=== PATIENT | female | born 1980 | race African-American/Black ===

== ENCOUNTER 2017-02-06 11:10 | Emergency (ER) | payer MEDICARE, MEDICAID ==
--- NOTE | 2017-02-06 13:48 | ER Document Report ---
ED Skin Rash/Insect Bite/Abscs - General Mode of Arrival: Ambulatory Information source: Patient TRAVEL OUTSIDE OF THE [place] IN LAST 30 DAYS: No <GEOVANNY COSTELLO - Last Filed: 02/06/17 15:31> <WESLY NUGENT - Last Filed: 02/16/17 11:09> - General Chief Complaint: Abscess Stated Complaint: POSSIBLE ABSCESS Time Seen by Provider: 02/06/17 13:41 Notes: Patient is a 36-year-old female who presents to the emergency department today with complaints of a possible abscess in her right groin area. Patient was seen 3 days ago at [facility] and was started on IV antibiotics and told to come back if this did not clear up. Patient states that this area has since opened and is draining. Patient states she was started on Bactrim by [facility]. Patient states she decided to come in today because she "rode into work with her mother". Patient states she is "hot and cold" but has not taken her temperature. (GEOVANNY COSTELLO) - Related Data Allergies/Adverse Reactions: No Known Allergies Allergy (Verified 02/06/17 11:19) Past Medical History - General Information source: Patient, [facility] Records - Social History Smoking Status: Never Smoker Cigarette use (# per day): No Frequency of alcohol use: None Drug Abuse: None Lives with: Family Family History: Reviewed & Not Pertinent Patient has suicidal ideation: No Patient has homicidal ideation: No - Past Medical History Cardiac Medical History: Reports: Hx Congestive Heart Failure, Hx Coronary Artery Disease, Hx Heart Attack, Hx Hypercholesterolemia, Hx Hypertension Pulmonary Medical History: Reports: Hx COPD Neurological Medical History: Reports: Hx Migraine Endocrine Medical History: Reports: Hx Diabetes Mellitus Type 2 - IDDM Renal/ Medical History: Reports: Hx Kidney Stones Musculoskeltal Medical History: Reports Hx Arthritis Psychiatric Medical History: Reports: Hx Bipolar Disorder, Hx Depression Past Surgical History: Reports: Hx Cardiac Catheterization, Hx Cardiac Surgery - stent placement, Hx Section - x2, Hx Cholecystectomy, Hx Coronary Stent, Hx Oral Surgery. Denies: Hx Pacemaker - Immunizations Immunizations up to date: Yes Hx Diphtheria, Pertussis, Tetanus Vaccination: Yes Hx Pneumococcal Vaccination: 09/21/10 <GEOVANNY COSTELLO - Last Filed: 02/06/17 15:31> Review of Systems - Review of Systems Constitutional: No symptoms reported EENT: No symptoms reported Cardiovascular: No symptoms reported Respiratory: No symptoms reported Gastrointestinal: No symptoms reported Genitourinary: No symptoms reported Female Genitourinary: No symptoms reported Musculoskeletal: No symptoms reported Skin: See HPI, Other - "Abscess" in right groin Hematologic/Lymphatic: No symptoms reported Neurological/Psychological: No symptoms reported -: Yes All other systems reviewed and negative <TRANGGEOVANNY - Last Filed: 02/06/17 15:31> Physical Exam <TRANGGEOVANNY - Last Filed: 02/06/17 15:31> <WESLY NUGENT - Last Filed: 02/16/17 11:09> - Vital signs Vitals: Temp Pulse Resp BP Pulse Ox 98.5 F 101 H 18 206/107 H 93 02/06/17 11:19 02/06/17 11:19 02/06/17 11:19 02/06/17 11:19 02/06/17 11:19 - Notes Notes: Physical Exam: General: Alert, appears well. HEENT: Normocephalic. Atraumatic. PERRLA. Extraocular movements intact. Oropharynx clear. Neck: Supple. Respiratory: No respiratory distress. Abdominal: Obese. Extremities: Moves all four extremities. Neurological: Normal cognition. AAOx4. Normal speech. Psychological: Normal affect. Normal Mood. Skin: Opening with purulent drainage to right inguinal area. No induration or surrounding erythema. No evidence of cellulitis, abscess formation, or necrotizing fasciitis. (TRANGGEOVANNY) Course <TRANGGEOVANNY - Last Filed: 02/06/17 15:31> - Laboratory Result Diagrams: 02/06/17 15:25 02/06/17 15:25 <WESLY NUGENT - Last Filed: 02/16/17 11:09> - Re-evaluation Re-evalutation: 02/06/17 13:50 As the emergency department recheck abscess in her inner thigh. She states she was seen and evaluated [place] [facility] is where she lives closer to on a at that time they told her that it was actively draining which it is still doing. They put her on antibiotics which she has been taking. She says she sees Dr. Mcgarry but that she was gone for 6 months and she is back now she says all of her refills on her medications and come from Dr. Mcgarry. He has not seen her in the last 6 or 7 months. Blood pressure is elevated here she reports being on multiple blood pressure medications. Patient she is well-appearing nontoxic in no acute distress afebrile heart rate and rhythm is regular without murmur gallop rub on palpation bilateral wheezes rhonchi right inner thigh she has an open area which is slightly draining but no superficial surrounding cellulitis crepitus necrosis or cellulitis there is no abscess formation is open and draining currently. Good pulses and perfusion. We will have him give her a shot of clindamycin due to basic laboratory evaluation on her and have her follow-up with Dr. Mcgarry on Thursday. Her dose of clonidine here for her blood pressure 02/06/17 18:00 I personally performed the services described in the documentation, reviewed and edited the documentation which was dictated to my scribe in my presence, and accurately records my words and actions. Patient well-appearing nontoxic mildly elevated CBC no active cellulitis crepitus necrosis or concerns for necrotizing fasciitis she is on Bactrim which is appropriate she will follow-up with her primary care physician on Thursday and discussed reasons for ED return sooner 02/06/17 18:07 Patient with elevated blood pressure takes 5 or 6 different blood pressure medications not sure whether she is compliant on them are not no emergent strokelike symptoms end organ damage or need to emergently intervene with that other than clonidine. She is in a follow-up with Dr. Mcgarry on Thursday and discussed reasons for ED return sooner. In addition to that she is asking for additional pain medication she was just seen and given pain medication and outlying emergency facility for the abscess the other day and she needs to get any additional medications for her primary care physician. (WESLY NUGENT) - Vital Signs Vital signs: Temp Pulse Resp BP Pulse Ox 98.5 F 97 20 177/121 H 99 02/06/17 11:19 02/06/17 18:00 02/06/17 18:00 02/06/17 18:00 02/06/17 18:00 - Laboratory Laboratory results interpreted by me: 02/06/17 02/06/17 15:25 15:25 WBC 13.9 H RBC 5.42 H Hgb 9.6 L Hct 31.1 L MCV 57 L MCH 17.8 L MCHC 31.0 L RDW 20.0 H Plt Count 146 L Absolute Neutrophils 10.2 H Sodium 135.9 L Carbon Dioxide 20 L Glucose 290 H Calcium 10.5 H Discharge <GEOVANNY COSTELLO - Last Filed: 02/06/17 15:31> <WESLY NUGENT - Last Filed: 02/16/17 11:09> - Discharge Clinical Impression: recheck abscess Condition: Stable Disposition: HOME, SELF-CARE Additional Instructions: Abscess You have an abscess (boil). This a pus-forming infection, usually due to staph. Some boils may be left to drain on their own, but most require lancing. From the time the tender lump first appears, it may be three or four days before the abscess is ready to dario. Local heat and rest help at this stage of treatment. An antibiotic may prevent spread of the infection. Once the abscess is opened, packing may be placed into it. This is done so pus is not sealed inside by premature closure of the cavity. The packing will be removed at your follow-up visit or you may be advised to remove it yourself at home. Sometimes this packing must be replaced a few times during healing. The wound will heal with surprisingly little scar. Depending on the size and location of an abscess, healing can take one to four weeks. You may shower and wash the area around the incision site two or three times a day. Antibiotics may be prescribed, but are usually not necessary after an abscess has been drained. If you develop fever, chilling, worsening pain, or increasing swelling in the area, call the doctor or return immediately. continue antibiotics as prescribed Follow-up with a primary care physician on Thursday return for increased worsening or new sent Scribe Attestation: 02/06/17 13:5 I personally performed the services described in the documentation, reviewed and edited the documentation which was dictated to my scribe in my presence, and it accurately records my words and actions. (WESLY NUGENT) Scribe Documentation - Scribe Written by Mandeep:: Mandeep Cunningham, 02/06/17 [id number] acting as scribe for :: Ephraim <GEOVANNY COSTELLO - Last Filed: 02/06/17 15:31>
[2017-02-06] MEDS ORDERED: CLINDAMYCIN PHOSPHATE INJ 300 MG/2 ML SDV IM ONE (13:49)
[2017-02-06] MEDS ORDERED: CLONIDINE HCL 0.1 MG TABLET PO ONE (13:55)
[2017-02-06 16:14] LABS: ABSOLUTE BASOPHILS # (AUTO) 0.1 10^3/uL (0.0-0.2); ABSOLUTE EOSINOPHILS # (AUTO) 0.2 10^3/uL (0.0-0.6); ABSOLUTE LYMPHOCYTES (AUTO) 2.3 10^3/uL (0.5-4.7); ABSOLUTE MONOCYTES (AUTO) 1.2 10^3/uL (0.1-1.4); ABSOLUTE NEUT (AUTO) 10.2 10^3/uL (1.7-8.2); BASOPHILS % (AUTO) 0.7 % (0-2); EOSINOPHILS % (AUTO) 1.4 % (0-6); HEMATOCRIT 31.1 % (36.0-47.0); HEMOGLOBIN 9.6 g/dL (12.0-15.5); HGB HCT DIFFERENCE -2.3; LYMPHOCYTES % (AUTO) 16.5 % (13-45); MEAN CORPUSCULAR HEMOGLOBIN 17.8 pg (27.0-33.4); MEAN CORPUSCULAR VOLUME 57 fl (80-97); MONOCYTES % (AUTO) 8.5 % (3-13); RED BLOOD COUNT 5.42 10^6/uL (3.72-5.28); SEGMENTED NEUTROPHILS % (AUTO) 72.9 % (42-78); WHITE BLOOD COUNT 13.9 10^3/uL (4.0-10.5)
[2017-02-06 16:17] LABS: ANION GAP 12 (5-19); BLOOD UREA NITROGEN 19 mg/dL (7-20); CALCIUM 10.5 mg/dL (8.4-10.2); CARBON DIOXIDE 20 mmol/L (22-30); CHLORIDE 104 mmol/L (98-107); CREATININE RESULT 1.04 mg/dL (0.52-1.25); GLUCOSE 290 mg/dL (75-110); POTASSIUM 4.5 mmol/L (3.6-5.0); SODIUM 135.9 mmol/L (137-145)
[2017-02-06 16:48] LABS: ANISOCYTOSIS 2+; HYPOCHROMASIA 2+; MICROCYTOSIS 3+; POIKILOCYTOSIS 1+; POLYCHROMASIA SLIGHT; TOXIC GRANULATION SLIGHT
[2017-02-06 16:49] LABS: TARGET CELLS 1+
[2017-02-06 20:04] VITALS: BP 177/121
== END 2017-02-06 18:05 | disposition home or self-care (01) ==
LOC: ER 11:10
DX: L02.214 Cutaneous abscess of groin (principal)
CPT/HCPCS: 99283; 96372; 36415; 85025; 80048; A9270

== ENCOUNTER 2017-05-06 18:12 | Emergency (ER) | payer MEDICARE, MEDICAID ==
--- NOTE | 2017-05-06 18:59 | ER Document Report ---
ED Medical Screen (RME) - General Chief Complaint: Shortness Of Breath Stated Complaint: HEADACHE,BODY ACHES Time Seen by Provider: 05/06/17 18:55 Mode of Arrival: Ambulatory Information source: Patient TRAVEL OUTSIDE OF THE [place] IN LAST 30 DAYS: No - HPI Patient complains to provider of: Abdominal pain with nausea and vomiting Onset: Yesterday Notes: 05/06/17 18:58 Patient is a 36-year-old female who presents to the emergency room complaining of 2 day history of upper abdominal pain with nausea and vomiting which is consistent with pancreatitis that patient has had in the past, which is related to alcohol abuse - Related Data Allergies/Adverse Reactions: No Known Allergies Allergy (Verified 05/06/17 18:17) Past Medical History - Past Medical History Cardiac Medical History: Reports: Hx Congestive Heart Failure, Hx Coronary Artery Disease, Hx Heart Attack, Hx Hypercholesterolemia, Hx Hypertension Pulmonary Medical History: Reports: Hx COPD Denies: Hx Tuberculosis Neurological Medical History: Reports: Hx Migraine. Denies: Hx Seizures Endocrine Medical History: Reports: Hx Diabetes Mellitus Type 1, Hx Diabetes Mellitus Type 2 - IDDM Renal/ Medical History: Reports: Hx Kidney Stones. Denies: Hx Peritoneal Dialysis Musculoskeltal Medical History: Reports Hx Arthritis Psychiatric Medical History: Reports: Hx Bipolar Disorder, Hx Depression Past Surgical History: Reports: Hx Cardiac Catheterization, Hx Cardiac Surgery - stent placement, Hx Section - x2, Hx Cholecystectomy, Hx Coronary Stent, Hx Oral Surgery. Denies: Hx Pacemaker - Immunizations Immunizations up to date: Yes Hx Diphtheria, Pertussis, Tetanus Vaccination: Yes Physical Exam - Vital signs Vitals: Temp Pulse Resp BP Pulse Ox 98.8 F 75 18 183/106 H 94 05/06/17 18:15 05/06/17 18:15 05/06/17 18:15 05/06/17 18:15 05/06/17 18:15 Course - Vital Signs Vital signs: Temp Pulse Resp BP Pulse Ox 98.8 F 75 18 183/106 H 94 05/06/17 18:15 05/06/17 18:15 05/06/17 18:15 05/06/17 18:15 05/06/17 18:15
[2017-05-06] MEDS ORDERED: ALBUTEROL SULFATE 0.083% NEB 2.5 MG/3 ML AMPUL NEB ONE (19:09)
--- NOTE | 2017-05-06 19:10 | ER Document Report ---
ED Medical Screen (RME) - General Chief Complaint: Shortness Of Breath Stated Complaint: HEADACHE,BODY ACHES Time Seen by Provider: 05/06/17 18:55 Mode of Arrival: Ambulatory Information source: Patient TRAVEL OUTSIDE OF THE [place] IN LAST 30 DAYS: No - HPI Patient complains to provider of: Cough, shortness of breath, chest pain Onset: Other - 2 weeks Notes: 05/06/17 19:09 Patient is a 36-year-old female who presents to the emergency room complaining of 2 week history of nonproductive cough with shortness of breath and chest pain , was seen by her primary care provider last Thursday and started on Breo which is not providing her any relief of symptoms, she is a smoker but reports she has not smoked since her illness started 2 weeks ago - Related Data Allergies/Adverse Reactions: No Known Allergies Allergy (Verified 05/06/17 18:17) Past Medical History - Past Medical History Cardiac Medical History: Reports: Hx Congestive Heart Failure, Hx Coronary Artery Disease, Hx Heart Attack, Hx Hypercholesterolemia, Hx Hypertension Pulmonary Medical History: Reports: Hx COPD Denies: Hx Tuberculosis Neurological Medical History: Reports: Hx Migraine. Denies: Hx Seizures Endocrine Medical History: Reports: Hx Diabetes Mellitus Type 1, Hx Diabetes Mellitus Type 2 - IDDM Renal/ Medical History: Reports: Hx Kidney Stones. Denies: Hx Peritoneal Dialysis Musculoskeltal Medical History: Reports Hx Arthritis Psychiatric Medical History: Reports: Hx Bipolar Disorder, Hx Depression Past Surgical History: Reports: Hx Cardiac Catheterization, Hx Cardiac Surgery - stent placement, Hx Section - x2, Hx Cholecystectomy, Hx Coronary Stent, Hx Oral Surgery. Denies: Hx Pacemaker - Immunizations Immunizations up to date: Yes Hx Diphtheria, Pertussis, Tetanus Vaccination: Yes Physical Exam - Vital signs Vitals: Temp Pulse Resp BP Pulse Ox 98.8 F 75 18 183/106 H 94 05/06/17 18:15 05/06/17 18:15 05/06/17 18:15 05/06/17 18:15 05/06/17 18:15 Course - Vital Signs Vital signs: Temp Pulse Resp BP Pulse Ox 98.8 F 75 18 183/106 H 94 05/06/17 18:15 05/06/17 18:15 05/06/17 18:15 05/06/17 18:15 05/06/17 18:15
[2017-05-06] MEDS ORDERED: DIPHENHYDRAMINE HCL 50 MG/ML VIAL IM ONE (21:52)
[2017-05-06] MEDS ORDERED: PROCHLORPERAZINE EDISYLATE INJ 10 MG/2 ML VIAL IM ONE (21:52)
[2017-05-06] MEDS ORDERED: KETOROLAC TROMETHAMINE 60 MG/2 ML SDV IM ONE (21:52)
--- NOTE | 2017-05-06 21:52 | ER Document Report ---
ED Respiratory Problem - General Mode of Arrival: Ambulatory Information source: Patient TRAVEL OUTSIDE OF THE [place] IN LAST 30 DAYS: No <GEOVANNY COSTELLO - Last Filed: 05/07/17 02:05> - HPI Onset: Last week <TOMMY DHALIWAL - Last Filed: 05/07/17 04:00> - General Chief Complaint: Shortness Of Breath Stated Complaint: HEADACHE,BODY ACHES Time Seen by Provider: 05/06/17 18:55 Notes: Patient is a 36-year-old female who presents to the emergency department today with complaints of multiple complaints including cough, fevers, back pain, chets pain, migraine headache, and generalized body aches. Patient was started on an inhaler and nasal spray on . Patient also saw another doctor who prescribed amoxicillin and a z-benjamin. Patient denies a history of asthma. (GEOVANNY COSTELLO) - Related Data Allergies/Adverse Reactions: No Known Allergies Allergy (Verified 05/06/17 18:17) Past Medical History - General Information source: Patient - Social History Smoking Status: Current Every Day Smoker Cigarette use (# per day): Yes Chew tobacco use (# tins/day): No Frequency of alcohol use: None Drug Abuse: None Lives with: Family Family History: Reviewed & Not Pertinent - Past Medical History Cardiac Medical History: Reports: Hx Congestive Heart Failure, Hx Coronary Artery Disease, Hx Heart Attack, Hx Hypercholesterolemia, Hx Hypertension Pulmonary Medical History: Reports: Hx COPD Neurological Medical History: Reports: Hx Migraine Endocrine Medical History: Reports: Hx Diabetes Mellitus Type 1, Hx Diabetes Mellitus Type 2 - IDDM Renal/ Medical History: Reports: Hx Kidney Stones Musculoskeltal Medical History: Reports Hx Arthritis Psychiatric Medical History: Reports: Hx Bipolar Disorder, Hx Depression Past Surgical History: Reports: Hx Cardiac Catheterization, Hx Cardiac Surgery - stent placement, Hx Section - x2, Hx Cholecystectomy, Hx Coronary Stent, Hx Oral Surgery - Immunizations Immunizations up to date: Yes Hx Diphtheria, Pertussis, Tetanus Vaccination: Yes Hx Pneumococcal Vaccination: 09/21/10 <GEOVANNY COSTELLO - Last Filed: 05/07/17 02:05> Review of Systems - Review of Systems Constitutional: See HPI, Fever EENT: No symptoms reported Cardiovascular: No symptoms reported Respiratory: See HPI, Cough Gastrointestinal: No symptoms reported Genitourinary: No symptoms reported Female Genitourinary: No symptoms reported Musculoskeletal: See HPI, Other - generalized body aches Skin: No symptoms reported Hematologic/Lymphatic: No symptoms reported Neurological/Psychological: No symptoms reported -: Yes All other systems reviewed and negative <GEOVANNY COSTELLO - Last Filed: 05/07/17 02:05> Physical Exam <GEOVANNY COSTELLO - Last Filed: 05/07/17 02:05> <TOMMY DHALIWAL - Last Filed: 05/07/17 04:00> - Vital signs Vitals: Temp Pulse Resp BP Pulse Ox 98.8 F 75 18 183/106 H 94 05/06/17 18:15 05/06/17 18:15 05/06/17 18:15 05/06/17 18:15 05/06/17 18:15 - Notes Notes: PHYSICAL EXAM GENERAL: Alert, interacts well. No acute distress. HEAD: Normocephalic, atraumatic. EYES: Pupils equal, round, and reactive to light. Extraocular movements intact. ENT: Oral mucosa moist, tongue midline. Cobblestoning. Left turbinate edema with clear rhinorrhea. TMs are clear bilaterally. NECK: Full range of motion. Supple. Trachea midline. LUNGS: Good air movement, clear to auscultation bilaterally, no wheezes, rales, or rhonchi. No respiratory distress. HEART: Regular rate and rhythm. No murmurs, gallops, or rubs. ABDOMEN: Obese. Soft, non-tender. Non-distended. Bowel sounds present in all 4 quadrants. EXTREMITIES: Moves all 4 extremities spontaneously. No edema, radial and dorsalis pedis pulses 2/4 bilaterally. No cyanosis. NEUROLOGICAL: Alert and oriented x3. Normal speech. PSYCH: Normal affect, normal mood. SKIN: Warm, dry, normal turgor. No rashes or lesions noted. (GEOVANNY COSTELLO) Course <GEOVANNY COSTELLO - Last Filed: 05/07/17 02:05> <TOMMY DHALIWAL - Last Filed: 05/07/17 04:00> - Re-evaluation Re-evalutation: 05/06/17 22:01 Chest x-ray shows no acute process as per my interpretation. Radiology reading is not available at this point. Patient symptoms consistent with acute bronchitis, already taking inhaled steroids, inhaled albuterol, amoxicillin as well as azithromycin, there is no further treatment that I can add for her acute bronchitis as she already has a prescription for prednisone but is not taking it due to her diabetes. Patient is not hypoxic, does not meet admission criteria. Patient's migraine will be treated with Toradol, Compazine, Benadryl. No evidence of meningitis. EKG is nonischemic, symptoms are not consistent with acute coronary syndrome, no indication for blood work at this time. Requested blood work will be canceled. Patient will be discharged home. (TOMMY DHALIWAL) - Vital Signs Vital signs: Temp Pulse Resp BP Pulse Ox 98.4 F 67 14 179/109 H 95 05/06/17 22:22 05/06/17 22:22 05/06/17 22:22 05/06/17 22:22 05/06/17 21:38 Discharge <GEOVANNY COSTELLO - Last Filed: 05/07/17 02:05> <TOMMY DHALIWAL - Last Filed: 05/07/17 04:00> - Discharge Clinical Impression: Tobacco abuse, Tobacco abuse counseling, Diabetes mellitus type 2 in obese Migraine headache Qualifiers: Migraine type: without aura Status migrainosus presence: with status migrainosus Intractability: intractable Qualified Code(s): G43.011 - Migraine without aura, intractable, with status migrainosus Acute bronchitis Qualifiers: Bronchitis organism: unspecified organism Qualified Code(s): J20.9 - Acute bronchitis, unspecified Hypertension Qualifiers: Hypertension type: essential hypertension Qualified Code(s): I10 - Essential ( primary) hypertension Condition: Stable Disposition: HOME, SELF-CARE Additional Instructions: Drink plenty fluids, continue taking her medications as prescribed. Return for worsening chest pain, worsening difficulty breathing or any new or concerning symptoms. Use the Tessalon Perles for suppression of your cough. Prescriptions: Benzonatate [Tessalon Perles 100 mg Capsule] 100 mg PO Q8HP PRN #40 capsule PRN Reason: Forms: Smoking Cessation Education, Elevated Blood Pressure Referrals: DORIE LUGO MD [Primary Care Provider] - Follow up in 3-5 days Scribe Attestation: 05/07/17 04:00 I personally performed the services described in the documentation, reviewed and edited the documentation which was dictated to the scribe in my presence, and it accurately records my words and actions. (TOMMY DHALIWAL) Scribe Documentation - Scribe Written by Mandeep:: Mandeep Cunningham, 05/07/2017 [id number] acting as scribe for :: Reuben <GEOVANNY COSTELLO - Last Filed: 05/07/17 02:05>
[2017-05-06 22:49] VITALS: BP 179/109
--- NOTE | 2017-05-07 08:12 | EKG REPORT ---
SEVERITY:- NORMAL ECG - SINUS RHYTHM : Confirmed by: Min Michel MD 07-May-2017 08:11:43
--- NOTE | 2017-05-08 14:03 | RADIOLOGY REPORT (SQ) ---
EXAM DESCRIPTION: CHEST SINGLE VIEW COMPLETED DATE/TIME: 05/06/2017 8:21 pm REASON FOR STUDY: sob COMPARISON: 01/02/2016 EXAM PARAMETERS: NUMBER OF VIEWS: One view. TECHNIQUE: Single frontal radiographic view of the chest acquired. RADIATION DOSE: NA LIMITATIONS: None. FINDINGS: LUNGS AND PLEURA: No opacities, masses or pneumothorax. No pleural effusion. MEDIASTINUM AND HILAR STRUCTURES: No masses. Contour normal. HEART AND VASCULAR STRUCTURES: Heart normal in size. Normal vasculature. BONES: No acute findings. HARDWARE: None in the chest. OTHER: No other significant finding. IMPRESSION: NO ACUTE RADIOGRAPHIC FINDING IN THE CHEST. TECHNICAL DOCUMENTATION: JOB ID: [id number]
== END 2017-05-06 22:49 | disposition home or self-care (01) ==
LOC: ER 18:12
DX: J44.0 Chronic obstructive pulmonary disease with (acute) lower respiratory infection (principal); J20.9 Acute bronchitis, unspecified; G43.011 Migraine without aura, intractable, with status migrainosus; I10 Essential (primary) hypertension; E11.9 Type 2 diabetes mellitus without complications; R05 Cough; J34.89 Other specified disorders of nose and nasal sinuses; R50.9 Fever, unspecified; R07.9 Chest pain, unspecified; M54.9 Dorsalgia, unspecified; I25.10 Atherosclerotic heart disease of native coronary artery without angina pectoris; I25.2 Old myocardial infarction; F17.210 Nicotine dependence, cigarettes, uncomplicated; Z71.6 Tobacco abuse counseling; Z98.61 Coronary angioplasty status
CPT/HCPCS: 93005; 99284; 96372; 71010; 93010; J1200; J1885; J0780; A9270

== ENCOUNTER 2018-01-19 03:30 | Emergency (ER) | payer MEDICARE, MEDICAID ==
[2018-01-19 03:41] VITALS: BP 159/107
[2018-01-19] MEDS ORDERED: HYDRALAZINE HCL INJ/PF 20 MG/1 ML SDV IV ONE (03:57)
[2018-01-19] MEDS ORDERED: HYDROMORPHONE HCL INJ/PF 2 MG/ML AMPULE IV ONE (03:57)
--- NOTE | 2018-01-19 04:05 | ER Document Report ---
ED General - General Chief Complaint: Nose Bleed Stated Complaint: NOSE BLEED Time Seen by Provider: 01/19/18 03:53 Notes: Patient is a pleasant 37-year-old female who presents with complaint of high blood pressure, some headache and back pain, and recurrent bloody nose. She has a history of poorly controlled blood pressure despite being on multiple blood pressure medications. Patient is on several blood pressure medications including Tekturna, clonidine, metoprolol, amlodipine. Patient says she is to call her medications today and has not missed any dosages. Patient says that she was just recently released from [facility]. She says she was admitted to ICU there because her blood pressure was high and she was having recurrent nosebleeds. She did have a packing in her left nare. The packing was removed and she actually signed out to the hospital because family member was sick and she want to come home. She came home her blood pressure started to get high again and she is had few episodes of the nose rebleeding. Currently the nose is not bleeding. She does have headache which she says she frequently gets. Headache is like her previous headaches. Headache is gradual in onset not sudden onset. No focal weakness or numbness. She denies any recent infections. No vomiting. No chest pain. No shortness of breath. No other complaints at this time. Her primary care doctor is Dr. Lugo who she called and he informed her to come to the ER. TRAVEL OUTSIDE OF THE [place] IN LAST 30 DAYS: No - Related Data Allergies/Adverse Reactions: No Known Allergies Allergy (Verified 05/06/17 18:17) Past Medical History - Social History Smoking Status: Unknown if Ever Smoked Frequency of alcohol use: None Drug Abuse: None Family History: Reviewed & Not Pertinent - Past Medical History Cardiac Medical History: Reports: Hx Congestive Heart Failure, Hx Coronary Artery Disease, Hx Heart Attack, Hx Hypercholesterolemia, Hx Hypertension Pulmonary Medical History: Reports: Hx COPD Denies: Hx Tuberculosis Neurological Medical History: Reports: Hx Migraine. Denies: Hx Seizures Endocrine Medical History: Reports: Hx Diabetes Mellitus Type 1, Hx Diabetes Mellitus Type 2 - IDDM Renal/ Medical History: Reports: Hx Kidney Stones. Denies: Hx Peritoneal Dialysis Musculoskeltal Medical History: Reports Hx Arthritis Psychiatric Medical History: Reports: Hx Bipolar Disorder, Hx Depression Past Surgical History: Reports: Hx Cardiac Catheterization, Hx Cardiac Surgery - stent placement, Hx Section - x2, Hx Cholecystectomy, Hx Coronary Stent, Hx Oral Surgery. Denies: Hx Pacemaker - Immunizations Immunizations up to date: Yes Hx Diphtheria, Pertussis, Tetanus Vaccination: Yes Hx Pneumococcal Vaccination: 09/21/10 Review of Systems - Review of Systems Notes: My Normal Review Basic REVIEW OF SYSTEMS: CONSTITUTIONAL : Denies fever, chills, or sweats. Denies recent illness. EENT: recent nose bleed. CARDIOVASCULAR: Denies chest pain. RESPIRATORY: Denies cough, cold, or chest congestion. Denies shortness of breath, difficulty breathing, or wheezing. GASTROINTESTINAL: Denies abdominal pain. Denies nausea, vomiting, or diarrhea. GENITOURINARY: Denies difficulty urinating, painful urination, burning, frequency, or blood in urine. MUSCULOSKELETAL: Denies neck or back pain or joint pain or swelling. SKIN: Denies rash or skin lesions. HEMATOLOGIC : Denies easy bruising or bleeding. NEUROLOGICAL: Denies altered mental status or loss of consciousness. Has a headache. Denies weakness or paralysis or loss of use of either side. Denies problems with gait or speech. Denies sensory or motor loss. ALL OTHER SYSTEMS REVIEWED AND NEGATIVE. Physical Exam - Vital signs Vitals: Temp Pulse Resp BP Pulse Ox 98.6 F 79 16 159/107 H 98 01/19/18 03:39 01/19/18 03:39 01/19/18 03:39 01/19/18 03:39 01/19/18 03:39 - Notes Notes: General Appearance: Well nourished, alert, cooperative, no acute distress, mild to moderate obvious discomfort. Vitals: reviewed, See vital signs table. Head: no swelling or tenderness to the head Eyes: PERRL, EOMI, Conjuctiva clear Mouth: No decreasd moisture Throat: No tonsillar inflammation, No airway obstruction, No lymphadenopathy Neck: Supple, no neck tenderness Lungs: No wheezing, No rales, No rhonci, No accessory muscle use, good air exchange bilaterally. Heart: Normal rate, Regular rythm, No murmur, no rub Abdomen: Normal BS, soft, No rigidity, No abdominal tenderness, No guarding, no rebound, no abdominal masses Extremities: strength 5/5 in all extremities, good pulses in all extremities, no swelling or tenderness in the extremities, no edema. Skin: warm, dry, appropriate color, no rash Neuro: speech clear, oriented x 3, normal affect, responds appropriately to questions. Cranial nerves II through XII are intact. Distal sensation intact. Patient moves all extremities without difficulty. Normal gait. Normal coordination of movements. Course - Re-evaluation Re-evalutation: 01/19/18 05:01 We are unable to get IV access in the patient. Patient's blood pressures actually improved quite been on his own. Is 147/92 now. He still has some headache. I will give an IM shot of Dilaudid. Also give her p.o. dose of hydralazine. Blood pressure continues to well and her headache resolves I suspect that she will most likely able to go home. She has no other concerning findings on exam and no other complaints at this time. - Vital Signs Vital signs: Temp Pulse Resp BP Pulse Ox 98.6 F 79 16 159/107 H 98 01/19/18 03:39 01/19/18 03:39 01/19/18 03:39 01/19/18 03:39 01/19/18 03:39 - EKG Interpretation by Me Additional EKG results interpreted by me: 01/19/18 05:13 EKG is reviewed and interpreted by me. EKG shows sinus rhythm with a rate of [address] segment elevation or depression. No ischemic T-wave inversions. Pure interval, QRS duration are within normal range. QTc interval slightly prolonged. Discharge - Discharge Clinical Impression: Hypertension Qualifiers: Hypertension type: unspecified Qualified Code(s): I10 - Essential (primary) hypertension Headache Qualifiers: Headache type: unspecified Headache chronicity pattern: episodic headache Intractability: not intractable Qualified Code(s): R51 - Headache Condition: Good Disposition: HOME, SELF-CARE Additional Instructions: Please follow up with Dr. Monteiro today for close reevaluation and discuss any further changes in your blood pressure medications. Please return to the ER immediately if you develop severe headaches, chest pain, difficulty breathing, vomiting, or feel unwell. Referrals: DORIE LUGO MD [Primary Care Provider] - 01/19/18
[2018-01-19] MEDS ORDERED: HYDRALAZINE HCL 10 MG TABLET PO ONE (05:00)
[2018-01-19] MEDS ORDERED: HYDROMORPHONE HCL INJ/PF 2 MG/ML AMPULE IM ONE (05:01)
--- NOTE | 2018-01-19 14:29 | EKG REPORT ---
SEVERITY:- ABNORMAL ECG - SINUS RHYTHM PROBABLE LEFT VENTRICULAR HYPERTROPHY BORDERLINE PROLONGED QT INTERVAL : Confirmed by: Christine Juarez 19-Jan-2018 14:28:25
== END 2018-01-19 06:25 | disposition home or self-care (01) ==
LOC: ER 03:30
DX: I10 Essential (primary) hypertension (principal); Z79.899 Other long term (current) drug therapy; R51 Headache; R04.0 Epistaxis; M54.9 Dorsalgia, unspecified; I25.10 Atherosclerotic heart disease of native coronary artery without angina pectoris; J44.9 Chronic obstructive pulmonary disease, unspecified; E11.9 Type 2 diabetes mellitus without complications; Z95.5 Presence of coronary angioplasty implant and graft
CPT/HCPCS: 93005; 99283; 96372; 93010; A9270; J1170; J3490

== ENCOUNTER 2018-04-25 02:24 | Emergency (ER) | payer MEDICARE, MEDICAID ==
[2018-04-25] MEDS ORDERED: ACETAMINOPHEN 325 MG TABLET PO ONE (06:42)
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
--- NOTE | 2018-04-25 07:46 | RADIOLOGY REPORT (SQ) ---
EXAM DESCRIPTION: XR CHEST 2 VIEWS COMPLETED DATE/TME: 04/25/2018 06:43 CLINICAL HISTORY: 37 years, Female, fEVER AND COUGH COMPARISON: None. NUMBER OF VIEWS: 2 LIMITATIONS: None. FINDINGS: Mild central edema pattern. Normal lung volume. Normal cardiac silhouette. Right upper abdominal clips. Intact bony thorax. IMPRESSION: Mild central edema pattern. Differential diagnosis includes atypical pneumonitis.
[2018-04-25 08:49] VITALS: BP 185/90
== END 2018-04-25 08:49 | disposition home or self-care (01) ==
LOC: ER 02:24
DX: J18.9 Pneumonia, unspecified organism (principal); I10 Essential (primary) hypertension; F17.200 Nicotine dependence, unspecified, uncomplicated; R05 Cough; J02.9 Acute pharyngitis, unspecified; M89.8X1 Other specified disorders of bone, shoulder; Y08.89XA Assault by other specified means, initial encounter; I25.10 Atherosclerotic heart disease of native coronary artery without angina pectoris; E11.9 Type 2 diabetes mellitus without complications; Z95.5 Presence of coronary angioplasty implant and graft
CPT/HCPCS: 99284; 71046; A9270

== ENCOUNTER → 2020-01-12 | Outpatient (CLI) | payer MEDICARE, MEDICAID ==
--- NOTE | 2020-01-12 12:43 | RADIOLOGY REPORT (SQ) ---
EXAM DESCRIPTION: NM LUNG PERFUSION SCAN IMAGES COMPLETED DATE/TIME: 01/12/2020 12:32 pm REASON FOR STUDY: SHORTNESS OF BREATH R06.02 SHORTNESS OF BREATH COMPARISON: None. RADIONUCLIDE AND DOSE: 5.18 millicuries TC-99m MAA The route of agent administration: Intravenous TECHNIQUE: Eight views of the lungs acquired following injection of MAA. LIMITATIONS: None. FINDINGS: PERFUSION: Perfusion images with normal homogenous activity and no wedge-shaped or segment al defects. OTHER: No other significant finding. IMPRESSION: NORMAL PERFUSION LUNG SCAN. TECHNICAL DOCUMENTATION: JOB ID: [id number] 2010 [employer]- All Rights Reserved Reading location - IP/workstation name: [email or web address]
--- NOTE | 2020-01-12 12:45 | RADIOLOGY REPORT (SQ) ---
EXAM DESCRIPTION: CHEST 2 VIEWS IMAGES COMPLETED DATE/TIME: 01/12/2020 12:31 pm REASON FOR STUDY: SHORTNESS OF BREATH COMPARISON: None. TECHNIQUE: Frontal and lateral radiographic views of the chest acquired. NUMBER OF VIEWS: Two view. LIMITATIONS: None. FINDINGS: LUNGS AND PLEURA: No opacities, masses or pneumothorax. No pleural effusion. MEDIASTINUM AND HILAR STRUCTURES: No masses or contour abnormalities. HEART AND VASCULAR STRUCTURES: Heart normal size. No evidence for failure. BONES: No acute findings. HARDWARE: None in the chest. OTHER: No other significant finding. IMPRESSION: NO SIGNIFICANT RADIOGRAPHIC FINDING IN THE CHEST. TECHNICAL DOCUMENTATION: JOB ID: [id number] 2010 [employer]- All Rights Reserved Reading location - IP/workstation name: [email or web address]
== END ==
LOC: RAD 11:41
PROVIDERS: ATTEND Internal Medicine
DX: R06.02 Shortness of breath (principal)
CPT/HCPCS: 71046; 78580; A9540; Q9969

== ENCOUNTER 2020-01-25 12:27 | Observation (INO) | payer MEDICARE, MEDICAID ==
--- NOTE | 2020-01-25 13:11 | RADIOLOGY REPORT (SQ) ---
EXAM DESCRIPTION: CHEST SINGLE VIEW IMAGES COMPLETED DATE/TIME: 01/25/2020 12:58 pm REASON FOR STUDY: Shortness of breath COMPARISON: 01/12/20. EXAM PARAMETERS: NUMBER OF VIEWS: One view. TECHNIQUE: Single frontal radiographic view of the chest acquired. RADIATION DOSE: NA LIMITATIONS: None. FINDINGS: LUNGS AND PLEURA: No opacities, masses or pneumothorax. No pleural effusion. MEDIASTINUM AND HILAR STRUCTURES: No masses. Contour normal. HEART AND VASCULAR STRUCTURES: Heart normal in size. Normal vasculature. BONES: No acute findings. HARDWARE: None in the chest. OTHER: No other significant finding. IMPRESSION: NO ACUTE RADIOGRAPHIC FINDING IN THE CHEST. TECHNICAL DOCUMENTATION: JOB ID: [id number] 2010 [employer]- All Rights Reserved Reading location - IP/workstation name: [email or web address]
--- NOTE | 2020-01-25 13:28 | ER Document Report ---
ED Respiratory Problem - General Chief Complaint: Shortness Of Breath Stated Complaint: SHORTNESS OF BREATH Time Seen by Provider: 01/25/20 12:45 Notes: CHIEF COMPLAINT: Shortness of breath and chest pain HPI: 39-year-old female with CHF history presenting for 1 week of shortness of breath with some chest pain and cough. No fever. Called her PCP who referred her into the emergency department. Discomfort is been constant for the last wee k. Patient also complaining of some leg swelling bilaterally ROS: See HPI - all other systems were reviewed and are otherwise negative Constitutional: no fever Eyes: no drainage, no blurred vision ENT: no runny nose, no sore throat Cardiovascular: + chest pain Resp: + SOB, + cough GI: no vomiting, no diarrhea, no abdominal pain : no dysuria Integumentary: no rash Allergy: no hives Musculoskeletal: no extremity pain, positive swelling Neurological: no numbness/tingling, no weakness MEDICATIONS: I agree with the patient medications as charted by the RN. ALLERGIES: I agree with the allergies as charted by the RN. PAST MEDICAL HISTORY/PAST SURGICAL HISTORY: Reviewed and agree as charted by RN. SOCIAL HISTORY: Reviewed and agree as charted by RN. FAMILY HISTORY: No significant familial comorbid conditions directly related to patient complaint EXAM: Reviewed vital signs as charted by RN. CONSTITUTIONAL: Alert and oriented and responds appropriately to questions. Well-appearing; well-nourished HEAD: Normocephalic; atraumatic EYES: PERRL; Conjunctivae clear, sclerae non-icteric ENT: normal nose; no rhinorrhea; moist mucous membranes; pharynx without lesions noted, no uvula edema or deviation, no tonsillar hypertrophy, phonation normal NECK: Supple without meningismus; non-tender; no cervical lymphadenopathy, no masses CARD: RRR; no murmurs, no clicks, no rubs, no gallops; symmetric distal pulses RESP: Normal chest excursion without splinting or tachypnea; breath sounds clear and equal bilaterally; no wheezes, no rhonchi, no rales, pulse oximetry 97% on room air not hypoxic ABD/GI: Normal bowel sounds; non-distended; soft, non-tender, no rebound, no guarding; no palpable organomegaly or masses. BACK: The back appears normal and is non-tender to palpation, there is no CVA tenderness EXT: Normal ROM in all joints; non-tender to palpation; no cyanosis, no effusio ns, no edema SKIN: Normal color for age and race; warm; dry; good turgor; no acute lesions noted NEURO: Moves all extremities equally; Motor and sensory function intact PSYCH: The patient's mood and manner are appropriate. Grooming and personal hygiene are appropriate. MDM: 39-year-old female with CHF history presenting for chest pain shortness of breath for 1 week. Screening orders were placed by her PCP, I have evaluated the patient, lung sounds are clear to auscultation chest x-ray on my review does not show evidence of CHF or pneumonia. Will obtain screening cardiac labs, plan to discuss with her PCP TRAVEL OUTSIDE OF THE [place] IN LAST 30 DAYS: No - Related Data Allergies/Adverse Reactions: No Known Allergies Allergy (Verified 05/06/17 18:17) Past Medical History - Social History Smoking Status: Current Every Day Smoker Chew tobacco use (# tins/day): No Frequency of alcohol use: None Drug Abuse: None Family History: Reviewed & Not Pertinent Patient has homicidal ideation: No - Past Medical History Cardiac Medical History: Reports: Hx Congestive Heart Failure, Hx Coronary Artery Disease, Hx Heart Attack, Hx Hypercholesterolemia, Hx Hypertension Pulmonary Medical History: Reports: Hx COPD Denies: Hx Tuberculosis Neurological Medical History: Reports: Hx Migraine. Denies: Hx Seizures Endocrine Medical History: Reports: Hx Diabetes Mellitus Type 1, Hx Diabetes Mellitus Type 2 - IDDM Renal/ Medical History: Reports: Hx Kidney Stones. Denies: Hx Peritoneal Dialysis Musculoskeletal Medical History: Reports Hx Arthritis Psychiatric Medical History: Reports: Hx Bipolar Disorder, Hx Depression - +anxiety Past Surgical History: Reports: Hx Cardiac Catheterization, Hx Cardiac Surgery - stent placement, Hx Section - x2, Hx Cholecystectomy, Hx Coronary Stent, Hx Oral Surgery. Denies: Hx Pacemaker - Immunizations Immunizations up to date: Yes Hx Diphtheria, Pertussis, Tetanus Vaccination: Yes Hx Pneumococcal Vaccination: 09/21/10 Physical Exam - Vital signs Vitals: Temp 98.2 F 01/25/20 12:33 Course - Re-evaluation Re-evalutation: 01/25/20 13:[address] Santos, patient is to be a direct admit but he indicates that I should evaluate the patient to ensure appropriateness of orders the patient is coming through the emergency department 01/25/20 14:35 Nursing is not captured the vital signs, I did capture myself noticed the patient's diastolic blood pressure was elevated. Will have nursing recheck the vital signs but will add nitroglycerin half inch to the chest wall 01/25/20 15:01 Nursing indicates they have still not gotten the blood work. They indicate they have been having difficulty with access. Patient has told him that she usually needs an EJ or a central line. Patient had already come in with admission or ders for direct admission. Lab is continuing to attempt to draw the blood work. They will call the admitting physician regarding need for access 01/25/20 15:37 Nursing has spoken with the patient's primary admitting doctor Dr. Peraza. Aware of the need for central placement, requests that we place the patient for admission even with labs pending at this time and he will assume responsibility for the patient so he can order PICC placement - Vital Signs Vital signs: Temp Pulse Resp BP Pulse Ox 98.5 F 77 16 186/116 H 96 01/25/20 12:48 01/25/20 12:48 01/25/20 15:00 01/25/20 14:50 01/25/20 15:00 - Laboratory Result Diagrams: 01/25/20 15:10 01/25/20 15:10 Discharge - Discharge Clinical Impression: Dyspnea Qualifiers: Dyspnea type: unspecified Qualified Code(s): R06.00 - Dyspnea, unspecified Condition: Fair Disposition: ADMITTED INPATIENT Admitting Provider: Dahlia Unit Admitted: Telemetry
[2020-01-25] MEDS ORDERED: NORMAL SALINE 250 ML with FUROSEMIDE 250 MG IV PRN ×2 (13:37)
[2020-01-25] MEDS ORDERED: NITROGLYCERIN 2% OINTMENT 1 GM PACKET TP ONE (14:34)
[2020-01-25 14:50] LABS: APPEARANCE,URINE SLIGHTLY-CLOUDY; BILIRUBIN,URINE NEGATIVE (NEGATIVE); COLOR,URINE YELLOW; GLUCOSE, URINE NEGATIVE (NEGATIVE); KETONES,URINE NEGATIVE (NEGATIVE); LEUKOCYTE ESTERASE,URINE TRACE (NEGATIVE); NITRITE,URINE NEGATIVE (NEGATIVE); PROTEIN,URINE 100 mg/dL (NEGATIVE); URINE SPECIFIC GRAVITY 1.009; UROBILINOGEN,URINE NEGATIVE mg/dL (<2.0)
[2020-01-25 15:06] LABS: URINE CREATININE 43.8 mg/dL (16-327); URINE PROTEIN 92.8 mg/dL (<12)
[2020-01-25 15:48] LABS: HEMATOCRIT 29.8 % (36.0-47.0); HEMOGLOBIN 9.6 g/dL (12.0-15.5); MEAN CORPUSCULAR HEMOGLOBIN 18.2 pg (27.0-33.4); MEAN CORPUSCULAR HGB CONC 32.3 g/dL (32.0-36.0); PLATELET COUNT 114 10^3/uL (150-450); RED BLOOD COUNT 5.29 10^6/uL (3.72-5.28); RED CELL DISTRIBUTION WIDTH 20.7 % (11.5-14.0)
[2020-01-25 15:52] LABS: ALKALINE PHOSPHATASE 62 U/L (38-126); ANION GAP 7 (5-19); ASPARTATE AMINO TRANSFERASE 18 U/L (14-36); BILIRUBIN,TOTAL 0.2 mg/dL (0.2-1.3); BLOOD UREA NITROGEN 33 mg/dL (7-20); CALCIUM 9.6 mg/dL (8.4-10.2); CARBON DIOXIDE 33 mmol/L (22-30); CHLORIDE 96 mmol/L (98-107); CREATINE KINASE 100 U/L (30-135); GLUCOSE 229 mg/dL (75-110); TOTAL PROTEIN 7.2 g/dL (6.3-8.2)
[2020-01-25 16:05] LABS: NT PRO BNP 517 pg/mL (<125)
[2020-01-25 16:11] LABS: TROPONIN I < 0.012 ng/mL
[2020-01-25 16:31] LABS: INTERNATIONAL RATION (INR) 0.94; PROTHROMBIN TIME 12.5 SEC (11.4-15.4)
[2020-01-25 16:33] LABS: D-DIMER 0.61 ug/mL (0.00-0.50)
[2020-01-25 16:43] LABS: ABSOLUTE LYMPHOCYTES# (MANUAL) 3.8 10^3/uL (0.5-4.7); ABSOLUTE MONOCYTES # (MANUAL) 0.2 10^3/uL (0.1-1.4); BASOPHILS % (MANUAL) 0 % (0-2); EOSINOPHILS % (MANUAL) 1 % (0-6); HYPERSEGMENTED NEUTROPHILS PRESENT; LYMPHOCYTES % (MANUAL) 44 % (13-45); MONOCYTES % (MANUAL) 3 % (3-13); SEGMENTED NEUTROPHILS % (MAN) 48 % (42-78); TOTAL CELLS COUNTED 100
[2020-01-25 16:44] LABS: HYPOCHROMASIA 4+
[2020-01-25 16:45] LABS: ANISOCYTOSIS 2+; PLATELET COMMENT DECREASED
[2020-01-25 16:47] LABS: POIKILOCYTOSIS SLIGHT; TARGET CELLS 2+
[2020-01-25 16:48] LABS: OVALOCYTES SLIGHT
[2020-01-25 16:54] LABS: MEAN CORPUSCULAR VOLUME 56 fl (80-97)
[2020-01-25 18:21] LABS: UR PRO/CREAT RATIO RESULT 2.1 mg/mg (0.0-0.2); URINE CREATININE 44.4 mg/dL (16-327); URINE PROTEIN 92.5 mg/dL (<12)
--- NOTE | 2020-01-25 19:31 | PDOC H&P ---
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 She called the office and said she was diagnosed with "water in the lung" and she wants to be admitted to the hospital. Unfortunately she has to go to the emergency room for evaluation,in the emergency room she she was evaluated she also had SARS-CoV-2 PCR testingThis was negative.The chest x-ray that was done was negative, CAT scan of the abdomen and pelvis with oral contrast demonstrated uterine fibroid nonobstructive left renal calculus.A 2D echo was done, it showed normal left ventricle systolic function, ejection fraction 60%, left ventricle is normal size and function, trace mitral valve regurgitation pericardial effusion no aortic valve stenosis.She also had a VQ scan that was negative for pulmonary embolism. Past Medical History Cardiac Medical History: Reports: Coronary Artery Disease, Myocardial Infarction, Hyperlipidema, Hypertension Pulmonary Medical History: Reports: Chronic Obstructive Pulmonary Disease (COPD) Neurological Medical History: Reports: Migraine Endocrine Medical History: Reports: Diabetes Mellitus Type 2 - IDDM Musculoskeltal Medical History: Reports: Arthritis Psychiatric Medical History: Reports: Bipolar Disorder, Depression - +anxiety Past Surgical History Past Surgical History: Reports: Cardiac Catheterization, Section - x2, Cholecystectomy, Coronary Stent Social History Smoking Status: Current Every Day Smoker Electronic Cigarette use?: No Frequency of Alcohol Use: Rare Hx Recreational Drug Use: Yes Drugs: Marijuana Hx Prescription Drug Abuse: No Family History Family History: Reviewed & Not Pertinent Parental Family History Reviewed: Yes Children Family History Reviewed: Yes Sibling(s) Family History Reviewed.: Yes Medication/Allergy Home Medications: Hydralazine HCl [Apresoline 50 mg Tablet] 100 mg PO TID 09/26/13 Gabapentin [Neurontin 100 mg Capsule] 100 mg PO TID 12/18/13 Clonidine HCl [Catapres] 0.3 mg pe PO TID 04/25/15 Sertraline HCl [Zoloft 50 mg Tablet] 50 mg PO DAILY 04/25/15 Metoprolol Succinate 200 mg PO DAILY #30 tab.sr.24h 04/27/15 Furosemide 40 mg PO DAILY 01/02/16 Zolpidem Tartrate 10 mg PO QHS 01/02/16 Aliskiren Hemifumarate [Aliskiren] 300 mg PO DAILY 01/25/20 Alprazolam 1 mg PO DAILY 01/25/20 Benztropine Mesylate [Cogentin 1 mg Tablet] 1 tab PO DAILY 01/25/20 Insulin Glargine,Hum.rec.anlog [Lantus Insulin 100 Unit/1 ml 10 ml] 5 unit SUBCUT TID 01/25/20 Insulin Lispro [Humalog] 5 unit SQ TID 01/25/20 Lurasidone HCl [Latuda 40 mg Tablet] 40 mg PO DAILY 01/25/20 Metolazone 10 mg PO DAILY 01/25/20 Hydrocodone/Acetaminophen [[place] 10-325 mg Tablet] 1 tab PO Q6H PRN #28 tablet 01/27/20 Allergies/Adverse Reactions: No Known Allergies Allergy (Verified 05/06/17 18:17) Review of Systems Constitutional: ABSENT: chills, fever(s), headache(s), weight gain, weight loss Eyes: ABSENT: visual disturbances Ears: ABSENT: hearing changes Cardiovascular: PRESENT: edema. ABSENT: chest pain, dyspnea on exertion, orthropnea, palpitations Respiratory: ABSENT: cough, hemoptysis Gastrointestinal: PRESENT: abdominal pain Genitourinary: ABSENT: dysuria, hematuria Musculoskeletal: ABSENT: joint swelling Integumentary: ABSENT: rash, wounds Neurological: ABSENT: abnormal gait, abnormal speech, confusion, dizziness, focal weakness, syncope Psychiatric: ABSENT: anxiety, depression, homidical ideation, suicidal ideation Endocrine: ABSENT: cold intolerance, heat intolerance, menstrual abnormalities, polydipsia, polyuria Hematologic/Lymphatic: ABSENT: easy bleeding, easy bruising, lymphadenopathy Physical Exam Vital Signs: Temp Pulse Resp BP Pulse Ox 98.5 F 77 16 186/116 H 96 01/25/20 12:48 01/25/20 12:48 01/25/20 15:00 01/25/20 14:50 01/25/20 15:00 Intake & Output 01/24/20 01/25/20 01/26/20 06:59 06:59 06:59 Weight 134.717 kg General appearance: PRESENT: no acute distress, morbidly obese Head exam: PRESENT: atraumatic, normocephalic Eye exam: PRESENT: PERRLA Ear exam: PRESENT: normal external ear exam Mouth exam: PRESENT: moist, tongue midline Neck exam: PRESENT: full ROM Respiratory exam: PRESENT: clear to auscultation herminia Cardiovascular exam: PRESENT: RRR, +S1, +S2 Pulses: PRESENT: normal dorsalis pedis pul, +2 pedal pulses bilateral Vascular exam: PRESENT: normal capillary refill GI/Abdominal exam: PRESENT: normal bowel sounds, soft Rectal exam: PRESENT: deferred Extremities exam: PRESENT: pedal edema Neurological exam: PRESENT: alert, CN II-XII grossly intact Psychiatric exam: PRESENT: appropriate affect, normal mood Skin exam: PRESENT: dry, intact, warm Results Laboratory Results: 01/25/20 15:10 01/25/20 15:10 01/25/20 01/25/20 01/25/20 14:23 15:10 15:10 WBC 8.0 RBC 5.29 H Hgb 9.6 L Hct 29.8 L MCV 56 L MCH 18.2 L MCHC 32.3 RDW 20.7 H Plt Count 114 L Seg Neutrophils % Not Reportable Sodium 136.2 L Potassium 4.0 Chloride 96 L Carbon Dioxide 33 H Anion Gap 7 BUN 33 H Creatinine 1.40 H Est GFR ( Amer) 51 L Glucose 229 H Calcium 9.6 Total Bilirubin 0.2 AST 18 Alkaline Phosphatase 62 Total Protein 7.2 Albumin 4.0 Urine Color YELLOW Urine Appearance SLIGHTLY-CLOUDY Urine pH 5.0 Ur Specific [place] 1.009 Urine Protein 100 H Urine Glucose (UA) NEGATIVE Urine Ketones NEGATIVE Urine Blood NEGATIVE Urine Nitrite NEGATIVE Ur Leukocyte Esterase TRACE H Urine WBC (Auto) 2 Urine RBC (Auto) 1 01/25/20 01/25/20 15:10 15:10 Creatine Kinase 100 CK-MB (CK-2) 0.60 Troponin I < 0.012 NT-Pro-B Natriuret Pep 517 H Impressions: Chest X-Ray 01/25/20 00:00 IMPRESSION: NO ACUTE RADIOGRAPHIC FINDING IN THE CHEST. Assessment & Plan - Diagnosis (1) Anasarca Is this a current diagnosis for this admission?: Yes Plan: She has generalized edema, she requires furosemide infusion (2) Abdominal wall cellulitis Is this a current diagnosis for this admission?: Yes Plan: Treat with IV clindamycin (3) Diabetes mellitus with nephropathy Is this a current diagnosis for this admission?: Yes (4) Fibroid uterus Qualifiers: Uterine leiomyoma location: intramural, submucous, and subserous Qualified Code(s): D25.1 - Intramural leiomyoma of uterus; D25.0 - Submucous leiomyoma of uterus; D25.2 - Subserosal leiomyoma of uterus Is this a current diagnosis for this admission?: Yes
--- NOTE | 2020-01-25 19:55 | EKG REPORT ---
SEVERITY:- NORMAL ECG - SINUS RHYTHM : Confirmed by: Min Michel MD 25-Jan-2020 19:54:24
[2020-01-25] MEDS: CLONIDINE HCL 0.2 MG TABLET PO SCH (22:34)
[2020-01-25] MEDS: HYDRALAZINE HCL 50 MG TABLET PO SCH (22:34)
[2020-01-25] MEDS: GABAPENTIN 100 MG CAPSULE PO SCH (22:34)
[2020-01-25] MEDS: HYDROCODONE/ACETAMINOPHEN 5-325 MG TABLET PO PRN (22:34)
[2020-01-25] MEDS: ZOLPIDEM TARTRATE 5 MG TABLET PO SCH (22:35)
[2020-01-25 23:16] LABS: CREATINE KINASE MB 0.42 ng/mL (<4.55)
[2020-01-25 23:23] LABS: TROPONIN I < 0.012 ng/mL
[2020-01-26] MEDS: HYDROCODONE/ACETAMINOPHEN 5-325 MG TABLET PO PRN ×4 (03:41→21:45)
[2020-01-26] MEDS: HYDRALAZINE HCL 50 MG TABLET PO SCH ×3 (05:22→21:46)
[2020-01-26] MEDS: GABAPENTIN 100 MG CAPSULE PO SCH ×3 (05:22→21:46)
[2020-01-26] MEDS: CLONIDINE HCL 0.2 MG TABLET PO SCH ×3 (05:22→21:46)
[2020-01-26 07:20] LABS: CREATINE KINASE MB 0.31 ng/mL (<4.55)
[2020-01-26 07:25] LABS: TROPONIN I < 0.012 ng/mL
[2020-01-26] MEDS: ALPRAZOLAM 0.5 MG TABLET PO SCH (09:16)
[2020-01-26] MEDS: BENZTROPINE MESYLATE 1 MG TABLET PO SCH (09:16)
[2020-01-26] MEDS: METOPROLOL SUCCINATE 50 MG TAB.SR.24H PO SCH (09:20)
[2020-01-26] MEDS: METOLAZONE 5 MG TABLET PO SCH (09:20)
[2020-01-26] MEDS ORDERED: NORMAL SALINE 250 ML with FUROSEMIDE 250 MG IV PRN ×2 (09:35)
[2020-01-26] MEDS ORDERED: FUROSEMIDE 40 MG TABLET PO SCH (10:00)
[2020-01-26] MEDS ORDERED: INSULIN LISPRO 100 UNIT/ML 3 ML VIAL SUBCUT SCH (10:00)
[2020-01-26] MEDS ORDERED: DEXTROSE 40% GEL 15 GM TUBE X 2 PO PRN (10:00)
[2020-01-26] MEDS ORDERED: INSULIN GLARGINE,HUM.REC.ANLOG 1,000 UNIT/10 ML VIAL SUBCUT SCH ×2 (10:00→22:00)
[2020-01-26] MEDS ORDERED: DEXTROSE 50%-WATER SYRINGE 25 GM/50 ML DOSE IV PRN (10:00)
[2020-01-26] MEDS ORDERED: GLUCAGON,HUMAN RECOMB 1 MG INJ IM PRN (10:00)
[2020-01-26] MEDS ORDERED: ALISKIREN HEMIFUMARATE 150 MG TABLET PO SCH ×2 (10:00→22:00)
[2020-01-26] MEDS ORDERED: DEXTROSE 50%-WATER SYRINGE 12.5 GM/25 ML DOSE IV PRN (10:00)
[2020-01-26] MEDS ORDERED: LURASIDONE HCL 40 MG TABLET PO SCH ×2 (10:00→22:00)
[2020-01-26] MEDS ORDERED: DEXTROSE 40% GEL 15 GM TUBE PO PRN (10:00)
[2020-01-26] MEDS ORDERED: ONDANSETRON HCL INJ/PF 4 MG/2 ML SDV ONE (11:06)
[2020-01-26] MEDS ORDERED: ONDANSETRON HCL INJ/PF 4 MG/2 ML SDV IV PRN (11:19)
--- NOTE | 2020-01-26 12:06 | RADIOLOGY REPORT (SQ) ---
EXAM DESCRIPTION: CT ABD/PELVIS ORAL ONLY IMAGES COMPLETED DATE/TIME: 01/26/2020 11:41 am REASON FOR STUDY: abdominal pain COMPARISON: 2014 TECHNIQUE: CT scan of the abdomen and pelvis performed without intravenous or oral contrast. Images reviewed with lung, soft tissue, and bone windows. Reconstructed coronal and sagittal MPR images revi ewed. All images stored on PACS. All CT scanners at this facility use dose modulation, iterative reconstruction, and/or weight based d osing when appropriate to reduce radiation dose to as low as reasonably achievable (ALARA). [facility]: Dose Right [facility]: CareDose [facility]: Dose Right [facility]: Teradose 4D [facility]: Smart In [employer] RADIATION DOSE: CT Rad equipment meets quality standard of care and radiation dose reduction techniq ues were employed. CTDIvol: 34.3 mGy. DLP: 2001 mGy-cm.mGy. LIMITATIONS: None. FINDINGS: LOWER CHEST: No significant findings. No nodules or infiltrates. NON-CONTRASTED LIVER, SPLEEN, ADRENALS: Evaluation limited by lack of IV contrast. No identified sign ificant masses. PANCREAS: No masses. No peripancreatic inflammatory changes. GALLBLADDER: Surgically absent. RIGHT KIDNEY AND URETER: No suspicious masses. Assessment limited by lack of IV contrast. No signif icant calcifications. No hydronephrosis or hydroureter. LEFT KIDNEY AND URETER: No suspicious masses. Assessment limited by lack of IV contrast. 3 mm stone lower pole. No hydronephrosis or hydroureter. AORTA AND RETROPERITONEUM: No aneurysm. No retroperitoneal masses or adenopathy. BOWEL AND PERITONEAL CAVITY: No obvious masses or inflammatory changes. No free fluid. APPENDIX: Not visualized. PELVIS, BLADDER, AND ABDOMINAL WALL:Enlarged fibroid uterus. BONES: No significant findings. OTHER: No other significant finding. IMPRESSION: 1. Nonobstructing left renal calculus. 2. Uterine fibroids. COMMENT: Quality ID # [id number]: Final reports with documentation of one or more dose reduction techniques (e.g., Automated exposure control, adjustment of the mA and/or kV according to patient size, use of iterative reconstruction technique) TECHNICAL DOCUMENTATION: JOB ID: [id number] 2010 [employer]- All Rights Reserved Reading location - IP/workstation name: [email or web address]
--- NOTE | 2020-01-26 12:56 | XCELERA REPORT ---
[address] [address] Transthoracic Echocardiogram Report Name: YULIANA ALVARADO Age: 39 yrs Gender: Female : 1980 Patient Status: Inpatient Patient Location: [place] [address]^A Study Date: 01/25/2020 03:29 PM History: CHF Height: 69 in Weight: 297 lb BSA: 2.4 m2 Procedure: A complete two-dimensional transthoracic echocardiogram was performed (2D, M-mode, spectral and color flow Doppler). The study was technically difficult with many images being suboptimal in quality. Reason For Study: chf Previous Evaluation: No previous studies were available. History: CHF. Shortness of breath. Ordering Physician: LEXIE BARRAZA Performed By: Sukhwinder Patel Interpretation Summary Left ventricular systolic function is normal. The Ejection Fraction estimate is 55-60% The right ventricle is normal in size and function. There is a trace amount of mitral regurgitation There is no aortic valve stenosis There is a trace amount of tricuspid regurgitation There is no pericardial effusion. MMode/2D Measurements & Calculations RVDd: 3.0 cm LVIDd: 4.8 cm FS: 38.3 % Ao root diam: 2.7 cm IVSd: 1.4 cm LVIDs: 3.0 cm EDV(Teich): 108.1 ml Ao root area: 5.8 cm2 LVPWd: 1.4 cm ESV(Teich): 34.2 ml LA dimension: 3.5 cm EF(Teich): 68.4 % Doppler Measurements & Calculations MV E max erick: MV P1/2t max erick: Ao V2 max: LV V1 max P.5 cm/sec 70.0 cm/sec 134.2 cm/sec 5.0 mmHg MV A max erick: MV P1/2t: 91.5 msec Ao max P.2 mmHg LV V1 max: 56.9 cm/sec MVA(P1/2t): 2.4 cm2 111.4 cm/sec MV E/A: 1.4 MV dec slope: 224.3 cm/sec2 MV dec time: 0.24 sec PA V2 max: PI end-d erick: MV P1/2t-pr_phl: 87.4 cm/sec 168.3 cm/sec 91.5 msec PA max P.1 mmHg Left Ventricle The left ventricle is normal in size. There is severe concentric left ventricular hypertrophy. Left ventricular systolic function is normal. The Ejection Fraction estimate is 55-60%. Doppler measurements suggest pseudonormalized left ventricular relaxation, which is associated with grade II/IV or mild to moderate diastolic dysfunction. No regional wall motion abnormalities noted. Right Ventricle The right ventricle is normal in size and function. Atria The right atrium is normal. The left atrium is borderline dilated. Mitral Valve The mitral valve is grossly normal. There is a trace amount of mitral regurgitation. Aortic Valve The aortic valve is normal in structure and function. The aortic valve opens well. The aortic valve is trileaflet. There is no aortic valve stenosis. No aortic regurgitation is present. Tricuspid Valve The tricuspid valve is normal in structure and function. There is a trace amount of tricuspid regurgitation. Tricuspid regurgitation jet envelope not well defined to measure RV systolic pressure accurately. Doppler findings do not suggest pulmonary hypertension. Pulmonic Valve The pulmonic valve is normal in structure and function. There is a mild amount of pulmonic regurgitation. Great Vessels The aortic root is normal size. The inferior vena cava appeared normal and decreased > 50% with respiration (RAP 5-10 mmHg). Effusions There is no pericardial effusion. : LEXIE BARRAZA Anil
[2020-01-26] MEDS: CLINDAMYCIN 600 MG/D5W RTU 600 MG/50 ML RTUPB IV SCH ×3 (13:04→21:53)
[2020-01-26] MEDS: INSULIN LISPRO 100 UNIT/ML 3 ML VIAL SUBCUT SCH ×3 (13:12→21:46)
[2020-01-26] MEDS: SERTRALINE HCL 50 MG TABLET PO SCH (13:12)
[2020-01-26] MEDS: DOCUSATE SODIUM 100 MG CAPSULE PO SCH (17:26)
[2020-01-26] MEDS: ZOLPIDEM TARTRATE 5 MG TABLET PO SCH (21:46)
--- NOTE | 2020-01-26 23:27 | RADIOLOGY REPORT (SQ) ---
NUCLEAR MEDICINE LUNG PERFUSION IMAGING Clinical indication: Cough. Elevated d-dimer Comparison: None. Correlation: None. Technique: Perfusion imaging was obtained as per standard protocol after intravenous administration of 5.35 mCi of technetium 99m labeled MAA. Findings: Homogeneous localization of radiotracer is identified on perfusion imaging. No segmental or subsegmental defects are identified to suggest a pulmonary embolus. Impression: No evidence of pulmonary embolus.
[2020-01-27] MEDS: CLINDAMYCIN 600 MG/D5W RTU 600 MG/50 ML RTUPB IV SCH ×2 (05:29→13:15)
[2020-01-27] MEDS: CLONIDINE HCL 0.2 MG TABLET PO SCH ×2 (05:30→13:14)
[2020-01-27] MEDS: GABAPENTIN 100 MG CAPSULE PO SCH ×2 (05:30→13:15)
[2020-01-27] MEDS: HYDRALAZINE HCL 50 MG TABLET PO SCH ×2 (05:30→13:15)
[2020-01-27] MEDS: INSULIN LISPRO 100 UNIT/ML 3 ML VIAL SUBCUT SCH ×3 (08:03→17:22)
[2020-01-27] MEDS: HYDROCODONE/ACETAMINOPHEN 5-325 MG TABLET PO PRN ×2 (08:07→17:26)
[2020-01-27] MEDS: METOPROLOL SUCCINATE 50 MG TAB.SR.24H PO SCH (09:27)
[2020-01-27] MEDS: DOCUSATE SODIUM 100 MG CAPSULE PO SCH ×2 (09:28→17:22)
[2020-01-27] MEDS: ALPRAZOLAM 0.5 MG TABLET PO SCH (09:28)
[2020-01-27] MEDS: METOLAZONE 5 MG TABLET PO SCH (09:28)
[2020-01-27] MEDS: SERTRALINE HCL 50 MG TABLET PO SCH (09:28)
[2020-01-27] MEDS: BENZTROPINE MESYLATE 1 MG TABLET PO SCH (09:28)
[2020-01-27 15:44] VITALS: BP 119/67
--- NOTE | 2020-01-27 20:39 | PDOC DISCHARGE SUMMARY ---
Impression - Admit/DC Date/PCP Admission Date/Primary Care Provider: 01/25/20 13:58 DORIE LUGO MD Discharge Date: 01/27/20 - Discharge Diagnosis (1) Anasarca Is this a current diagnosis for this admission?: Yes (2) Abdominal wall cellulitis Is this a current diagnosis for this admission?: Yes (3) Diabetes mellitus with nephropathy Is this a current diagnosis for this admission?: Yes (4) Fibroid uterus Is this a current diagnosis for this admission?: Yes - Additional Information Discharge Diet: Cardiac, Diabetic Discharge Activity: Activity As Tolerated, Balance Activity w/Rest Referrals: DORIE LUGO MD [Primary Care Provider] - Follow up as needed (Someone will call you Thursday with appointment time and day. ) Prescriptions: RX: Hydrocodone/Acetaminophen [[place] 10-325 mg Tablet] 1 tab PO Q6H PRN #28 tablet PRN Reason: Home Medications: RX: Hydralazine HCl [Apresoline 50 mg Tablet] 100 mg PO TID 09/26/13 RX: Gabapentin [Neurontin 100 mg Capsule] 100 mg PO TID 12/18/13 RX: Clonidine HCl [Catapres] 0.3 mg pe PO TID 04/25/15 RX: Sertraline HCl [Zoloft 50 mg Tablet] 50 mg PO DAILY 04/25/15 RX: Metoprolol Succinate 200 mg PO DAILY #30 tab.sr.24h 04/27/15 RX: Furosemide 40 mg PO DAILY 01/02/16 RX: Zolpidem Tartrate 10 mg PO QHS 01/02/16 RX: Aliskiren Hemifumarate [Aliskiren] 300 mg PO DAILY 01/25/20 RX: Alprazolam 1 mg PO DAILY 01/25/20 RX: Benztropine Mesylate [Cogentin 1 mg Tablet] 1 tab PO DAILY 01/25/20 RX: Insulin Glargine,Hum.rec.anlog [Lantus Insulin 100 Unit/1 ml 10 ml] 5 unit SUBCUT TID 01/25/20 RX: Insulin Lispro [Humalog] 5 unit SQ TID 01/25/20 RX: Lurasidone HCl [Latuda 40 mg Tablet] 40 mg PO DAILY 01/25/20 RX: Metolazone 10 mg PO DAILY 01/25/20 RX: Hydrocodone/Acetaminophen [[place] 10-325 mg Tablet] 1 tab PO Q6H PRN #28 tablet 01/27/20 History of Present Illiness History of Present Illness: YULIANA ALVARADO is a 39 year old female, She has a history of 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 She called the office and said she was diagnosed with "water in the lung" and she wants to be admitted to the hospital. Unfortunately she has to go to the emergency room for evaluation,in the emergency room she she was evaluated she also had SARS-CoV-2 PCR testingThis was negative.The chest x-ray that was done was negative, CAT scan of the abdomen and pelvis with oral contrast demonstrated uterine fibroid nonobstructive left renal calculus.A 2D echo was done, it showed normal left ventricle systolic function, ejection fraction 60%, left ventricle is normal size and function, trace mitral valve regurgitation pericardial effusion no aortic valve stenosis.She also had a VQ scan that was negative for pulmonary embolism. Hospital Course Hospital Course: Patient was admitted for the management of anasarca, elevated d-dimer, she was treated with furosemide infusion. 2D echo was done demonstrated preserved ejection fraction of left ventricle she has proteinuria, a VQ scan was done because of elevated d-dimer, negative for PE. She had CAT scan of the abdomen and pelvis with oral contrast for evaluation of abdominal pain, she was found to have fibroid, she had pain she was given treatment with hydrocodone for pain control. Physical Exam Vital Signs: Temp Pulse Resp BP Pulse Ox 97.5 F 76 18 119/67 94 01/27/20 18:16 01/27/20 18:16 01/27/20 18:16 01/27/20 18:16 01/27/20 18:16 Intake & Output 01/26/20 01/27/20 01/28/20 06:59 06:59 06:59 Intake Total 740 1506 836 Output Total 9484 2246 0360 Balance -187 -1678 -8865 Weight 134.7 kg 133.8 kg General appearance: PRESENT: no acute distress Eye exam: PRESENT: PERRLA Respiratory exam: PRESENT: clear to auscultation herminia Cardiovascular exam: PRESENT: +S1, +S2 GI/Abdominal exam: PRESENT: soft Neurological exam: PRESENT: alert Results Laboratory Results: WBC 8.0 10^3/uL (4.0-10.5) 01/25/20 15:10 RBC 5.29 10^6/uL (3.72-5.28) H 01/25/20 15:10 Hgb 9.6 g/dL (12.0-15.5) L 01/25/20 15:10 Hct 29.8 % (36.0-47.0) L 01/25/20 15:10 MCV 56 fl (80-97) L 01/25/20 15:10 MCH 18.2 pg (27.0-33.4) L 01/25/20 15:10 MCHC 32.3 g/dL (32.0-36.0) 01/25/20 15:10 RDW 20.7 % (11.5-14.0) H 01/25/20 15:10 Plt Count 114 10^3/uL (150-450) L 01/25/20 15:10 Lymph % (Auto) Not Reportable 01/25/20 15:10 Hunt % (Auto) Not Reportable 01/25/20 15:10 Eos % (Auto) Not Reportable 01/25/20 15:10 Baso % (Auto) Not Reportable 01/25/20 15:10 Absolute Neuts (auto) Not Reportable 01/25/20 15:10 Absolute Lymphs (auto) Not Reportable 01/25/20 15:10 Absolute Monos (auto) Not Reportable 01/25/20 15:10 Absolute Eos (auto) Not Reportable 01/25/20 15:10 Absolute Basos (auto) Not Reportable 01/25/20 15:10 Total Counted 100 01/25/20 15:10 Seg Neutrophils % Not Reportable 01/25/20 15:10 Seg Neuts % (Manual) 48 % (42-78) 01/25/20 15:10 Lymphocytes % (Manual) 44 % (13-45) 01/25/20 15:10 Atypical Lymphs % 4 % (0) 01/25/20 15:10 Monocytes % (Manual) 3 % (3-13) 01/25/20 15:10 Eosinophils % (Manual) 1 % (0-6) 01/25/20 15:10 Basophils % (Manual) 0 % (0-2) 01/25/20 15:10 Abs Neuts (Manual) 3.8 10^3/uL (1.7-8.2) 01/25/20 15:10 Abs Lymphs (Manual) 3.8 10^3/uL (0.5-4.7) 01/25/20 15:10 Abs Monocytes (Manual) 0.2 10^3/uL (0.1-1.4) 01/25/20 15:10 Absolute Eos (Manual) 0.1 10^3/uL (0.0-0.6) 01/25/20 15:10 Abs Basophils (Manual) 0.0 10^3/uL (0.0-0.2) 01/25/20 15:10 Hypersegmented Neuts PRESENT 01/25/20 15:10 Platelet Comment DECREASED 01/25/20 15:10 Hypochromasia 4+ 01/25/20 15:10 Poikilocytosis SLIGHT 01/25/20 15:10 Anisocytosis 2+ 01/25/20 15:10 Microcytosis 4+ 01/25/20 15:10 Target Cells 2+ 01/25/20 15:10 Ovalocytes SLIGHT 01/25/20 15:10 PT 12.5 SEC (11.4-15.4) 01/25/20 16:10 INR 0.94 01/25/20 16:10 INR (Anticoag Therapy) Cancelled 01/25/20 15:10 D-Dimer 0.61 ug/mL (0.00-0.50) H 01/25/20 16:10 Sodium 136.2 mmol/L (137-145) L 01/25/20 15:10 Potassium 4.0 mmol/L (3.6-5.0) 01/25/20 15:10 Chloride 96 mmol/L (98-107) L 01/25/20 15:10 Carbon Dioxide 33 mmol/L (22-30) H 01/25/20 15:10 Anion Gap 7 (5-19) 01/25/20 15:10 BUN 33 mg/dL (7-20) H 01/25/20 15:10 Creatinine 1.40 mg/dL (0.52-1.25) H 01/25/20 15:10 Est GFR ( Amer) 51 (>60) L 01/25/20 15:10 Est GFR (MDRD) Non-Af 42 (>60) L 01/25/20 15:10 Glucose 229 mg/dL (75-110) H 01/25/20 15:10 POC Glucose 205 mg/dL (70-110) H 01/27/20 17:19 Calcium 9.6 mg/dL (8.4-10.2) 01/25/20 15:10 Total Bilirubin 0.2 mg/dL (0.2-1.3) 01/25/20 15:10 Direct Bilirubin 0.0 mg/dL (0.0-0.4) 01/25/20 15:10 Neonat Total Bilirubin Not Reportable 01/25/20 15:10 Neonat Direct Bilirubin Not Reportable 01/25/20 15:10 Neonat Indirect Bili Not Reportable 01/25/20 15:10 AST 18 U/L (14-36) 01/25/20 15:10 ALT 13 U/L (<35) 01/25/20 15:10 Alkaline Phosphatase 62 U/L (38-126) 01/25/20 15:10 Creatine Kinase 69 U/L (30-135) 01/26/20 05:38 CK-MB (CK-2) 0.31 ng/mL (<4.55) 01/26/20 05:38 Troponin I < 0.012 ng/mL 01/26/20 05:38 NT-Pro-B Natriuret Pep 517 pg/mL (<125) H 01/25/20 15:10 Total Protein 7.2 g/dL (6.3-8.2) 01/25/20 15:10 Albumin 4.0 g/dL (3.5-5.0) 01/25/20 15:10 Urine Color YELLOW 01/25/20 14:23 Urine Appearance SLIGHTLY-CLOUDY 01/25/20 14:23 Urine pH 5.0 (5.0-9.0) 01/25/20 14:23 Ur Specific [place] 1.009 01/25/20 14:23 Urine Protein 100 mg/dL (NEGATIVE) H 01/25/20 14:23 Urine Glucose (UA) NEGATIVE mg/dL (NEGATIVE) 01/25/20 14:23 Urine Ketones NEGATIVE mg/dL (NEGATIVE) 01/25/20 14:23 Urine Blood NEGATIVE (NEGATIVE) 01/25/20 14:23 Urine Nitrite NEGATIVE (NEGATIVE) 01/25/20 14:23 Urine Bilirubin NEGATIVE (NEGATIVE) 01/25/20 14:23 Urine Urobilinogen NEGATIVE mg/dL (<2.0) 01/25/20 14:23 Ur Leukocyte Esterase TRACE (NEGATIVE) H 01/25/20 14:23 Urine WBC (Auto) 2 /HPF 01/25/20 14:23 Urine RBC (Auto) 1 /HPF 01/25/20 14:23 Urine Bacteria (Auto) TRACE /HPF 01/25/20 14:23 Squamous Epi Cells Auto 3 /HPF 01/25/20 14:23 Urine Mucus (Auto) RARE /LPF 01/25/20 14:23 Urine Creatinine 43.8 mg/dL (16-327) 01/25/20 14:23 Urine Creatinine 44.4 mg/dL (16-327) 01/25/20 14:23 Protein/Creatinin Ratio 2.1 mg/mg (0.0-0.2) H 01/25/20 14:23 Urine Total Protein 92.5 mg/dL (<12) H 01/25/20 14:23 Urine Total Protein 92.8 mg/dL (<12) H 01/25/20 14:23 Urine Ascorbic Acid NEGATIVE (NEGATIVE) 01/25/20 14:23 COVID-19 Source Cancelled 01/25/20 14:26 COVID-19 ([facility]) Cancelled 01/25/20 14:26 SARS-CoV-2 (PCR) NEGATIVE (NEGATIVE) 01/25/20 14:26 Slides for Path Review SEE COMMENT 01/25/20 15:10 01/25/20 01/25/20 01/26/20 15:10 22:46 05:38 CK-MB (CK-2) 0.60 0.42 0.31 Troponin I < 0.012 < 0.012 < 0.012 NT-Pro-B Natriuret Pep 517 H Impressions: Chest X-Ray 01/25/20 00:00 IMPRESSION: NO ACUTE RADIOGRAPHIC FINDING IN THE CHEST. Abdomen/Pelvis CT 01/26/20 00:00 IMPRESSION: 1. Nonobstructing left renal calculus. 2. Uterine fibroids. Stroke Is this a Stroke Patient?: No Acute Heart Failure - Is this a Heart Failure Patient?: No
== END 2020-01-27 18:33 | disposition home or self-care (01) ==
LOC: ER 12:27 → EH 13:58 → INTOOBSV 13:58 → 3W 18:40
PROVIDERS: ADMIT Internal Medicine; ATTEND Internal Medicine
DX: R60.1 Generalized edema (principal); L03.311 Cellulitis of abdominal wall; E11.21 Type 2 diabetes mellitus with diabetic nephropathy; E11.40 Type 2 diabetes mellitus with diabetic neuropathy, unspecified; D25.1 Intramural leiomyoma of uterus; D25.2 Subserosal leiomyoma of uterus; R07.9 Chest pain, unspecified; R06.02 Shortness of breath; I25.10 Atherosclerotic heart disease of native coronary artery without angina pectoris; N20.0 Calculus of kidney; R79.89 Other specified abnormal findings of blood chemistry; R80.9 Proteinuria, unspecified; R05 Cough; E66.01 Morbid (severe) obesity due to excess calories; I10 Essential (primary) hypertension; I25.2 Old myocardial infarction; F17.200 Nicotine dependence, unspecified, uncomplicated; I34.0 Nonrheumatic mitral (valve) insufficiency; I31.3 Pericardial effusion (noninflammatory); Z95.5 Presence of coronary angioplasty implant and graft; Z90.49 Acquired absence of other specified parts of digestive tract; Z79.899 Other long term (current) drug therapy; Z03.818 Encounter for observation for suspected exposure to other biological agents ruled out
CPT/HCPCS: 93005; 99285; 36415 ×2; 82553 ×2; 82962 ×3; 82550 ×2; 84156; 82570; 85025; 85610; 80076; 80048; 81001; 84484 ×2; 85379; 83880; 93306; 71045; 78580; 74176; 93010; U0003; A9540; A9270 ×33; J1940 ×2; J2405; J7050 ×2; Q9969; 87635; J1815; J3490

== ENCOUNTER 2020-04-11 19:15 | Emergency (ER) | payer MEDICARE, MEDICAID ==
[2020-04-11 19:54] VITALS: BP 205/117
[2020-04-11] MEDS ORDERED: HYDROCODONE/ACETAMINOPHEN 5-325 MG TABLET PO ONE (19:54)
[2020-04-11] MEDS ORDERED: CLONIDINE HCL 0.2 MG TABLET PO ONE (19:55)
--- NOTE | 2020-04-11 19:57 | ER Document Report ---
ED Medical Screen (RME) - General Chief Complaint: Hand Pain Stated Complaint: RIGHT HAND SWELLING AND PAIN Time Seen by Provider: 04/11/20 19:48 Primary Care Provider: DORIE LUGO MD [Primary Care Provider] - Follow up as needed Mode of Arrival: Ambulatory Information source: Patient Notes: Patient presents complaining of right thumb and hand pain that radiates into the forearm for the past 2 days. Patient denies any trauma to the hand. Patient denies any fever. Patient does have a history hypertension, CHF and diabetes. Patient hypertensive in triage and states that she has not had her evening dose of her clonidine. I have greeted and performed a rapid initial assessment of this patient. A comprehensive ED assessment and evaluation of the patient, analysis of test results and completion of the medical decision making process will be conducted by additional ED providers. TRAVEL OUTSIDE OF THE [place] IN LAST 30 DAYS: No - Related Data Allergies/Adverse Reactions: No Known Allergies Allergy (Verified 04/11/20 19:48) Past Medical History - Social History Frequency of alcohol use: None Drug Abuse: None - Past Medical History Cardiac Medical History: Reports: Hx Congestive Heart Failure, Hx Coronary Artery Disease, Hx Heart Attack, Hx Hypercholesterolemia, Hx Hypertension Pulmonary Medical History: Reports: Hx COPD Denies: Hx Tuberculosis Neurological Medical History: Reports: Hx Migraine. Denies: Hx Seizures Endocrine Medical History: Reports: Hx Diabetes Mellitus Type 1, Hx Diabetes Mellitus Type 2 - IDDM Renal/ Medical History: Reports: Hx Kidney Stones. Denies: Hx Peritoneal Dialysis Musculoskeltal Medical History: Reports Hx Arthritis Psychiatric Medical History: Reports: Hx Bipolar Disorder, Hx Depression - +anxiety Past Surgical History: Reports: Hx Cardiac Catheterization, Hx Cardiac Surgery - stent placement, Hx Section - x2, Hx Cholecystectomy, Hx Coronary Stent, Hx Oral Surgery. Denies: Hx Pacemaker - Immunizations Immunizations up to date: Yes Hx Diphtheria, Pertussis, Tetanus Vaccination: Yes Physical Exam - Vital signs Vitals: Temp Pulse Resp BP Pulse Ox 99.0 F 85 20 205/117 H 100 04/11/20 19:52 04/11/20 19:52 04/11/20 19:52 04/11/20 19:52 04/11/20 19:52 - General General appearance: Alert, Anxious Notes: Patient with paronychia to right thumb with swelling that extends to the palmar surface of the thumb worrisome for felon. Patient with tenderness and swelling to the entire right thumb, tenderness does extend to the middle third of the right forearm Course - Vital Signs Vital signs: Temp Pulse Resp BP Pulse Ox 99.0 F 85 20 205/117 H 100 04/11/20 19:52 04/11/20 19:52 04/11/20 19:52 04/11/20 19:52 04/11/20 19:52 Doctor's Discharge - Discharge Referrals: DORIE LUGO MD [Primary Care Provider] - Follow up as needed
== END 2020-04-12 05:41 | disposition left against medical advice (07) ==
LOC: ER 19:15
DX: Z53.20 Procedure and treatment not carried out because of patient's decision for unspecified reasons (principal); M79.641 Pain in right hand; M79.631 Pain in right forearm; I11.0 Hypertensive heart disease with heart failure; I50.9 Heart failure, unspecified; E11.9 Type 2 diabetes mellitus without complications
CPT/HCPCS: 99281; A9270 ×2

== ENCOUNTER 2020-04-12 16:43 | Inpatient (IN) | payer MEDICARE, MEDICAID ==
--- NOTE | 2020-04-12 17:12 | ER Document Report ---
ED Medical Screen (RME) - General Chief Complaint: Abscess Stated Complaint: DIRECT ADMIT Time Seen by Provider: 04/12/20 16:57 Primary Care Provider: DORIE LUGO MD [Primary Care Provider] - Follow up as needed Mode of Arrival: Ambulatory Information source: Patient Notes: Patient is a 39-year-old female who comes through the emergency room with direct admission papers however there are no rooms available in the floor so we are going to start to expedite some of the labs from the emergency room. At this point he was direct admit by Dr. Lugo for a infected left paronychia of the left thumb. Partial the orders also stated she has multiple comorbidities. This is to include CHF insulin-dependent diabetes. Also in the orders was he wanted a Ortho consult for an I&D to the area. Patient rates her pain as a 4 out of 5 at present. Physical examination: Patient is a well-nourished well-developed 39-year-old female who is in no apparent distress on physical exam this evening however she does appear uncomfortable. Patient comes in holding her right hand into her body because of the pain and discomfort. Cardiac shows irregular rate at 85 bpm no murmurs were heard. Lungs: Bilateral breath sounds breath sounds decreased throughout no rhonchi rales or wheezing heard on auscultation at present. Right upper extremity does show a paronychia on the lateral aspect of the right thumb some mild swelling to the thumb area itself and into the dorsal aspect minimally. TRAVEL OUTSIDE OF THE [place] IN LAST 30 DAYS: No - Related Data Allergies/Adverse Reactions: No Known Allergies Allergy (Verified 04/12/20 16:56) Home Medications: dm. chf. htn. bells palsy. anxiety. insomnia. depression Past Medical History - Social History Chew tobacco use (# tins/day): No Frequency of alcohol use: None Drug Abuse: None - Past Medical History Cardiac Medical History: Reports: Hx Congestive Heart Failure, Hx Coronary Artery Disease, Hx Heart Attack, Hx Hypercholesterolemia, Hx Hypertension Pulmonary Medical History: Reports: Hx COPD Denies: Hx Tuberculosis Neurological Medical History: Reports: Hx Migraine. Denies: Hx Seizures Endocrine Medical History: Reports: Hx Diabetes Mellitus Type 1, Hx Diabetes Mellitus Type 2 - IDDM Renal/ Medical History: Reports: Hx Kidney Stones. Denies: Hx Peritoneal Dialysis Musculoskeltal Medical History: Reports Hx Arthritis Psychiatric Medical History: Reports: Hx Bipolar Disorder, Hx Depression - +anxiety Past Surgical History: Reports: Hx Cardiac Catheterization, Hx Cardiac Surgery - stent placement, Hx Section - x2, Hx Cholecystectomy, Hx Coronary Stent, Hx Oral Surgery. Denies: Hx Pacemaker - Immunizations Immunizations up to date: Yes Hx Diphtheria, Pertussis, Tetanus Vaccination: Yes Physical Exam - Vital signs Vitals: Temp Pulse Resp BP Pulse Ox 98.7 F 85 22 H 173/130 H 96 04/12/20 16:48 04/12/20 16:48 04/12/20 16:48 04/12/20 16:48 04/12/20 16:48 Course - Vital Signs Vital signs: Temp Pulse Resp BP Pulse Ox 98.7 F 85 22 H 173/130 H 96 04/12/20 16:56 04/12/20 16:48 04/12/20 16:48 04/12/20 16:48 04/12/20 16:48 Doctor's Discharge - Discharge Referrals: DORIE LUGO MD [Primary Care Provider] - Follow up as needed
[2020-04-12] MEDS ORDERED: DEXTROSE 40% GEL 15 GM TUBE PO PRN ×2 (20:36)
[2020-04-12] MEDS ORDERED: GLUCAGON,HUMAN RECOMB 1 MG INJ IM PRN (20:36)
[2020-04-12] MEDS ORDERED: DEXTROSE 50%-WATER 25 GM/50 ML DISP.SYRIN IV PRN ×2 (20:36)
[2020-04-12] MEDS ORDERED: ACETAMINOPHEN 325 MG TABLET PO ONE (20:38)
[2020-04-12] MEDS ORDERED: ACETAMINOPHEN 325 MG TABLET ONE (20:40)
[2020-04-12] MEDS ORDERED: VANCOMYCIN HCL 0 MG in DEXTROSE 5%-WATER 250 ML IV NR (20:45)
[2020-04-12] MEDS ORDERED: ENOXAPARIN SODIUM INJ 40 MG/0.4 ML DISP.SYRIN SUBCUT ONE (22:00)
[2020-04-12] MEDS ORDERED: PIPERACILLIN SODIUM/TAZOBACTAM 3.375 GM in NORMAL SALINE 100 ML IV ONE (22:00)
[2020-04-12 22:44] LABS: HEMATOCRIT 30.2 % (36.0-47.0); HEMOGLOBIN 9.3 g/dL (12.0-15.5); MEAN CORPUSCULAR HEMOGLOBIN 17.3 pg (27.0-33.4); MEAN CORPUSCULAR HGB CONC 30.8 g/dL (32.0-36.0); MEAN CORPUSCULAR VOLUME 56 fl (80-97); PLATELET COUNT 256 10^3/uL (150-450); RED BLOOD COUNT 5.38 10^6/uL (3.72-5.28); RED CELL DISTRIBUTION WIDTH 20.1 % (11.5-14.0); WHITE BLOOD COUNT 9.9 10^3/uL (4.0-10.5)
[2020-04-12] MEDS: INSULIN LISPRO 100 UNIT/ML 3 ML VIAL SUBCUT SCH (22:52)
[2020-04-12] MEDS ORDERED: VANCOMYCIN HCL 1,500 MG in DEXTROSE 5%-WATER 250 ML IV SCH (23:00)
[2020-04-12 23:01] LABS: ABSOLUTE LYMPHOCYTES# (MANUAL) 1.8 10^3/uL (0.5-4.7); ABSOLUTE MONOCYTES # (MANUAL) 0.5 10^3/uL (0.1-1.4); BASOPHILS % (MANUAL) 0 % (0-2); EOSINOPHILS % (MANUAL) 1 % (0-6); LYMPHOCYTES % (MANUAL) 18 % (13-45); MONOCYTES % (MANUAL) 5 % (3-13); SEGMENTED NEUTROPHILS % (MAN) 76 % (42-78); TOTAL CELLS COUNTED 100
[2020-04-12 23:02] LABS: ANISOCYTOSIS 2+
[2020-04-12 23:04] LABS: OVALOCYTES SLIGHT; PLATELET COMMENT ADEQUATE; PLATELET LARGE PRESENT; POIKILOCYTOSIS SLIGHT; POLYCHROMASIA SLIGHT; TARGET CELLS 1+
[2020-04-12 23:06] LABS: HYPOCHROMASIA 2+
[2020-04-12 23:16] LABS: ALBUMIN 3.6 g/dL (3.5-5.0); ALKALINE PHOSPHATASE 56 U/L (38-126); ANION GAP 5 (5-19); ASPARTATE AMINO TRANSFERASE 17 U/L (14-36); BILIRUBIN,TOTAL 0.3 mg/dL (0.2-1.3); BLOOD UREA NITROGEN 13 mg/dL (7-20); CALCIUM 9.1 mg/dL (8.4-10.2); CARBON DIOXIDE 24 mmol/L (22-30); CHLORIDE 107 mmol/L (98-107); GLUCOSE 194 mg/dL (75-110); POTASSIUM 3.6 mmol/L (3.6-5.0); TOTAL PROTEIN 6.7 g/dL (6.3-8.2)
[2020-04-13] MEDS: HYDROMORPHONE HCL INJ/PF 2 MG/ML AMPULE IV PRN ×6 (02:02→22:53)
[2020-04-13] MEDS ORDERED: VANCOMYCIN HCL 1,500 MG in DEXTROSE 5%-WATER 250 ML IV ONE (03:15)
[2020-04-13] MEDS ORDERED: PIPERACILLIN/TAZOBACTAM 3.375 GM VIAL IV ONE (05:43)
[2020-04-13] MEDS: PIPERACILLIN SODIUM/TAZOBACTAM 3.375 GM in NORMAL SALINE 100 ML IV SCH ×4 (05:58→23:43)
[2020-04-13] MEDS: INSULIN LISPRO 100 UNIT/ML 3 ML VIAL SUBCUT SCH ×4 (07:51→22:48)
[2020-04-13] MEDS ORDERED: (PENDING PHARMACY ID) (Zolpidem Tartrate [Zolpidem Tartrate] 10 MG) PO SCH (08:15)
--- NOTE | 2020-04-13 08:20 | PDOC H&P ---
History of Present Illness Admission Date/PCP: 04/12/20 18:50 DORIE LUGO MD History of Present Illness: YULIANA ALVARADO is a 39 year old female, She has multiple morbid conditions, she came to the office for evaluation of paronychia of the right thumb, there was obvious abscess, she need to have incision and drainage. She has diabetes mellitus with complication including nephropathy, history of ischemic heart disease status post coronary artery stenting, tobacco abuse. 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 patient was first referred to the ER and ultimately admitted to the floor Past Medical History Cardiac Medical History: Reports: Congestive Heart Failure, Coronary Artery Disease, Myocardial Infarction, Hyperlipidema, Hypertension Pulmonary Medical History: Reports: Chronic Obstructive Pulmonary Disease (COPD) Neurological Medical History: Reports: Migraine Endocrine Medical History: Reports: Diabetes Mellitus Type 2 - IDDM, Obesity Musculoskeltal Medical History: Reports: Arthritis Psychiatric Medical History: Reports: Bipolar Disorder, Depression - +anxiety Past Surgical History Past Surgical History: Reports: Cardiac Catheterization, Section - x2, Cholecystectomy, Coronary Stent Social History Smoking Status: Current Every Day Smoker Electronic Cigarette use?: No Frequency of Alcohol Use: Rare Hx Recreational Drug Use: Yes Drugs: Marijuana Hx Prescription Drug Abuse: No - Advance Directive Resuscitation Status: Full Code Family History Family History: Reviewed & Not Pertinent Parental Family History Reviewed: Yes Children Family History Reviewed: Yes Sibling(s) Family History Reviewed.: Yes Medication/Allergy Home Medications: Hydralazine HCl [Apresoline 50 mg Tablet] 50 mg PO TID 09/26/13 Clonidine HCl [Catapres] 0.3 mg PO TID 04/25/15 Sertraline HCl [Zoloft 50 mg Tablet] 100 mg PO DAILY 04/25/15 Zolpidem Tartrate 10 mg PO QHS 01/02/16 Alprazolam 1 mg PO DAILY 01/25/20 Insulin Glargine,Hum.rec.anlog [Lantus Insulin 100 Unit/1 ml 10 ml] 50 unit SUBCUT BID 01/25/20 Insulin Lispro [Humalog] 0 unit SQ .SLIDING SCALE 01/25/20 Lurasidone HCl [Latuda 40 mg Tablet] 40 mg PO DAILY 01/25/20 Aliskiren Hemifumarate [Tekturna 300 Mg Tablet] 300 mg PO DAILY 04/13/20 Cyclobenzaprine HCl [Flexeril 10 mg Tablet] 10 mg PO BID 04/13/20 Doxepin HCl [Sinequan 25 Mg Capsule] 25 mg PO QHS 04/13/20 Gabapentin [Neurontin] 600 mg PO TID 04/13/20 Metformin HCl 1,000 mg PO BID 04/13/20 Allergies/Adverse Reactions: No Known Allergies Allergy (Verified 04/12/20 16:56) Review of Systems Constitutional: ABSENT: chills, fever(s), headache(s), weight gain, weight loss Eyes: ABSENT: visual disturbances Ears: ABSENT: hearing changes Cardiovascular: ABSENT: chest pain, dyspnea on exertion, edema, orthropnea, palpitations Respiratory: ABSENT: cough, hemoptysis Gastrointestinal: ABSENT: abdominal pain, constipation, diarrhea, hematemesis, hematochezia, nausea, vomiting Genitourinary: ABSENT: dysuria, hematuria Musculoskeletal: PRESENT: other - pain in the right thumb. ABSENT: joint swelling Integumentary: ABSENT: rash, wounds Neurological: ABSENT: abnormal gait, abnormal speech, confusion, dizziness, focal weakness, syncope Psychiatric: ABSENT: anxiety, depression, homidical ideation, suicidal ideation Endocrine: ABSENT: cold intolerance, heat intolerance, menstrual abnormalities, polydipsia, polyuria Hematologic/Lymphatic: ABSENT: easy bleeding, easy bruising, lymphadenopathy Physical Exam Vital Signs: Temp Pulse Resp BP Pulse Ox 98.1 F 67 21 H 198/116 H 100 04/13/20 07:37 04/13/20 07:37 04/13/20 07:37 04/13/20 07:37 04/13/20 07:37 Intake & Output 04/12/20 04/13/20 04/14/20 06:59 06:59 06:59 Intake Total 570 Output Total 400 Balance 170 Weight 125.1 kg General appearance: PRESENT: no acute distress Head exam: PRESENT: atraumatic, normocephalic Eye exam: PRESENT: conjunctiva pink, EOMI, PERRLA Ear exam: PRESENT: normal external ear exam Mouth exam: PRESENT: moist, tongue midline Neck exam: PRESENT: full ROM Respiratory exam: PRESENT: clear to auscultation herminia Cardiovascular exam: PRESENT: RRR, +S1, +S2 Vascular exam: PRESENT: normal capillary refill GI/Abdominal exam: PRESENT: normal bowel sounds, soft Rectal exam: PRESENT: deferred Musculoskeletal exam: PRESENT: other - Right thumb,swelling ,paronychia with visible abscess Neurological exam: PRESENT: alert, CN II-XII grossly intact Psychiatric exam: PRESENT: appropriate affect, normal mood Skin exam: PRESENT: dry, intact, warm Results Laboratory Results: 04/12/20 22:22 04/12/20 22:22 04/12/20 04/12/20 04/12/20 22:22 22:22 22:22 WBC 9.9 RBC 5.38 H Hgb 9.3 L Hct 30.2 L MCV 56 L MCH 17.3 L MCHC 30.8 L RDW 20.1 H Plt Count 256 Seg Neutrophils % Not Reportable Sodium 136.0 L Potassium 3.6 Chloride 107 Carbon Dioxide 24 Anion Gap 5 BUN 13 Creatinine 0.92 Est GFR ( Amer) > 60 Glucose 194 H Calcium 9.1 Total Bilirubin 0.3 Cancelled AST 17 Cancelled Alkaline Phosphatase 56 Cancelled Total Protein 6.7 Cancelled Albumin 3.6 Cancelled Assessment & Plan - Diagnosis (1) Abscess of right thumb Is this a current diagnosis for this admission?: Yes Plan: Start antibiotic to cover MRSA, gram-negative, gram-positive organisms consulted orthopedic for I&D (2) Paronychia of right thumb Is this a current diagnosis for this admission?: Yes (3) T2DM (type 2 diabetes mellitus) Qualifiers: Diabetes mellitus prison insulin use: with prison use Diabetes mellitus complication status: with kidney complications Diabetes mellitus complication detail: with nephropathy Qualified Code(s): E11.21 - Type 2 diabetes mellitus with diabetic nephropathy; 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 transplanted heart: [place] heart Associated angina: without angina Qualified Code(s): I25.10 - Atherosclerotic heart disease of [place] coronary artery without angina pectoris Is this a current diagnosis for this admission?: Yes (5) Morbid obesity Is this a current diagnosis for this admission?: Yes - Time Time Spent: Greater than 70 Minutes Medications reviewed and adjusted accordingly: Yes Anticipated discharge: Home Anticipated DC Timeframe: within 24 hours
[2020-04-13] MEDS ORDERED: INSULIN GLARGINE,HUM.REC.ANLOG 1,000 UNIT/10 ML VIAL (PYX) SUBCUT ONE ×2 (09:15→10:27)
[2020-04-13] MEDS ORDERED: (PENDING PHARMACY ID) (Metformin Hcl [Metformin Hcl] 1,000 MG) PO SCH (10:00)
[2020-04-13] MEDS ORDERED: ALISKIREN HEMIFUMARATE 300 MG PO SCH (10:00)
[2020-04-13] MEDS ORDERED: (PENDING PHARMACY ID) (Alprazolam [Alprazolam] 1 MG) PO SCH (10:00)
[2020-04-13] MEDS ORDERED: CLONIDINE HCL 0.3 MG PO SCH (10:00)
[2020-04-13] MEDS: SERTRALINE HCL 50 MG TABLET PO SCH (10:18)
[2020-04-13] MEDS: CYCLOBENZAPRINE HCL 10 MG TABLET PO SCH ×2 (10:19→18:12)
[2020-04-13] MEDS: ALPRAZOLAM 0.5 MG TABLET PO SCH (10:19)
[2020-04-13] MEDS: METFORMIN HCL 500 MG TABLET PO SCH ×2 (10:20→18:00)
[2020-04-13] MEDS: CLONIDINE HCL 0.1 MG TABLET PO SCH ×3 (10:20→22:48)
[2020-04-13] MEDS: GABAPENTIN 300 MG CAPSULE PO SCH ×3 (10:20→22:48)
[2020-04-13] MEDS: ENOXAPARIN SODIUM INJ 40 MG/0.4 ML DISP.SYRIN SUBCUT SCH (10:21)
[2020-04-13] MEDS: LURASIDONE HCL 40 MG TABLET PO SCH (10:22)
[2020-04-13] MEDS: ALISKIREN HEMIFUMARATE 150 MG TABLET PO SCH (10:22)
[2020-04-13] MEDS: HYDRALAZINE HCL 50 MG TABLET PO SCH ×3 (10:25→22:47)
--- NOTE | 2020-04-13 13:15 | PDOC CONSULTATION ---
Consultation Consult Date: 04/13/20 Provider Consulted: ARI JOAQUIN JR History of Present Illness Admission Date/PCP: 04/12/20 18:50 DORIE LUGO MD History of Present Illness: YULIANA ALVARADO is a 39 year old female who is somewhat lethargic at bedside today. Upon stimulation she will wake up and answer appropriately but she seems quite sleepy and constantly falls asleep both during the history and physical exam. She seems to potentially be under the influence of pain medication. She has a paronychia of the right thumb that has been progressing over the last few days. She reports ongoing pain. "I have never had this much pain in my life", 10 out of 10, worse with motion, improved with rest and pain medication, otherwise constant at baseline 6-7 out of 10, burning in nature. She denies any inciting event or puncture. Denies recent fevers chills night sweats. Past Medical History Cardiac Medical History: Reports: Congestive Heart Failure, Coronary Artery Disease, Myocardial Infarction, Hyperlipidema, Hypertension Pulmonary Medical History: Reports: Chronic Obstructive Pulmonary Disease (COPD) Denies: Tuberculosis Neurological Medical History: Reports: Migraine Denies: Seizures Endocrine Medical History: Reports: Diabetes Mellitus Type 1, Diabetes Mellitus Type 2 - IDDM Musculoskeltal Medical History: Reports: Arthritis Psychiatric Medical History: Reports: Bipolar Disorder, Depression - +anxiety Past Surgical History Past Surgical History: Reports: Cardiac Catheterization, Section - x2, Cholecystectomy, Coronary Stent Denies: Pacemaker Social History Smoking Status: Current Every Day Smoker Electronic Cigarette use?: No Frequency of Alcohol Use: Rare Hx Recreational Drug Use: Yes Drugs: Marijuana Hx Prescription Drug Abuse: No - Advance Directive Resuscitation Status: Full Code Family History Family History: Reviewed & Not Pertinent Parental Family History Reviewed: No Children Family History Reviewed: NA Sibling(s) Family History Reviewed.: NA Medication/Allergy Home Medications: Hydralazine HCl [Apresoline 50 mg Tablet] 50 mg PO TID 09/26/13 Clonidine HCl [Catapres] 0.3 mg PO TID 04/25/15 Sertraline HCl [Zoloft 50 mg Tablet] 100 mg PO DAILY 04/25/15 Zolpidem Tartrate 10 mg PO QHS 01/02/16 Alprazolam 1 mg PO DAILY 01/25/20 Insulin Glargine,Hum.rec.anlog [Lantus Insulin 100 Unit/1 ml 10 ml] 50 unit SUBCUT BID 01/25/20 Insulin Lispro [Humalog] 0 unit SQ .SLIDING SCALE 01/25/20 Lurasidone HCl [Latuda 40 mg Tablet] 40 mg PO DAILY 01/25/20 Aliskiren Hemifumarate [Tekturna 300 Mg Tablet] 300 mg PO DAILY 04/13/20 Cyclobenzaprine HCl [Flexeril 10 mg Tablet] 10 mg PO BID 04/13/20 Doxepin HCl [Sinequan 25 Mg Capsule] 25 mg PO QHS 04/13/20 Gabapentin [Neurontin] 600 mg PO TID 04/13/20 Metformin HCl 1,000 mg PO BID 04/13/20 Allergies/Adverse Reactions: No Known Allergies Allergy (Verified 04/12/20 16:56) Physical Exam Vital Signs: Temp Pulse Resp BP Pulse Ox 97.8 F 88 18 143/116 H 99 04/13/20 11:13 04/13/20 11:13 04/13/20 11:13 04/13/20 11:13 04/13/20 11:13 Intake & Output 04/12/20 04/13/20 04/14/20 06:59 06:59 06:59 Intake Total 570 360 Output Total 400 Balance 170 360 Weight 125.1 kg Physical Exam: General appearance: PRESENT: no acute distress, cooperative, well-nourished Head exam: PRESENT: atraumatic, normocephalic Eye exam: PRESENT: EOMI Ear exam: PRESENT: normal external ear exam Mouth exam: PRESENT: neck supple Neck exam: ABSENT: tracheal deviation Respiratory exam: PRESENT: symmetrical, unlabored. ABSENT: accessory muscle use, wheezes Pulses: PRESENT: normal radial pulses, normal dorsalis pedis pulse Vascular exam: PRESENT: normal capillary refill GI/Abdominal exam: ABSENT: distended, firm Extremities exam: PRESENT: full ROM of bilateral shoulders, elbows wrists, knees, hips and ankles without pain Musculoskeletal exam: PRESENT: full ROM, normal inspection of all 4 extremities aside from that noted below. Neurological exam: PRESENT: alert, awake, oriented to person, oriented to place, oriented to time Psychiatric exam: PRESENT: appropriate affect. ABSENT: agitated Focused psych exam: ABSENT: catatonic Skin exam: PRESENT: intact. ABSENT: dry All as above aside from that noted in the HPI and the following: Right upper extremity sensation grossly intact to radial median and ulnar nerve. upper extremity motor function grossly intact to radian median ulnar nerve AIN and PIN Pulses 2+, capillary refill less than 2 seconds No deformity noted full range of motion of the elbow shoulder wrist and fingers without pain Compartments soft, no tenderness to palpation skin intact There is a paronychia from the dorsal aspect just proximal to the nailbed that continues around the radial aspect of the thumb. This is visibly full of purulent material, there is no break or drainage in the skin, there is no proximal erythema or tracking of the forearm. There is no signs of concern past the DIP joint. Results Laboratory Results: 04/12/20 22:22 04/12/20 22:22 04/12/20 04/12/20 04/12/20 22:22 22:22 22:22 WBC 9.9 RBC 5.38 H Hgb 9.3 L Hct 30.2 L MCV 56 L MCH 17.3 L MCHC 30.8 L RDW 20.1 H Plt Count 256 Seg Neutrophils % Not Reportable Sodium 136.0 L Potassium 3.6 Chloride 107 Carbon Dioxide 24 Anion Gap 5 BUN 13 Creatinine 0.92 Est GFR ( Amer) > 60 Glucose 194 H Calcium 9.1 Total Bilirubin 0.3 Cancelled AST 17 Cancelled Alkaline Phosphatase 56 Cancelled Total Protein 6.7 Cancelled Albumin 3.6 Cancelled Assessment & Plan - Diagnosis (1) Paronychia of right thumb Is this a current diagnosis for this admission?: Yes Plan: After discussing risks benefits alternatives and potential outcomes, all patient questions were answered and the patient provided informed operative consent for right paronychia of the thumb bedside I&D. The right upper extremity was prepped and draped in standard sterile fashion with Betadine solution. The thumb was provided with a block giving 1% lidocaine. After adequate analgesia a 11 blade was used to dario the abscess. Immediately purulent material was expressed and cultures were taken. Following this the incision was expanded and the abscess was explored. All potential purulent material was expressed followed by copious irrigation with dilute Betadine solution. Upon adequate decompression and irrigation a sterile bandage was then placed. The patient was tolerant of the procedure without much pain. Recommend twice daily dressing changes in conjunction with twice daily soaks and dilute Betadine solution. We will recheck the patient in the morning, likely to be able to be discharged home on p.o. medication pending cultures We will follow cultures Antibiotics per hospitalist
[2020-04-13] MEDS: ZOLPIDEM TARTRATE 5 MG TABLET PO SCH (22:48)
[2020-04-13] MEDS: INSULIN GLARGINE,HUM.REC.ANLOG 1,000 UNIT/10 ML VIAL SUBCUT SCH (22:49)
[2020-04-13] MEDS: DOXEPIN HCL 25 MG CAPSULE PO SCH (22:53)
[2020-04-14] MEDS: HYDROMORPHONE HCL INJ/PF 2 MG/ML AMPULE IV PRN ×2 (06:25→10:58)
[2020-04-14] MEDS: CLONIDINE HCL 0.1 MG TABLET PO SCH ×3 (06:29→21:51)
[2020-04-14] MEDS: PIPERACILLIN SODIUM/TAZOBACTAM 3.375 GM in NORMAL SALINE 100 ML IV SCH ×3 (06:30→18:30)
[2020-04-14] MEDS: GABAPENTIN 300 MG CAPSULE PO SCH ×3 (06:30→21:51)
[2020-04-14] MEDS: HYDRALAZINE HCL 50 MG TABLET PO SCH ×3 (06:30→21:51)
[2020-04-14] MEDS: INSULIN LISPRO 100 UNIT/ML 3 ML VIAL SUBCUT SCH ×4 (07:25→21:53)
[2020-04-14] MEDS: METFORMIN HCL 500 MG TABLET PO SCH ×2 (07:49→17:10)
--- NOTE | 2020-04-14 07:53 | PDOC PROGRESS REPORT ---
Subjective Progress Note for:: 04/14/20 Subjective:: Patient reports significant improvement this morning. She reports improvement in pain and ability to move the finger without pain. Reason For Visit: ABSCESS/PARONYCHIA (R) THUMB Physical Exam Vital Signs: Temp Pulse Resp BP Pulse Ox 98.3 F 86 18 127/76 H 97 04/14/20 04:26 04/14/20 04:26 04/14/20 04:26 04/14/20 04:26 04/14/20 04:26 Intake & Output 04/13/20 04/14/20 04/15/20 06:59 06:59 06:59 Intake Total 570 1502 100 Output Total 400 0 Balance 170 1502 100 Weight 125.1 kg 125.4 kg Physical Exam: No acute distress alert and oriented x3 Right upper extremity -Skin is clean dry and intact -Neurovascular intact to the right upper extremity -No concern for proximal migration of infection, no proximal signs Results Laboratory Results: 04/12/20 22:22 04/12/20 22:22 Assessment & Plan - Diagnosis (1) Paronychia of right thumb Is this a current diagnosis for this admission?: Yes Plan: Recommend twice daily dressing changes in conjunction with twice daily soaks and dilute Betadine solution. Recommend ongoing soaks at home if discharged for the next 4 days likely to be able to be discharged home on p.o. medication will follow cultures Antibiotics per hospitalist - Time Time Spent with patient: Less than 15 minutes
[2020-04-14] MEDS ORDERED: INSULIN GLARGINE,HUM.REC.ANLOG 1,000 UNIT/10 ML VIAL (PYX) SUBCUT ONE (10:00)
[2020-04-14] MEDS: CYCLOBENZAPRINE HCL 10 MG TABLET PO SCH ×2 (11:00→17:10)
[2020-04-14] MEDS: SERTRALINE HCL 50 MG TABLET PO SCH (11:00)
[2020-04-14] MEDS: ALPRAZOLAM 0.5 MG TABLET PO SCH (11:01)
[2020-04-14] MEDS: ENOXAPARIN SODIUM INJ 40 MG/0.4 ML DISP.SYRIN SUBCUT SCH (11:01)
[2020-04-14] MEDS: ALISKIREN HEMIFUMARATE 150 MG TABLET PO SCH (11:03)
[2020-04-14] MEDS: INSULIN GLARGINE,HUM.REC.ANLOG 1,000 UNIT/10 ML VIAL SUBCUT SCH ×2 (11:12→21:50)
[2020-04-14] MEDS ORDERED: OXYCODONE-ACETAMINOPHEN 5-325 MG TABLET PO PRN ×2 (11:43→16:23)
[2020-04-14] MEDS: LURASIDONE HCL 40 MG TABLET PO SCH ×2 (12:20→17:10)
[2020-04-14] MEDS ORDERED: OXYCODONE-ACETAMINOPHEN 5-325 MG TABLET ONE (16:24)
[2020-04-14] MEDS: VANCOMYCIN HCL 1,250 MG in DEXTROSE 5%-WATER 250 ML IV SCH (16:30)
--- NOTE | 2020-04-14 18:23 | PDOC PROGRESS REPORT ---
Subjective Progress Note for:: 04/14/20 Subjective:: Right thumb pain persist and limitation in function due to pain. No fever or chills. No chest pain or difficulty with breathing. Reason For Visit: ABSCESS/PARONYCHIA (R) THUMB Physical Exam Vital Signs: Temp Pulse Resp BP Pulse Ox 98.3 F 86 18 127/76 H 97 04/14/20 04:26 04/14/20 04:26 04/14/20 04:26 04/14/20 04:26 04/14/20 04:26 Intake & Output 04/13/20 04/14/20 04/15/20 06:59 06:59 06:59 Intake Total 570 1502 100 Output Total 400 0 Balance 170 1502 100 Weight 125.1 kg 125.4 kg General appearance: PRESENT: morbidly obese Head exam: PRESENT: atraumatic, normocephalic Eye exam: PRESENT: conjunctiva pink. ABSENT: scleral icterus Respiratory exam: PRESENT: clear to auscultation herminia Cardiovascular exam: PRESENT: RRR, +S1, +S2. ABSENT: diastolic murmur, rubs, systolic murmur Vascular exam: ABSENT: pallor GI/Abdominal exam: PRESENT: normal bowel sounds, soft. ABSENT: distended, guarding, mass, organolmegaly, rebound, tenderness Extremities exam: ABSENT: pedal edema Neurological exam: PRESENT: alert, awake, oriented to person, oriented to place, oriented to time, oriented to situation, CN II-XII grossly intact. ABSENT: motor sensory deficit Psychiatric exam: PRESENT: appropriate affect, normal mood. ABSENT: homicidal ideation, suicidal ideation Skin exam: PRESENT: dry, warm, other - right thumb dressing is satisfactory. Results Laboratory Results: 04/12/20 22:22 04/12/20 22:22 Assessment & Plan - Diagnosis (1) Abscess of right thumb Is this a current diagnosis for this admission?: Yes Plan: Continue IV Vancomycin and Zosyn coverage. (2) Paronychia of right thumb Is this a current diagnosis for this admission?: Yes Plan: Continue IV Vancomycin and Zosyn coverage. Adjust pain management medication. (3) T2DM (type 2 diabetes mellitus) Qualifiers: Diabetes mellitus detention insulin use: with intermediate teacher use Diabetes mellitus complication status: with kidney complications Diabetes mellitus complication detail: with nephropathy Qualified Code(s): E11.21 - Type 2 diabetes mellitus with diabetic nephropathy; Z79.4 - intermediate teacher (current) use of insulin Is this a current diagnosis for this admission?: Yes Plan: Continue current medication management. (4) Essential hypertension Is this a current diagnosis for this admission?: Yes Plan: Continue current medication management. (5) Morbid obesity Is this a current diagnosis for this admission?: Yes Plan: Continue current management and I emphasized calorie restriction for weight management.. - Time Time Spent with patient: 25-34 minutes Level of Care: IMCU Medications reviewed and adjusted accordingly: Yes Anticipated discharge: Home with Homehealth Anticipated DC Timeframe: Other - Inpatient Certification Based on my medical assessment, after consideration of the patient's comorbidities, presenting symptoms, or acuity I expect that the services needed warrant INPATIENT care.: Yes I certify that my determination is in accordance with my understanding of Medicare's requirements for reasonable and necessary INPATIENT services [42 CFR 412.3e].: Yes Medical Necessity: Significant Comorbidiites Make Outpatient Treatment Too Risky, Need Close Monitoring Due to Risk of Patient Decompensation, Need For IV Fluids, Need for Pain Control, Need for IV Antibiotics, Risk of Complication if Not Cared For in Hospital, Risk of Diagnosis Which Will Require Inpatient Eval/Care/Monitoring Post Hospital Care: D/C Restorative Coordinator Documentation - Plan Summary Plan Summary: See covering attending orders for details about care plan.
[2020-04-14] MEDS: ZOLPIDEM TARTRATE 5 MG TABLET PO SCH (21:51)
[2020-04-14] MEDS: OXYCODONE-ACETAMINOPHEN 5-325 MG TABLET PO PRN (21:52)
[2020-04-14] MEDS: DOXEPIN HCL 25 MG CAPSULE PO SCH (21:59)
[2020-04-15] MEDS: PIPERACILLIN SODIUM/TAZOBACTAM 3.375 GM in NORMAL SALINE 100 ML IV SCH ×4 (02:28→17:57)
[2020-04-15] MEDS: OXYCODONE-ACETAMINOPHEN 5-325 MG TABLET PO PRN ×3 (02:29→10:59)
[2020-04-15] MEDS: VANCOMYCIN HCL 1,250 MG in DEXTROSE 5%-WATER 250 ML IV SCH ×2 (04:10→15:25)
[2020-04-15] MEDS: GABAPENTIN 300 MG CAPSULE PO SCH ×3 (06:04→22:12)
[2020-04-15] MEDS: HYDRALAZINE HCL 50 MG TABLET PO SCH ×3 (06:04→22:12)
[2020-04-15] MEDS: CLONIDINE HCL 0.1 MG TABLET PO SCH ×3 (06:04→22:12)
--- NOTE | 2020-04-15 08:05 | PDOC PROGRESS REPORT ---
Subjective Progress Note for:: 04/15/20 Subjective:: Unfortunately, in spite of some progress yesterday, the patient reports increased pain today. She has been doing the soaks twice daily however she reports pain is now progressing into the radial forearm. Additionally there is increased swelling in the thumb. Reason For Visit: ABSCESS/PARONYCHIA (R) THUMB Physical Exam Vital Signs: Temp Pulse Resp BP Pulse Ox 97.4 F 88 18 126/65 H 98 04/15/20 04:01 04/15/20 04:01 04/15/20 04:01 04/15/20 04:01 04/15/20 04:01 Intake & Output 04/14/20 04/15/20 04/16/20 06:59 06:59 06:59 Intake Total 1502 2390 Output Total 0 1400 Balance 1502 990 Weight 125.4 kg 129.5 kg Physical Exam: No acute distress, alert and oriented x3 Right hand Sensation and motor function are grossly intact, pulses are 2+, capillary refill less than 2 seconds There is some increased tenderness volarly along the tendon to the level of the wrist. She also reports some pain in the distal forearm. There is no evidence of proximal infection in regards to increased swelling, fluctuance, erythema. The distal phalanx has increased swelling and the potential concern for a felon. Prior incision is without drainage today. Severe tenderness palpation at the distal and proximal phalanx of the thumb that improves more proximally. Results Laboratory Results: 04/12/20 22:22 04/14/20 17:10 04/14/20 17:10 Creatinine 1.50 H Est GFR ( Amer) 47 L Assessment & Plan - Diagnosis (1) Paronychia of right thumb Is this a current diagnosis for this admission?: Yes Plan: This point there is concern for further development of infection into the volar pulp of the right thumb with potential need to decompress a felon. Additionally she is reporting some pain proximally. At this time I do not believe that there is evidence of flexor tenosynovitis but I will order MRI to further evaluate for proximal migration of infection prior to repeat operation. Keep n.p.o. tonight, plan for repeat I&D tomorrow in the operating room. Antibiotics per hospitalist - Time Time Spent with patient: Less than 15 minutes
[2020-04-15] MEDS: INSULIN LISPRO 100 UNIT/ML 3 ML VIAL SUBCUT SCH ×4 (08:08→22:13)
[2020-04-15] MEDS: METFORMIN HCL 500 MG TABLET PO SCH ×2 (08:40→17:17)
[2020-04-15] MEDS: CYCLOBENZAPRINE HCL 10 MG TABLET PO SCH ×2 (10:31→17:17)
[2020-04-15] MEDS: SERTRALINE HCL 50 MG TABLET PO SCH (10:31)
[2020-04-15] MEDS: ENOXAPARIN SODIUM INJ 40 MG/0.4 ML DISP.SYRIN SUBCUT SCH (10:31)
[2020-04-15] MEDS: ALPRAZOLAM 0.5 MG TABLET PO SCH (10:31)
[2020-04-15] MEDS: ALISKIREN HEMIFUMARATE 150 MG TABLET PO SCH (10:32)
[2020-04-15] MEDS: INSULIN GLARGINE,HUM.REC.ANLOG 1,000 UNIT/10 ML VIAL SUBCUT SCH ×2 (10:33→22:14)
[2020-04-15] MEDS ORDERED: LORAZEPAM 0.5 MG TABLET PO PRN (11:43)
--- NOTE | 2020-04-15 12:31 | RADIOLOGY REPORT (SQ) ---
EXAM DESCRIPTION: MRI RT UPPER EXTREMITY WITHOUT IMAGES COMPLETED DATE/TIME: 04/15/2020 12:09 pm REASON FOR STUDY: right hand infection E11.42 TYPE 2 DIABETES MELLITUS WITH DIABETIC POLYNEUROPATHY R80.9 PROTEINURIA, UNSPECIFIED COMPARISON: None. TECHNIQUE: Multiplanar imaging of the right thumb to include fat and fluid sensitive sequences. LIMITATIONS: None. FINDINGS: BONE MARROW: Subtle marrow edema without destruction in the distal phalanx of the thumb. This is only appreciated on T2 sequences, likely mild reactive bone edema related to overlying soft t issue inflammation/infection. Cystic changes are noted in the capitate, probably degenerative cysts or erosions. SOFT TISSUES: Soft tissue edema along the thumb. This is most pronounced along the tip of the thumb and is diffuse. Involves the skin and subcutaneous tissues without overt suggestion of drainable col lection. OTHER: No other significant finding. IMPRESSION: 1. Cellulitis along the thumb. No gross drainable abscess. 2. Mild edema in the distal phalanx of the thumb without aggressive features. Doubt osteomyelitis. Likely reactive to the overlying soft tissue infection. Baseline radiographs of the thumb should be obtained with subsequent surveillance followup radiographs as deemed clinically appropriate. TECHNICAL DOCUMENTATION: JOB ID: [id number] 2010 [employer]- All Rights Reserved Reading location - IP/workstation name: [email or web address]
--- NOTE | 2020-04-15 14:00 | PDOC PROGRESS REPORT ---
Subjective Progress Note for:: 04/15/20 Subjective:: Patient reported recurrent buttock carbuncle with a current lesion on her right buttock. Right thumb pain is not controlled on current pain management regimen. Requesting change back to IV Dilaudid. Right thumb limitation in function persist. Patient reported no fever but chills. No chest pain or difficulty with breathing. Reason For Visit: ABSCESS/PARONYCHIA (R) THUMB Physical Exam Vital Signs: Temp Pulse Resp BP Pulse Ox 98.2 F 95 16 145/80 H 100 04/15/20 10:41 04/15/20 10:41 04/15/20 10:41 04/15/20 10:41 04/15/20 10:41 Intake & Output 04/14/20 04/15/20 04/16/20 06:59 06:59 06:59 Intake Total 1502 2390 Output Total 0 1400 Balance 1502 990 Weight 125.4 kg 129.5 kg Physical Exam: General appearance: PRESENT: morbidly obese Head exam: PRESENT: atraumatic, normocephalic Eye exam: PRESENT: conjunctiva pink. ABSENT: pallor, scleral icterus Respiratory exam: PRESENT: clear to auscultation herminia Cardiovascular exam: PRESENT: RRR, +S1, +S2. ABSENT: diastolic murmur, rubs, systolic murmur GI/Abdominal exam: PRESENT: normal bowel sounds, soft. ABSENT: distended, guarding, mass, organomegaly, rebound, tenderness Extremities exam: ABSENT: pedal edema Neurological exam: PRESENT: alert, awake, oriented to person, oriented to place, oriented to time, oriented to situation, CN II-XII grossly intact. ABSENT: motor sensory deficit Psychiatric exam: PRESENT: appropriate affect, normal mood. ABSENT: homicidal ideation, suicidal ideation Skin exam: PRESENT: dry, warm, other - right thumb dressing is satisfactory, right buttock carbuncle in early stage with tenderness and induration, about 1 inch in diameter. Results Laboratory Results: 04/12/20 22:22 04/14/20 17:10 04/14/20 17:10 Creatinine 1.50 H Est GFR ( Amer) 47 L Impressions: Upper Extremity MRI 04/15/20 00:00 IMPRESSION: 1. Cellulitis along the thumb. No gross drainable abscess. 2. Mild edema in the distal phalanx of the thumb without aggressive features. Doubt osteomyelitis. Likely reactive to the overlying soft tissue infection. Baseline radiographs of the thumb should be obtained with subsequent surveillan ce followup radiographs as deemed clinically appropriate. Assessment & Plan - Diagnosis (1) Abscess of right thumb Is this a current diagnosis for this admission?: Yes (2) Paronychia of right thumb Is this a current diagnosis for this admission?: Yes (3) T2DM (type 2 diabetes mellitus) Qualifiers: Diabetes mellitus fdc insulin use: with technician terminal and repeater use Diabetes mellitus complication status: with kidney complications Diabetes mellitus complication detail: with nephropathy Qualified Code(s): E11.21 - Type 2 diabetes mellitus with diabetic nephropathy; Z79.4 - half-way (current) use of insulin Is this a current diagnosis for this admission?: Yes (4) Essential hypertension Is this a current diagnosis for this admission?: Yes (5) Morbid obesity Is this a current diagnosis for this admission?: Yes (6) Carbuncle and furuncle of buttock Is this a current diagnosis for this admission?: Yes Plan: Continue on current antibiotic therapy. Maintain on warm compress as needed for comfort. - Time Time Spent with patient: 25-34 minutes Level of Care: MEDICAL Medications reviewed and adjusted accordingly: Yes Anticipated discharge: Home Anticipated DC Timeframe: Other - Inpatient Certification Based on my medical assessment, after consideration of the patient's comorbidities, presenting symptoms, or acuity I expect that the services needed warrant INPATIENT care.: Yes I certify that my determination is in accordance with my understanding of Medicare's requirements for reasonable and necessary INPATIENT services [42 CFR 412.3e].: Yes Medical Necessity: Significant Comorbidiites Make Outpatient Treatment Too Risky, Need Close Monitoring Due to Risk of Patient Decompensation, Need For IV Fluids, Need for Pain Control, Need for IV Antibiotics, Need for Surgery, Risk of Complication if Not Cared For in Hospital, Risk of Diagnosis Which Will Require Inpatient Eval/Care/Monitoring Post Hospital Care: D/C Global Lead Documentation - Plan Summary Plan Summary: D/C Percocet. Restart on IV Dilaudid 2mg q 4 hours prn for pain management. Allow warm compress application to right buttock carbuncle lesion. Obtain CBC with diff and BMP in am.
[2020-04-15] MEDS: HYDROMORPHONE HCL INJ/PF 2 MG/ML AMPULE IV PRN ×2 (15:21→19:36)
[2020-04-15] MEDS: LURASIDONE HCL 40 MG TABLET PO SCH (17:18)
[2020-04-15] MEDS: ZOLPIDEM TARTRATE 5 MG TABLET PO SCH (22:12)
[2020-04-15] MEDS: DOXEPIN HCL 25 MG CAPSULE PO SCH (22:19)
[2020-04-16] MEDS: HYDROMORPHONE HCL INJ/PF 2 MG/ML AMPULE IV PRN ×3 (00:12→20:22)
[2020-04-16] MEDS: PIPERACILLIN SODIUM/TAZOBACTAM 3.375 GM in NORMAL SALINE 100 ML IV SCH ×4 (00:13→21:52)
[2020-04-16] MEDS: VANCOMYCIN HCL 1,250 MG in DEXTROSE 5%-WATER 250 ML IV SCH ×3 (03:36→23:07)
[2020-04-16] MEDS: GABAPENTIN 300 MG CAPSULE PO SCH ×3 (06:39→22:28)
[2020-04-16] MEDS: HYDRALAZINE HCL 50 MG TABLET PO SCH ×3 (06:39→22:28)
[2020-04-16] MEDS: CLONIDINE HCL 0.1 MG TABLET PO SCH ×3 (06:39→22:27)
--- NOTE | 2020-04-16 07:54 | PDOC PROGRESS REPORT ---
Subjective Progress Note for:: 04/16/20 Subjective:: Patient reports some improvement over night with decreased pain in the proximal aspect of the palm in the distal forearm. However she continues to report severe pain in the pulp of the distal phalanx of the right thumb. Reason For Visit: ABSCESS/PARONYCHIA (R) THUMB Physical Exam Vital Signs: Temp Pulse Resp BP Pulse Ox 98.6 F 99 18 144/67 H 99 04/16/20 04:49 04/16/20 04:49 04/16/20 04:49 04/16/20 04:49 04/16/20 04:49 Intake & Output 04/15/20 04/16/20 04/17/20 06:59 06:59 06:59 Intake Total 2390 1270 Output Total 1400 700 Balance 990 570 Weight 129.5 kg 126.5 kg Physical Exam: No acute distress alert and orient x3 Right hand neurovascularly intact The distal phalanx has increased swelling in the appearance of a developing felon in the volar finger pulp. Prior incision is without drainage today. Severe tenderness palpation at the distal and proximal phalanx of the thumb that improves more proximally. Results Laboratory Results: 04/12/20 22:22 04/14/20 17:10 04/13/20 04:05 Clean Catch Midstream Urine Culture - Final Mixed Urogenital Lani Impressions: Upper Extremity MRI 04/15/20 00:00 IMPRESSION: 1. Cellulitis along the thumb. No gross drainable abscess. 2. Mild edema in the distal phalanx of the thumb without aggressive features. Doubt osteomyelitis. Likely reactive to the overlying soft tissue infection. Baseline radiographs of the thumb should be obtained with subsequent surveillance followup radiographs as deemed clinically appropriate. Assessment & Plan - Diagnosis (1) Paronychia of right thumb Is this a current diagnosis for this admission?: Yes Plan: Plan for formal I&D in the operating room today. Follow cultures and antibiotics accordingly per primary team Keep n.p.o. today Hold soaks today, leave and dry dressing - Time Time Spent with patient: Less than 15 minutes
[2020-04-16] MEDS: INSULIN LISPRO 100 UNIT/ML 3 ML VIAL SUBCUT SCH ×4 (08:50→22:13)
[2020-04-16] MEDS: INSULIN GLARGINE,HUM.REC.ANLOG 1,000 UNIT/10 ML VIAL SUBCUT SCH ×2 (10:50→22:28)
[2020-04-16] MEDS: METFORMIN HCL 500 MG TABLET PO SCH ×2 (10:59→18:06)
[2020-04-16] MEDS: ALPRAZOLAM 0.5 MG TABLET PO SCH (10:59)
[2020-04-16] MEDS: SERTRALINE HCL 50 MG TABLET PO SCH (10:59)
[2020-04-16] MEDS: CYCLOBENZAPRINE HCL 10 MG TABLET PO SCH ×2 (11:01→18:05)
[2020-04-16] MEDS: ENOXAPARIN SODIUM INJ 40 MG/0.4 ML DISP.SYRIN SUBCUT SCH (11:27)
[2020-04-16] MEDS: ALISKIREN HEMIFUMARATE 150 MG TABLET PO SCH (11:28)
[2020-04-16 15:10] LABS: HEMATOCRIT 29.3 % (36.0-47.0); MEAN CORPUSCULAR HEMOGLOBIN 17.3 pg (27.0-33.4); MEAN CORPUSCULAR HGB CONC 30.8 g/dL (32.0-36.0); MEAN CORPUSCULAR VOLUME 56 fl (80-97); PLATELET COUNT 273 10^3/uL (150-450); RED BLOOD COUNT 5.22 10^6/uL (3.72-5.28); RED CELL DISTRIBUTION WIDTH 20.4 % (11.5-14.0); WHITE BLOOD COUNT 13.3 10^3/uL (4.0-10.5)
[2020-04-16 15:27] LABS: ALBUMIN 3.4 g/dL (3.5-5.0); ALKALINE PHOSPHATASE 46 U/L (38-126); ANION GAP 7 (5-19); ASPARTATE AMINO TRANSFERASE 19 U/L (14-36); BILIRUBIN,TOTAL 0.2 mg/dL (0.2-1.3); BLOOD UREA NITROGEN 18 mg/dL (7-20); CALCIUM 9.6 mg/dL (8.4-10.2); CARBON DIOXIDE 24 mmol/L (22-30); CHLORIDE 105 mmol/L (98-107); GLUCOSE 79 mg/dL (75-110); POTASSIUM 3.8 mmol/L (3.6-5.0); TOTAL PROTEIN 6.5 g/dL (6.3-8.2)
[2020-04-16 16:06] LABS: ABSOLUTE LYMPHOCYTES# (MANUAL) 2.8 10^3/uL (0.5-4.7); BASOPHILS % (MANUAL) 0 % (0-2); EOSINOPHILS % (MANUAL) 0 % (0-6); LYMPHOCYTES % (MANUAL) 18 % (13-45); MONOCYTES % (MANUAL) 0 % (3-13); SEGMENTED NEUTROPHILS % (MAN) 79 % (42-78); TOTAL CELLS COUNTED 100
[2020-04-16 16:07] LABS: PLATELET COMMENT ADEQUATE; POLYCHROMASIA SLIGHT; TARGET CELLS 1+
[2020-04-16 16:08] LABS: ANISOCYTOSIS 2+; HYPOCHROMASIA 4+
[2020-04-16 16:09] LABS: OVALOCYTES 1+
[2020-04-16 16:41] LABS: VANCOMYCIN,TROUGH 12.8 ug/mL (5.0-20.0)
[2020-04-16] MEDS ORDERED: LIDOCAINE 1% INJ-PF (10 MG/ML) 30 ML SDV ONE (16:56)
[2020-04-16] MEDS: LURASIDONE HCL 40 MG TABLET PO SCH (18:06)
--- NOTE | 2020-04-16 18:24 | Progress Note ---
Provider Note Provider Note: Procedure note: Due to delays in the operating room and potential need for more urgent management, we proceeded with bedside I&D. I discussed the risks and benefits with the patient and answered all questions. A block was provided the thumb preoperatively. After adequate analgesia the right upper extremity was prepped and draped in standard sterile fashion with Betadine solution. The right thumb was then addressed by entering the prior paronychia with a probe. I was able to express purulence from this area. The probe was advanced to the volar pulp of the finger. Upon palpating the volar surface incision was made to allow for communication. The extent of the abscess was explored with a blunt probe and multiple attempts were made to completely express any purulent material or necrotic tissue. The nail bed was removed. After this copious amounts of dilute Betadine solution were passed through the wound. Packing was placed. The wound was dressed with a sterile dressing. Of note, the patient has lost vascular access, she has not had a dose of antibiotics since 3:30 AM this morning. I have contacted the primary team in order to facilitate obtaining access for antibiotic delivery.
--- NOTE | 2020-04-16 21:06 | PDOC PROGRESS REPORT ---
Subjective Progress Note for:: 04/16/20 Subjective:: Patient seen by the bedside, she was seen by orthopedic she underwent I&D again today, she has no IV access, consult surgeon distribution center associate for central line Reason For Visit: PARONYCHIA OF RIGHT THUMB,ABSCESS OF RIGHT THUMB Physical Exam Vital Signs: Temp Pulse Resp BP Pulse Ox 98.7 F 134 H 18 188/94 H 100 04/16/20 16:00 04/16/20 16:00 04/16/20 16:00 04/16/20 16:00 04/16/20 16:00 Intake & Output 04/15/20 04/16/20 04/17/20 06:59 06:59 06:59 Intake Total 2390 1270 100 Output Total 1400 700 Balance 990 570 100 Weight 129.5 kg 126.5 kg General appearance: PRESENT: obese Eye exam: PRESENT: PERRLA Respiratory exam: PRESENT: clear to auscultation herminia Cardiovascular exam: PRESENT: +S1, +S2 GI/Abdominal exam: PRESENT: soft Neurological exam: PRESENT: alert Results Laboratory Results: 04/16/20 14:40 04/16/20 14:40 04/16/20 04/16/20 04/16/20 14:40 14:40 14:40 WBC 13.3 H RBC 5.22 Hgb 9.0 L Hct 29.3 L MCV 56 L MCH 17.3 L MCHC 30.8 L RDW 20.4 H Plt Count 273 Seg Neutrophils % Not Reportable Sodium 135.5 L Potassium 3.8 Chloride 105 Carbon Dioxide 24 Anion Gap 7 BUN 18 Creatinine 1.17 1.17 Est GFR ( Amer) > 60 > 60 Glucose 79 Calcium 9.6 Total Bilirubin 0.2 AST 19 Alkaline Phosphatase 46 Total Protein 6.5 Albumin 3.4 L 04/13/20 12:25 Hand - Abscess Gram Stain - Final 04/13/20 12:25 Hand - Abscess Wound Culture - Final Staphylococcus [place]ensis Strep Mitis/Oralis Grp Bacteroides Species Prevotella Species Impressions: Upper Extremity MRI 04/15/20 00:00 IMPRESSION: 1. Cellulitis along the thumb. No gross drainable abscess. 2. Mild edema in the distal phalanx of the thumb without aggressive features. Doubt osteomyelitis. Likely reactive to the overlying soft tissue infection. Baseline radiographs of the thumb should be obtained with subsequent surveillance followup radiographs as deemed clinically appropriate. Assessment & Plan - Diagnosis (1) Abscess of right thumb Is this a current diagnosis for this admission?: Yes Plan: Continue IV antibiotic (2) Paronychia of right thumb Is this a current diagnosis for this admission?: Yes Plan: Plan for formal I&D in the operating room today. Follow cultures and antibiotics accordingly per primary team Keep n.p.o. today Hold soaks today, leave and dry dressing (3) T2DM (type 2 diabetes mellitus) Qualifiers: Diabetes mellitus fci insulin use: with terminal press operator use Diabetes mellitus complication status: with kidney complications Diabetes mellitus complication detail: with nephropathy Qualified Code(s): E11.21 - Type 2 diabetes mellitus with diabetic nephropathy; Z79.4 - snf (current) use of insulin Is this a current diagnosis for this admission?: Yes (4) Coronary artery disease Qualifiers: Coronary Disease-Associated Artery/Lesion type: [place] artery [place] vs. transplanted heart: [place] heart Associated angina: without angina Qualified Code(s): I25.10 - Atherosclerotic heart disease of [place] coronary artery without angina pectoris Is this a current diagnosis for this admission?: Yes (5) Morbid obesity Is this a current diagnosis for this admission?: Yes - Time Time Spent with patient: 25-34 minutes Level of Care: MEDICAL Medications reviewed and adjusted accordingly: Yes Anticipated discharge: Home Anticipated DC Timeframe: within 72 hours - Inpatient Certification Based on my medical assessment, after consideration of the patient's co morbidities, presenting symptoms, or acuity I expect that the services needed warrant INPATIENT care.: Yes I certify that my determination is in accordance with my understanding of Medicare's requirements for reasonable and necessary INPATIENT services [42 CFR 412.3e].: Yes
[2020-04-16] MEDS: DOXEPIN HCL 25 MG CAPSULE PO SCH (22:27)
[2020-04-16] MEDS: ZOLPIDEM TARTRATE 5 MG TABLET PO SCH (22:27)
[2020-04-17] MEDS: HYDROMORPHONE HCL INJ/PF 2 MG/ML AMPULE IV PRN ×6 (00:24→23:08)
[2020-04-17] MEDS: PIPERACILLIN SODIUM/TAZOBACTAM 3.375 GM in NORMAL SALINE 100 ML IV SCH ×4 (00:25→18:44)
[2020-04-17] MEDS: CLONIDINE HCL 0.1 MG TABLET PO SCH ×3 (05:16→22:18)
[2020-04-17] MEDS: HYDRALAZINE HCL 50 MG TABLET PO SCH ×3 (05:16→22:18)
[2020-04-17] MEDS: GABAPENTIN 300 MG CAPSULE PO SCH ×3 (05:16→22:18)
[2020-04-17] MEDS: INSULIN LISPRO 100 UNIT/ML 3 ML VIAL SUBCUT SCH ×4 (09:47→22:24)
[2020-04-17] MEDS: SERTRALINE HCL 50 MG TABLET PO SCH (09:56)
[2020-04-17] MEDS: ENOXAPARIN SODIUM INJ 40 MG/0.4 ML DISP.SYRIN SUBCUT SCH (09:56)
[2020-04-17] MEDS: ALISKIREN HEMIFUMARATE 150 MG TABLET PO SCH (09:58)
[2020-04-17] MEDS: ALPRAZOLAM 0.5 MG TABLET PO SCH (10:03)
[2020-04-17] MEDS: VANCOMYCIN HCL 1,250 MG in DEXTROSE 5%-WATER 250 ML IV SCH ×2 (10:04→22:18)
[2020-04-17] MEDS: METFORMIN HCL 500 MG TABLET PO SCH ×2 (10:07→18:44)
[2020-04-17] MEDS: INSULIN GLARGINE,HUM.REC.ANLOG 1,000 UNIT/10 ML VIAL SUBCUT SCH ×2 (10:45→22:17)
[2020-04-17] MEDS: CYCLOBENZAPRINE HCL 10 MG TABLET PO SCH ×2 (10:47→18:45)
[2020-04-17] MEDS: LURASIDONE HCL 40 MG TABLET PO SCH (18:48)
--- NOTE | 2020-04-17 21:29 | PDOC PROGRESS REPORT ---
Subjective Progress Note for:: 04/17/20 Subjective:: Patient seen by the bedside, she is scheduled for another procedure probably tomorrow, still on IV antibiotic, complain of pain requiring pain medication Reason For Visit: PARONYCHIA OF RIGHT THUMB,ABSCESS OF RIGHT THUMB Physical Exam Vital Signs: Temp Pulse Resp BP Pulse Ox 98.6 F 85 17 187/90 H 100 04/17/20 16:00 04/17/20 16:00 04/17/20 16:00 04/17/20 16:00 04/17/20 16:00 Intake & Output 04/16/20 04/17/20 04/18/20 06:59 06:59 06:59 Intake Total 1270 800 100 Output Total 700 Balance 570 800 100 Weight 126.5 kg 126.5 kg General appearance: PRESENT: no acute distress Eye exam: PRESENT: PERRLA Respiratory exam: PRESENT: clear to auscultation herminia Cardiovascular exam: PRESENT: +S1, +S2 GI/Abdominal exam: PRESENT: soft Neurological exam: PRESENT: alert Results Laboratory Results: 04/16/20 14:40 04/16/20 14:40 Impressions: Upper Extremity MRI 04/15/20 00:00 IMPRESSION: 1. Cellulitis along the thumb. No gross drainable abscess. 2. Mild edema in the distal phalanx of the thumb without aggressive features. D oubt osteomyelitis. Likely reactive to the overlying soft tissue infection. Baseline radiographs of the thumb should be obtained with subsequent surveillance followup radiographs as deemed clinically appropriate. Assessment & Plan - Diagnosis (1) Abscess of right thumb Is this a current diagnosis for this admission?: Yes Plan: Continue IV antibiotic (2) Paronychia of right thumb Is this a current diagnosis for this admission?: Yes (3) T2DM (type 2 diabetes mellitus) Qualifiers: Diabetes mellitus retirement insulin use: with coach driver use Diabetes mellitus complication status: with kidney complications Diabetes mellitus complication detail: with nephropathy Qualified Code(s): E11.21 - Type 2 diabetes mellitus with diabetic nephropathy; Z79.4 - parboiler (current) use of insulin Is this a current diagnosis for this admission?: Yes (4) Coronary artery disease Qualifiers: Coronary Disease-Associated Artery/Lesion type: [place] artery [place] vs. transplanted heart: [place] heart Associated angina: without angina Qualified Code(s): I25.10 - Atherosclerotic heart disease of [place] coronary artery without angina pectoris Is this a current diagnosis for this admission?: Yes (5) Morbid obesity Is this a current diagnosis for this admission?: Yes - Time Time Spent with patient: 25-34 minutes Level of Care: MEDICAL Medications reviewed and adjusted accordingly: Yes Anticipated DC Timeframe: within 72 hours
[2020-04-17] MEDS: DOXEPIN HCL 25 MG CAPSULE PO SCH (22:18)
[2020-04-17] MEDS: ZOLPIDEM TARTRATE 5 MG TABLET PO SCH (22:18)
[2020-04-18] MEDS: PIPERACILLIN SODIUM/TAZOBACTAM 3.375 GM in NORMAL SALINE 100 ML IV SCH ×2 (02:00→06:42)
[2020-04-18] MEDS: CLONIDINE HCL 0.1 MG TABLET PO SCH ×3 (06:42→21:32)
[2020-04-18] MEDS: GABAPENTIN 300 MG CAPSULE PO SCH ×3 (06:42→21:32)
[2020-04-18] MEDS: HYDRALAZINE HCL 50 MG TABLET PO SCH ×3 (06:43→21:32)
[2020-04-18] MEDS: HYDROMORPHONE HCL INJ/PF 2 MG/ML AMPULE IV PRN ×5 (06:43→23:46)
[2020-04-18] MEDS: INSULIN LISPRO 100 UNIT/ML 3 ML VIAL SUBCUT SCH ×4 (08:08→21:28)
[2020-04-18] MEDS: METFORMIN HCL 500 MG TABLET PO SCH ×2 (08:16→19:42)
[2020-04-18] MEDS: INSULIN GLARGINE,HUM.REC.ANLOG 1,000 UNIT/10 ML VIAL SUBCUT SCH ×2 (10:00→21:29)
[2020-04-18 10:34] LABS: VANCOMYCIN,TROUGH 17.6 ug/mL (5.0-20.0)
[2020-04-18] MEDS: ALPRAZOLAM 0.5 MG TABLET PO SCH (11:22)
[2020-04-18] MEDS: SERTRALINE HCL 50 MG TABLET PO SCH (11:27)
[2020-04-18] MEDS: DOCUSATE SODIUM 100 MG CAPSULE PO SCH ×2 (11:28→19:42)
[2020-04-18] MEDS: ENOXAPARIN SODIUM INJ 40 MG/0.4 ML DISP.SYRIN SUBCUT SCH (11:28)
[2020-04-18] MEDS: CYCLOBENZAPRINE HCL 10 MG TABLET PO SCH ×2 (11:28→19:42)
[2020-04-18] MEDS: ALISKIREN HEMIFUMARATE 150 MG TABLET PO SCH (11:30)
--- NOTE | 2020-04-18 12:29 | PDOC PROGRESS REPORT ---
Subjective Progress Note for:: 04/18/20 Subjective:: Patient reports considerable improvement today in pain and swelling. No new symptoms overnight. No fever or chills. Reason For Visit: PARONYCHIA OF RIGHT THUMB,ABSCESS OF RIGHT THUMB Physical Exam Vital Signs: Temp Pulse Resp BP Pulse Ox 97.6 F 69 17 162/98 H 97 04/18/20 10:57 04/18/20 10:57 04/18/20 10:57 04/18/20 10:57 04/18/20 10:57 Intake & Output 04/17/20 04/18/20 04/19/20 06:59 06:59 06:59 Intake Total 800 800 100 Balance 800 800 100 Weight 126.5 kg 126.5 kg Physical Exam: No acute distress alert and orient x3 Right hand neurovascularly intact The distal phalanx has decreased swelling with no further drainage. Decreased tenderness to palpation. Improved tenderness to palpation proximally. Results Laboratory Results: 04/16/20 14:40 04/18/20 09:44 04/18/20 09:44 Creatinine 1.44 H Est GFR ( Amer) 49 L 04/12/20 22:00 Blood Blood Culture - Final NO GROWTH IN 5 DAYS 04/12/20 22:22 Blood Blood Culture - Final NO GROWTH IN 5 DAYS Impressions: Upper Extremity MRI 04/15/20 00:00 IMPRESSION: 1. Cellulitis along the thumb. No gross drainable abscess. 2. Mild edema in the distal phalanx of the thumb without aggressive features. Doubt osteomyelitis. Likely reactive to the overlying soft tissue infection. Baseline radiographs of the thumb should be obtained with subsequent surveillance followup radiographs as deemed clinically appropriate. Assessment & Plan - Diagnosis (1) Paronychia of right thumb Is this a current diagnosis for this admission?: Yes Plan: Will re-evaluate for potential discharge tomorrow - Continue BID soaks - Dressing change PRN - Antibiotics per hospitalist team. - Time Time Spent with patient: Less than 15 minutes
--- NOTE | 2020-04-18 17:59 | PDOC PROGRESS REPORT ---
Subjective Progress Note for:: 04/18/20 Subjective:: Patient is making progress, hopefully discharge the next 24 hours Reason For Visit: PARONYCHIA OF RIGHT THUMB,ABSCESS OF RIGHT THUMB Physical Exam Vital Signs: Temp Pulse Resp BP Pulse Ox 98.4 F 80 17 180/83 H 96 04/18/20 15:17 04/18/20 15:17 04/18/20 15:17 04/18/20 15:17 04/18/20 15:17 Intake & Output 04/17/20 04/18/20 04/19/20 06:59 06:59 06:59 Intake Total 971 939 0604 Output Total 550 Balance 800 800 495 Weight 126.5 kg 126.5 kg General appearance: PRESENT: no acute distress Eye exam: PRESENT: PERRLA Respiratory exam: PRESENT: clear to auscultation herminia Cardiovascular exam: PRESENT: +S1, +S2 GI/Abdominal exam: PRESENT: soft Results Laboratory Results: 04/16/20 14:40 04/18/20 09:44 04/18/20 09:44 Creatinine 1.44 H Est GFR ( Amer) 49 L 04/12/20 22:00 Blood Blood Culture - Final NO GROWTH IN 5 DAYS 04/12/20 22:22 Blood Blood Culture - Final NO GROWTH IN 5 DAYS Impressions: Upper Extremity MRI 04/15/20 00:00 IMPRESSION: 1. Cellulitis along the thumb. No gross drainable abscess. 2. Mild edema in the distal phalanx of the thumb without aggressive features. Doubt osteomyelitis. Likely reactive to the overlying soft tissue infection. Baseline radiographs of the thumb should be obtained with subsequent nancie veillance followup radiographs as deemed clinically appropriate. Assessment & Plan - Diagnosis (1) Abscess of right thumb Is this a current diagnosis for this admission?: Yes (2) Paronychia of right thumb Is this a current diagnosis for this admission?: Yes (3) T2DM (type 2 diabetes mellitus) Qualifiers: Diabetes mellitus halfway insulin use: with vermin exterminator use Diabetes mellitus complication status: with kidney complications Diabetes mellitus complication detail: with nephropathy Qualified Code(s): E11.21 - Type 2 diabetes mellitus with diabetic nephropathy; Z79.4 - residential (current) use of insulin Is this a current diagnosis for this admission?: Yes (4) Coronary artery disease Qualifiers: Coronary Disease-Associated Artery/Lesion type: [place] artery [place] vs. transplanted heart: [place] heart Associated angina: without angina Qualified Code(s): I25.10 - Atherosclerotic heart disease of [place] coronary artery without angina pectoris Is this a current diagnosis for this admission?: Yes (5) Morbid obesity Is this a current diagnosis for this admission?: Yes - Time Time Spent with patient: 15-24 minutes Level of Care: MEDICAL Anticipated discharge: Home Anticipated DC Timeframe: within 36 hours
[2020-04-18] MEDS: LEVOFLOXACIN 500 MG TABLET PO SCH (19:37)
[2020-04-18] MEDS: LURASIDONE HCL 40 MG TABLET PO SCH (19:38)
[2020-04-18] MEDS: ZOLPIDEM TARTRATE 5 MG TABLET PO SCH (21:32)
[2020-04-18] MEDS: DOXEPIN HCL 25 MG CAPSULE PO SCH (21:34)
[2020-04-19] MEDS: HYDROMORPHONE HCL INJ/PF 2 MG/ML AMPULE IV PRN ×4 (05:38→17:11)
[2020-04-19] MEDS: HYDRALAZINE HCL 50 MG TABLET PO SCH ×2 (05:39→14:41)
[2020-04-19] MEDS: CLONIDINE HCL 0.1 MG TABLET PO SCH ×2 (05:39→14:40)
[2020-04-19] MEDS: GABAPENTIN 300 MG CAPSULE PO SCH ×2 (05:39→14:41)
[2020-04-19] MEDS: INSULIN LISPRO 100 UNIT/ML 3 ML VIAL SUBCUT SCH ×3 (07:59→16:26)
[2020-04-19] MEDS: METFORMIN HCL 500 MG TABLET PO SCH ×2 (08:00→17:11)
[2020-04-19] MEDS: DOCUSATE SODIUM 100 MG CAPSULE PO SCH ×2 (09:37→17:11)
[2020-04-19] MEDS: ALISKIREN HEMIFUMARATE 150 MG TABLET PO SCH (09:37)
[2020-04-19] MEDS: ENOXAPARIN SODIUM INJ 40 MG/0.4 ML DISP.SYRIN SUBCUT SCH (09:37)
[2020-04-19] MEDS: CYCLOBENZAPRINE HCL 10 MG TABLET PO SCH ×2 (09:37→17:11)
[2020-04-19] MEDS: ALPRAZOLAM 0.5 MG TABLET PO SCH (09:37)
[2020-04-19] MEDS: SERTRALINE HCL 50 MG TABLET PO SCH (09:37)
[2020-04-19] MEDS: INSULIN GLARGINE,HUM.REC.ANLOG 1,000 UNIT/10 ML VIAL SUBCUT SCH (09:43)
--- NOTE | 2020-04-19 13:06 | PDOC PROGRESS REPORT ---
Subjective Progress Note for:: 04/19/20 Subjective:: Patient is feeling much better today. No acute changes over the interval. Reports improvement in pain and swelling in the right upper extremity Reason For Visit: PARONYCHIA OF RIGHT THUMB,ABSCESS OF RIGHT THUMB Physical Exam Vital Signs: Temp Pulse Resp BP Pulse Ox 98.8 F 78 18 165/88 H 100 04/19/20 07:31 04/19/20 07:31 04/19/20 07:31 04/19/20 07:31 04/19/20 07:31 Intake & Output 04/18/20 04/19/20 04/20/20 06:59 06:59 06:59 Intake Total 800 1885 Output Total 2050 Balance 800 -165 Weight 126.5 kg 126.2 kg Physical Exam: No acute distress alert and oriented x3 Right upper extremity is neurovascular intact. The right thumb swelling has decreased. There is no purulent drainage over the interval. She has less pain, less skin turgor, and no signs of recurrent collection or progressive infection. Results Laboratory Results: 04/16/20 14:40 04/18/20 09:44 Impressions: Upper Extremity MRI 04/15/20 00:00 IMPRESSION: 1. Cellulitis along the thumb. No gross drainable abscess. 2. Mild edema in the distal phalanx of the thumb without aggressive features. Doubt osteomyelitis. Likely reactive to the overlying soft tissue infection. Baseline radiographs of the thumb should be obtained with subsequent surveillance followup radiographs as deemed clinically appropriate. Assessment & Plan - Diagnosis (1) Paronychia of right thumb Is this a current diagnosis for this admission?: Yes Plan: The right thumb appears stable and improving. Patient may be discharged home on p.o. medication as per hospitalist team. Dressing changes as needed, encourage daily soaks and dilute Betadine solution for the next 3 days. Return to the hospital with any signs or concerns of recurrent infection or worsening symptoms. - Time Time Spent with patient: Less than 15 minutes
[2020-04-19] MEDS: LEVOFLOXACIN 500 MG TABLET PO SCH (17:11)
[2020-04-19] MEDS: LURASIDONE HCL 40 MG TABLET PO SCH (17:11)
[2020-04-19 18:17] VITALS: BP 157/93
--- NOTE | 2020-04-19 20:42 | PDOC DISCHARGE SUMMARY ---
Impression - Admit/DC Date/PCP Admission Date/Primary Care Provider: 04/14/20 17:01 DORIE LUGO MD Discharge Date: 04/19/20 - Discharge Diagnosis (1) Abscess of right thumb Is this a current diagnosis for this admission?: Yes (2) Paronychia of right thumb Is this a current diagnosis for this admission?: Yes (3) T2DM (type 2 diabetes mellitus) Is this a current diagnosis for this admission?: Yes (4) Coronary artery disease Is this a current diagnosis for this admission?: Yes (5) Morbid obesity Is this a current diagnosis for this admission?: Yes (6) Cellulitis of right forearm Is this a current diagnosis for this admission?: Yes - Additional Information Resuscitation Status: Full Code Discharge Diet: Regular Discharge Activity: Activity As Tolerated Referrals: DORIE LUGO MD [Primary Care Provider] - (We will make an appointment for you and contact you with the date and time. Thank you and have a great day.) ARI JOAQUIN JR, DO [ACTIVE PROVISIONAL STAFF] - 04/30/20 8:55 am Prescriptions: Levofloxacin [Levaquin 500 mg Tablet] 500 mg PO QPM #7 tablet Hydrocodone/Acetaminophen [Poteet 10-325 mg Tablet] 1 tab PO Q6H #28 tablet Home Medications: Hydralazine HCl [Apresoline 50 mg Tablet] 50 mg PO TID 09/26/13 Clonidine HCl [Catapres] 0.3 mg PO TID 04/25/15 Sertraline HCl [Zoloft 50 mg Tablet] 100 mg PO DAILY 04/25/15 Zolpidem Tartrate 10 mg PO QHS 01/02/16 Alprazolam 1 mg PO DAILY 01/25/20 Insulin Glargine,Hum.rec.anlog [Lantus Insulin 100 Unit/1 ml 10 ml] 50 unit SUBCUT BID 01/25/20 Insulin Lispro [Humalog] 0 unit SQ .SLIDING SCALE 01/25/20 Lurasidone HCl [Latuda 40 mg Tablet] 40 mg PO DAILY 01/25/20 Aliskiren Hemifumarate [Tekturna 300 mg Tablet] 300 mg PO DAILY 04/13/20 Cyclobenzaprine HCl [Flexeril 10 mg Tablet] 10 mg PO BID 04/13/20 Doxepin HCl [Sinequan 25 mg Capsule] 25 mg PO QHS 04/13/20 Gabapentin [Neurontin] 600 mg PO TID 04/13/20 Metformin HCl 1,000 mg PO BID 04/13/20 Hydrocodone/Acetaminophen [Poteet 10-325 mg Tablet] 1 tab PO Q6H #28 tablet 04/19/20 Levofloxacin [Levaquin 500 mg Tablet] 500 mg PO QPM #7 tablet 04/19/20 History of Present Illiness History of Present Illness: YULIANA ALVARADO is a 39 year old female, She has multiple morbid conditions, she came to the office for evaluation of paronychia of the right thumb, there was obvious abscess, she need to have incision and drainage. She has diabetes m ellitus with complication including nephropathy, history of ischemic heart disease status post coronary artery stenting, tobacco abuse. I felt the best plan of care was to admit to the hospital for management, unfortunately there was no bed according to the nursing solid waste facility supervisor patient was first referred to the ER and ultimately admitted to the floor Hospital Course Hospital Course: Patient with abscess of the right thumb and paronychia.There was associated cellulitis, she was seen in consultation by orthopedic Dr. Joaquin she underwent incision and drainage of the abscess, the culture from the abscess was polymicrobialShe was initially treated empirically with IV antibiotic vancomycin and Zosyn, this was ultimately transitioned to p.o. Levaquin yesterday. 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, nephropathy, she also unfortunately smoke tobacco Physical Exam Vital Signs: Temp Pulse Resp BP Pulse Ox 98.6 F 88 20 157/93 H 97 04/19/20 18:16 04/19/20 18:16 04/19/20 18:16 04/19/20 18:16 04/19/20 18:16 Intake & Output 04/18/20 04/19/20 04/20/20 06:59 06:59 06:59 Intake Total 800 1885 Output Total 0 Balance 800 -165 Weight 126.5 kg 126.2 kg General appearance: PRESENT: no acute distress Eye exam: PRESENT: PERRLA Respiratory exam: PRESENT: clear to auscultation herminia Cardiovascular exam: PRESENT: +S1, +S2 GI/Abdominal exam: PRESENT: soft Neurological exam: PRESENT: alert, CN II-XII grossly intact Results Laboratory Results: WBC 13.3 10^3/uL (4.0-10.5) H 04/16/20 14:40 RBC 5.22 10^6/uL (3.72-5.28) 04/16/20 14:40 Hgb 9.0 g/dL (12.0-15.5) L 04/16/20 14:40 Hct 29.3 % (36.0-47.0) L 04/16/20 14:40 MCV 56 fl (80-97) L 04/16/20 14:40 MCH 17.3 pg (27.0-33.4) L 04/16/20 14:40 MCHC 30.8 g/dL (32.0-36.0) L 04/16/20 14:40 RDW 20.4 % (11.5-14.0) H 04/16/20 14:40 Plt Count 273 10^3/uL (150-450) 04/16/20 14:40 Lymph % (Auto) Not Reportable 04/16/20 14:40 Ness % (Auto) Not Reportable 04/16/20 14:40 Eos % (Auto) Not Reportable 04/16/20 14:40 Baso % (Auto) Not Reportable 04/16/20 14:40 Absolute Neuts (auto) Not Reportable 04/16/20 14:40 Absolute Lymphs (auto) Not Reportable 04/16/20 14:40 Absolute Monos (auto) Not Reportable 04/16/20 14:40 Absolute Eos (auto) Not Reportable 04/16/20 14:40 Absolute Basos (auto) Not Reportable 04/16/20 14:40 Total Counted 100 04/16/20 14:40 Seg Neutrophils % Not Reportable 04/16/20 14:40 Seg Neuts % (Manual) 79 % (42-78) H 04/16/20 14:40 Lymphocytes % (Manual) 18 % (13-45) 04/16/20 14:40 Atypical Lymphs % 3 % (0) 04/16/20 14:40 Monocytes % (Manual) 0 % (3-13) L 04/16/20 14:40 Eosinophils % (Manual) 0 % (0-6) 04/16/20 14:40 Basophils % (Manual) 0 % (0-2) 04/16/20 14:40 Abs Neuts (Manual) 10.5 10^3/uL (1.7-8.2) H 04/16/20 14:40 Abs Lymphs (Manual) 2.8 10^3/uL (0.5-4.7) 04/16/20 14:40 Abs Monocytes (Manual) 0.0 10^3/uL (0.1-1.4) L 04/16/20 14:40 Absolute Eos (Manual) 0.0 10^3/uL (0.0-0.6) 04/16/20 14:40 Abs Basophils (Manual) 0.0 10^3/uL (0.0-0.2) 04/16/20 14:40 Large Platelets PRESENT 04/12/20 22:22 Platelet Comment ADEQUATE 04/16/20 14:40 Polychromasia SLIGHT 04/16/20 14:40 Hypochromasia 4+ 04/16/20 14:40 Poikilocytosis SLIGHT 04/12/20 22:22 Anisocytosis 2+ 04/16/20 14:40 Microcytosis 4+ 04/16/20 14:40 Target Cells 1+ 04/16/20 14:40 Ovalocytes 1+ 04/16/20 14:40 Sodium 135.5 mmol/L (137-145) L 04/16/20 14:40 Potassium 3.8 mmol/L (3.6-5.0) 04/16/20 14:40 Chloride 105 mmol/L (98-107) 04/16/20 14:40 Carbon Dioxide 24 mmol/L (22-30) 04/16/20 14:40 Anion Gap 7 (5-19) 04/16/20 14:40 BUN 18 mg/dL (7-20) 04/16/20 14:40 Creatinine 1.44 mg/dL (0.52-1.25) H 04/18/20 09:44 Est GFR ( Amer) 49 (>60) L 04/18/20 09:44 Est GFR (MDRD) Non-Af 41 (>60) L 04/18/20 09:44 Glucose 79 mg/dL (75-110) 04/16/20 14:40 POC Glucose 139 mg/dL (70-110) H 04/19/20 16:24 Hemoglobin A1c % 8.7 % (4.7-6.0) H 04/13/20 04:25 Calcium 9.6 mg/dL (8.4-10.2) 04/16/20 14:40 Total Bilirubin 0.2 mg/dL (0.2-1.3) 04/16/20 14:40 Direct Bilirubin 0.0 mg/dL (0.0-0.4) 04/16/20 14:40 Neonat Total Bilirubin Not Reportable 04/16/20 14:40 Neonat Direct Bilirubin Not Reportable 04/16/20 14:40 Neonat Indirect Bili Not Reportable 04/16/20 14:40 AST 19 U/L (14-36) 04/16/20 14:40 ALT 11 U/L (<35) 04/16/20 14:40 Alkaline Phosphatase 46 U/L (38-126) 04/16/20 14:40 Total Protein 6.5 g/dL (6.3-8.2) 04/16/20 14:40 Albumin 3.4 g/dL (3.5-5.0) L 04/16/20 14:40 Time Trough Drawn 0944 04/18/20 09:44 Vancomycin Trough 17.6 ug/mL (5.0-20.0) 04/18/20 09:44 COVID-19 Source NASOPHARYNGEAL 04/16/20 16:20 COVID-19 ([place]) NOT DETECTED 04/16/20 16:20 Impressions: Upper Extremity MRI 04/15/20 00:00 IMPRESSION: 1. Cellulitis along the thumb. No gross drainable abscess. 2. Mild edema in the distal phalanx of the thumb without aggressive features. Doubt osteomyelitis. Likely reactive to the overlying soft tissue infection. Baseline radiographs of the thumb should be obtained with subsequent surveillance followup radiographs as deemed clinically appropriate. Stroke Is this a Stroke Patient?: No Acute Heart Failure - Is this a Heart Failure Patient?: No
== END 2020-04-19 18:50 | disposition home or self-care (01) | DRG 580 ==
LOC: ER 16:43 → EH 18:50 → 4S 21:12 → OBSVTOIN 04-14 17:01
PROVIDERS: ADMIT Internal Medicine; ATTEND Internal Medicine
PROC: 0H9FXZX Drainage of Right Hand Skin, External Approach, Diagnostic (ICD-10-PCS; 2020-04-13)
PROC: 0J9J0ZZ Drainage of Right Hand Subcutaneous Tissue and Fascia, Open Approach (ICD-10-PCS; principal; 2020-04-16)
PROC: 0HTQXZZ Resection of Finger Nail, External Approach (ICD-10-PCS; 2020-04-16)
DX: L02.511 Cutaneous abscess of right hand (principal); L03.113 Cellulitis of right upper limb; L03.011 Cellulitis of right finger; R80.9 Proteinuria, unspecified; E66.01 Morbid (severe) obesity due to excess calories; E11.21 Type 2 diabetes mellitus with diabetic nephropathy; I10 Essential (primary) hypertension; L02.33 Carbuncle of buttock; I87.2 Venous insufficiency (chronic) (peripheral); Z03.818 Encounter for observation for suspected exposure to other biological agents ruled out; I25.10 Atherosclerotic heart disease of native coronary artery without angina pectoris; E11.42 Type 2 diabetes mellitus with diabetic polyneuropathy; E78.5 Hyperlipidemia, unspecified; I11.0 Hypertensive heart disease with heart failure; F17.200 Nicotine dependence, unspecified, uncomplicated; I50.9 Heart failure, unspecified; F31.9 Bipolar disorder, unspecified; M19.90 Unspecified osteoarthritis, unspecified site; J44.9 Chronic obstructive pulmonary disease, unspecified; Z90.49 Acquired absence of other specified parts of digestive tract; Z95.5 Presence of coronary angioplasty implant and graft; I25.2 Old myocardial infarction; Z79.4 Long term (current) use of insulin; Z79.899 Other long term (current) drug therapy
CPT/HCPCS: 36000; 36415; 80053; 80202; 82565; 82962; 83036; 85025; 87040; 87070; 87075; 87077; 87086; 87186; 87205; 87635; 99281; C9803; J1170; J1610; J1650; J1815; J2543; J3370; J3490; J7050; J7060

== ENCOUNTER 2020-07-31 00:32 | Observation (INO) | payer MEDICARE, MEDICAID ==
--- NOTE | 2020-07-31 00:52 | ER Document Report ---
ED General - General TRAVEL OUTSIDE OF THE [place] IN LAST 30 DAYS: No <CAROLINA BOOKER - Last Filed: 07/31/20 08:29> <KLAUDIA GAINES - Last Filed: 07/31/20 08:33> - General Chief Complaint: Abdominal Pain Stated Complaint: ABDOMINAL PAIN Time Seen by Provider: 07/31/20 00:52 - HPI Notes: 39 year old female with PMH for CHF, HTN to the ED with C/O epigastric, RUQ, RLQ abd pain that began today and has gotten worse. Admits to nausea with her symptoms. Denies fevers, chills. Denies urinary complaints. Does admit to cough that has been ongoing for 3 days. States it is mildly productive. Denies any known COVID 19 exposures. Denies chest pain, SOB. States she has had a cholecystectomy and two c-sections. Did have a normal bowl movement today. Her PCP is Dr. Villagomez. She has not eaten since yesterday (07/30/20) morning. (CAROLINA BOOKER) - Related Data Allergies/Adverse Reactions: No Known Allergies Allergy (Verified 04/12/20 16:56) Past Medical History - General Information source: Patient - Social History Smoking Status: Never Smoker Frequency of alcohol use: None Drug Abuse: None Family History: Reviewed & Not Pertinent - Past Medical History Cardiac Medical History: Reports: Hx Congestive Heart Failure, Hx Coronary Artery Disease, Hx Heart Attack, Hx Hypercholesterolemia, Hx Hypertension Pulmonary Medical History: Reports: Hx COPD Denies: Hx Tuberculosis Neurological Medical History: Reports: Hx Migraine. Denies: Hx Seizures Endocrine Medical History: Reports: Hx Diabetes Mellitus Type 1, Hx Diabetes Mellitus Type 2 - IDDM Renal/ Medical History: Reports: Hx Kidney Stones. Denies: Hx Peritoneal Dialysis Musculoskeletal Medical History: Reports Hx Arthritis Psychiatric Medical History: Reports: Hx Bipolar Disorder, Hx Depression - +anxiety Past Surgical History: Reports: Hx Cardiac Catheterization, Hx Cardiac Surgery - stent placement, Hx Section - x2, Hx Cholecystectomy, Hx Coronary Stent, Hx Oral Surgery. Denies: Hx Pacemaker - Immunizations Immunizations up to date: Yes Hx Diphtheria, Pertussis, Tetanus Vaccination: Yes Hx Pneumococcal Vaccination: 09/21/10 <CAROLINA BOOKER - Last Filed: 07/31/20 08:29> Review of Systems - Review of Systems Constitutional: denies: Chills, Fever EENT: No symptoms reported Cardiovascular: denies: Chest pain, Palpitations, Heart racing, Orthopnea, Dyspnea, Syncope, Dizziness, Lightheaded Respiratory: Cough, Sputum. denies: Short of breath Gastrointestinal: Abdominal pain, Nausea. denies: Diarrhea, Vomiting Genitourinary: denies: Frequency, Flank pain Female Genitourinary: No symptoms reported Musculoskeletal: No symptoms reported Skin: No symptoms reported Hematologic/Lymphatic: No symptoms reported Neurological/Psychological: No symptoms reported -: Yes All other systems reviewed and negative <CAROLINA BOOKER - Last Filed: 07/31/20 08:29> Physical Exam - Vital signs Interpretation: Normal - General General appearance: Appears well, Alert In distress: Moderate - HEENT Head: Normocephalic, Atraumatic Eyes: Normal Pupils: PERRL Neck: Normal, Supple - Respiratory Respiratory status: No respiratory distress Chest status: Nontender Breath sounds: Normal. No: Rales, Rhonchi, Wheezing Chest palpation: Normal - Cardiovascular Rhythm: Regular Heart sounds: Normal auscultation Murmur: No - Abdominal Inspection: Morbidly Obese Distension: No distension Bowel sounds: Normal Tenderness: Tender - TTP over the RUQ, epigastrium, RLQ, around the umbilicus. + guarding Organomegaly: No organomegaly - Back Back: Normal, Nontender. 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 Holding abdomen, crying. (BOOKER,CAROLINA M) - Cardiovascular Notes: trace pedal edema bilaterally (CAROLINA BOOKER) Course - Laboratory Result Diagrams: 07/31/20 04:14 07/31/20 04:14 - Diagnostic Test Radiology reviewed: Image reviewed, Reports reviewed <CAROLINA BOOKER - Last Filed: 07/31/20 08:29> - Laboratory Result Diagrams: 07/31/20 04:14 07/31/20 04:14 <KLAUDIA GAINES - Last Filed: 07/31/20 08:33> - Re-evaluation Re-evalutation: 07/31/20 Noted blood work. Patient with white count and bandemia. She has what looks to be bilateral pneumonia on her chest x-ray. Went ahead and started Rocephin and azithromycin. Still pending CT. Patient has been resting in the room but she states that her abdomen still is bothering her. She did have a large bowel movement while she was here. She states it also hurts when she takes a big deep breath in. Plan will be to eventually admit her for her pneumonia but awaiting CT scan. RN notified me that patient's IV blew. This was prior to her getting any antibiotics. The antibiotics have been ordered for over 3 hours. They are attempting to establish another line. 07/31/20 07:[address] reading concerning for acute appendicitis which corresponds with the leukocytosis and her abdominal exam. Her repeat abd exam reveals persistent RLQ abd pain and epigastric pain. Discussed with Dr. Johnston -- he agrees with plan for admission to surgery. Spoke with Dr. Rocha, surgeon credit verification clerk -- he agrees with plan for admission. He is aware of her leukocytosis, CT reading, He will come see her. He is also aware of her secondary complaint of cough and the chest XRay reading of possible bibasilar pneumonia. AWare that I have given patient Rocephin but held Azithromycin. He would like a rapid COVID. We have already swabbed the patient, we called the supervisor steffen house who approved the rapid test and called the lab so that they would run the swab as rapid. (CAROLINA BOOKER) 07/31/20 08:33 Called and spoke with Dr. Villagomez, he will be the primary admitting, this is per the request of the surgeon due to patient's multiple comorbidities. (KLAUDIA GAINES) - Vital Signs Vital signs: Temp Pulse Resp BP Pulse Ox 98.9 F 23 H 195/175 H 95 07/31/20 07:44 07/31/20 06:01 07/31/20 06:01 07/31/20 06:01 - Laboratory Laboratory results interpreted by me: 07/31/20 07/31/20 07/31/20 02:35 04:14 04:14 WBC 19.5 H Hgb 9.2 L Hct 29.5 L MCV 56 L MCH 17.6 L MCHC 31.2 L RDW 20.5 H Plt Count 121 L Seg Neuts % (Manual) 93 H Lymphocytes % (Manual) 2 L Monocytes % (Manual) 2 L Abs Neuts (Manual) 18.7 H Abs Lymphs (Manual) 0.4 L Glucose 238 H Urine Protein >=500 H Urine Glucose (UA) >=500 H - EKG Interpretation by Me Additional EKG results interpreted by me: 07/31/20 06:57 Rate: 84 Rhythm: Sinus Interpretation no STEMI, nonspecific ST changes. No significant changes from prior. (CAROLINA BOOKER) Discharge - Discharge Admitting Provider: Dahlia Unit Admitted: Surgical Floor <CAROLINA BOOKER - Last Filed: 07/31/20 08:29> <KLAUDIA GAINES - Last Filed: 07/31/20 08:33> - Discharge Clinical Impression: Right lower quadrant abdominal pain Acute appendicitis Qualifiers: Acute appendicitis type: unspecified acute appendicitis type Qualified Code(s): K35.80 - Unspecified acute appendicitis Leukocytosis Qualifiers: Leukocytosis type: other Qualified Code(s): D72.828 - Other elevated white blood cell count Hypertension Qualifiers: Hypertension type: essential hypertension Qualified Code(s): I10 - Essential (primary) hypertension Condition: Stable Disposition: ADMITTED INPATIENT
[2020-07-31] MEDS ORDERED: MORPHINE SULFATE 10 MG/ML INJ IV ONE ×2 (01:25→11:00)
[2020-07-31] MEDS ORDERED: NORMAL SALINE 250 ML IV ONE (01:25)
[2020-07-31] MEDS ORDERED: ONDANSETRON HCL INJ/PF 4 MG/2 ML SDV IV ONE (01:25)
--- NOTE | 2020-07-31 03:23 | RADIOLOGY REPORT (SQ) ---
CLINICAL HISTORY: cough COMPARISON: 05/06/2017. 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 There are vague bibasilar consolidations. There is no pleural effusion. There is no pneumothorax. There are no acute osseous findings. IMPRESSION: Suspect developing bibasilar pneumonia.
[2020-07-31] MEDS ORDERED: CEFTRIAXONE 1 GM/D5W RTU 1 GM/50 ML RTUPB IV ONE (03:53)
[2020-07-31] MEDS ORDERED: ONDANSETRON HCL INJ/PF 4 MG/2 ML SDV ONE ×3 (04:41→16:09)
[2020-07-31] MEDS ORDERED: MORPHINE SULFATE 10 MG/ML INJ ONE ×2 (04:41→10:31)
[2020-07-31 05:53] LABS: HEMATOCRIT 29.5 % (36.0-47.0); HEMOGLOBIN 9.2 g/dL (12.0-15.5); MEAN CORPUSCULAR HEMOGLOBIN 17.6 pg (27.0-33.4); MEAN CORPUSCULAR HGB CONC 31.2 g/dL (32.0-36.0); MEAN CORPUSCULAR VOLUME 56 fl (80-97); PLATELET COUNT 121 10^3/uL (150-450); RED BLOOD COUNT 5.25 10^6/uL (3.72-5.28); RED CELL DISTRIBUTION WIDTH 20.5 % (11.5-14.0); WHITE BLOOD COUNT 19.5 10^3/uL (4.0-10.5)
[2020-07-31 05:57] LABS: ALBUMIN 3.5 g/dL (3.5-5.0); ALKALINE PHOSPHATASE 73 U/L (38-126); ANION GAP 9 (5-19); ASPARTATE AMINO TRANSFERASE 26 U/L (14-36); BILIRUBIN,DIRECT 0.1 mg/dL (0.0-0.4); BILIRUBIN,TOTAL 0.5 mg/dL (0.2-1.3); BLOOD UREA NITROGEN 14 mg/dL (7-20); CARBON DIOXIDE 26 mmol/L (22-30); CHLORIDE 104 mmol/L (98-107); GLUCOSE 238 mg/dL (75-110); POTASSIUM 3.6 mmol/L (3.6-5.0); TOTAL PROTEIN 6.4 g/dL (6.3-8.2)
[2020-07-31] MEDS ORDERED: CLONIDINE HCL 0.2 MG TABLET PO ONE (05:59)
[2020-07-31 06:00] LABS: ABSOLUTE LYMPHOCYTES# (MANUAL) 0.4 10^3/uL (0.5-4.7); ABSOLUTE MONOCYTES # (MANUAL) 0.4 10^3/uL (0.1-1.4); ANISOCYTOSIS 2+; BAND NEUTROPHILS % (MANUAL) 3 % (3-5); BASOPHILS % (MANUAL) 0 % (0-2); EOSINOPHILS % (MANUAL) 0 % (0-6); HYPOCHROMASIA 1+; LYMPHOCYTES % (MANUAL) 2 % (13-45); MONOCYTES % (MANUAL) 2 % (3-13); SEGMENTED NEUTROPHILS % (MAN) 93 % (42-78); TOTAL CELLS COUNTED 100
[2020-07-31 06:01] LABS: PLATELET COMMENT DECREASED; POIKILOCYTOSIS SLIGHT; POLYCHROMASIA SLIGHT; TARGET CELLS SLIGHT
[2020-07-31 06:17] LABS: APPEARANCE,URINE CLEAR; COLOR,URINE STRAW
[2020-07-31 06:18] LABS: BILIRUBIN,URINE NEGATIVE (NEGATIVE); GLUCOSE, URINE >=500 mg/dL (NEGATIVE); KETONES,URINE NEGATIVE (NEGATIVE); PROTEIN,URINE >=500 mg/dL (NEGATIVE); URINE SPECIFIC GRAVITY 1.011; UROBILINOGEN,URINE NEGATIVE mg/dL (<2.0)
[2020-07-31] MEDS: AZITHROMYCIN INJ 500 MG VIAL IV ONE ×2 (07:28→07:38)
--- NOTE | 2020-07-31 07:33 | RADIOLOGY REPORT (SQ) ---
EXAM DESCRIPTION: CT ABDOMEN PELVIS WITH IV CONTRAST COMPLETED DATE/TME: 07/31/2020 06:40 CLINICAL HISTORY: ruq, epigastric, RLQ abd pain COMPARISON: 01/26/2020 TECHNIQUE: CT of the abdomen and pelvis performed following IV administration of 100 mL Omnipaque 350. IV infiltration of the exam. Mild motion artifact. FINDINGS: Lung Bases: The visualized lung bases are clear. Bones: No destructive bone lesions identified. Abdomen: Liver: The liver has normal size and density. No intrahepatic biliary dilatation. Gallbladder: Prior cholecystectomy. Spleen, Pancreas, and Adrenal Glands: The spleen, pancreas, and adrenal glands are unremarkable. Kidneys: No hydronephrosis or obstructing calculus. Nonobstructing inferior pole left nephrolithiasis. Vasculature: Aortoiliac atherosclerosis. IVC is unremarkable. The portal vein is patent. The proximal visceral and renal arteries are patent. Stomach: The stomach and duodenum have normal course. Other: No free intraperitoneal air. Small amount of free fluid. Pelvis: Bladder: Urinary bladder is unremarkable. Bowel: No dilated loops of large or small bowel. Appendix: The appendix is not well delineated on this study due to motion artifact. The structure thought to represent the appendix measures 1.4 cm. Small amount of free fluid in the right lower abdomen. Pelvis: Enlarged fibroid uterus IMPRESSION: 1. The appendix is not well characterized on this study however the structure thought to represent the appendix is dilated with small amount of free fluid in the right lower abdomen. These findings could indicate acute appendicitis. This portion of the abdomen is not well evaluated due to patient motion artifact. 2. Nonobstructing inferior pole left nephrolithiasis. 3. Enlarged fibroid uterus This exam was performed according to our departmental dose-optimization program, which includes automated exposure control, adjustment of the mA and/or kV according to patient size and/or use of iterative reconstruction technique.
[2020-07-31] MEDS ORDERED: CLINDAMYCIN 900 MG/D5W RTU 900 MG/50 ML RTUPB IV ONE (08:28)
[2020-07-31] MEDS ORDERED: FENTANYL CITRATE INJ/PF 100 MCG/2 ML AMPUL ONE ×2 (11:22→16:12)
[2020-07-31] MEDS ORDERED: LIDOCAINE 2% INJ-PF (20 MG/ML) 10 ML AMPUL ONE (11:22)
[2020-07-31] MEDS ORDERED: HYDROMORPHONE HCL INJ/PF 2 MG/ML AMPULE ONE (11:23)
[2020-07-31] MEDS ORDERED: DEXAMETHASONE SOD PHOSPHATE INJ 4 MG/1 ML VIAL ONE (11:23)
[2020-07-31] MEDS ORDERED: MIDAZOLAM 2 MG/2 ML INJ ONE (11:23)
[2020-07-31] MEDS ORDERED: PROPOFOL INJ 200 MG/20 ML VIAL IV ONE (11:23)
[2020-07-31] MEDS ORDERED: BUPIVACAINE HCL 0.5%-EPI 1:200000 INJ/PF 30 ML VIAL ONE (12:00)
[2020-07-31] MEDS ORDERED: PROMETHAZINE HCL INJ 25 MG/1 ML VIAL IV PRN ×2 (13:35)
[2020-07-31] MEDS ORDERED: DIPHENHYDRAMINE HCL 50 MG/ML VIAL IV PRN (13:35)
[2020-07-31] MEDS ORDERED: MORPHINE SULFATE 10 MG/ML INJ IV PRN (13:35)
[2020-07-31] MEDS ORDERED: OXYCODONE-ACETAMINOPHEN 5-325 MG TABLET PO PRN ×2 (13:35)
[2020-07-31] MEDS ORDERED: FENTANYL CITRATE INJ/PF 100 MCG/2 ML AMPUL IV PRN ×3 (13:35)
[2020-07-31] MEDS ORDERED: MEPERIDINE HCL/PF INJ 25 MG/1 ML DISP.SYRIN IV PRN (13:35)
[2020-07-31] MEDS ORDERED: LABETALOL HCL INJ 20 MG/4 ML DISP.SYRIN IV ONE (13:47)
[2020-07-31] MEDS ORDERED: SUGAMMADEX SODIUM 200 MG/2 ML SDV IV ONE (14:52)
--- NOTE | 2020-07-31 15:16 | Operative Report ---
Operative Report DATE OF SURGERY: 07/31/20 PREOPERATIVE DIAGNOSIS: Acute appendicitis: Leukocytosis POSTOPERATIVE DIAGNOSIS: Same OPERATION: Laparoscopic appendectomy, extensive lysis of adhesions SURGEON: RONNIE HESTER ANESTHESIA: GA - +20 mils of half percent Marcaine without epinephrine TISSUE REMOVED OR ALTERED: Appendix COMPLICATIONS: None ESTIMATED BLOOD LOSS: 70 mL INTRAOPERATIVE FINDINGS: Thickened indurated appendix; large amount of intra- abdominal adhesions between greater omentum and anterior abdominal wall, enlarged uterus PROCEDURE: The procedure was done in the operating room. The patient was placed in a supine position, general anesthesia induced by endotracheal intubation[, Lindsey catheter was inserted], the abdomen was prepped and draped in usual fashion. An incision was made just above the umbilicus with a #15 blade, the skin was tented with towel clips and a 5 mm port with Optiview adapter and scope were inserted through the abdominal wall into the peritoneal cavity. However, the peritoneal cavity could not be accessed. At this point, a 5 mm port was placed in left upper quadrant with easy entrance within the peritoneal cavity. After they CO2 pneumoperitoneum was obtained, a large amount of intra-abdominal lesions were noted between the greater omentum adherent to the anterior abdominal wall at the level of the umbilicus. Under direct visualization a 5 mm report was inserted in the left lower quadrant. However, bleeding was noted from the greater omentum in the left lower quadrant. This was evaluated, no injury to the left colon was identified; however, the amount of blood was obtained this was aspirated from the peritoneal cavity which was irrigated until clear. In the right lateral quadrant of the abdomen following skin incision, a 5 mm port was inserted and through this port LigaSure was inserted. The lower abdominal adhesions between greater omentum anterior abdominal wall where taken down with blunt and LigaSure dissection. This part of the procedure lasted approximately 30 minutes until all the lesions were removed and the large fibroid filled uterus was identified. The scope was removed from the umbilical port and inserted into the right side port. The 5 mm umbilical port was removed and replaced with a 12 mm port, while the 5 mm port was inserted in left lower quadrant of the abdomen following skin incision. The patient was placed in steep Trendelenburg position with the right side elevated. The appendix was then identified by tracing the anterior tenia of the cecum, the appendix was then found, elevated, and stretched. The mesentery of the appendix was divided with the LigaSure. The appendix was found to be non-perforated. The appendix was stapled at the base with an Endo CHELI stapler, extracted from the peritoneal cavity with an Endobag through the umbilical port. The pneumoperitoneum was then re-established, the stapled line was examined and found to be intact. The right lower quadrant was then irrigated with normal saline until clear. The umbilical fascial defect was closed with a [id number] 0 Vicryl suture, placed with a fascia closure device under direct visualization and left untied. All instruments were removed, the pneumoperitoneum was released, and all ports were removed. The umbilical fascial defect was closed with the previously placed [id number] 0 Vicryl suture, all skin incisions were closed with a 4- 0 PDS running subcuticular suture, and covered with Dermabond. The patient tolerated the procedure well, was extubated, and transferred to the recovery room in satisfactory conditions.
--- NOTE | 2020-07-31 15:21 | PDOC CONSULTATION ---
Consultation Consult Date: 07/31/20 Provider Consulted: RONNIE HESTER Consult reason:: Right lower quadrant pain, leukocytosis History of Present Illness Admission Date/PCP: 07/31/20 07:58 DORIE LUGO MD History of Present Illness: YULIANA ALVARADO is a 39 year old female, morbid obese, with a history of congestive failure and myocardial infarction at age 27 with coronary artery stent placement, who presents emergency room with a complaint of diffuse abdominal pain and right lower quadrant pain. A CT scan of the abdomen pelvis was done revealing an inflamed appendix dilated with free fluid around lower quadrant as well as inflammatory stranding in the right upper quadrant. White blood cell count is 19,000. Initial review by an outside radiologist of the chest x-ray is significant for bilateral lobar pneumonia. However, review the CT scan by our radiologist does not confirm these chest x-ray findings. Past Medical History Cardiac Medical History: Reports: Congestive Heart Failure, Coronary Artery Disease, Myocardial Infarction, Hyperlipidema, Hypertension Pulmonary Medical History: Reports: Chronic Obstructive Pulmonary Disease (COPD) Denies: Tuberculosis Neurological Medical History: Reports: Migraine Denies: Seizures Endocrine Medical History: Reports: Diabetes Mellitus Type 1, Diabetes Mellitus Type 2 - IDDM Musculoskeltal Medical History: Reports: Arthritis Psychiatric Medical History: Reports: Bipolar Disorder, Depression - +anxiety Past Surgical History Past Surgical History: Reports: Cardiac Catheterization, Section - x2, Cholecystectomy, Coronary Stent Denies: Pacemaker Social History Smoking Status: Never Smoker Frequency of Alcohol Use: Rare Hx Recreational Drug Use: Yes Drugs: Marijuana Hx Prescription Drug Abuse: No Family History Family History: Reviewed & Not Pertinent Parental Family History Reviewed: No Children Family History Reviewed: No Sibling(s) Family History Reviewed.: No Medication/Allergy Home Medications: Hydralazine HCl [Apresoline 50 mg Tablet] 100 mg PO TID 09/26/13 Clonidine HCl [Catapres] 0.3 mg PO TID 04/25/15 Sertraline HCl [Zoloft 50 mg Tablet] 50 mg PO DAILY 04/25/15 Zolpidem Tartrate 10 mg PO HSP PRN 01/02/16 Alprazolam 0.5 mg PO BIDP PRN 01/25/20 Insulin Glargine,Hum.rec.anlog [Lantus Insulin 100 Unit/1 ml 10 ml] 50 unit SQ DAILY 01/25/20 Insulin Lispro [Humalog] 0 unit SQ .SLIDING SCALE 01/25/20 Lurasidone HCl [Latuda 40 mg Tablet] 40 mg PO QPM 01/25/20 Aliskiren Hemifumarate [Tekturna 300 mg Tablet] 300 mg PO DAILY 04/13/20 Cyclobenzaprine HCl [Flexeril 10 mg Tablet] 10 mg PO BIDP PRN 04/13/20 Gabapentin [Neurontin] 600 mg PO Q8 04/13/20 Metformin HCl 1,000 mg PO BID 04/13/20 Albuterol Sulfate [Proair HFA Inhalation Aerosol 8.5 gm MDI] 1 puff IH Q4HP PRN 07/31/20 Amlodipine Besylate [Norvasc 10 mg Tablet] 10 mg PO DAILY 07/31/20 Aspirin [Adult Low Dose Aspirin EC] 81 mg PO DAILY 07/31/20 Benztropine Mesylate [Cogentin 1 mg Tablet] 1 mg PO QAM 07/31/20 Benztropine Mesylate [Cogentin 1 mg Tablet] 2 mg PO QPM 07/31/20 Clotrimazole/Betamethasone Dip [Lotrisone Cream 15 gm] 1 applic TOP BID 07/31/20 Exenatide Microspheres [Bydureon Pen] 2 mg SQ NUNN 07/31/20 Furosemide [Lasix 40 mg Tablet] 40 mg PO DAILY 07/31/20 Magnesium Oxide [Mag-Ox 400 mg Tablet] 400 mg PO DAILY 07/31/20 Metolazone 10 mg PO DAILY 07/31/20 Metoprolol Succinate [Toprol Xl] 200 mg PO DAILY 07/31/20 Pregabalin [Lyrica 50 mg Capsule] 50 mg PO Q8 07/31/20 Ubidecarenone/Vit E Acet [Co Q-10 100 mg Softgel] 3 cap PO WSUPPER 07/31/20 Allergies/Adverse Reactions: No Known Allergies Allergy (Verified 04/12/20 16:56) Physical Exam Vital Signs: Temp Pulse Resp BP Pulse Ox 98.9 F 23 H 195/175 H 95 07/31/20 07:44 07/31/20 06:01 07/31/20 06:01 07/31/20 06:01 Intake & Output 07/30/20 07/31/20 08/01/20 06:59 06:59 06:59 Intake Total 250 50 Balance 250 50 General appearance: PRESENT: mild distress, obese Head exam: PRESENT: atraumatic, normocephalic Eye exam: PRESENT: EOMI Mouth exam: PRESENT: moist, neck supple Respiratory exam: PRESENT: clear to auscultation herminia Cardiovascular exam: PRESENT: RRR GI/Abdominal exam: PRESENT: firm, rebound - Diffuse, soft, tenderness - Diffuse, not distended,, other - Scar just below the umbilicus Rectal exam: PRESENT: deferred Extremities exam: PRESENT: full ROM Musculoskeletal exam: PRESENT: full ROM Neurological exam: PRESENT: alert, awake, oriented to time, oriented to situation, CN II-XII grossly intact Psychiatric exam: PRESENT: anxious, appropriate affect Skin exam: PRESENT: warm Results Laboratory Results: 07/31/20 04:14 07/31/20 04:14 07/31/20 07/31/20 07/31/20 02:35 04:14 04:14 WBC 19.5 H RBC 5.25 Hgb 9.2 L Hct 29.5 L MCV 56 L MCH 17.6 L MCHC 31.2 L RDW 20.5 H Plt Count 121 L Seg Neutrophils % Not Reportable Sodium 139.1 Potassium 3.6 Chloride 104 Carbon Dioxide 26 Anion Gap 9 BUN 14 Creatinine 0.90 Est GFR ( Amer) > 60 Glucose 238 H Lactic Acid Calcium 9.0 Total Bilirubin 0.5 AST 26 Alkaline Phosphatase 73 Total Protein 6.4 Albumin 3.5 Lipase 50.8 Urine Color STRAW Urine Appearance CLEAR Urine pH 6.0 Ur Specific [place] 1.011 Urine Protein >=500 H Urine Glucose (UA) >=500 H Urine Ketones NEGATIVE Urine Blood NEGATIVE Urine RBC (Auto) 1 07/31/20 04:14 WBC RBC Hgb Hct MCV MCH MCHC RDW Plt Count Seg Neutrophils % Sodium Potassium Chloride Carbon Dioxide Anion Gap BUN Creatinine Est GFR ( Amer) Glucose Lactic Acid 1.9 Calcium Total Bilirubin AST Alkaline Phosphatase Total Protein Albumin Lipase Urine Color Urine Appearance Urine pH Ur Specific [place] Urine Protein Urine Glucose (UA) Urine Ketones Urine Blood Urine RBC (Auto) Impressions: Abdomen/Pelvis CT 07/31/20 01:24 IMPRESSION: 1. The appendix is not well characterized on this study however the structure thought to represent the appendix is dilated with small amount of free fluid in the right lower abdomen. These findings could indicate acute appendicitis. This portion of the abdomen is not well evaluated due to patient motion artifact. 2. Nonobstructing inferior pole left nephrolithiasis. 3. Enlarged fibroid uterus This exam was performed according to our departmental dose-optimization program, which includes automated exposure control, adjustment of the mA and/or kV according to patient size and/or use of iterative reconstruction technique. Chest X-Ray 07/31/20 01:24 IMPRESSION: Suspect developing bibasilar pneumonia. Assessment & Plan - Diagnosis (3) Acute appendicitis Qualifiers: Acute appendicitis type: unspecified acute appendicitis type Qualified Code(s): K35.80 - Unspecified acute appendicitis (4) Leukocytosis Qualifiers: Leukocytosis type: other Qualified Code(s): D72.828 - Other elevated white blood cell count - Plan Summary Plan Summary: Assessment: Right upper quadrant pain abdominal pain Leukocytosis 19,000 CT scan findings significant for acute appendicitis with dilated appendix, free fluid in the right upper quadrant, inflammatory changes in the right lower quadrant Chest x-ray initial review significant for bilateral developing lobar pneumonia; however, reviewed the chest x-ray by radiologist compared to CT scan findings do not confirm this bilateral developing pneumonia COVID-19 test = negative Remaining blood work within normal limits Physical exam is significant for right upper quadrant pain as well as diffuse abdominal pain particular in the upper mid abdomen Plan: Emergent laparoscopic appendectomy possible open Procedure, risks, benefits, complications, including possibility of bowel injury, bleeding, wound infection, pneumonia, and have been discussed with the patient as well as cardiac events, she understands all the above, her questi ons were answered, she desires to proceed. Patient to be admitted by the medical service
[2020-07-31] MEDS ORDERED: NORMAL SALINE 1000 ML 1,000 ML IV PRN (15:26)
[2020-07-31] MEDS ORDERED: DEXTROSE 40% GEL 15 GM TUBE PO PRN ×6 (15:28→18:22)
[2020-07-31] MEDS ORDERED: GLUCAGON,HUMAN RECOMB 1 MG INJ SUBCUT PRN ×2 (15:28→18:22)
[2020-07-31] MEDS ORDERED: DEXTROSE 50%-WATER 25 GM/50 ML DISP.SYRIN IV PRN ×6 (15:28→18:22)
[2020-07-31] MEDS ORDERED: ONDANSETRON HCL INJ/PF 4 MG/2 ML SDV IV PRN (15:33)
[2020-07-31] MEDS ORDERED: ROCURONIUM BROMIDE INJ 50 MG/5 ML VIAL IV ONE (16:09)
[2020-07-31] MEDS ORDERED: NEOSTIGMINE METHYLSULFATE 10 MG/10 ML VIAL ONE (16:09)
[2020-07-31] MEDS ORDERED: SUCCINYLCHOLINE CHLORIDE INJ 200 MG/10 ML VIAL ONE (16:09)
[2020-07-31] MEDS ORDERED: GLYCOPYRROLATE 1 MG/5 ML VIAL ONE (16:09)
[2020-07-31] MEDS: CLINDAMYCIN 600 MG/D5W RTU 600 MG/50 ML RTUPB IV SCH ×2 (17:43→22:28)
[2020-07-31] MEDS: FAMOTIDINE INJ/PF 20 MG/2 ML SDV IV SCH (17:44)
--- NOTE | 2020-07-31 17:46 | EKG REPORT ---
SEVERITY:- BORDERLINE ECG - SINUS RHYTHM BORDERLINE PROLONGED QT INTERVAL : Confirmed by: Christine Juarez 31-Jul-2020 17:46:20
[2020-07-31] MEDS ORDERED: GLUCAGON,HUMAN RECOMB 1 MG INJ IM PRN (18:12)
[2020-07-31] MEDS ORDERED: ENOXAPARIN SODIUM INJ 40 MG/0.4 ML DISP.SYRIN SUBCUT SCH (18:15)
[2020-07-31] MEDS ORDERED: LABETALOL HCL INJ 20 MG/4 ML DISP.SYRIN IV PRN (18:26)
[2020-07-31] MEDS: INSULIN LISPRO 100 UNIT/ML 3 ML VIAL SUBCUT SCH ×2 (18:27→22:27)
[2020-07-31] MEDS: ACETAMINOPHEN 1,000 MG/100 ML RTUPB IV SCH (18:32)
[2020-07-31] MEDS: DEXTROSE 5%-NORMAL SALINE 1,000 ML IV PRN (18:39)
--- NOTE | 2020-07-31 18:45 | PDOC H&P ---
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 She had emergency laparoscopic appendectomy because of severe leukocytosis in a patient with multiple comorbid conditions. Intraoperatively she was found to have extensive adhesions lysis of this was done in the OR by the operative surgeon. A rapid SARS-CoV-2 test was done this was negative, I saw patient on the floor after she underwent emergency laparoscopic appendectomy Past Medical History Cardiac Medical History: Reports: Coronary Artery Disease, Myocardial Infarction, Hyperlipidema, Hypertension Pulmonary Medical History: Reports: Chronic Obstructive Pulmonary Disease (COPD) Neurological Medical History: Reports: Migraine Endocrine Medical History: Reports: Diabetes Mellitus Type 2 - IDDM Musculoskeltal Medical History: Reports: Arthritis Psychiatric Medical History: Reports: Bipolar Disorder, Depression - +anxiety Past Surgical History Past Surgical History: Reports: Cardiac Catheterization, Section - x2, Cholecystectomy, Coronary Stent Social History Smoking Status: Current Some Day Smoker Frequency of Alcohol Use: Rare Hx Recreational Drug Use: Yes Drugs: Marijuana Hx Prescription Drug Abuse: No - Advance Directive Resuscitation Status: Full Code Family History Family History: Reviewed & Not Pertinent Parental Family History Reviewed: Yes Children Family History Reviewed: Yes Sibling(s) Family History Reviewed.: Yes Medication/Allergy Home Medications: Hydralazine HCl [Apresoline 50 mg Tablet] 100 mg PO TID 09/26/13 Clonidine HCl [Catapres] 0.3 mg PO TID 04/25/15 Sertraline HCl [Zoloft 50 mg Tablet] 50 mg PO DAILY 04/25/15 Zolpidem Tartrate 10 mg PO HSP PRN 01/02/16 Alprazolam 0.5 mg PO BIDP PRN 01/25/20 Insulin Glargine,Hum.rec.anlog [Lantus Insulin 100 Unit/1 ml 10 ml] 50 unit SQ DAILY 01/25/20 Insulin Lispro [Humalog] 0 unit SQ .SLIDING SCALE 01/25/20 Lurasidone HCl [Latuda 40 mg Tablet] 40 mg PO QPM 01/25/20 Aliskiren Hemifumarate [Tekturna 300 mg Tablet] 300 mg PO DAILY 04/13/20 Cyclobenzaprine HCl [Flexeril 10 mg Tablet] 10 mg PO BIDP PRN 04/13/20 Gabapentin [Neurontin] 600 mg PO Q8 04/13/20 Metformin HCl 1,000 mg PO BID 04/13/20 Albuterol Sulfate [Proair HFA Inhalation Aerosol 8.5 gm MDI] 1 puff IH Q4HP PRN 07/31/20 Amlodipine Besylate [Norvasc 10 mg Tablet] 10 mg PO DAILY 07/31/20 Aspirin [Adult Low Dose Aspirin EC] 81 mg PO DAILY 07/31/20 Benztropine Mesylate [Cogentin 1 mg Tablet] 1 mg PO QAM 07/31/20 Benztropine Mesylate [Cogentin 1 mg Tablet] 2 mg PO QPM 07/31/20 Clotrimazole/Betamethasone Dip [Lotrisone Cream 15 gm] 1 applic TOP BID 07/31/20 Exenatide Microspheres [Bydureon Pen] 2 mg SQ NUNN 07/31/20 Furosemide [Lasix 40 mg Tablet] 40 mg PO DAILY 07/31/20 Magnesium Oxide [Mag-Ox 400 mg Tablet] 400 mg PO DAILY 07/31/20 Metolazone 10 mg PO DAILY 07/31/20 Metoprolol Succinate [Toprol Xl] 200 mg PO DAILY 07/31/20 Pregabalin [Lyrica 50 mg Capsule] 50 mg PO Q8 07/31/20 Ubidecarenone/Vit E Acet [Co Q-10 100 mg Softgel] 3 cap PO WSUPPER 07/31/20 Allergies/Adverse Reactions: No Known Allergies Allergy (Verified 04/12/20 16:56) Review of Systems ROS unobtainable: Due to mental status Physical Exam Vital Signs: Temp Pulse Resp BP Pulse Ox 98.5 F 88 17 188/99 H 98 07/31/20 18:26 07/31/20 18:26 07/31/20 18:26 07/31/20 18:26 07/31/20 18:26 Intake & Output 07/30/20 07/31/20 08/01/20 06:59 06:59 06:59 Intake Total 250 750 Balance 250 750 Weight 130.6 kg General appearance: PRESENT: no acute distress Head exam: PRESENT: atraumatic, normocephalic Ear exam: PRESENT: normal external ear exam Mouth exam: PRESENT: moist, tongue midline Neck exam: PRESENT: full ROM Respiratory exam: PRESENT: rhonchi Cardiovascular exam: PRESENT: RRR, +S1, +S2 Pulses: PRESENT: normal dorsalis pedis pul, +2 pedal pulses bilateral Vascular exam: PRESENT: normal capillary refill GI/Abdominal exam: PRESENT: normal bowel sounds, soft Rectal exam: PRESENT: deferred Neurological exam: PRESENT: alert, awake, oriented to person, oriented to place, oriented to time, oriented to situation, CN II-XII grossly intact Psychiatric exam: PRESENT: appropriate affect, normal mood Skin exam: PRESENT: dry, intact, warm. ABSENT: cyanosis, rash Results Laboratory Results: 07/31/20 04:14 07/31/20 04:14 07/31/20 07/31/20 07/31/20 02:35 04:14 04:14 WBC 19.5 H RBC 5.25 Hgb 9.2 L Hct 29.5 L MCV 56 L MCH 17.6 L MCHC 31.2 L RDW 20.5 H Plt Count 121 L Seg Neutrophils % Not Reportable Sodium 139.1 Potassium 3.6 Chloride 104 Carbon Dioxide 26 Anion Gap 9 BUN 14 Creatinine 0.90 Est GFR ( Amer) > 60 Glucose 238 H Lactic Acid Calcium 9.0 Total Bilirubin 0.5 AST 26 Alkaline Phosphatase 73 Total Protein 6.4 Albumin 3.5 Lipase 50.8 Serum HCG, Qual Urine Color STRAW Urine Appearance CLEAR Urine pH 6.0 Ur Specific [place] 1.011 Urine Protein >=500 H Urine Glucose (UA) >=500 H Urine Ketones NEGATIVE Urine Blood NEGATIVE Urine RBC (Auto) 1 07/31/20 07/31/20 04:14 04:14 WBC RBC Hgb Hct MCV MCH MCHC RDW Plt Count Seg Neutrophils % Sodium Potassium Chloride Carbon Dioxide Anion Gap BUN Creatinine Est GFR ( Amer) Glucose Lactic Acid 1.9 Calcium Total Bilirubin AST Alkaline Phosphatase Total Protein Albumin Lipase Serum HCG, Qual NEGATIVE Urine Color Urine Appearance Urine pH Ur Specific [place] Urine Protein Urine Glucose (UA) Urine Ketones Urine Blood Urine RBC (Auto) Impressions: Abdomen/Pelvis CT 07/31/20 01:24 IMPRESSION: 1. The appendix is not well characterized on this study however the structure thought to represent the appendix is dilated with small amount of free fluid in the right lower abdomen. These findings could indicate acute appendicitis. This portion of the abdomen is not well evaluated due to patient motion artifact. 2. Nonobstructing inferior pole left nephrolithiasis. 3. Enlarged fibroid uterus This exam was performed according to our departmental dose-optimization program, which includes automated exposure control, adjustment of the mA and/or kV according to patient size and/or use of iterative reconstruction technique. Chest X-Ray 07/31/20 01:24 IMPRESSION: Suspect developing bibasilar pneumonia. Assessment & Plan - Diagnosis (1) Bilateral pneumonia Qualifiers: Pneumonia type: due to unspecified organism Lung location: unspecified part of lung Qualified Code(s): J18.9 - Pneumonia, unspecified organism Is this a current diagnosis for this admission?: Yes Plan: She has community-acquired pneumonia, status post negative SARS-CoV-2 testing, she will be treated with Levaquin and ceftriaxone to cover potential pathogens (2) Acute appendicitis Qualifiers: Acute appendicitis type: unspecified acute appendicitis type Qualified Code(s): K35.80 - Unspecified acute appendicitis Is this a current diagnosis for this admission?: Yes Plan: She is status post laparoscopic appendectomy (3) T2DM (type 2 diabetes mellitus) Qualifiers: Diabetes mellitus wax blender insulin use: with intermediate use Diabetes mellitus complication status: with kidney complications Diabetes mellitus complication detail: with nephropathy Qualified Code(s): E11.21 - Type 2 diabetes mellitus with diabetic nephropathy; Z79.4 - FPC (current) use of insulin Is this a current diagnosis for this admission?: Yes Plan: I discussed with the surgeon about her condition, the surgeon wants her n.p.o. for the remainder of the day, she will be kept n.p.o., start 5% dextrose normal saline infusion at 100 cc/h, check Accu-Chek every 6 hours with sliding scale (4) Hypertensive urgency Is this a current diagnosis for this admission?: Yes Plan: Start patient on labetalol to keep blood pressure below 140 systolic - Time Time Spent: Greater than 70 Minutes Medications reviewed and adjusted accordingly: Yes Anticipated Discharge Disposition: Home, Self Care Anticipated Discharge Timeframe: within 72 hours
[2020-07-31] MEDS: LEVOFLOXACIN 750 MG/D5W RTU 750 MG/150 ML RTUPB IV SCH (18:56)
[2020-07-31] MEDS: MORPHINE SULFATE 10 MG/ML INJ IV PRN (21:14)
[2020-07-31] MEDS ORDERED: CEFTRIAXONE 1 GM/D5W RTU 1 GM/50 ML RTUPB IV SCH (22:00)
[2020-07-31] MEDS ORDERED: CEFTRIAXONE 2 GM/D5W RTU 2 GM/50 ML RTUPB IV SCH (22:00)
[2020-08-01] MEDS: ACETAMINOPHEN 1,000 MG/100 ML RTUPB IV SCH ×3 (00:10→11:22)
[2020-08-01] MEDS: MORPHINE SULFATE 10 MG/ML INJ IV PRN ×2 (02:35→06:38)
[2020-08-01] MEDS: FAMOTIDINE INJ/PF 20 MG/2 ML SDV IV SCH (05:17)
[2020-08-01] MEDS: CLINDAMYCIN 600 MG/D5W RTU 600 MG/50 ML RTUPB IV SCH ×3 (05:38→21:40)
[2020-08-01] MEDS: INSULIN LISPRO 100 UNIT/ML 3 ML VIAL SUBCUT SCH ×4 (07:37→21:40)
[2020-08-01] MEDS: DEXTROSE 5%-NORMAL SALINE 1,000 ML IV PRN ×2 (07:50→21:47)
[2020-08-01 08:06] LABS: MEAN CORPUSCULAR HEMOGLOBIN 17.2 pg (27.0-33.4); MEAN CORPUSCULAR HGB CONC 30.4 g/dL (32.0-36.0); MEAN CORPUSCULAR VOLUME 57 fl (80-97); RED BLOOD COUNT 4.43 10^6/uL (3.72-5.28); WHITE BLOOD COUNT 11.7 10^3/uL (4.0-10.5)
[2020-08-01] MEDS ORDERED: IPRATROPIUM/ALBUTEROL 0.5-2.5 MG/3 ML AMPUL NEB PRN (08:14)
[2020-08-01 08:20] LABS: ANION GAP 9 (5-19); BLOOD UREA NITROGEN 12 mg/dL (7-20); CALCIUM 7.8 mg/dL (8.4-10.2); CARBON DIOXIDE 25 mmol/L (22-30); CHLORIDE 106 mmol/L (98-107); GLUCOSE 171 mg/dL (75-110); POTASSIUM 3.6 mmol/L (3.6-5.0)
[2020-08-01] MEDS ORDERED: KETOROLAC TROMETHAMINE INJ/PF 30 MG/1 ML SDV IV PRN ×3 (08:30→09:39)
[2020-08-01 09:30] LABS: HEMOGLOBIN 7.6 g/dL (12.0-15.5)
[2020-08-01 09:33] LABS: ABSOLUTE LYMPHOCYTES# (MANUAL) 1.6 10^3/uL (0.5-4.7); ABSOLUTE MONOCYTES # (MANUAL) 0.7 10^3/uL (0.1-1.4); BASOPHILS % (MANUAL) 0 % (0-2); EOSINOPHILS % (MANUAL) 3 % (0-6); LYMPHOCYTES % (MANUAL) 14 % (13-45); MONOCYTES % (MANUAL) 6 % (3-13); SEGMENTED NEUTROPHILS % (MAN) 77 % (42-78); TOTAL CELLS COUNTED 100
[2020-08-01 09:36] LABS: ANISOCYTOSIS 2+; HYPOCHROMASIA 2+; POLYCHROMASIA 1+
[2020-08-01 09:37] LABS: OVALOCYTES 1+; PLATELET COMMENT DECREASED; POIKILOCYTOSIS 2+; TARGET CELLS 2+; TEAR DROP CELLS 1+
[2020-08-01 09:38] LABS: PLATELET CLUMPS PRESENT
[2020-08-01] MEDS: ENOXAPARIN SODIUM INJ 40 MG/0.4 ML DISP.SYRIN SUBCUT SCH (09:38)
[2020-08-01 09:39] LABS: PLATELET COUNT 116 10^3/uL (150-450)
--- NOTE | 2020-08-01 09:40 | PDOC PROGRESS REPORT ---
Subjective Date:: 08/01/20 Subjective:: Patient complaining of incisional abdominal pain Reason For Visit: S/P APPENDECTOMY,RESPIRATORY DIFFICULTY Physical Exam Vital Signs: Temp Pulse Resp BP Pulse Ox 98.0 F 90 24 H 149/80 H 99 08/01/20 07:41 08/01/20 07:00 08/01/20 07:00 08/01/20 07:00 08/01/20 07:00 Intake & Output 07/31/20 08/01/20 08/02/20 06:59 06:59 06:59 Intake Total 250 3350 Balance 250 3350 Weight 130.6 kg General appearance: PRESENT: no acute distress, obese Respiratory exam: PRESENT: clear to auscultation herminia Cardiovascular exam: PRESENT: RRR GI/Abdominal exam: PRESENT: distended, soft, tenderness - At the incisions,, other - All incisions are clean, dry, and intact, no peritoneal signs Results Laboratory Results: 08/01/20 07:46 07/31/20 08/01/20 08/01/20 04:14 07:46 07:46 Seg Neutrophils % Not Reportable Sodium 139.7 Potassium 3.6 Chloride 106 Carbon Dioxide 25 Anion Gap 9 BUN 12 Creatinine 0.95 Est GFR ( Amer) > 60 Glucose 171 H Calcium 7.8 L Serum HCG, Qual NEGATIVE Impressions: Abdomen/Pelvis CT 07/31/20 01:24 IMPRESSION: 1. The appendix is not well characterized on this study however the structure thought to represent the appendix is dilated with small amount of free fluid in the right lower abdomen. These findings could indicate acute appendicitis. This portion of the abdomen is not well evaluated due to patient motion artifact. 2. Nonobstructing inferior pole left nephrolithiasis. 3. Enlarged fibroid uterus This exam was performed according to our departmental dose-optimization program, which includes automated exposure control, adjustment of the mA and/or kV according to patient size and/or use of iterative reconstruction technique. Chest X-Ray 07/31/20 01:24 IMPRESSION: Suspect developing bibasilar pneumonia. Assessment & Plan - Diagnosis (3) Acute appendicitis Qualifiers: Acute appendicitis type: unspecified acute appendicitis type Qualified Code (s): K35.80 - Unspecified acute appendicitis Is this a current diagnosis for this admission?: Yes (4) Leukocytosis Qualifiers: Leukocytosis type: other Qualified Code(s): D72.828 - Other elevated white blood cell count - Time Anticipated Discharge Disposition: Home, Self Care Anticipated Discharge Timeframe: within 72 hours - Plan Summary Plan Summary: Assessment: Postoperative day #1 for laparoscopic appendectomy for acute appendicitis Vital signs stable, patient afebrile Oxygen requirement decreased to 4 L per nasal cannula White blood cell count 11K today Abdomen soft, benign with incisional pain Chest x-ray and CT scan reviewed with the radiologist today = no evidence of pneumonia on the preoperative films Plan: Advance diet to regular Chest x-ray PA and lateral to definitely rule out pneumonia Switch to oral painkillers today
[2020-08-01] MEDS ORDERED: TRAMADOL HCL 50 MG TABLET PO PRN (11:00)
--- NOTE | 2020-08-01 11:39 | RADIOLOGY REPORT (SQ) ---
EXAM DESCRIPTION: CHEST 2 VIEWS IMAGES COMPLETED DATE/TIME: 08/01/2020 10:59 am REASON FOR STUDY: Rule out pneumonia COMPARISON: 07/31/2020 EXAM PARAMETERS: NUMBER OF VIEWS: two views TECHNIQUE: Digital Frontal and Lateral radiographic views of the chest acquired. RADIATION DOSE: NA LIMITATIONS: Body habitus FINDINGS: LUNGS AND PLEURA: Patchy bilateral perihilar airspace disease similar to prior exam. This may represent slight central vascular congestion. There is linear atelectasis in the right midlung field. There is no focal consolidation. No definite effusions although lateral film is very limited . No pneumothorax. MEDIASTINUM AND HILAR STRUCTURES: No masses or contour abnormalities. HEART AND VASCULAR STRUCTURES: Heart is enlarged with central vascular prominence. BONES: No acute findings. HARDWARE: None in the chest. OTHER: No other significant finding. IMPRESSION: Cardiomegaly with slight central vascular congestion. No focal consolidation. TECHNICAL DOCUMENTATION: JOB ID: [id number] 2010 [employer]- All Rights Reserved Reading location - IP/workstation name: [email or web address]
[2020-08-01] MEDS: IPRATROPIUM/ALBUTEROL 0.5-2.5 MG/3 ML AMPUL NEB SCH ×3 (11:57→19:52)
[2020-08-01] MEDS ORDERED: CYCLOBENZAPRINE HCL 10 MG TABLET PO PRN (13:51)
[2020-08-01] MEDS ORDERED: ALPRAZOLAM 0.5 MG PO PRN (13:51)
[2020-08-01] MEDS ORDERED: ALBUTEROL SULFATE HFA (90 MCG/PUFF) 8 GM MDI (1 MDI/ER DISP) IH PRN (13:51)
[2020-08-01] MEDS ORDERED: (PENDING PHARMACY ID) (Zolpidem Tartrate [Zolpidem Tartrate] 10 MG) PO PRN (13:51)
--- NOTE | 2020-08-01 13:57 | Operative Report ---
Operative Report DATE OF SURGERY: 08/01/20 PREOPERATIVE DIAGNOSIS: Incarcerated umbilical hernia POSTOPERATIVE DIAGNOSIS: Same OPERATION: Umbilical herniorrhaphy with Ventralex mesh SURGEON: RONNIE HESTER ANESTHESIA: GA - +20 mL 0.5% Marcaine without epinephrine TISSUE REMOVED OR ALTERED: None COMPLICATIONS: None ESTIMATED BLOOD LOSS: Negligible INTRAOPERATIVE FINDINGS: 2.5 cm umbilical hernia defect, hernia sac empty PROCEDURE: The procedure was done in the operating room, the patient was placed in supine position, general anesthesia induced by endotracheal intubation, the abdomen was prepped and draped in the usual fashion. Following this, the skin of the umbilicus was infiltrated with approximately 20 mL of 0.5% Marcaine without epinephrine. A smile incision was made just below the umbilicus. The skin of the umbilicus was then elevated off the umbilical hernia sac and the surrounding tissues. When this was accomplished, the umbilical skin was trimmed to size, the sac was circumferentially dissected down to the midline fascial defect. The fascial defect was then entered with a hemostat and circumferentially dissected, made larger with Metzenbaum scissors. The hernia sac was gently pushed into the preperitoneal space. A finger was inserted into the defect and turned circumferentially in a sweeping motion to prepare a space within the preperitoneum. When this was accomplished, the Ventrallex mesh was inserted through the defect into the peritoneal space and deployed, pulled upward through the string; interrupted 2-0 Prolene sutures were placed to approximate the fascial defect edges while incorporating the mesh tail. The tail was amputated with scissors. The sutures were sequentially tied with approximation of the edges of the fascial defect. Additional 0 Prolene sutures were placed to approximate the anterior rectus sheath. The incision was irrigated with normal saline, deep inverted 2-0 Vicryl sutures were placed for approximating of the subcutaneous tissue with good cosmetic appearance of the wound. 4-0 PDS running subcuticular suture was used to approximate the skin edges. Dermabond was applied followed by 2 x 2's and Tegaderm, 4 x 4's where placed on top of it followed by foam tape. The patient tolerated procedure well, extubated, and transferred to recovery room in satisfactory conditions
[2020-08-01] MEDS ORDERED: ALBUTEROL SULFATE HFA (90 MCG/PUFF) 8 GM MDI IH PRN (13:59)
[2020-08-01] MEDS ORDERED: (PENDING PHARMACY ID) (Metoprolol Succinate [Toprol Xl] 200 MG) PO SCH (14:00)
[2020-08-01] MEDS ORDERED: ALISKIREN HEMIFUMARATE 300 MG PO SCH (14:00)
[2020-08-01] MEDS ORDERED: CLONIDINE HCL 0.3 MG PO SCH (14:00)
[2020-08-01] MEDS ORDERED: ZOLPIDEM TARTRATE 5 MG TABLET PO PRN (14:10)
[2020-08-01] MEDS ORDERED: ALPRAZOLAM 0.5 MG TABLET PO PRN (14:18)
[2020-08-01] MEDS: GABAPENTIN 300 MG CAPSULE PO SCH ×2 (15:08→21:40)
[2020-08-01] MEDS: METOPROLOL SUCCINATE 50 MG TAB.SR.24H PO SCH (15:10)
[2020-08-01] MEDS: HYDRALAZINE HCL 50 MG TABLET PO SCH ×2 (15:12→21:40)
[2020-08-01] MEDS: PREGABALIN 50 MG CAPSULE PO SCH ×2 (15:13→21:39)
[2020-08-01] MEDS: ASPIRIN 81 MG TABLET, ENT COATED PO SCH (15:13)
[2020-08-01] MEDS: MAGNESIUM OXIDE 400 MG TABLET PO SCH (15:14)
[2020-08-01] MEDS: FUROSEMIDE 40 MG TABLET PO SCH (15:15)
[2020-08-01] MEDS: SERTRALINE HCL 50 MG TABLET PO SCH (15:15)
[2020-08-01] MEDS: AMLODIPINE BESYLATE 10 MG TABLET PO SCH (15:16)
[2020-08-01] MEDS ORDERED: UBIDECARENONE PO SCH (17:00)
[2020-08-01] MEDS ORDERED: VIT E ACET PO SCH (17:00)
--- NOTE | 2020-08-01 17:05 | PDOC PROGRESS REPORT ---
Subjective Date:: 08/01/20 Subjective:: Patient seen by the bedside, she was admitted for the management of acute append icitis, pneumonia, multiple comorbid conditions Reason For Visit: S/P APPENDECTOMY,RESPIRATORY DIFFICULTY Physical Exam Vital Signs: Temp Pulse Resp BP Pulse Ox 98.4 F 106 H 18 151/109 H 94 08/01/20 15:13 08/01/20 16:00 08/01/20 16:00 08/01/20 15:13 08/01/20 16:00 Intake & Output 07/31/20 08/01/20 08/02/20 06:59 06:59 06:59 Intake Total 250 3400 580 Output Total 350 Balance 250 3400 230 Weight 130.6 kg General appearance: PRESENT: no acute distress Eye exam: PRESENT: PERRLA Respiratory exam: PRESENT: clear to auscultation herminia Cardiovascular exam: PRESENT: +S1, +S2 GI/Abdominal exam: PRESENT: soft Neurological exam: PRESENT: alert, CN II-XII grossly intact Results Laboratory Results: 08/01/20 07:46 08/01/20 07:46 08/01/20 08/01/20 07:46 07:46 WBC 11.7 H RBC 4.43 Hgb 7.6 L Hct 25.0 L MCV 57 L MCH 17.2 L MCHC 30.4 L RDW 20.0 H Plt Count 116 L Seg Neutrophils % Not Reportable Sodium 139.7 Potassium 3.6 Chloride 106 Carbon Dioxide 25 Anion Gap 9 BUN 12 Creatinine 0.95 Est GFR ( Amer) > 60 Glucose 171 H Calcium 7.8 L Impressions: Abdomen/Pelvis CT 07/31/20 01:24 IMPRESSION: 1. The appendix is not well characterized on this study however the structure thought to represent the appendix is dilated with small amount of free fluid in the right lower abdomen. These findings could indicate acute appendicitis. This portion of the abdomen is not well evaluated due to patient motion artifact. 2. Nonobstructing inferior pole left nephrolithiasis. 3. Enlarged fibroid uterus This exam was performed according to our departmental dose-optimization program, which includes automated exposure control, adjustment of the mA and/or kV according to patient size and/or use of iterative reconstruction technique. Chest X-Ray 08/01/20 00:00 IMPRESSION: Cardiomegaly with slight central vascular congestion. No focal consolidation. Assessment & Plan - Diagnosis (1) Bilateral pneumonia Qualifiers: Pneumonia type: due to unspecified organism Lung location: unspecified part of lung Qualified Code(s): J18.9 - Pneumonia, unspecified organism Is this a current diagnosis for this admission?: Yes Plan: continue IV antibiotic (2) Acute appendicitis Qualifiers: Acute appendicitis type: unspecified acute appendicitis type Qualified Code(s): K35.80 - Unspecified acute appendicitis Is this a current diagnosis for this admission?: Yes Plan: s/p appendectomy (3) T2DM (type 2 diabetes mellitus) Qualifiers: Diabetes mellitus terminal carman insulin use: with terminal carman use Diabetes mellitus complication status: with kidney complications Diabetes mellitus complication detail: with nephropathy Qualified Code(s): E11.21 - Type 2 diabetes mellitus with diabetic nephropathy; Z79.4 - FPC (current) use of insulin Is this a current diagnosis for this admission?: Yes (4) Hypertensive urgency Is this a current diagnosis for this admission?: Yes - Time Time Spent with patient: 15-24 minutes Level of Care: MEDICAL Anticipated discharge: Home Anticipated DC Timeframe: within 72 hours - Inpatient Certification Based on my medical assessment, after consideration of the patient's comorbidities, presenting symptoms, or acuity I expect that the services needed warrant INPATIENT care.: Yes I certify that my determination is in accordance with my understanding of Medicare's requirements for reasonable and necessary INPATIENT services [42 CFR 412.3e].: Yes
[2020-08-01] MEDS ORDERED: INSULIN GLARGINE,HUM.REC.ANLOG 1,000 UNIT/10 ML VIAL SUBCUT SCH (18:00)
[2020-08-01] MEDS: METFORMIN HCL 500 MG TABLET PO SCH (18:11)
[2020-08-01] MEDS: LURASIDONE HCL 40 MG TABLET PO SCH (18:12)
[2020-08-01] MEDS: BENZTROPINE MESYLATE 1 MG TABLET PO SCH (18:12)
[2020-08-01] MEDS: ALISKIREN HEMIFUMARATE 150 MG TABLET PO SCH (18:13)
[2020-08-01] MEDS: FAMOTIDINE 20 MG TABLET PO SCH (18:15)
[2020-08-01] MEDS: KETOROLAC TROMETHAMINE INJ/PF 30 MG/1 ML SDV IV SCH (18:16)
[2020-08-01] MEDS: CLONIDINE HCL 0.2 MG TABLET PO SCH (18:18)
[2020-08-01] MEDS: LEVOFLOXACIN 750 MG/D5W RTU 750 MG/150 ML RTUPB IV SCH (18:19)
[2020-08-01] MEDS: CLOTRIMAZOLE/BETAMETHASONE DIP CREAM 15 GM TOP SCH (18:36)
[2020-08-02] MEDS: KETOROLAC TROMETHAMINE INJ/PF 30 MG/1 ML SDV IV SCH ×4 (00:03→17:59)
[2020-08-02] MEDS: IPRATROPIUM/ALBUTEROL 0.5-2.5 MG/3 ML AMPUL NEB SCH ×6 (00:57→20:43)
[2020-08-02] MEDS: CLONIDINE HCL 0.2 MG TABLET PO SCH ×3 (02:11→17:58)
[2020-08-02 04:39] LABS: APPEARANCE,URINE CLEAR; BILIRUBIN,URINE NEGATIVE (NEGATIVE); COLOR,URINE YELLOW; GLUCOSE, URINE NEGATIVE (NEGATIVE); KETONES,URINE NEGATIVE (NEGATIVE); LEUKOCYTE ESTERASE,URINE NEGATIVE (NEGATIVE); NITRITE,URINE NEGATIVE (NEGATIVE); PROTEIN,URINE 100 mg/dL (NEGATIVE); UROBILINOGEN,URINE NEGATIVE mg/dL (<2.0)
[2020-08-02 05:08] LABS: HEMATOCRIT 24.6 % (36.0-47.0); MEAN CORPUSCULAR HEMOGLOBIN 17.3 pg (27.0-33.4); MEAN CORPUSCULAR HGB CONC 31.1 g/dL (32.0-36.0); MEAN CORPUSCULAR VOLUME 56 fl (80-97); PLATELET COUNT 128 10^3/uL (150-450); RED CELL DISTRIBUTION WIDTH 20.5 % (11.5-14.0); WHITE BLOOD COUNT 13.6 10^3/uL (4.0-10.5)
[2020-08-02 05:20] LABS: ANION GAP 9 (5-19); BLOOD UREA NITROGEN 12 mg/dL (7-20); CALCIUM 8.4 mg/dL (8.4-10.2); CARBON DIOXIDE 25 mmol/L (22-30); CHLORIDE 106 mmol/L (98-107); GLUCOSE 157 mg/dL (75-110); POTASSIUM 3.7 mmol/L (3.6-5.0)
[2020-08-02 05:31] LABS: ABSOLUTE LYMPHOCYTES# (MANUAL) 1.2 10^3/uL (0.5-4.7); ABSOLUTE MONOCYTES # (MANUAL) 0.7 10^3/uL (0.1-1.4); BASOPHILS % (MANUAL) 0 % (0-2); EOSINOPHILS % (MANUAL) 2 % (0-6); LYMPHOCYTES % (MANUAL) 9 % (13-45); MONOCYTES % (MANUAL) 5 % (3-13); SEGMENTED NEUTROPHILS % (MAN) 84 % (42-78); TOTAL CELLS COUNTED 100
[2020-08-02 05:33] LABS: ANISOCYTOSIS 2+; HYPOCHROMASIA 2+; PLATELET COMMENT DECREASED; POIKILOCYTOSIS SLIGHT; POLYCHROMASIA SLIGHT; TARGET CELLS SLIGHT; TOXIC GRANULATION SLIGHT
[2020-08-02 05:35] LABS: HEMOGLOBIN 7.6 g/dL (12.0-15.5)
[2020-08-02] MEDS: CLINDAMYCIN 600 MG/D5W RTU 600 MG/50 ML RTUPB IV SCH ×2 (06:30→14:42)
[2020-08-02] MEDS: GABAPENTIN 300 MG CAPSULE PO SCH ×2 (06:30→14:42)
[2020-08-02] MEDS: PREGABALIN 50 MG CAPSULE PO SCH ×2 (06:31→14:42)
[2020-08-02] MEDS: FAMOTIDINE 20 MG TABLET PO SCH ×2 (06:31→17:59)
[2020-08-02] MEDS: HYDRALAZINE HCL 50 MG TABLET PO SCH ×2 (06:31→14:42)
[2020-08-02] MEDS ORDERED: BENZTROPINE MESYLATE 1 MG TABLET PO SCH (08:00)
[2020-08-02] MEDS: METFORMIN HCL 500 MG TABLET PO SCH ×2 (08:45→16:48)
[2020-08-02] MEDS: INSULIN LISPRO 100 UNIT/ML 3 ML VIAL SUBCUT SCH ×3 (08:45→16:50)
[2020-08-02] MEDS: ALISKIREN HEMIFUMARATE 150 MG TABLET PO SCH (09:45)
[2020-08-02] MEDS: MAGNESIUM OXIDE 400 MG TABLET PO SCH (09:46)
[2020-08-02] MEDS: SERTRALINE HCL 50 MG TABLET PO SCH (09:46)
[2020-08-02] MEDS: ASPIRIN 81 MG TABLET, ENT COATED PO SCH (09:46)
[2020-08-02] MEDS: METOPROLOL SUCCINATE 50 MG TAB.SR.24H PO SCH (09:46)
[2020-08-02] MEDS: AMLODIPINE BESYLATE 10 MG TABLET PO SCH (09:47)
[2020-08-02] MEDS: FUROSEMIDE 40 MG TABLET PO SCH (09:47)
[2020-08-02] MEDS: CLOTRIMAZOLE/BETAMETHASONE DIP CREAM 15 GM TOP SCH (09:48)
[2020-08-02] MEDS: ENOXAPARIN SODIUM INJ 40 MG/0.4 ML DISP.SYRIN SUBCUT SCH (09:52)
[2020-08-02] MEDS: DEXTROSE 5%-NORMAL SALINE 1,000 ML IV PRN (11:09)
--- NOTE | 2020-08-02 17:12 | PDOC DISCHARGE SUMMARY ---
Impression - Admit/DC Date/PCP Admission Date/Primary Care Provider: 07/31/20 07:58 DORIE LUGO MD Discharge Date: 08/02/20 - Discharge Diagnosis (1) Bilateral pneumonia Is this a current diagnosis for this admission?: Yes (2) Acute appendicitis Is this a current diagnosis for this admission?: Yes (3) T2DM (type 2 diabetes mellitus) Is this a current diagnosis for this admission?: Yes (4) Hypertensive urgency Is this a current diagnosis for this admission?: Yes - Additional Information Resuscitation Status: Full Code Referrals: DORIE LUGO MD [Primary Care Provider] - Follow up as needed Prescriptions: Levofloxacin [Levaquin 750 mg Tablet] 750 mg PO DAILY #5 tablet Home Medications: Hydralazine HCl [Apresoline 50 mg Tablet] 100 mg PO TID 09/26/13 Clonidine HCl [Catapres] 0.3 mg PO TID 04/25/15 Sertraline HCl [Zoloft 50 mg Tablet] 50 mg PO DAILY 04/25/15 Zolpidem Tartrate 10 mg PO HSP PRN 01/02/16 Alprazolam 0.5 mg PO BIDP PRN 01/25/20 Insulin Glargine,Hum.rec.anlog [Lantus Insulin 100 Unit/1 ml 10 ml] 50 unit SQ DAILY 01/25/20 Insulin Lispro [Humalog] 0 unit SQ .SLIDING SCALE 01/25/20 Lurasidone HCl [Latuda 40 mg Tablet] 40 mg PO QPM 01/25/20 Aliskiren Hemifumarate [Tekturna 300 mg Tablet] 300 mg PO DAILY 04/13/20 Cyclobenzaprine HCl [Flexeril 10 mg Tablet] 10 mg PO BIDP PRN 04/13/20 Gabapentin [Neurontin] 600 mg PO Q8 04/13/20 Metformin HCl 1,000 mg PO BID 04/13/20 Albuterol Sulfate [Proair HFA Inhalation Aerosol 8.5 gm MDI] 1 puff IH Q4HP PRN 07/31/20 Amlodipine Besylate [Norvasc 10 mg Tablet] 10 mg PO DAILY 07/31/20 Aspirin [Adult Low Dose Aspirin EC] 81 mg PO DAILY 07/31/20 Benztropine Mesylate [Cogentin 1 mg Tablet] 1 mg PO QAM 07/31/20 Benztropine Mesylate [Cogentin 1 mg Tablet] 2 mg PO QPM 07/31/20 Clotrimazole/Betamethasone Dip [Lotrisone Cream 15 gm] 1 applic TOP BID 07/31/20 Exenatide Microspheres [Bydureon Pen] 2 mg SQ NUNN 07/31/20 Furosemide [Lasix 40 mg Tablet] 40 mg PO DAILY 07/31/20 Magnesium Oxide [Mag-Ox 400 mg Tablet] 400 mg PO DAILY 07/31/20 Metolazone 10 mg PO DAILY 07/31/20 Metoprolol Succinate [Toprol Xl] 200 mg PO DAILY 07/31/20 Pregabalin [Lyrica 50 mg Capsule] 50 mg PO Q8 07/31/20 Ubidecarenone/Vit E Acet [Co Q-10 100 mg Softgel] 3 cap PO WSUPPER 07/31/20 Levofloxacin [Levaquin 750 mg Tablet] 750 mg PO DAILY #5 tablet 08/02/20 History of Present Illiness History of Present Illness: YULIANA ALVARADO is a 39 year old female, she has a history of type 2 diabetes mellitus complicated with neuropathy, nephropathy, retinopathy, ischemic heart disease, status post coronary artery stent placement, she came to the emergency room for evaluation of abdominal pain diffusely located, in the emergency room a CAT scan of the abdomen and pelvis was obtained, it demonstrated dilated appendix with free fluid in the right lower quadrant consistent with acute appendicitis, she also had a chest x-ray done demonstrated bilateral pneumonia the left lower lobe. She had emergency laparoscopic appendectomy because of severe leukocytosis in a patient with multiple comorbid conditions. Intraoperatively she was found to have extensive adhesions lysis of this was done in the OR by the operative surgeon. A rapid SARS-CoV-2 test was done this was negative, I saw patient on the floor after she underwent emergency laparoscopic appendectomy Hospital Course Hospital Course: Patient was admitted for the management of pneumonia, acute appendicitis, she was seen by the surgeon in consultation, she underwent laparoscopic appendectomy without any complication. She also has mild pneumonia treated with IV antibiotic for community-acquired pneumonia the patient is improved she wants to go home today Physical Exam Vital Signs: Temp Pulse Resp BP Pulse Ox 98.4 F 82 16 130/72 H 100 08/02/20 11:15 08/02/20 16:30 08/02/20 16:30 08/02/20 11:15 08/02/20 16:30 Intake & Output 08/01/20 08/02/20 08/03/20 06:59 06:59 06:59 Intake Total 3400 3070 765 Output Total 1350 Balance 3400 1720 765 Weight 130.6 kg 130.6 kg General appearance: PRESENT: no acute distress Eye exam: PRESENT: PERRLA Respiratory exam: PRESENT: clear to auscultation herminia Cardiovascular exam: PRESENT: +S1, +S2 GI/Abdominal exam: PRESENT: soft Neurological exam: PRESENT: alert Results Laboratory Results: WBC 13.6 10^3/uL (4.0-10.5) H 08/02/20 04:46 RBC 4.40 10^6/uL (3.72-5.28) 08/02/20 04:46 Hgb 7.6 g/dL (12.0-15.5) L 08/02/20 04:46 Hct 24.6 % (36.0-47.0) L 08/02/20 04:46 MCV 56 fl (80-97) L 08/02/20 04:46 MCH 17.3 pg (27.0-33.4) L 08/02/20 04:46 MCHC 31.1 g/dL (32.0-36.0) L 08/02/20 04:46 RDW 20.5 % (11.5-14.0) H 08/02/20 04:46 Plt Count 128 10^3/uL (150-450) L 08/02/20 04:46 Lymph % (Auto) Not Reportable 08/02/20 04:46 [place] % (Auto) Not Reportable 08/02/20 04:46 Eos % (Auto) Not Reportable 08/02/20 04:46 Baso % (Auto) Not Reportable 08/02/20 04:46 Absolute Neuts (auto) Not Reportable 08/02/20 04:46 Absolute Lymphs (auto) Not Reportable 08/02/20 04:46 Absolute Monos (auto) Not Reportable 08/02/20 04:46 Absolute Eos (auto) Not Reportable 08/02/20 04:46 Absolute Basos (auto) Not Reportable 08/02/20 04:46 Total Counted 100 08/02/20 04:46 Seg Neutrophils % Not Reportable 08/02/20 04:46 Seg Neuts % (Manual) 84 % (42-78) H 08/02/20 04:46 Band Neutrophils % 3 % (3-5) 07/31/20 04:14 Lymphocytes % (Manual) 9 % (13-45) L 08/02/20 04:46 Monocytes % (Manual) 5 % (3-13) 08/02/20 04:46 Eosinophils % (Manual) 2 % (0-6) 08/02/20 04:46 Basophils % (Manual) 0 % (0-2) 08/02/20 04:46 Abs Neuts (Manual) 11.4 10^3/uL (1.7-8.2) H 08/02/20 04:46 Abs Lymphs (Manual) 1.2 10^3/uL (0.5-4.7) 08/02/20 04:46 Abs Monocytes (Manual) 0.7 10^3/uL (0.1-1.4) 08/02/20 04:46 Absolute Eos (Manual) 0.3 10^3/uL (0.0-0.6) 08/02/20 04:46 Abs Basophils (Manual) 0.0 10^3/uL (0.0-0.2) 08/02/20 04:46 Toxic Granulation SLIGHT 08/02/20 04:46 Clumped Platelets PRESENT 08/01/20 07:46 Platelet Comment DECREASED 08/02/20 04:46 Polychromasia SLIGHT 08/02/20 04:46 Hypochromasia 2+ 08/02/20 04:46 Poikilocytosis SLIGHT 08/02/20 04:46 Anisocytosis 2+ 08/02/20 04:46 Microcytosis 4+ 08/02/20 04:46 Target Cells SLIGHT 08/02/20 04:46 Tear Drop Cells 1+ 08/01/20 07:46 Ovalocytes 1+ 08/01/20 07:46 Sodium 140.1 mmol/L (137-145) 08/02/20 04:46 Potassium 3.7 mmol/L (3.6-5.0) 08/02/20 04:46 Chloride 106 mmol/L (98-107) 08/02/20 04:46 Carbon Dioxide 25 mmol/L (22-30) 08/02/20 04:46 Anion Gap 9 (5-19) 08/02/20 04:46 BUN 12 mg/dL (7-20) 08/02/20 04:46 Creatinine 1.11 mg/dL (0.52-1.25) 08/02/20 04:46 Est GFR ( Amer) > 60 (>60) 08/02/20 04:46 Est GFR (MDRD) Non-Af 55 (>60) L 08/02/20 04:46 Glucose 157 mg/dL (75-110) H 08/02/20 04:46 POC Glucose 125 mg/dL (70-110) H 08/02/20 15:47 Lactic Acid 1.9 mmol/L (0.7-2.1) 07/31/20 04:14 Calcium 8.4 mg/dL (8.4-10.2) 08/02/20 04:46 Total Bilirubin 0.5 mg/dL (0.2-1.3) 07/31/20 04:14 Direct Bilirubin 0.1 mg/dL (0.0-0.4) 07/31/20 04:14 Neonat Total Bilirubin Not Reportable 07/31/20 04:14 Neonat Direct Bilirubin Not Reportable 07/31/20 04:14 Neonat Indirect Bili Not Reportable 07/31/20 04:14 AST 26 U/L (14-36) 07/31/20 04:14 ALT 31 U/L (<35) 07/31/20 04:14 Alkaline Phosphatase 73 U/L (38-126) 07/31/20 04:14 Total Protein 6.4 g/dL (6.3-8.2) 07/31/20 04:14 Albumin 3.5 g/dL (3.5-5.0) 07/31/20 04:14 Lipase 50.8 U/L (23-300) 07/31/20 04:14 Serum HCG, Qual NEGATIVE (NEGATIVE) 07/31/20 04:14 Urine Color YELLOW 08/02/20 04:16 Urine Appearance CLEAR 08/02/20 04:16 Urine pH 5.0 (5.0-9.0) 08/02/20 04:16 Ur Specific [place] 1.010 08/02/20 04:16 Urine Protein 100 mg/dL (NEGATIVE) H 08/02/20 04:16 Urine Glucose (UA) NEGATIVE mg/dL (NEGATIVE) 08/02/20 04:16 Urine Ketones NEGATIVE mg/dL (NEGATIVE) 08/02/20 04:16 Urine Blood NEGATIVE (NEGATIVE) 08/02/20 04:16 Urine Nitrite NEGATIVE (NEGATIVE) 08/02/20 04:16 Urine Nitrite (Reflex) NEGATIVE (NEGATIVE) 07/31/20 02:35 Urine Bilirubin NEGATIVE (NEGATIVE) 08/02/20 04:16 Urine Urobilinogen NEGATIVE mg/dL (<2.0) 08/02/20 04:16 Ur Leukocyte Esterase NEGATIVE (NEGATIVE) 08/02/20 04:16 Leukocyte Esterase Rfl NEGATIVE (NEGATIVE) 07/31/20 02:35 Urine WBC (Auto) 3 /HPF 08/02/20 04:16 Urine RBC (Auto) 0 /HPF 08/02/20 04:16 Urine Bacteria (Auto) TRACE /HPF 07/31/20 02:35 Urine WBC (Reflex) 1 /HPF 07/31/20 02:35 Squamous Epi Cells Auto 1 /HPF 08/02/20 04:16 Urine Mucus (Auto) RARE /LPF 08/02/20 04:16 Urine Ascorbic Acid NEGATIVE (NEGATIVE) 08/02/20 04:16 SARS-CoV-2 (PCR) NEGATIVE (NEGATIVE) 07/31/20 07:17 Impressions: Abdomen/Pelvis CT 07/31/20 01:24 IMPRESSION: 1. The appendix is not well characterized on this study however the structure thought to represent the appendix is dilated with small amount of free fluid in the right lower abdomen. These findings could indicate acute appendicitis. This portion of the abdomen is not well evaluated due to patient motion artifact. 2. Nonobstructing inferior pole left nephrolithiasis. 3. Enlarged fibroid uterus This exam was performed according to our departmental dose-optimization program, which includes automated exposure control, adjustment of the mA and/or kV according to patient size and/or use of iterative reconstruction technique. Chest X-Ray 07/31/20 01:24 IMPRESSION: Suspect developing bibasilar pneumonia. Chest X-Ray 08/01/20 00:00 IMPRESSION: Cardiomegaly with slight central vascular congestion. No focal consolidation. Stroke Is this a Stroke Patient?: No Acute Heart Failure Is this a Heart Failure Patient?: No
[2020-08-02] MEDS: LEVOFLOXACIN 750 MG/D5W RTU 750 MG/150 ML RTUPB IV SCH (17:59)
[2020-08-02] MEDS: BENZTROPINE MESYLATE 1 MG TABLET PO SCH (17:59)
[2020-08-02] MEDS: LURASIDONE HCL 40 MG TABLET PO SCH (17:59)
--- NOTE | 2020-08-02 18:46 | PDOC PROGRESS REPORT ---
Subjective Date:: 08/02/20 Reason For Visit: S/P APPENDECTOMY,RESPIRATORY DIFFICULTY Physical Exam Vital Signs: Temp Pulse Resp BP Pulse Ox 98.4 F 82 16 165/89 H 100 08/02/20 18:14 08/02/20 18:14 08/02/20 18:14 08/02/20 18:14 08/02/20 18:14 Intake & Output 08/01/20 08/02/20 08/03/20 06:59 06:59 06:59 Intake Total 3400 3070 765 Output Total 1350 Balance 3400 1720 765 Weight 130.6 kg 130.6 kg Results Laboratory Results: 08/02/20 04:46 08/02/20 04:46 08/02/20 08/02/20 08/02/20 04:16 04:46 04:46 WBC 13.6 H RBC 4.40 Hgb 7.6 L Hct 24.6 L MCV 56 L MCH 17.3 L MCHC 31.1 L RDW 20.5 H Plt Count 128 L Seg Neutrophils % Not Reportable Sodium 140.1 Potassium 3.7 Chloride 106 Carbon Dioxide 25 Anion Gap 9 BUN 12 Creatinine 1.11 Est GFR ( Amer) > 60 Glucose 157 H Calcium 8.4 Urine Color YELLOW Urine Appearance CLEAR Urine pH 5.0 Ur Specific [place] 1.010 Urine Protein 100 H Urine Glucose (UA) NEGATIVE Urine Ketones NEGATIVE Urine Blood NEGATIVE Urine Nitrite NEGATIVE Ur Leukocyte Esterase NEGATIVE Urine WBC (Auto) 3 Urine RBC (Auto) 0 Impressions: Abdomen/Pelvis CT 07/31/20 01:24 IMPRESSION: 1. The appendix is not well characterized on this study however the structure thought to represent the appendix is dilated with small amount of free fluid in the right lower abdomen. These findings could indicate acute appendicitis. This portion of the abdomen is not well evaluated due to patient motion artifact. 2. Nonobstructing inferior pole left nephrolithiasis. 3. Enlarged fibroid uterus This exam was performed according to our departmental dose-optimization program, which includes automated exposure control, adjustment of the mA and/or kV according to patient size and/or use of iterative reconstruction technique. Chest X-Ray 08/01/20 00:00 IMPRESSION: Cardiomegaly with slight central vascular congestion. No focal consolidation. Assessment & Plan - Time Anticipated Discharge Disposition: Home, Self Care Anticipated Discharge Timeframe: within 24 hours - Plan Summary Plan Summary: 39 y/o F s/p laparoscopic appendectomy. She is doing well. She has been ambulating, and is tolerating a diet. She reports minimal amounts of pain. She is okay for discharge from a surgical standpoint. Follow-up with [facility] in 7 to 10 days.
--- NOTE | 2020-08-02 19:36 | PDOC DISCHARGE SUMMARY ---
Impression - Admit/DC Date/PCP Admission Date/Primary Care Provider: 07/31/20 07:58 DORIE LUGO MD Discharge Date: 08/02/20 - Discharge Diagnosis (1) Bilateral pneumonia Is this a current diagnosis for this admission?: Yes (2) Acute appendicitis Is this a current diagnosis for this admission?: Yes (3) T2DM (type 2 diabetes mellitus) Is this a current diagnosis for this admission?: Yes (4) Hypertensive urgency Is this a current diagnosis for this admission?: Yes - Additional Information Resuscitation Status: Full Code Discharge Diet: As Tolerated, Diabetic Discharge Activity: Activity As Tolerated, Balance Activity w/Rest Referrals: DORIE LUGO MD [Primary Care Provider] - Follow up as needed Prescriptions: Levofloxacin [Levaquin 750 mg Tablet] 750 mg PO DAILY #5 tablet Home Medications: RX: Hydralazine HCl [Apresoline 50 mg Tablet] 100 mg PO TID 09/26/13 RX: Clonidine HCl [Catapres] 0.3 mg PO TID 04/25/15 RX: Sertraline HCl [Zoloft 50 mg Tablet] 50 mg PO DAILY 04/25/15 RX: Zolpidem Tartrate 10 mg PO HSP PRN 01/02/16 RX: Alprazolam 0.5 mg PO BIDP PRN 01/25/20 RX: Insulin Glargine,Hum.rec.anlog [Lantus Insulin 100 Unit/1 ml 10 ml] 50 unit SQ DAILY 01/25/20 RX: Insulin Lispro [Humalog] 0 unit SQ .SLIDING SCALE 01/25/20 RX: Lurasidone HCl [Latuda 40 mg Tablet] 40 mg PO QPM 01/25/20 RX: Aliskiren Hemifumarate [Tekturna 300 mg Tablet] 300 mg PO DAILY 04/13/20 RX: Cyclobenzaprine HCl [Flexeril 10 mg Tablet] 10 mg PO BIDP PRN 04/13/20 RX: Gabapentin [Neurontin] 600 mg PO Q8 04/13/20 RX: Metformin HCl 1,000 mg PO BID 04/13/20 RX: Albuterol Sulfate [Proair HFA Inhalation Aerosol 8.5 gm MDI] 1 puff IH Q4HP PRN 07/31/20 RX: Amlodipine Besylate [Norvasc 10 mg Tablet] 10 mg PO DAILY 07/31/20 RX: Aspirin [Adult Low Dose Aspirin EC] 81 mg PO DAILY 07/31/20 RX: Benztropine Mesylate [Cogentin 1 mg Tablet] 1 mg PO QAM 07/31/20 RX: Benztropine Mesylate [Cogentin 1 mg Tablet] 2 mg PO QPM 07/31/20 RX: Clotrimazole/Betamethasone Dip [Lotrisone Cream 15 gm] 1 applic TOP BID 07/31/20 RX: Exenatide Microspheres [Bydureon Pen] 2 mg SQ NUNN 07/31/20 RX: Furosemide [Lasix 40 mg Tablet] 40 mg PO DAILY 07/31/20 RX: Magnesium Oxide [Mag-Ox 400 mg Tablet] 400 mg PO DAILY 07/31/20 RX: Metolazone 10 mg PO DAILY 07/31/20 RX: Metoprolol Succinate [Toprol Xl] 200 mg PO DAILY 07/31/20 RX: Pregabalin [Lyrica 50 mg Capsule] 50 mg PO Q8 07/31/20 RX: Ubidecarenone/Vit E Acet [Co Q-10 100 mg Softgel] 3 cap PO WSUPPER 07/31/20 Levofloxacin [Levaquin 750 mg Tablet] 750 mg PO DAILY #5 tablet 08/02/20 History of Present Illiness History of Present Illness: YULIANA ALVARADO is a 39 year old female, she has a history of type 2 diabetes mellitus complicated with neuropathy, nephropathy, retinopathy, ischemic heart disease, status post coronary artery stent placement, she came to the emergency room for evaluation of abdominal pain diffusely located, in the emergency room a CAT scan of the abdomen and pelvis was obtained, it demonstrated dilated appendix with free fluid in the right lower quadrant consistent with acute appendicitis, she also had a chest x-ray done demonstrated bilateral pneumonia the left lower lobe. She had emergency laparoscopic appendectomy because of severe leukocytosis in a patient with multiple comorbid conditions. Intraoperatively she was found to have extensive adhesions lysis of this was done in the OR by the operative surgeon. A rapid SARS-CoV-2 test was done this was negative, I saw patient on the floor after she underwent emergency laparoscopic appendectomy Hospital Course Hospital Course: Patient was admitted for the management of pneumonia, acute appendicitis, she was seen by the surgeon in consultation, she underwent laparoscopic appendectomy without any complication. She also has mild pneumonia treated with IV antibiotic for community-acquired pneumonia the patient is improved she wants to go home today Physical Exam Vital Signs: Temp Pulse Resp BP Pulse Ox 98.4 F 82 16 165/89 H 100 08/02/20 18:14 08/02/20 18:14 08/02/20 18:14 08/02/20 18:14 08/02/20 18:14 Intake & Output 08/01/20 08/02/20 08/03/20 06:59 06:59 06:59 Intake Total 3400 3070 765 Output Total 1350 Balance 3400 1720 765 Weight 130.6 kg 130.6 kg General appearance: PRESENT: no acute distress Eye exam: PRESENT: PERRLA Respiratory exam: PRESENT: clear to auscultation herminia Cardiovascular exam: PRESENT: +S1, +S2 GI/Abdominal exam: PRESENT: soft Neurological exam: PRESENT: alert, CN II-XII grossly intact Results Laboratory Results: WBC 13.6 10^3/uL (4.0-10.5) H 08/02/20 04:46 RBC 4.40 10^6/uL (3.72-5.28) 08/02/20 04:46 Hgb 7.6 g/dL (12.0-15.5) L 08/02/20 04:46 Hct 24.6 % (36.0-47.0) L 08/02/20 04:46 MCV 56 fl (80-97) L 08/02/20 04:46 MCH 17.3 pg (27.0-33.4) L 08/02/20 04:46 MCHC 31.1 g/dL (32.0-36.0) L 08/02/20 04:46 RDW 20.5 % (11.5-14.0) H 08/02/20 04:46 Plt Count 128 10^3/uL (150-450) L 08/02/20 04:46 Lymph % (Auto) Not Reportable 08/02/20 04:46 [place] % (Auto) Not Reportable 08/02/20 04:46 Eos % (Auto) Not Reportable 08/02/20 04:46 Baso % (Auto) Not Reportable 08/02/20 04:46 Absolute Neuts (auto) Not Reportable 08/02/20 04:46 Absolute Lymphs (auto) Not Reportable 08/02/20 04:46 Absolute Monos (auto) Not Reportable 08/02/20 04:46 Absolute Eos (auto) Not Reportable 08/02/20 04:46 Absolute Basos (auto) Not Reportable 08/02/20 04:46 Total Counted 100 08/02/20 04:46 Seg Neutrophils % Not Reportable 08/02/20 04:46 Seg Neuts % (Manual) 84 % (42-78) H 08/02/20 04:46 Band Neutrophils % 3 % (3-5) 07/31/20 04:14 Lymphocytes % (Manual) 9 % (13-45) L 08/02/20 04:46 Monocytes % (Manual) 5 % (3-13) 08/02/20 04:46 Eosinophils % (Manual) 2 % (0-6) 08/02/20 04:46 Basophils % (Manual) 0 % (0-2) 08/02/20 04:46 Abs Neuts (Manual) 11.4 10^3/uL (1.7-8.2) H 08/02/20 04:46 Abs Lymphs (Manual) 1.2 10^3/uL (0.5-4.7) 08/02/20 04:46 Abs Monocytes (Manual) 0.7 10^3/uL (0.1-1.4) 08/02/20 04:46 Absolute Eos (Manual) 0.3 10^3/uL (0.0-0.6) 08/02/20 04:46 Abs Basophils (Manual) 0.0 10^3/uL (0.0-0.2) 08/02/20 04:46 Toxic Granulation SLIGHT 08/02/20 04:46 Clumped Platelets PRESENT 08/01/20 07:46 Platelet Comment DECREASED 08/02/20 04:46 Polychromasia SLIGHT 08/02/20 04:46 Hypochromasia 2+ 08/02/20 04:46 Poikilocytosis SLIGHT 08/02/20 04:46 Anisocytosis 2+ 08/02/20 04:46 Microcytosis 4+ 08/02/20 04:46 Target Cells SLIGHT 08/02/20 04:46 Tear Drop Cells 1+ 08/01/20 07:46 Ovalocytes 1+ 08/01/20 07:46 Sodium 140.1 mmol/L (137-145) 08/02/20 04:46 Potassium 3.7 mmol/L (3.6-5.0) 08/02/20 04:46 Chloride 106 mmol/L (98-107) 08/02/20 04:46 Carbon Dioxide 25 mmol/L (22-30) 08/02/20 04:46 Anion Gap 9 (5-19) 08/02/20 04:46 BUN 12 mg/dL (7-20) 08/02/20 04:46 Creatinine 1.11 mg/dL (0.52-1.25) 08/02/20 04:46 Est GFR ( Amer) > 60 (>60) 08/02/20 04:46 Est GFR (MDRD) Non-Af 55 (>60) L 08/02/20 04:46 Glucose 157 mg/dL (75-110) H 08/02/20 04:46 POC Glucose 125 mg/dL (70-110) H 08/02/20 15:47 Lactic Acid 1.9 mmol/L (0.7-2.1) 07/31/20 04:14 Calcium 8.4 mg/dL (8.4-10.2) 08/02/20 04:46 Total Bilirubin 0.5 mg/dL (0.2-1.3) 07/31/20 04:14 Direct Bilirubin 0.1 mg/dL (0.0-0.4) 07/31/20 04:14 Neonat Total Bilirubin Not Reportable 07/31/20 04:14 Neonat Direct Bilirubin Not Reportable 07/31/20 04:14 Neonat Indirect Bili Not Reportable 07/31/20 04:14 AST 26 U/L (14-36) 07/31/20 04:14 ALT 31 U/L (<35) 07/31/20 04:14 Alkaline Phosphatase 73 U/L (38-126) 07/31/20 04:14 Total Protein 6.4 g/dL (6.3-8.2) 07/31/20 04:14 Albumin 3.5 g/dL (3.5-5.0) 07/31/20 04:14 Lipase 50.8 U/L (23-300) 07/31/20 04:14 Serum HCG, Qual NEGATIVE (NEGATIVE) 07/31/20 04:14 Urine Color YELLOW 08/02/20 04:16 Urine Appearance CLEAR 08/02/20 04:16 Urine pH 5.0 (5.0-9.0) 08/02/20 04:16 Ur Specific [place] 1.010 08/02/20 04:16 Urine Protein 100 mg/dL (NEGATIVE) H 08/02/20 04:16 Urine Glucose (UA) NEGATIVE mg/dL (NEGATIVE) 08/02/20 04:16 Urine Ketones NEGATIVE mg/dL (NEGATIVE) 08/02/20 04:16 Urine Blood NEGATIVE (NEGATIVE) 08/02/20 04:16 Urine Nitrite NEGATIVE (NEGATIVE) 08/02/20 04:16 Urine Nitrite (Reflex) NEGATIVE (NEGATIVE) 07/31/20 02:35 Urine Bilirubin NEGATIVE (NEGATIVE) 08/02/20 04:16 Urine Urobilinogen NEGATIVE mg/dL (<2.0) 08/02/20 04:16 Ur Leukocyte Esterase NEGATIVE (NEGATIVE) 08/02/20 04:16 Leukocyte Esterase Rfl NEGATIVE (NEGATIVE) 07/31/20 02:35 Urine WBC (Auto) 3 /HPF 08/02/20 04:16 Urine RBC (Auto) 0 /HPF 08/02/20 04:16 Urine Bacteria (Auto) TRACE /HPF 07/31/20 02:35 Urine WBC (Reflex) 1 /HPF 07/31/20 02:35 Squamous Epi Cells Auto 1 /HPF 08/02/20 04:16 Urine Mucus (Auto) RARE /LPF 08/02/20 04:16 Urine Ascorbic Acid NEGATIVE (NEGATIVE) 08/02/20 04:16 SARS-CoV-2 (PCR) NEGATIVE (NEGATIVE) 07/31/20 07:17 Impressions: Abdomen/Pelvis CT 07/31/20 01:24 IMPRESSION: 1. The appendix is not well characterized on this study however the structure thought to represent the appendix is dilated with small amount of free fluid in the right lower abdomen. These findings could indicate acute appendicitis. This portion of the abdomen is not well evaluated due to patient motion artifact. 2. Nonobstructing inferior pole left nephrolithiasis. 3. Enlarged fibroid uterus This exam was performed according to our departmental dose-optimization program, which includes automated exposure control, adjustment of the mA and/or kV according to patient size and/or use of iterative reconstruction technique. Chest X-Ray 07/31/20 01:24 IMPRESSION: Suspect developing bibasilar pneumonia. Chest X-Ray 08/01/20 00:00 IMPRESSION: Cardiomegaly with slight central vascular congestion. No focal consolidation. Stroke Is this a Stroke Patient?: No Acute Heart Failure Is this a Heart Failure Patient?: No
[2020-08-02 19:58] VITALS: BP 124/75
[2020-08-05] MEDS ORDERED: (PENDING PHARMACY ID) (Exenatide Microspheres [Bydureon Pen] 2 MG) SQ SCH (13:51)
== END 2020-08-02 21:45 | disposition home or self-care (01) ==
LOC: ER 00:32 → INTOOBSV 07:58 → EH 07:58 → 4W 10:13
PROVIDERS: ATTEND Internal Medicine
DX: J18.9 Pneumonia, unspecified organism (principal); K38.8 Other specified diseases of appendix; K66.0 Peritoneal adhesions (postprocedural) (postinfection); Z20.828 Contact with and (suspected) exposure to other viral communicable diseases; D25.9 Leiomyoma of uterus, unspecified; G89.18 Other acute postprocedural pain; I16.0 Hypertensive urgency; I11.0 Hypertensive heart disease with heart failure; I50.9 Heart failure, unspecified; D72.829 Elevated white blood cell count, unspecified; E11.40 Type 2 diabetes mellitus with diabetic neuropathy, unspecified; E11.21 Type 2 diabetes mellitus with diabetic nephropathy; E11.319 Type 2 diabetes mellitus with unspecified diabetic retinopathy without macular edema; I25.9 Chronic ischemic heart disease, unspecified; E66.01 Morbid (severe) obesity due to excess calories; J44.9 Chronic obstructive pulmonary disease, unspecified; M19.90 Unspecified osteoarthritis, unspecified site; F17.200 Nicotine dependence, unspecified, uncomplicated; F41.9 Anxiety disorder, unspecified; I25.2 Old myocardial infarction; Z79.899 Other long term (current) drug therapy; Z79.4 Long term (current) use of insulin; Z79.82 Long term (current) use of aspirin; Z95.5 Presence of coronary angioplasty implant and graft; Z90.49 Acquired absence of other specified parts of digestive tract
CPT/HCPCS: 93005; 99285; 96361; 96365; 96366; 36415 ×3; 87040; 82962 ×3; 83605; 83690; 84703; 85025 ×3; 80048 ×2; 80053; 81001 ×2; 88304 ×2; 71046; 71045; 74177; 94799; 93010; 94640 ×3; 99140; 00840; 44970; 49329; G0378 ×3; U0003; J2250; A9270 ×37; J3490 ×7; J1100; J3010; J1885 ×2; J2270 ×2; J2710; J1650; J1170; J0330; J2405; J7042 ×3; J7030; J7050; J2704; S0028 ×2; J0696; J1956 ×3; J0131 ×2; C9803; 840; 87635; J0456; J1815

== ENCOUNTER 2020-08-12 02:12 | Inpatient (IN) | payer MEDICARE, MEDICAID ==
--- NOTE | 2020-08-12 04:05 | RADIOLOGY REPORT (SQ) ---
EXAM DESCRIPTION: ABDOMEN 2 VIEWS RadLex: XR ABDOMEN 2 VIEWS SUPINE ERECT Views: 2 CLINICAL HISTORY: 39 years Female; abd pain; COMPARISON: None. FINDINGS: Supine and erect AP abdomen: Bowel gas pattern is normal, with no air-fluid levels or small bowel distention. No free intraperitoneal air. No suspicious calcifications. Right upper quadrant surgical clips are noted. IMPRESSION: 1. No acute findings.
[2020-08-12 06:11] LABS: APPEARANCE,URINE SLIGHTLY-CLOUDY; BILIRUBIN,URINE NEGATIVE (NEGATIVE); COLOR,URINE YELLOW; GLUCOSE, URINE NEGATIVE (NEGATIVE); KETONES,URINE NEGATIVE (NEGATIVE); PROTEIN,URINE >=500 mg/dL (NEGATIVE); URINE SPECIFIC GRAVITY 1.019; UROBILINOGEN,URINE NEGATIVE mg/dL (<2.0)
[2020-08-12] MEDS ORDERED: HYDROMORPHONE HCL INJ/PF 2 MG/ML AMPULE IM ONE ×2 (06:43→06:45)
[2020-08-12 07:29] LABS: ANION GAP 10 (5-19); BLOOD UREA NITROGEN 13 mg/dL (7-20); CALCIUM 9.3 mg/dL (8.4-10.2); CARBON DIOXIDE 25 mmol/L (22-30); CHLORIDE 106 mmol/L (98-107); GLUCOSE 180 mg/dL (75-110); POTASSIUM 4.1 mmol/L (3.6-5.0)
[2020-08-12 08:45] LABS: HEMATOCRIT 27.2 % (36.0-47.0); HEMOGLOBIN 8.3 g/dL (12.0-15.5); MEAN CORPUSCULAR HEMOGLOBIN 16.7 pg (27.0-33.4); MEAN CORPUSCULAR HGB CONC 30.5 g/dL (32.0-36.0); MEAN CORPUSCULAR VOLUME 55 fl (80-97); PLATELET COUNT 604 10^3/uL (150-450); RED BLOOD COUNT 4.97 10^6/uL (3.72-5.28); RED CELL DISTRIBUTION WIDTH 21.3 % (11.5-14.0); WHITE BLOOD COUNT 24.6 10^3/uL (4.0-10.5)
[2020-08-12] MEDS ORDERED: METOPROLOL SUCCINATE 50 MG TAB.SR.24H PO ONE (09:13)
[2020-08-12 09:14] LABS: ABSOLUTE MONOCYTES # (MANUAL) 0.5 10^3/uL (0.1-1.4); BASOPHILS % (MANUAL) 0 % (0-2); EOSINOPHILS % (MANUAL) 0 % (0-6); LYMPHOCYTES % (MANUAL) 8 % (13-45); MONOCYTES % (MANUAL) 2 % (3-13); SEGMENTED NEUTROPHILS % (MAN) 90 % (42-78); TOTAL CELLS COUNTED 100
[2020-08-12 09:15] LABS: ANISOCYTOSIS 3+; HYPOCHROMASIA 4+; OVALOCYTES SLIGHT; PLATELET COMMENT INCREASED; POLYCHROMASIA SLIGHT; TARGET CELLS 1+
[2020-08-12] MEDS ORDERED: HYDROMORPHONE HCL INJ/PF 2 MG/ML AMPULE IV ONE ×3 (09:31→15:56)
[2020-08-12] MEDS ORDERED: NORMAL SALINE 1000 ML 1,000 ML IV ONE ×2 (09:31→12:02)
[2020-08-12] MEDS ORDERED: CEFEPIME 1 GM/D5W RTU 1 GM/50 ML RTUPB IV ONE (12:03)
[2020-08-12] MEDS ORDERED: AZITHROMYCIN INJ 500 MG VIAL IV ONE (12:04)
[2020-08-12] MEDS ORDERED: ONDANSETRON HCL INJ/PF 4 MG/2 ML SDV IV ONE ×2 (12:12→15:57)
[2020-08-12] MEDS ORDERED: ONDANSETRON HCL INJ/PF 4 MG/2 ML SDV ONE (12:12)
--- NOTE | 2020-08-12 12:28 | RADIOLOGY REPORT (SQ) ---
EXAM DESCRIPTION: CHEST SINGLE VIEW IMAGES COMPLETED DATE/TIME: 08/12/2020 12:08 pm REASON FOR STUDY: right IJ Central line placement COMPARISON: 08/01/2020. EXAM PARAMETERS: NUMBER OF VIEWS: One view. TECHNIQUE: Single frontal radiographic view of the chest acquired. RADIATION DOSE: NA LIMITATIONS: None. FINDINGS: LUNGS AND PLEURA: Hazy airspace disease in the right lung and left lower lobe. No pneumot horax. MEDIASTINUM AND HILAR STRUCTURES: No masses. Contour normal. HEART AND VASCULAR STRUCTURES: Cardiomegaly. BONES: No acute findings. HARDWARE: Central line, tip at the level of the right atrium. OTHER: No other significant finding. IMPRESSION: NO PNEUMOTHORAX FOLLOWING CENTRAL LINE PLACEMENT. HAZY AIRSPACE DISEASE. TECHNICAL DOCUMENTATION: JOB ID: [id number] [address] [employer]- All Rights Reserved Reading location - IP/workstation name: [email or web address]
[2020-08-12] MEDS ORDERED: FUROSEMIDE INJ/PF 40 MG/4 ML SDV IV ONE (13:37)
--- NOTE | 2020-08-12 15:08 | ER Document Report ---
Entered by QUINCY MARLEY SCRIBE 08/12/20 0621 Acting as scribe for:MAC SONI MD ED GI/ <CADEN SHEPHERD - Last Filed: 08/12/20 17:33> - General Mode of Arrival: Ambulatory Information source: Patient TRAVEL OUTSIDE OF THE [place] IN LAST 30 DAYS: No <MAC SONI - Last Filed: 08/13/20 15:04> - General Chief Complaint: Abdominal Pain Stated Complaint: ABDOMINAL PAIN Time Seen by Provider: 08/12/20 06:11 Notes: This 39 year old female patient x12 days post op laparascopic appendectomy done by Dr. Rocha presents to the ED today with complaints of generalized abdominal pain related to constipation. Patient states that she hasn't had a bowel movement since the surgery. She states "it feels like my skin is ripping and it hurts to breathe." She reports that she finished the pain medicine she was prescribed. Her PCP is Dr. Villagomez. Patient mentions a gluteal abscess that was known prior to surgery. She states that she has been taking antibiotics for it. (MAC SONI) - Related Data Allergies/Adverse Reactions: No Known Allergies Allergy (Verified 04/12/20 16:56) Past Medical History - General Information source: Patient, [facility] Records - Social History Smoking Status: Current Every Day Smoker Chew tobacco use (# tins/day): No Smoking Education Provided: No Family History: Reviewed & Not Pertinent - Past Medical History Cardiac Medical History: Reports: Hx Congestive Heart Failure, Hx Coronary Artery Disease, Hx Heart Attack, Hx Hypercholesterolemia, Hx Hypertension Pulmonary Medical History: Reports: Hx COPD Neurological Medical History: Reports: Hx Migraine Endocrine Medical History: Reports: Hx Diabetes Mellitus Type 1, Hx Diabetes Mellitus Type 2 - IDDM Renal/ Medical History: Reports: Hx Kidney Stones Musculoskeletal Medical History: Reports Hx Arthritis Psychiatric Medical History: Reports: Hx Anxiety, Hx Bipolar Disorder, Hx Depression Past Surgical History: Reports: Hx Appendectomy - 07/31/2020, Hx Cardiac Catheterization, Hx Cardiac Surgery - stent placement, Hx Section - x2, Hx Cholecystectomy, Hx Coronary Stent, Hx Oral Surgery - Immunizations Immunizations up to date: Yes Hx Diphtheria, Pertussis, Tetanus Vaccination: Yes Hx Pneumococcal Vaccination: 09/21/10 <MAC SONI - Last Filed: 08/13/20 15:04> Review of Systems - Review of Systems Constitutional: No symptoms reported EENT: No symptoms reported Cardiovascular: No symptoms reported Respiratory: See HPI, Hurts to breathe Gastrointestinal: See HPI, Abdominal pain, Constipation Genitourinary: No symptoms reported Female Genitourinary: No symptoms reported Musculoskeletal: No symptoms reported Skin: No symptoms reported Hematologic/Lymphatic: No symptoms reported Neurological/Psychological: No symptoms reported -: Yes All other systems reviewed and negative <MAC SONI - Last Filed: 08/13/20 15:04> Physical Exam - General General appearance: Alert - HEENT Head: Normocephalic, Atraumatic Eyes: Normal Pupils: PERRL - Respiratory Respiratory status: No respiratory distress Chest status: Nontender Breath sounds: Normal Chest palpation: Normal - Cardiovascular Rhythm: Regular Heart sounds: Normal auscultation Murmur: No Friction rub: No Gallop: None auscultated - Abdominal Inspection: Obese Distension: Distended Bowel sounds: Normal Tenderness: Tender - Diffuse abdominal tenderness to palpation. No: Rebound Organomegaly: No organomegaly - Back Back: Normal, Nontender - Extremities General upper extremity: Normal inspection General lower extremity: Normal inspection. No: Edema - Neurological Neuro grossly intact: Yes Orientation: AAOx4 [place] Coma Scale Eye Opening: Spontaneous Analy Coma Scale Verbal: Oriented Analy Coma Scale Motor: Obeys Commands Analy Coma Scale Total: 15 - Psychological Associated symptoms: Normal affect, Normal mood - Skin Skin Temperature: Warm Skin Moisture: Dry Skin Color: Normal <MAC SONI Elvia - Last Filed: 08/13/20 15:04> - Vital signs Vitals: Temp Pulse Resp BP Pulse Ox 98.8 F 88 24 H 216/117 H 97 08/12/20 02:58 08/12/20 02:58 08/12/20 02:58 08/12/20 02:58 08/12/20 02:58 Course - Laboratory Result Diagrams: 08/12/20 08:00 08/12/20 06:40 <CADEN SHEPHERD - Last Filed: 08/12/20 17:33> - Laboratory Result Diagrams: 08/13/20 12:54 08/12/20 06:40 - Diagnostic Test Radiology reviewed: Image reviewed, Reports reviewed - Transfer of Care Care transferred to following provider: Dr Shepherd is assuming care of patient . <MAC SONI J - Last Filed: 08/13/20 15:04> - Re-evaluation Re-evalutation: 08/12/20 17:11 I received patient in signout. I reviewed the CT imaging which shows a an abscess which is posterior to the uterus. I discussed with surgeon, Dr. Robert, he is in the OR and will provide full consult when done. Has reviewed imaging and recommends Lindsey, likely has ileus. Medicine admit. 08/12/20 17:[address] Peng for admission, telemetry bed (CADEN SHEPHERD) 08/12/20 16:24 Rectal exam was done with supervision with nurse. Patient rectal tone within normal limits. Stool brown and pain noted was not overwhelming. 08/12/20 16:29 In summary patient is status post appendectomy 12 days ago who has not had a bowel movement since that day. Patient does have stool in her rectum that was easily found on digital insertion. Stool was brown in color. Patient has no obstruction and does not seem to have any complication of the surgery however patient does have some free fluid in her upper quadrants and lower quadrants. And also some pathology noted in the pelvic region on the CT scan showing inflammatory changes and swelling of tissue and right and left adnexa. Patient also noted to have a rim-enhancing small abscesses in the recto uterine pouch. Ultrasound is pending at this time. Other complications the patient is that she has CHF and constipation at this time. 08/13/20 14:57 Abdomen X-Ray 08/12/20 00:00 IMPRESSION: 1. No acute findings. Chest X-Ray 08/12/20 11:47 IMPRESSION: NO PNEUMOTHORAX FOLLOWING CENTRAL LINE PLACEMENT. HAZY AIRSPACE DISEASE. Abdomen/Pelvis CT 08/12/20 14:30 IMPRESSION: There are some mildly dilated small bowel loops without appreciable wall thickening to suggest mechanical obstruction. The contrast in the small bowel does not reach the cecum on the 10 minutes delayed scan to further characterize the right lower quadrant. Free fluid noted in both upper quadrants. 5 x 3 x 3 cm rim enhancing fluid in the recto uterine fossa, likely small abscess. The adnexal structures are enlarged bilaterally with a heterogeneous enhancing appearance, this measures approximately 8 cm on the right and 6 cm on the left. There are inflammatory changes adjacent to both adnexa with free fluid noted in both lower quadrants. Pelvis Ultrasound 08/12/20 15:48 IMPRESSION: Free fluid present in both adnexae. Ovaries not visualized. Fibroid uterus. Pelvic ultrasound shows free fluid in both adnexa ovaries not visualized fibroid uterus Abdominal pelvis CT showed mildly dilated small bowel loops a rim-enhancing 5 x 3 x 3 cm fluid in the rectouterine fossa likely a small abscess and adnexal structures enlarged bilateral with heterogeneous enhancing appearance. 08/13/20 15:01 Patient had a long protracted course in the emergency department during her work-up due to the 1 lack of blood work and to lack of IV access in 3 time spent pending on studies that were ordered including CT scan of abdomen and pelvis with oral and IV contrast, and pelvic ultrasound. (MAC SONI) - Vital Signs Vital signs: Temp Pulse Resp BP Pulse Ox 98.3 F 87 17 121/64 100 08/13/20 11:31 08/13/20 11:31 08/13/20 11:31 08/13/20 11:31 08/13/20 11:31 - Laboratory Laboratory results interpreted by me: 08/12/20 08/12/20 08/12/20 05:23 06:40 06:40 WBC Hgb Hct MCV MCH MCHC RDW Plt Count Seg Neuts % (Manual) Lymphocytes % (Manual) Monocytes % (Manual) Abs Neuts (Manual) Glucose 180 H NT-Pro-B Natriuret Pep 4860 H Urine Protein >=500 H Urine Blood LARGE H 08/12/20 08:00 WBC 24.6 H Hgb 8.3 L Hct 27.2 L MCV 55 L MCH 16.7 L MCHC 30.5 L RDW 21.3 H Plt Count 604 H Seg Neuts % (Manual) 90 H Lymphocytes % (Manual) 8 L Monocytes % (Manual) 2 L Abs Neuts (Manual) 22.1 H Glucose NT-Pro-B Natriuret Pep Urine Protein Urine Blood - Diagnostic Test Radiology results interpreted by me: 08/12/20 16:25 Abdomen X-Ray 08/12/20 00:00 IMPRESSION: 1. No acute findings. Chest X-Ray 08/12/20 11:47 IMPRESSION: NO PNEUMOTHORAX FOLLOWING CENTRAL LINE PLACEMENT. HAZY AIRSPACE DISEASE. Abdomen/Pelvis CT 08/12/20 14:30 IMPRESSION: There are some mildly dilated small bowel loops without appreciable wall thickening to suggest mechanical obstruction. The contrast in the small bowel does not reach the cecum on the 10 minutes delayed scan to further characterize the right lower quadrant. Free fluid noted in both upper quadrants. 5 x 3 x 3 cm rim enhancing fluid in the recto uterine fossa, likely small abscess. The adnexal structures are enlarged bilaterally with a heterogeneous enhancing appearance, this measures approximately 8 cm on the right and 6 cm on the left. There are inflammatory changes adjacent to both adnexa with free fluid noted in both lower quadrants. Abdominal x-ray no acute findings noted. Chest x-ray no pneumothorax following central line placement hazy airspace disease noted greatest in the right lung. Abdomen pelvis CT does not disclose any obstruction. Patient does have a delay in contrast going through the small bowel reaching the cecum on the 10-minute delayed scan. There is free fluid noted in the upper quadrants and lower quadrants with a 5 x 3 x 3 cm rim-enhancing fluid in the rectourethral uterine fossa likely small abscesses. The adnexal structures are enlarged bilateral with thin. With a heterogeneous appearance measuring 8 cm on the right and 6 cm on the left inflammatory changes adjacent to both adnexa with free fluid noted in both lower quadrants. (MAC SONI) - EKG Interpretation by Me Additional EKG results interpreted by me: 08/12/20 16:29 Twelve-lead EKG shows normal sinus rhythm rate of 76 left atrial abnormality noted. Normal axis normal intervals MI, QRS, and QT intervals. There is no evidence for an acute STEMI. (MAC SONI) Procedures - Central Line Right Internal jugular Time completed: 11:15 Consent obtained: Yes Central line pre-insertion: Sterile PPE donned, Chloraprep applied, Sterile drapes applied Central line lumen type: Triple Anesthetic type: 1% Lidocaine Ultrasound guided: Yes Line secured with sutures: Yes Central line post-insertion: Blood return from lumens, Biopatch applied, Sutured, Sterile dressing applied, Position confirmed w/ CXR Number of attempts: 2 Complications: No <MAC SONI - Last Filed: 08/13/20 15:04> Discharge - Discharge Admitting Provider: [facility] Unit Admitted: Telemetry <CADEN SHEPHERD - Last Filed: 08/12/20 17:33> <MAC SONI - Last Filed: 08/13/20 15:04> - Discharge Clinical Impression: Hypertension, CHF (congestive heart failure), Leukocytosis, Constipation, Pelvic inflammatory disease, Pelvic abscess Condition: Fair Disposition: ADMITTED INPATIENT I personally performed the services described in the documentation, reviewed and edited the documentation which was dictated to the scribe in my presence, and it accurately records my words and actions.
--- NOTE | 2020-08-12 15:41 | RADIOLOGY REPORT (SQ) ---
EXAM DESCRIPTION: CT ABD/PELVIS WITH IV ORAL IMAGES COMPLETED DATE/TIME: 08/12/2020 3:01 pm REASON FOR STUDY: abd pain/[id number]/sp appe 07/31/20 COMPARISON: 01/26/2020 TECHNIQUE: CT scan of the abdomen and pelvis performed using helical scanning technique with dynamic intravenous contrast injection. No oral contrast. Images reviewed with lung, soft tissue, and bone w indows. Reconstructed coronal and sagittal MPR images reviewed. Delayed images for evaluation of the urinary system also acquired. All images stored on PACS. All CT scanners at this facility use dose modulation, iterative reconstruction, and/or weight based d osing when appropriate to reduce radiation dose to as low as reasonably achievable (ALARA). [facility]: Dose Right [facility]: CareDose [facility]: Dose Right [facility]: Teradose 4D [facility]: Albumatic CONTRAST TYPE AND DOSE: contrast/concentration: Isovue 350.00 mmol/ml; Total Contrast Delivered: 100 .0 ml; Total Saline Delivered: 72.0 ml RENAL FUNCTION: None required. The patient is less than 50 years old. RADIATION DOSE: CT Rad equipment meets quality standard of care and radiation dose reduction techniq ues were employed. CTDIvol: 19.0 - 21.0 mGy. DLP: 3706 mGy-cm.. LIMITATIONS: None. FINDINGS: LOWER CHEST: No significant findings. LIVER: Normal size. No enhancing masses. No dilated ducts. SPLEEN: Normal size. No focal lesions. PANCREAS: No masses identified. No significant calcifications. No adjacent inflammation or peripancre atic fluid collections. Pancreatic duct not dilated. GALLBLADDER: Surgically absent. ADRENAL GLANDS: No significant masses. RIGHT KIDNEY AND URETER: No cysts identified. No solid masses identified. No calcified stones. No hyd ronephrosis or hydroureter. LEFT KIDNEY AND URETER: No cysts identified. No solid masses identified. No calcified stones. No hydr onephrosis or hydroureter. AORTA AND VESSELS: No aneurysm. No dissection. Renal arteries, SMA, celiac without significant stenos is. RETROPERITONEUM: Mild retroperitoneal adenopathy. BOWEL AND PERITONEAL CAVITY: There are some mildly dilated small bowel loops without appreciable wall thickening to suggest mechanical obstruction. The contrast in the small bowel does not reach the ce cum on the 10 minutes delayed scan to further characterize the right lower quadrant. Bilateral upper quadrant Free fluid. APPENDIX: Surgically absent. PELVIS: 5 x 3 x 3 cm rim enhancing fluid in the recto uterine fossa. Numerous fibroids are noted. T he adnexal structures are enlarged bilaterally with a heterogeneous enhancing appearance, this measur es approximately 8 cm on the right and 6 cm on the left. There are inflammatory changes adjacent to both with free fluid noted in both lower quadrants. Unremarkable bladder. ABDOMINAL WALL: No masses. No hernias. BONES: No acute findings. OTHER: No other significant finding. IMPRESSION: There are some mildly dilated small bowel loops without appreciable wall thickening to s uggest mechanical obstruction. The contrast in the small bowel does not reach the cecum on the 10 mi nutes delayed scan to further characterize the right lower quadrant. Free fluid noted in both upper quadrants. 5 x 3 x 3 cm rim enhancing fluid in the recto uterine fossa, likely small abscess. The adnexal structures are enlarged bilaterally with a heterogeneous enhancing appearance, this measu res approximately 8 cm on the right and 6 cm on the left. There are inflammatory changes adjacent to both adnexa with free fluid noted in both lower quadrants. TECHNICAL DOCUMENTATION: JOB ID: [id number] [place]-72 Quality ID # [id number]: Final reports with documentation of one or more dose reduction techniques (e.g., Au tomated exposure control, adjustment of the mA and/or kV according to patient size, use of iterative reconstruction technique) 2010 [employer]- All Rights Reserved Reading location - IP/workstation name: [email or web address]
[2020-08-12] MEDS ORDERED: VANCOMYCIN HCL INJ 1000 MG VIAL IV ONE (16:35)
--- NOTE | 2020-08-12 17:51 | RADIOLOGY REPORT (SQ) ---
EXAM DESCRIPTION: U/S NON OB PEL LTD W/DOPPLER IMAGES COMPLETED DATE/TIME: 08/12/2020 5:22 pm REASON FOR STUDY: free fluid in pelvis COMPARISON: Earlier CT TECHNIQUE: Dynamic and static grayscale images acquired of the pelvis via transabdominal approach an d recorded on PACS. Additional selected color Doppler and spectral images recorded. LIMITATIONS: Patient pain during exam FINDINGS: UTERUS: 13.9 x 9.3 x 7.3 cm, fibroids noted. . ENDOMETRIAL STRIPE: Not visualized Ovaries not visualized. FREE FLUID: Free fluid present in both adnexae. OTHER: No other significant finding. IMPRESSION: Free fluid present in both adnexae. Ovaries not visualized. Fibroid uterus. TECHNICAL DOCUMENTATION: JOB ID: [id number] [place]-72 2010 [employer]- All Rights Reserved Rev-02/05 Reading location - IP/workstation name: [email or web address]
--- NOTE | 2020-08-12 18:37 | PDOC CONSULTATION ---
Consultation Consult Date: 08/12/20 Attending physician:: CADEN SHEPHERD Provider Consulted: VALERI RASMUSSEN Consult reason:: Rule out intra-abdominal sepsis History of Present Illness Admission Date/PCP: 08/12/20 18:00 DORIE LUGO MD History of Present Illness: YULIANA ALVARADO is a 39 year old female Presents to the emergency department via ground rescue complaining of constipation. Patient arrived at 2:00 in the morning on August 12. Surgery was consulted at approximately 5:30 PM for evaluation of possible intra- abdominal sepsis. Patient is a poor historian, smokes daily, has chronic cough. She has had difficulty moving her bowels. In the emergency department she had a rectal exam which was reportedly unremarkable. Laparoscopic appendectomy on July [address] Rocha. 24 hours later she underwent umbilical herniorrhaphy by Dr. Rocha. Patient pathology report of the appendix showed fibrous obliteration of the appendiceal tip, and periappendiceal inflammation, acute superimposed on chronic. Patient states she did well after the operation was discharged home and has tolerated diet since then. Patient has had a central line placed in the emergency department, ultrasound of the pelvis, as well as CT scan of the abdomen and pelvis. The findings the radiologist are are indecisive; the patient has fluid in both adnexal areas, and enlarged uterus with fibroid, which is chronic, a distended bladder, cannot rule out retrouterine abscess, small. Patient seen in room 15 in the emergency department walking around with a dry cough at 5:30 PM. Past Medical History Cardiac Medical History: Reports: Congestive Heart Failure, Coronary Artery Disease, Myocardial Infarction, Hyperlipidema, Hypertension Pulmonary Medical History: Reports: Chronic Obstructive Pulmonary Disease (COPD) Denies: Tuberculosis Neurological Medical History: Reports: Migraine Denies: Seizures Endocrine Medical History: Reports: Diabetes Mellitus Type 1, Diabetes Mellitus Type 2 - IDDM Musculoskeltal Medical History: Reports: Arthritis Psychiatric Medical History: Reports: Bipolar Disorder, Depression Past Surgical History Past Surgical History: Umbilical herniorrhaphy, open Past Surgical History: Reports: Appendectomy - 07/31/2020, Cardiac Catheterization, Section - x2, Cholecystectomy, Coronary Stent Denies: Pacemaker Social History Information Source: Patient Smoking Status: Current Every Day Smoker Frequency of Alcohol Use: Rare Hx Recreational Drug Use: Yes Drugs: Marijuana Hx Prescription Drug Abuse: No Family History Family History: None, Reviewed & Not Pertinent Parental Family History Reviewed: No Children Family History Reviewed: No Sibling(s) Family History Reviewed.: No Medication/Allergy Home Medications: Hydralazine HCl [Apresoline 50 mg Tablet] 100 mg PO TID 09/26/13 Clonidine HCl [Catapres] 0.3 mg PO TID 04/25/15 Sertraline HCl [Zoloft 50 mg Tablet] 50 mg PO DAILY 04/25/15 Zolpidem Tartrate 10 mg PO HSP PRN 01/02/16 Alprazolam 0.5 mg PO BIDP PRN 01/25/20 Insulin Glargine,Hum.rec.anlog [Lantus Insulin 100 Unit/1 ml 10 ml] 50 unit SQ DAILY 01/25/20 Insulin Lispro [Humalog] 0 unit SQ .SLIDING SCALE 01/25/20 Lurasidone HCl [Latuda 40 mg Tablet] 40 mg PO QPM 01/25/20 Aliskiren Hemifumarate [Tekturna 300 mg Tablet] 300 mg PO DAILY 04/13/20 Cyclobenzaprine HCl [Flexeril 10 mg Tablet] 10 mg PO BIDP PRN 04/13/20 Gabapentin [Neurontin] 600 mg PO Q8 04/13/20 Metformin HCl 1,000 mg PO BID 04/13/20 Albuterol Sulfate [Proair HFA Inhalation Aerosol 8.5 gm MDI] 1 puff IH Q4HP PRN 07/31/20 Amlodipine Besylate [Norvasc 10 mg Tablet] 10 mg PO DAILY 07/31/20 Aspirin [Adult Low Dose Aspirin EC] 81 mg PO DAILY 07/31/20 Benztropine Mesylate [Cogentin 1 mg Tablet] 1 mg PO QAM 07/31/20 Benztropine Mesylate [Cogentin 1 mg Tablet] 2 mg PO QPM 07/31/20 Clotrimazole/Betamethasone Dip [Lotrisone Cream 15 gm] 1 applic TOP BID 07/31/20 Exenatide Microspheres [Bydureon Pen] 2 mg SQ NUNN 07/31/20 Furosemide [Lasix 40 mg Tablet] 40 mg PO DAILY 07/31/20 Magnesium Oxide [Mag-Ox 400 mg Tablet] 400 mg PO DAILY 07/31/20 Metolazone 10 mg PO DAILY 07/31/20 Metoprolol Succinate [Toprol Xl] 200 mg PO DAILY 07/31/20 Pregabalin [Lyrica 50 mg Capsule] 50 mg PO Q8 07/31/20 Ubidecarenone/Vit E Acet [Co Q-10 100 mg Softgel] 3 cap PO WSUPPER 07/31/20 Levofloxacin [Levaquin 750 mg Tablet] 750 mg PO DAILY #5 tablet 08/02/20 Allergies/Adverse Reactions: No Known Allergies Allergy (Verified 04/12/20 16:56) Review of Systems Constitutional: PRESENT: as per HPI Eyes: PRESENT: other - Conjugate gaze Cardiovascular: PRESENT: chest pain Gastrointestinal: PRESENT: other - Chronic abdominal pain Physical Exam Vital Signs: Temp Pulse Resp BP Pulse Ox 99.9 F 89 20 154/95 H 100 08/12/20 08:58 08/12/20 08:58 08/12/20 14:14 08/12/20 14:15 08/12/20 14:14 Intake & Output 08/11/20 08/12/20 08/13/20 06:59 06:59 06:59 Intake Total 1050 Balance 1050 Weight 129.3 kg General appearance: PRESENT: no acute distress Head exam: PRESENT: normocephalic Eye exam: PRESENT: other - Disconjugate gaze, no icterus Ear exam: PRESENT: normal external ear exam Mouth exam: PRESENT: dry mucosa Neck exam: PRESENT: other - There is a right triple-lumen catheter Respiratory exam: PRESENT: rhonchi Cardiovascular exam: PRESENT: RRR Pulses: PRESENT: normal carotid pulses, normal radial pulses GI/Abdominal exam: PRESENT: other - The abdomen has multiple operative sites consistent with recent surgery. Skin glue still on. Some tenderness at the right upper quadrant port site. Possible hematoma, small; no peritoneal signs. Neurological exam: PRESENT: oriented to person, oriented to place, oriented to time, oriented to situation Psychiatric exam: PRESENT: appropriate affect Skin exam: PRESENT: dry Results Laboratory Results: 08/12/20 08:00 08/12/20 06:40 08/12/20 08/12/20 08/12/20 05:23 06:40 06:40 WBC Cancelled RBC Cancelled Hgb Cancelled Hct Cancelled MCV Cancelled MCH Cancelled MCHC Cancelled RDW Cancelled Plt Count Cancelled Seg Neutrophils % Cancelled Sodium 141.2 Potassium 4.1 Chloride 106 Carbon Dioxide 25 Anion Gap 10 BUN 13 Creatinine 0.93 Est GFR ( Amer) > 60 Glucose 180 H Lactic Acid Calcium 9.3 Lipase Urine Color YELLOW Urine Appearance SLIGHTLY-CLOUDY Urine pH 6.0 Ur Specific [place] 1.019 Urine Protein >=500 H Urine Glucose (UA) NEGATIVE Urine Ketones NEGATIVE Urine Blood LARGE H Urine RBC (Auto) >182 08/12/20 08/12/20 08/12/20 06:40 08:00 12:20 WBC 24.6 H RBC 4.97 Hgb 8.3 L Hct 27.2 L MCV 55 L MCH 16.7 L MCHC 30.5 L RDW 21.3 H Plt Count 604 H Seg Neutrophils % Not Reportable Sodium Potassium Chloride Carbon Dioxide Anion Gap BUN Creatinine Est GFR ( Amer) Glucose Lactic Acid 1.0 Calcium Lipase 109.3 Urine Color Urine Appearance Urine pH Ur Specific [place] Urine Protein Urine Glucose (UA) Urine Ketones Urine Blood Urine RBC (Auto) 08/12/20 08/12/20 06:40 06:40 Troponin I < 0.012 NT-Pro-B Natriuret Pep 4860 H Impressions: Abdomen X-Ray 08/12/20 00:00 IMPRESSION: 1. No acute findings. Chest X-Ray 08/12/20 11:47 IMPRESSION: NO PNEUMOTHORAX FOLLOWING CENTRAL LINE PLACEMENT. HAZY AIRSPACE DISEASE. Abdomen/Pelvis CT 08/12/20 14:30 IMPRESSION: There are some mildly dilated small bowel loops without appreciable wall thickening to suggest mechanical obstruction. The contrast in the small bowel does not reach the cecum on the 10 minutes delayed scan to further characterize the right lower quadrant. Free fluid noted in both upper quadrants. 5 x 3 x 3 cm rim enhancing fluid in the recto uterine fossa, likely small abscess. The adnexal structures are enlarged bilaterally with a heterogeneous enhancing appearance, this measures approximately 8 cm on the right and 6 cm on the left. There are inflammatory changes adjacent to both adnexa with free fluid noted in both lower quadrants. Pelvis Ultrasound 08/12/20 15:48 IMPRESSION: Free fluid present in both adnexae. Ovaries not visualized. Fibroid uterus. Assessment & Plan - Diagnosis (1) Sepsis Is this a current diagnosis for this admission?: Yes Plan: Impression: Persists with out hemodynamic instability, exact etiology unclear. Patient is status post laparoscopic appendectomy for obliterated appendix, and open umbilical hernia. Patient does not appear to have abdominal wall, or intestinal complications related to recent surgery. CT scan demonstrates fluid and inflammatory changes in the pelvis, however it is unclear whether changes are postoperative or related to pelvic inflammatory disease. No fluid or abscess large enough to warrant drainage at this time. Recommendations: 1. Agree with admission to medical service with further evaluation, fluid and antibiotic administration 2. We will follow patient with you; doubt patient will require surgical intervention. 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
--- NOTE | 2020-08-12 18:59 | EKG REPORT ---
SEVERITY:- BORDERLINE ECG - SINUS RHYTHM PROBABLE LEFT ATRIAL ABNORMALITY : Confirmed by: Andreea Calhonu MD 12-Aug-2020 18:58:41
[2020-08-12] MEDS ORDERED: DEXTROSE 50%-WATER 25 GM/50 ML DISP.SYRIN IV PRN (20:00)
[2020-08-12] MEDS ORDERED: GLUCAGON,HUMAN RECOMB 1 MG INJ IM PRN (20:00)
[2020-08-12] MEDS ORDERED: DEXTROSE 40% GEL 15 GM TUBE PO PRN ×2 (20:00)
[2020-08-12] MEDS ORDERED: OXYCODONE-ACETAMINOPHEN 5-325 MG TABLET PO PRN (20:12)
[2020-08-12] MEDS ORDERED: VANCOMYCIN HCL 0 MG in DEXTROSE 5%-WATER 250 ML IV NR (20:15)
[2020-08-12] MEDS: LOSARTAN POTASSIUM 50 MG TABLET PO SCH (21:25)
[2020-08-12] MEDS ORDERED: PIPERACILLIN/TAZOBACTAM 3.375 GM VIAL IV ONE (22:04)
[2020-08-12] MEDS: CLONIDINE HCL 0.2 MG TABLET PO SCH (22:44)
--- NOTE | 2020-08-12 22:44 | PDOC H&P ---
History of Present Illness Admission Date/PCP: 08/12/20 18:00 DORIE LUGO MD Patient complains of: Abdominal pain History of Present Illness: YULIANA ALVARADO is a 39 year old female patient of Dr. Lugo who presented to the ED with worsening abdominal pain. Patient reported onset of abdominal pain over last 3 days but worsen overnight necessitating her coming to the ED. She has laparoscopic appendectomy about 12 days ago. She reported constipation since her discharged home. She denied any nausea or vomiting.She described pain as intermittent colic and severe in intensity upon development. She denied chest pain but reported coughing with difficulty with expectoration due to associated abdominal pain. She localized pain to right mid and lower abdominal region. She continue to smoke about 5 cigarette daily. She denied any flank pain, hematuria, or dysuria. Her initial evaluation in the ED was significant for leukocytosis with left shift, CT abdomen and pelvis suggestive of recto uterine fossa fluid collection with bilateral enlarge adnexa structures with inflammatory changes. Her chest X ray revealed bilateral lower lobe hazy airspace disease process. She was advised hospitalization for further evaluation and management. her morbiditi es are listed below. Past Medical History Cardiac Medical History: Reports: Congestive Heart Failure, Coronary Artery Disease, Myocardial Infarction, Hyperlipidema, Hypertension Pulmonary Medical History: Reports: Chronic Obstructive Pulmonary Disease (COPD) Denies: Tuberculosis Neurological Medical History: Reports: Migraine Denies: Seizures Endocrine Medical History: Reports: Diabetes Mellitus Type 1, Diabetes Mellitus Type 2 - IDDM Musculoskeltal Medical History: Reports: Arthritis Psychiatric Medical History: Reports: Bipolar Disorder, Depression Past Surgical History Past Surgical History: Reports: Appendectomy - 07/31/2020, Cardiac Catheterization, Section - x2, Cholecystectomy, Coronary Stent Denies: Pacemaker Social History Smoking Status: Current Every Day Smoker Frequency of Alcohol Use: Rare Hx Recreational Drug Use: Yes Drugs: Marijuana Hx Prescription Drug Abuse: No - Advance Directive Resuscitation Status: Full Code Family History Family History: None, Reviewed & Not Pertinent Parental Family History Reviewed: Yes Children Family History Reviewed: Yes Sibling(s) Family History Reviewed.: Yes Medication/Allergy Home Medications: Hydralazine HCl [Apresoline 50 mg Tablet] 100 mg PO TID 09/26/13 Clonidine HCl [Catapres] 0.3 mg PO TID 04/25/15 Sertraline HCl [Zoloft 50 mg Tablet] 50 mg PO DAILY 04/25/15 Zolpidem Tartrate 10 mg PO HSP PRN 01/02/16 Alprazolam 0.5 mg PO BIDP PRN 01/25/20 Insulin Glargine,Hum.rec.anlog [Lantus Insulin 100 Unit/1 ml 10 ml] 50 unit SQ DAILY 01/25/20 Insulin Lispro [Humalog] 0 unit SQ .SLIDING SCALE 01/25/20 Lurasidone HCl [Latuda 40 mg Tablet] 40 mg PO QPM 01/25/20 Aliskiren Hemifumarate [Tekturna 300 mg Tablet] 300 mg PO DAILY 04/13/20 Cyclobenzaprine HCl [Flexeril 10 mg Tablet] 10 mg PO BIDP PRN 04/13/20 Gabapentin [Neurontin] 600 mg PO Q8 04/13/20 Metformin HCl 1,000 mg PO BID 04/13/20 Albuterol Sulfate [Proair HFA Inhalation Aerosol 8.5 gm MDI] 1 puff IH Q4HP PRN 07/31/20 Amlodipine Besylate [Norvasc 10 mg Tablet] 10 mg PO DAILY 07/31/20 Aspirin [Adult Low Dose Aspirin EC] 81 mg PO DAILY 07/31/20 Benztropine Mesylate [Cogentin 1 mg Tablet] 1 mg PO QAM 07/31/20 Benztropine Mesylate [Cogentin 1 mg Tablet] 2 mg PO QPM 07/31/20 Clotrimazole/Betamethasone Dip [Lotrisone Cream 15 gm] 1 applic TOP BID 07/31/20 Exenatide Microspheres [Bydureon Pen] 2 mg SQ NUNN 07/31/20 Furosemide [Lasix 40 mg Tablet] 40 mg PO DAILY 07/31/20 Magnesium Oxide [Mag-Ox 400 mg Tablet] 400 mg PO DAILY 07/31/20 Metolazone 10 mg PO DAILY 07/31/20 Metoprolol Succinate [Toprol Xl] 200 mg PO DAILY 07/31/20 Pregabalin [Lyrica 50 mg Capsule] 50 mg PO Q8 07/31/20 Ubidecarenone/Vit E Acet [Co Q-10 100 mg Softgel] 3 cap PO WSUPPER 07/31/20 Levofloxacin [Levaquin 750 mg Tablet] 750 mg PO DAILY #5 tablet 08/02/20 Allergies/Adverse Reactions: No Known Allergies Allergy (Verified 04/12/20 16:56) Review of Systems Constitutional: PRESENT: fever(s) Respiratory: PRESENT: cough, sputum Gastrointestinal: PRESENT: abdominal pain, constipation Genitourinary: ABSENT: dysuria, hematuria Integumentary: ABSENT: rash, wounds Neurological: ABSENT: abnormal gait, abnormal speech, confusion, dizziness, focal weakness, syncope Psychiatric: ABSENT: anxiety, depression, homidical ideation, suicidal ideation Endocrine: ABSENT: cold intolerance, heat intolerance, menstrual abnormalities, polydipsia, polyuria Hematologic/Lymphatic: ABSENT: easy bleeding, easy bruising, lymphadenopathy Allergic/Immunologic: ABSENT: seasonal rhinorrhea Physical Exam Vital Signs: Temp Pulse Resp BP Pulse Ox 98.2 F 89 18 156/89 H 97 08/12/20 18:00 08/12/20 08:58 08/12/20 18:28 08/12/20 18:00 08/12/20 18:28 Intake & Output 08/11/20 08/12/20 08/13/20 06:59 06:59 06:59 Intake Total 1050 Balance 1050 Weight 129.3 kg General appearance: PRESENT: mild distress - due to her abdominal pain, on supplemental oxygen via nasal cannula, morbidly obese Head exam: PRESENT: atraumatic, normocephalic Eye exam: PRESENT: conjunctiva pink, EOMI, PERRLA. ABSENT: scleral icterus Ear exam: PRESENT: normal external ear exam Mouth exam: PRESENT: moist, tongue midline Neck exam: PRESENT: full ROM. ABSENT: carotid bruit, JVD, lymphadenopathy, t hyromegaly Respiratory exam: PRESENT: clear to auscultation herminia, decreased breath sounds - at lung bases Cardiovascular exam: PRESENT: RRR, +S1, +S2. ABSENT: diastolic murmur, rubs, systolic murmur Pulses: PRESENT: normal dorsalis pedis pul, +2 pedal pulses bilateral Vascular exam: PRESENT: normal capillary refill GI/Abdominal exam: PRESENT: normal bowel sounds, soft. ABSENT: distended, guarding, mass, organolmegaly, rebound, tenderness Rectal exam: PRESENT: deferred Extremities exam: ABSENT: pedal edema Neurological exam: PRESENT: alert, awake, oriented to person, oriented to place, oriented to time, oriented to situation, CN II-XII grossly intact. ABSENT: motor sensory deficit Psychiatric exam: PRESENT: appropriate affect, normal mood. ABSENT: homicidal ideation, suicidal ideation Skin exam: PRESENT: dry, intact, warm. ABSENT: cyanosis, rash Results Laboratory Results: 08/12/20 08:00 08/12/20 06:40 08/12/20 08/12/20 08/12/20 05:23 06:40 06:40 WBC Cancelled RBC Cancelled Hgb Cancelled Hct Cancelled MCV Cancelled MCH Cancelled MCHC Cancelled RDW Cancelled Plt Count Cancelled Seg Neutrophils % Cancelled Sodium 141.2 Potassium 4.1 Chloride 106 Carbon Dioxide 25 Anion Gap 10 BUN 13 Creatinine 0.93 Est GFR ( Amer) > 60 Glucose 180 H Lactic Acid Calcium 9.3 Lipase Urine Color YELLOW Urine Appearance SLIGHTLY-CLOUDY Urine pH 6.0 Ur Specific [place] 1.019 Urine Protein >=500 H Urine Glucose (UA) NEGATIVE Urine Ketones NEGATIVE Urine Blood LARGE H Urine RBC (Auto) >182 08/12/20 08/12/20 08/12/20 06:40 08:00 12:20 WBC 24.6 H RBC 4.97 Hgb 8.3 L Hct 27.2 L MCV 55 L MCH 16.7 L MCHC 30.5 L RDW 21.3 H Plt Count 604 H Seg Neutrophils % Not Reportable Sodium Potassium Chloride Carbon Dioxide Anion Gap BUN Creatinine Est GFR ( Amer) Glucose Lactic Acid 1.0 Calcium Lipase 109.3 Urine Color Urine Appearance Urine pH Ur Specific [place] Urine Protein Urine Glucose (UA) Urine Ketones Urine Blood Urine RBC (Auto) 08/12/20 08/12/20 06:40 06:40 Troponin I < 0.012 NT-Pro-B Natriuret Pep 4860 H Impressions: Abdomen X-Ray 08/12/20 00:00 IMPRESSION: 1. No acute findings. Chest X-Ray 08/12/20 11:47 IMPRESSION: NO PNEUMOTHORAX FOLLOWING CENTRAL LINE PLACEMENT. HAZY AIRSPACE DISEASE. Abdomen/Pelvis CT 08/12/20 14:30 IMPRESSION: There are some mildly dilated small bowel loops without appreciable wall thickening to suggest mechanical obstruction. The contrast in the small bowel does not reach the cecum on the 10 minutes delayed scan to further characterize the right lower quadrant. Free fluid noted in both upper q uadrants. 5 x 3 x 3 cm rim enhancing fluid in the recto uterine fossa, likely small abscess. The adnexal structures are enlarged bilaterally with a heterogeneous enhancing appearance, this measures approximately 8 cm on the right and 6 cm on the left. There are inflammatory changes adjacent to both adnexa with free fluid noted in both lower quadrants. Pelvis Ultrasound 08/12/20 15:48 IMPRESSION: Free fluid present in both adnexae. Ovaries not visualized. Fibroid uterus. Assessment & Plan - Diagnosis (1) Abdominal pain Qualifiers: Abdominal location: right lower quadrant Qualified Code(s): R10.31 - Right lower quadrant pain Is this a current diagnosis for this admission?: Yes Plan: See covering attending physician orders for details about care plan. (2) Bilateral pneumonia Qualifiers: Pneumonia type: due to unspecified organism Lung location: unspecified part of lung Qualified Code(s): J18.9 - Pneumonia, unspecified organism Is this a current diagnosis for this admission?: Yes Plan: See covering attending physician orders for details about care plan. (3) Sepsis Is this a current diagnosis for this admission?: Yes Plan: See covering attending physician orders for details about care plan. (4) Acute on chronic congestive heart failure Qualifiers: Heart failure type: unspecified Qualified Code(s): I50.9 - Heart failure, unspecified Is this a current diagnosis for this admission?: Yes Plan: See covering attending physician orders for details about care plan. (5) Essential hypertension Is this a current diagnosis for this admission?: Yes Plan: See covering attending physician orders for details about care plan. (6) T2DM (type 2 diabetes mellitus) Qualifiers: Diabetes mellitus assisted insulin use: with moth exterminator use Diabetes mellitus complication status: with kidney complications Diabetes mellitus complication detail: with nephropathy Qualified Code(s): E11.21 - Type 2 diabetes mellitus with diabetic nephropathy; Z79.4 - moth exterminator (current) use of insulin Is this a current diagnosis for this admission?: Yes Plan: See covering attending physician orders for details about care plan. (7) Morbid obesity Is this a current diagnosis for this admission?: Yes Plan: See covering attending physician orders for details about care plan. - Time Time Spent: 50 to 70 Minutes Medications reviewed and adjusted accordingly: Yes Anticipated Discharge Disposition: Home, Self Care Anticipated Discharge Timeframe: within 72 hours - Inpatient Certification Based on my medical assessment, after consideration of the patient's comorbidities, presenting symptoms, or acuity I expect that the services needed warrant INPATIENT care.: Yes I certify that my determination is in accordance with my understanding of Medicare's requirements for reasonable and necessary INPATIENT services [42 CFR 412.3e].: Yes Medical Necessity: Significant Comorbidiites Make Outpatient Treatment Too Risky, Need Close Monitoring Due to Risk of Patient Decompensation, Need For IV Fluids, Need for IV Antibiotics, Risk of Complication if Not Cared For in Hospital, Risk of Diagnosis Which Will Require Inpatient Eval/Care/Monitoring Post Hospital Care: D/C Epic Specialist Documentation - Plan Summary Plan Summary: See covering attending physician orders for details about care plan.
[2020-08-12] MEDS: HYDRALAZINE HCL 50 MG TABLET PO SCH (22:45)
[2020-08-12] MEDS: PIPERACILLIN SODIUM/TAZOBACTAM 3.375 GM in NORMAL SALINE 100 ML IV SCH (22:45)
[2020-08-12] MEDS: NORMAL SALINE 1000 ML 1,000 ML IV PRN (22:46)
[2020-08-12] MEDS: INSULIN LISPRO 100 UNIT/ML 3 ML VIAL SUBCUT SCH (22:47)
[2020-08-13] MEDS: HYDROMORPHONE HCL INJ/PF 2 MG/ML AMPULE IV PRN ×6 (00:04→22:14)
[2020-08-13] MEDS ORDERED: PIPERACILLIN/TAZOBACTAM 3.375 GM VIAL IV ONE (03:25)
[2020-08-13] MEDS: PIPERACILLIN SODIUM/TAZOBACTAM 3.375 GM in NORMAL SALINE 100 ML IV SCH ×4 (03:56→22:15)
[2020-08-13] MEDS: HYDRALAZINE HCL 50 MG TABLET PO SCH ×3 (05:52→22:37)
[2020-08-13] MEDS: CLONIDINE HCL 0.2 MG TABLET PO SCH ×3 (05:53→22:35)
[2020-08-13] MEDS: PANTOPRAZOLE SODIUM 40 MG TABLET.DR PO SCH (05:53)
[2020-08-13] MEDS: INSULIN LISPRO 100 UNIT/ML 3 ML VIAL SUBCUT SCH ×4 (08:38→22:33)
[2020-08-13] MEDS: METOPROLOL SUCCINATE 50 MG TAB.SR.24H PO SCH (10:16)
[2020-08-13] MEDS: LOSARTAN POTASSIUM 50 MG TABLET PO SCH (10:16)
[2020-08-13] MEDS: ENOXAPARIN SODIUM INJ 40 MG/0.4 ML DISP.SYRIN SUBCUT SCH (10:17)
[2020-08-13 13:18] LABS: HEMATOCRIT 24.4 % (36.0-47.0); MEAN CORPUSCULAR HEMOGLOBIN 16.8 pg (27.0-33.4); MEAN CORPUSCULAR HGB CONC 30.4 g/dL (32.0-36.0); MEAN CORPUSCULAR VOLUME 55 fl (80-97); PLATELET COUNT 548 10^3/uL (150-450); RED BLOOD COUNT 4.41 10^6/uL (3.72-5.28); WHITE BLOOD COUNT 21.1 10^3/uL (4.0-10.5)
[2020-08-13] MEDS: NORMAL SALINE 1000 ML 1,000 ML IV PRN (13:23)
[2020-08-13 13:59] LABS: HEMOGLOBIN 7.4 g/dL (12.0-15.5)
[2020-08-13 14:11] LABS: ABSOLUTE LYMPHOCYTES# (MANUAL) 0.6 10^3/uL (0.5-4.7); ABSOLUTE MONOCYTES # (MANUAL) 0.4 10^3/uL (0.1-1.4); BASOPHILS % (MANUAL) 0 % (0-2); EOSINOPHILS % (MANUAL) 0 % (0-6); HYPOCHROMASIA 1+; LYMPHOCYTES % (MANUAL) 3 % (13-45); MONOCYTES % (MANUAL) 2 % (3-13); SEGMENTED NEUTROPHILS % (MAN) 95 % (42-78); TOTAL CELLS COUNTED 100
[2020-08-13 14:12] LABS: ANISOCYTOSIS 3+; OVALOCYTES SLIGHT; PLATELET COMMENT INCREASED; POIKILOCYTOSIS 1+; TARGET CELLS SLIGHT
[2020-08-13] MEDS: VANCOMYCIN HCL 1,500 MG in DEXTROSE 5%-WATER 250 ML IV SCH (15:07)
--- NOTE | 2020-08-13 15:22 | PDOC PROGRESS REPORT ---
Subjective Date:: 08/13/20 Reason For Visit: ABDOMINAL PAIN,SEPSIS,PNEUMONIA,ACUTE ON CHRONIC Physical Exam Vital Signs: Temp Pulse Resp BP Pulse Ox 98.3 F 87 17 121/64 100 08/13/20 11:31 08/13/20 11:31 08/13/20 11:31 08/13/20 11:31 08/13/20 11:31 Intake & Output 08/12/20 08/13/20 08/14/20 06:59 06:59 06:59 Intake Total 1630 1444 Output Total 900 Balance 730 1444 Weight 129.3 kg 129.3 kg 129.3 kg Results Laboratory Results: 08/13/20 12:54 08/12/20 06:40 08/13/20 12:54 WBC 21.1 H RBC 4.41 Hgb 7.4 L Hct 24.4 L MCV 55 L MCH 16.8 L MCHC 30.4 L RDW 21.0 H Plt Count 548 H Seg Neutrophils % Not Reportable 08/12/20 08/12/20 06:40 06:40 Troponin I < 0.012 NT-Pro-B Natriuret Pep 4860 H Impressions: Abdomen X-Ray 08/12/20 00:00 IMPRESSION: 1. No acute findings. Chest X-Ray 08/12/20 11:47 IMPRESSION: NO PNEUMOTHORAX FOLLOWING CENTRAL LINE PLACEMENT. HAZY AIRSPACE DISEASE. Abdomen/Pelvis CT 08/12/20 14:30 IMPRESSION: There are some mildly dilated small bowel loops without appreciable wall thickening to suggest mechanical obstruction. The contrast in the small bowel does not reach the cecum on the 10 minutes delayed scan to further characterize the right lower quadrant. Free fluid noted in both upper quadrants. 5 x 3 x 3 cm rim enhancing fluid in the recto uterine fossa, likely small abscess. The adnexal structures are enlarged bilaterally with a heterogeneous enhancing appearance, this measures approximately 8 cm on the right and 6 cm on the left. There are inflammatory changes adjacent to both adnexa with free fluid noted in both lower quadrants. Pelvis Ultrasound 08/12/20 15:48 IMPRESSION: Free fluid present in both adnexae. Ovaries not visualized. Fibroid uterus. Assessment & Plan - Time Anticipated Discharge Disposition: unknown Anticipated Discharge Timeframe: unknown - Plan Summary Plan Summary: 39-year-old female recently status post appendectomy. She has inflammatory stranding in the right lower quadrant on CT scan, without obvious drainable abscess. This is likely residual from her acute appendicitis. I would maintain antibiotics. It is unlikely that the patient will require further surgical intervention. The patient reports that her symptoms are slowly improving. Surgery will continue to follow with you.
[2020-08-13] MEDS: ONDANSETRON HCL INJ/PF 4 MG/2 ML SDV IV PRN (18:43)
[2020-08-13] MEDS ORDERED: ALBUTEROL SULFATE HFA (90 MCG/PUFF) 8 GM MDI (1 MDI/ER DISP) IH PRN (21:39)
[2020-08-13] MEDS ORDERED: CLONIDINE HCL 0.3 MG PO SCH (21:45)
[2020-08-13] MEDS ORDERED: (PENDING PHARMACY ID) (Sertraline Hcl [Sertraline Hcl] 100 MG Tablet) PO SCH (21:45)
[2020-08-13] MEDS ORDERED: ALISKIREN HEMIFUMARATE 300 MG PO SCH (21:45)
[2020-08-13] MEDS ORDERED: METOPROLOL SUCCINATE 200 MG PO SCH (21:45)
[2020-08-13] MEDS ORDERED: ALPRAZOLAM 0.5 MG TABLET PO PRN (21:51)
--- NOTE | 2020-08-13 21:53 | PDOC PROGRESS REPORT ---
Subjective Date:: 08/13/20 Subjective:: Patient seen by the bedside, CT scan showed inflammatory process Reason For Visit: ABDOMINAL PAIN,SEPSIS,PNEUMONIA,ACUTE ON CHRONIC Physical Exam Vital Signs: Temp Pulse Resp BP Pulse Ox 98.0 F 86 18 138/64 H 100 08/13/20 20:00 08/13/20 20:00 08/13/20 20:00 08/13/20 20:00 08/13/20 20:00 Intake & Output 08/12/20 08/13/20 08/14/20 06:59 06:59 06:59 Intake Total 1630 2156 Output Total 900 225 Balance 730 1931 Weight 129.3 kg 129.3 kg 129.3 kg General appearance: PRESENT: no acute distress Eye exam: PRESENT: PERRLA Respiratory exam: PRESENT: clear to auscultation herminia Cardiovascular exam: PRESENT: +S1, +S2 GI/Abdominal exam: PRESENT: soft, tenderness Neurological exam: PRESENT: alert Results Laboratory Results: 08/13/20 12:54 08/12/20 06:40 08/13/20 08/13/20 12:54 15:55 WBC 21.1 H RBC 4.41 Hgb 7.4 L Hct 24.4 L MCV 55 L MCH 16.8 L MCHC 30.4 L RDW 21.0 H Plt Count 548 H Seg Neutrophils % Not Reportable Blood Type AB POSITIVE Antibody Screen NEGATIVE 08/12/20 08/12/20 06:40 06:40 Troponin I < 0.012 NT-Pro-B Natriuret Pep 4860 H Impressions: Abdomen X-Ray 08/12/20 00:00 IMPRESSION: 1. No acute findings. Chest X-Ray 08/12/20 11:47 IMPRESSION: NO PNEUMOTHORAX FOLLOWING CENTRAL LINE PLACEMENT. HAZY AIRSPACE DISEASE. Abdomen/Pelvis CT 08/12/20 14:30 IMPRESSION: There are some mildly dilated small bowel loops without appreciable wall thickening to suggest mechanical obstruction. The contrast in the small bowel does not reach the cecum on the 10 minutes delayed scan to further characterize the right lower quadrant. Free fluid noted in both upper quadrants. 5 x 3 x 3 cm rim enhancing fluid in the recto uterine fossa, likely small abscess. The adnexal structures are enlarged bilaterally with a heterogeneous enhancing appearance, this measures approximately 8 cm on the right and 6 cm on the left. There are inflammatory changes adjacent to both adnexa with free fluid noted in both lower quadrants. Pelvis Ultrasound 08/12/20 15:48 IMPRESSION: Free fluid present in both adnexae. Ovaries not visualized. Fibro id uterus. Assessment & Plan - Diagnosis (1) Pelvic inflammatory disease Is this a current diagnosis for this admission?: Yes Plan: Continue IV antibiotic (2) Type 2 diabetes mellitus with diabetic polyneuropathy Qualifiers: Diabetes mellitus custodial insulin use: with long term care social worker use Qualified Code(s): E11.42 - Type 2 diabetes mellitus with diabetic polyneuropathy; Z79.4 - [facility] (current) use of insulin Is this a current diagnosis for this admission?: Yes (3) Coronary artery disease Qualifiers: Coronary Disease-Associated Artery/Lesion type: [place] artery [place] vs. transplanted heart: hopi heart Associated angina: without angina Qualified Code(s): I25.10 - Atherosclerotic heart disease of [place] coronary artery without angina pectoris Is this a current diagnosis for this admission?: Yes (4) Bilateral pneumonia Qualifiers: Pneumonia type: due to unspecified organism Lung location: unspecified part of lung Qualified Code(s): J18.9 - Pneumonia, unspecified organism Is this a current diagnosis for this admission?: Yes Plan: The last time she was admitted there was a concern of pneumonia on the chest x- ray Will obtain CT chest without contrast for further definition of this infiltrate - Time Time Spent with patient: 25-34 minutes Level of Care: MEDICAL Medications reviewed and adjusted accordingly: Yes Anticipated discharge: Home Anticipated DC Timeframe: within 72 hours
[2020-08-13] MEDS ORDERED: (PENDING PHARMACY ID) (Gabapentin [Neurontin] 600 MG Tablet) PO SCH (22:00)
[2020-08-13] MEDS ORDERED: METOPROLOL SUCCINATE 50 MG TAB.SR.24H PO SCH (22:15)
[2020-08-13] MEDS ORDERED: HYDRALAZINE HCL 50 MG TABLET PO SCH (22:15)
[2020-08-13] MEDS ORDERED: CLONIDINE HCL 0.1 MG TABLET PO SCH (22:15)
[2020-08-13] MEDS ORDERED: INSULIN GLARGINE,HUM.REC.ANLOG 1,000 UNIT/10 ML VIAL (PYX) SUBCUT ONE (22:30)
[2020-08-13] MEDS: DOXEPIN HCL 25 MG CAPSULE PO SCH (22:34)
[2020-08-13] MEDS: GABAPENTIN 300 MG CAPSULE PO SCH (22:34)
[2020-08-13] MEDS: BENZTROPINE MESYLATE 1 MG TABLET PO SCH (23:11)
[2020-08-13] MEDS: SERTRALINE HCL 50 MG TABLET PO SCH (23:11)
[2020-08-13] MEDS: METFORMIN HCL 500 MG TABLET PO SCH (23:27)
[2020-08-14] MEDS: VANCOMYCIN HCL 1,500 MG in DEXTROSE 5%-WATER 250 ML IV SCH ×3 (00:06→22:09)
[2020-08-14] MEDS ORDERED: ALISKIREN HEMIFUMARATE 150 MG TABLET ONE (00:48)
[2020-08-14] MEDS: ALISKIREN HEMIFUMARATE 150 MG TABLET PO SCH ×2 (01:21→10:39)
[2020-08-14] MEDS: LURASIDONE HCL 40 MG TABLET PO SCH ×2 (01:22→19:08)
--- NOTE | 2020-08-14 02:28 | RADIOLOGY REPORT (SQ) ---
CLINICAL HISTORY: pneumonia COMPARISON: None. TECHNIQUE: CT CHEST WITHOUT IV CONTRAST on 08/14/2020 12:00 AM OBSTETRICS GYNECOLOGY PHYSICIAN This exam was performed according to our departmental dose-optimization program, which includes automated exposure control, adjustment of the mA and/or kV according to patient size and/or use of iterative reconstruction technique. FINDINGS: The heart is moderately enlarged. There is no pericardial effusion. Intrathoracic lymph nodes are not enlarged. Right IJ central line tip is in the lower SVC. There is no pleural effusion, pleural thickening or pneumothorax. Central airways are patent. There are scattered bilateral mostly perihilar areas of atelectasis. In the upper abdomen, the liver is fatty in attenuation. There is trace perihepatic ascites. There are no acute osseous findings. No suspicious bony lesions. IMPRESSION: Cardiomegaly with bilateral perihilar atelectasis. No convincing focal areas of pneumonia.
[2020-08-14] MEDS: PIPERACILLIN SODIUM/TAZOBACTAM 3.375 GM in NORMAL SALINE 100 ML IV SCH ×4 (04:10→20:19)
[2020-08-14] MEDS: PANTOPRAZOLE SODIUM 40 MG TABLET.DR PO SCH (06:01)
[2020-08-14] MEDS: CLONIDINE HCL 0.2 MG TABLET PO SCH ×3 (06:01→22:05)
[2020-08-14] MEDS: NORMAL SALINE 1000 ML 1,000 ML IV PRN ×2 (06:01→18:59)
[2020-08-14] MEDS: HYDRALAZINE HCL 50 MG TABLET PO SCH ×3 (06:02→22:05)
[2020-08-14] MEDS: GABAPENTIN 300 MG CAPSULE PO SCH ×3 (06:02→22:05)
[2020-08-14] MEDS: HYDROMORPHONE HCL INJ/PF 2 MG/ML AMPULE IV PRN ×3 (06:39→22:04)
[2020-08-14] MEDS ORDERED: ALBUTEROL SULFATE HFA (90 MCG/PUFF) 8 GM MDI IH PRN (08:16)
[2020-08-14] MEDS: BENZTROPINE MESYLATE 1 MG TABLET PO SCH ×2 (08:57→19:07)
--- NOTE | 2020-08-14 10:34 | PDOC PROGRESS REPORT ---
Subjective Date:: 08/14/20 Reason For Visit: ABDOMINAL PAIN,SEPSIS,PNEUMONIA,ACUTE ON CHRONIC Patient sleeping; states she has less abdominal pain. Physical Exam Vital Signs: Temp Pulse Resp BP Pulse Ox 98.3 F 87 18 132/61 H 94 08/14/20 09:58 08/14/20 09:58 08/14/20 09:58 08/14/20 09:58 08/14/20 09:58 Intake & Output 08/13/20 08/14/20 08/15/20 06:59 06:59 06:59 Intake Total 1630 4206 0 Output Total 900 325 Balance 730 3881 0 Weight 129.3 kg 129.3 kg General appearance: PRESENT: no acute distress GI/Abdominal exam: PRESENT: other - Abdomen less tender today. No peritoneal signs, no rigidity. Operative incisions closed. Results Laboratory Results: 08/13/20 12:54 08/12/20 06:40 08/13/20 08/13/20 12:54 15:55 WBC 21.1 H RBC 4.41 Hgb 7.4 L Hct 24.4 L MCV 55 L MCH 16.8 L MCHC 30.4 L RDW 21.0 H Plt Count 548 H Seg Neutrophils % Not Reportable Blood Type AB POSITIVE Antibody Screen NEGATIVE 08/12/20 08/12/20 06:40 06:40 Troponin I < 0.012 NT-Pro-B Natriuret Pep 4860 H Impressions: Abdomen X-Ray 08/12/20 00:00 IMPRESSION: 1. No acute findings. Chest X-Ray 08/12/20 11:47 IMPRESSION: NO PNEUMOTHORAX FOLLOWING CENTRAL LINE PLACEMENT. HAZY AIRSPACE DISEASE. Abdomen/Pelvis CT 08/12/20 14:30 IMPRESSION: There are some mildly dilated small bowel loops without appreciable wall thickening to suggest mechanical obstruction. The contrast in the small bowel does not reach the cecum on the 10 minutes delayed scan to further c haracterize the right lower quadrant. Free fluid noted in both upper quadrants. 5 x 3 x 3 cm rim enhancing fluid in the recto uterine fossa, likely small abscess. The adnexal structures are enlarged bilaterally with a heterogeneous enhancing appearance, this measures approximately 8 cm on the right and 6 cm on the left. There are inflammatory changes adjacent to both adnexa with free fluid noted in both lower quadrants. Pelvis Ultrasound 08/12/20 15:48 IMPRESSION: Free fluid present in both adnexae. Ovaries not visualized. Fibroid uterus. Chest CT 08/14/20 00:00 IMPRESSION: Cardiomegaly with bilateral perihilar atelectasis. No convincing focal areas of pneumonia. Assessment & Plan - Diagnosis (1) Sepsis Is this a current diagnosis for this admission?: Yes Plan: Impression: Clinically improved; tolerating a diet; no evidence of peritoneal signs on examination. Patient IV narcotics, and has Lindsey catheter in place Discussion: 1. I do not believe general surgery is any further role in the management of this patient at this time. 2. Surgery will sign off. Please reconsult if clinically indicated (2) Status post appendectomy Is this a current diagnosis for this admission?: Yes (3) Status post hernia repair Is this a current diagnosis for this admission?: Yes (4) Bipolar disorder Is this a current diagnosis for this admission?: Yes (5) Abuse of smoked substance Is this a current diagnosis for this admission?: Yes (7) Pelvic inflammatory disease Is this a current diagnosis for this admission?: Yes (8) T2DM (type 2 diabetes mellitus) Qualifiers: Diabetes mellitus longterm insulin use: with emt intermediate use Diabetes mellitus complication status: with kidney complications Diabetes mellitus complication detail: with nephropathy Qualified Code(s): E11.21 - Type 2 diabetes mellitus with diabetic nephropathy; Z79.4 - [facility] (current) use of insulin Is this a current diagnosis for this admission?: Yes - Time Anticipated Discharge Disposition: Home, Self Care Anticipated Discharge Timeframe: within 72 hours Time Spent: 30 to 50 Minutes Smoking Cessation Education: 3 to 10 minutes Medications reviewed and adjusted accordingly: Yes
[2020-08-14] MEDS: METFORMIN HCL 500 MG TABLET PO SCH ×2 (10:37→19:07)
[2020-08-14] MEDS: METOPROLOL SUCCINATE 50 MG TAB.SR.24H PO SCH (10:38)
[2020-08-14] MEDS: SERTRALINE HCL 50 MG TABLET PO SCH (10:38)
[2020-08-14] MEDS: ENOXAPARIN SODIUM INJ 40 MG/0.4 ML DISP.SYRIN SUBCUT SCH (10:38)
[2020-08-14] MEDS: LOSARTAN POTASSIUM 50 MG TABLET PO SCH (10:38)
[2020-08-14] MEDS: INSULIN GLARGINE,HUM.REC.ANLOG 1,000 UNIT/10 ML VIAL SUBCUT SCH ×2 (10:41→22:06)
[2020-08-14] MEDS: INSULIN LISPRO 100 UNIT/ML 3 ML VIAL SUBCUT SCH ×4 (11:00→22:08)
--- NOTE | 2020-08-14 22:01 | PDOC PROGRESS REPORT ---
Subjective Date:: 08/14/20 Subjective:: Patient seen by the bedside, CT scan showed inflammatory process 08/14/2020 Patient seen by the bedside, she looks better today, CT chest that was done did not demonstrate any pneumonia. It seems that she may PID, responding to antibiotic, continue present management Reason For Visit: ABDOMINAL PAIN,SEPSIS,PNEUMONIA,ACUTE ON CHRONIC Physical Exam Vital Signs: Temp Pulse Resp BP Pulse Ox 97.9 F 95 18 118/76 94 08/14/20 19:28 08/14/20 19:28 08/14/20 19:28 08/14/20 19:28 08/14/20 19:28 Intake & Output 08/13/20 08/14/20 08/15/20 06:59 06:59 06:59 Intake Total 1630 4206 2025 Output Total 900 325 225 Balance 730 3881 1800 Weight 129.3 kg 129.3 kg General appearance: PRESENT: no acute distress Eye exam: PRESENT: PERRLA Respiratory exam: PRESENT: clear to auscultation herminia Cardiovascular exam: PRESENT: +S1, +S2 GI/Abdominal exam: PRESENT: soft Neurological exam: PRESENT: alert Results Laboratory Results: 08/13/20 12:54 08/12/20 06:40 08/13/20 15:55 Blood Type AB POSITIVE Antibody Screen NEGATIVE 08/12/20 08/12/20 06:40 06:40 Troponin I < 0.012 NT-Pro-B Natriuret Pep 4860 H Impressions: Abdomen X-Ray 08/12/20 00:00 IMPRESSION: 1. No acute findings. Chest X-Ray 08/12/20 11:47 IMPRESSION: NO PNEUMOTHORAX FOLLOWING CENTRAL LINE PLACEMENT. HAZY AIRSPACE DISEASE. Abdomen/Pelvis CT 08/12/20 14:30 IMPRESSION: There are some mildly dilated small bowel loops without appreciable wall thickening to suggest mechanical obstruction. The contrast in the small bowel does not reach the cecum on the 10 minutes delayed scan to further characterize the right lower quadrant. Free fluid noted in both upper quadrants. 5 x 3 x 3 cm rim enhancing fluid in the recto uterine fossa, likely small abscess. The adnexal structures are enlarged bilaterally with a heterogeneous enhancing appearance, this measures approximately 8 cm on the right and 6 cm on the left. There are inflammatory changes adjacent to both adnexa with free fluid noted in both lower quadrants. Pelvis Ultrasound 08/12/20 15:48 IMPRESSION: Free fluid present in both adnexae. Ovaries not visualized. F ibroid uterus. Chest CT 08/14/20 00:00 IMPRESSION: Cardiomegaly with bilateral perihilar atelectasis. No convincing focal areas of pneumonia. 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 transplanted heart: [place] heart Associated angina: without angina Qualified Code(s): I25.10 - Atherosclerotic heart disease of [place] coronary artery without angina pectoris Is this a current diagnosis for this admission?: Yes - Time Time Spent with patient: 25-34 minutes Level of Care: MEDICAL Medications reviewed and adjusted accordingly: Yes Anticipated discharge: Home Anticipated DC Timeframe: within 72 hours
[2020-08-14] MEDS: DOXEPIN HCL 25 MG CAPSULE PO SCH (22:06)
[2020-08-14 22:59] LABS: HEMATOCRIT 26.2 % (36.0-47.0); HEMOGLOBIN 8.5 g/dL (12.0-15.5); MEAN CORPUSCULAR HEMOGLOBIN 19.6 pg (27.0-33.4); MEAN CORPUSCULAR HGB CONC 32.3 g/dL (32.0-36.0); PLATELET COUNT 632 10^3/uL (150-450); RED BLOOD COUNT 4.33 10^6/uL (3.72-5.28); RED CELL DISTRIBUTION WIDTH 27.5 % (11.5-14.0); WHITE BLOOD COUNT 15.3 10^3/uL (4.0-10.5)
[2020-08-14 23:13] LABS: ALBUMIN 2.6 g/dL (3.5-5.0); ALKALINE PHOSPHATASE 53 U/L (38-126); ANION GAP 8 (5-19); ASPARTATE AMINO TRANSFERASE 17 U/L (14-36); BILIRUBIN,DIRECT 0.1 mg/dL (0.0-0.4); BILIRUBIN,TOTAL 0.2 mg/dL (0.2-1.3); BLOOD UREA NITROGEN 24 mg/dL (7-20); CALCIUM 7.9 mg/dL (8.4-10.2); CARBON DIOXIDE 24 mmol/L (22-30); CHLORIDE 103 mmol/L (98-107); POTASSIUM 4.2 mmol/L (3.6-5.0); TOTAL PROTEIN 5.6 g/dL (6.3-8.2)
[2020-08-14 23:15] LABS: GLUCOSE 127 mg/dL (75-110)
[2020-08-14 23:57] LABS: ABSOLUTE LYMPHOCYTES# (MANUAL) 0.9 10^3/uL (0.5-4.7); ABSOLUTE MONOCYTES # (MANUAL) 0.2 10^3/uL (0.1-1.4); BASOPHILS % (MANUAL) 0 % (0-2); EOSINOPHILS % (MANUAL) 0 % (0-6); LYMPHOCYTES % (MANUAL) 6 % (13-45); MONOCYTES % (MANUAL) 1 % (3-13); SEGMENTED NEUTROPHILS % (MAN) 93 % (42-78); TOTAL CELLS COUNTED 100
[2020-08-14 23:59] LABS: ANISOCYTOSIS 4+; HYPOCHROMASIA 2+; PLATELET COMMENT INCREASED; POLYCHROMASIA 1+; SCHISTOCYTES SLIGHT; TEAR DROP CELLS SLIGHT; TOXIC GRANULATION SLIGHT; TOXIC VACUOLATION PRESENT
[2020-08-15] LABS: MEAN CORPUSCULAR VOLUME 61 fl (80-97)
[2020-08-15] MEDS: PIPERACILLIN SODIUM/TAZOBACTAM 3.375 GM in NORMAL SALINE 100 ML IV SCH ×2 (03:50→08:27)
[2020-08-15] MEDS: GABAPENTIN 300 MG CAPSULE PO SCH ×3 (05:14→23:15)
[2020-08-15] MEDS: HYDRALAZINE HCL 50 MG TABLET PO SCH ×3 (05:14→23:14)
[2020-08-15] MEDS: PANTOPRAZOLE SODIUM 40 MG TABLET.DR PO SCH (05:15)
[2020-08-15] MEDS: CLONIDINE HCL 0.2 MG TABLET PO SCH ×3 (05:15→23:14)
[2020-08-15 06:15] LABS: HEMATOCRIT 26.4 % (36.0-47.0); HEMOGLOBIN 8.2 g/dL (12.0-15.5); MEAN CORPUSCULAR HEMOGLOBIN 18.9 pg (27.0-33.4); MEAN CORPUSCULAR HGB CONC 31.2 g/dL (32.0-36.0); PLATELET COUNT 635 10^3/uL (150-450); RED BLOOD COUNT 4.36 10^6/uL (3.72-5.28); RED CELL DISTRIBUTION WIDTH 27.1 % (11.5-14.0); WHITE BLOOD COUNT 14.8 10^3/uL (4.0-10.5)
[2020-08-15 06:40] LABS: ABSOLUTE LYMPHOCYTES# (MANUAL) 1.2 10^3/uL (0.5-4.7); ABSOLUTE MONOCYTES # (MANUAL) 0.4 10^3/uL (0.1-1.4); BASOPHILS % (MANUAL) 0 % (0-2); EOSINOPHILS % (MANUAL) 1 % (0-6); LYMPHOCYTES % (MANUAL) 8 % (13-45); MONOCYTES % (MANUAL) 3 % (3-13); SEGMENTED NEUTROPHILS % (MAN) 88 % (42-78); TOTAL CELLS COUNTED 100
[2020-08-15 06:42] LABS: HYPOCHROMASIA 2+; POLYCHROMASIA SLIGHT; TOXIC GRANULATION SLIGHT
[2020-08-15 06:43] LABS: ANISOCYTOSIS 4+; OVALOCYTES SLIGHT; PLATELET COMMENT INCREASED; POIKILOCYTOSIS SLIGHT; TARGET CELLS SLIGHT
[2020-08-15 06:44] LABS: MEAN CORPUSCULAR VOLUME 61 fl (80-97)
[2020-08-15 08:07] LABS: ALBUMIN 2.6 g/dL (3.5-5.0); ALKALINE PHOSPHATASE 50 U/L (38-126); ANION GAP 9 (5-19); ASPARTATE AMINO TRANSFERASE 20 U/L (14-36); BILIRUBIN,DIRECT 0.1 mg/dL (0.0-0.4); BILIRUBIN,TOTAL 0.2 mg/dL (0.2-1.3); BLOOD UREA NITROGEN 26 mg/dL (7-20); CARBON DIOXIDE 23 mmol/L (22-30); CHLORIDE 106 mmol/L (98-107); GLUCOSE 74 mg/dL (75-110); POTASSIUM 3.6 mmol/L (3.6-5.0); TOTAL PROTEIN 5.6 g/dL (6.3-8.2)
[2020-08-15] MEDS: INSULIN LISPRO 100 UNIT/ML 3 ML VIAL SUBCUT SCH ×4 (08:20→21:18)
[2020-08-15] MEDS: NORMAL SALINE 1000 ML 1,000 ML IV PRN ×3 (08:27→23:09)
[2020-08-15] MEDS: BENZTROPINE MESYLATE 1 MG TABLET PO SCH ×2 (08:28→17:04)
[2020-08-15] MEDS: HYDROMORPHONE HCL INJ/PF 2 MG/ML AMPULE IV PRN (08:41)
[2020-08-15] MEDS: SERTRALINE HCL 50 MG TABLET PO SCH (10:30)
[2020-08-15] MEDS: VANCOMYCIN HCL 1,500 MG in DEXTROSE 5%-WATER 250 ML IV SCH (10:31)
[2020-08-15] MEDS: METOPROLOL SUCCINATE 50 MG TAB.SR.24H PO SCH (10:31)
[2020-08-15] MEDS: METFORMIN HCL 500 MG TABLET PO SCH ×2 (10:31→17:05)
[2020-08-15] MEDS: LOSARTAN POTASSIUM 50 MG TABLET PO SCH (10:31)
[2020-08-15] MEDS: ENOXAPARIN SODIUM INJ 40 MG/0.4 ML DISP.SYRIN SUBCUT SCH (10:32)
[2020-08-15] MEDS: INSULIN GLARGINE,HUM.REC.ANLOG 1,000 UNIT/10 ML VIAL SUBCUT SCH (10:34)
[2020-08-15 11:05] LABS: VANCOMYCIN,TROUGH 39.9 ug/mL (5.0-20.0)
[2020-08-15] MEDS: ALISKIREN HEMIFUMARATE 150 MG TABLET PO SCH (12:11)
[2020-08-15] MEDS: PIPERACILLIN SODIUM/TAZOBACTAM 2.25 GM in NORMAL SALINE 50 ML IV SCH ×2 (16:09→23:09)
[2020-08-15] MEDS: ONDANSETRON HCL INJ/PF 4 MG/2 ML SDV IV PRN (16:15)
[2020-08-15] MEDS ORDERED: BISACODYL 5 MG TABEC PO ONE (16:45)
[2020-08-15] MEDS: LURASIDONE HCL 40 MG TABLET PO SCH (17:04)
--- NOTE | 2020-08-15 20:20 | PDOC PROGRESS REPORT ---
Subjective Date:: 08/15/20 Subjective:: Patient seen by the bedside, CT scan showed inflammatory process 08/14/2020 Patient seen by the bedside, she looks better today, CT chest that was done did not demonstrate any pneumonia. It seems that she may PID, responding to antibiotic, continue present management 08/15/2020 She has acute kidney injury creatinine is 4This could be contrast nephropathy, I will consult Dr. heredia , Nephrology Reason For Visit: ABDOMINAL PAIN,SEPSIS,PNEUMONIA,ACUTE ON CHRONIC Physical Exam Vital Signs: Temp Pulse Resp BP Pulse Ox 97.8 F 77 18 91/75 L 93 08/15/20 20:11 08/15/20 20:11 08/15/20 20:11 08/15/20 20:11 08/15/20 20:11 Intake & Output 08/14/20 08/15/20 08/16/20 06:59 06:59 06:59 Intake Total 4206 2285 3457 Output Total 325 325 200 Balance 3881 1960 3257 Weight 129.3 kg 129.3 kg General appearance: PRESENT: no acute distress Eye exam: PRESENT: PERRLA Respiratory exam: PRESENT: clear to auscultation herminia Cardiovascular exam: PRESENT: +S1, +S2 GI/Abdominal exam: PRESENT: soft Neurological exam: PRESENT: alert Results Laboratory Results: 08/15/20 05:30 08/15/20 10:25 08/14/20 08/14/20 08/15/20 22:40 22:40 05:30 WBC 15.3 H 14.8 H RBC 4.33 4.36 Hgb 8.5 L 8.2 L Hct 26.2 L 26.4 L MCV 61 L D 61 L MCH 19.6 L 18.9 L MCHC 32.3 31.2 L RDW 27.5 H 27.1 H Plt Count 632 H 635 H Seg Neutrophils % Not Reportable Not Reportable Sodium 134.5 L Potassium 4.2 Chloride 103 Carbon Dioxide 24 Anion Gap 8 BUN 24 H Creatinine 3.69 H Est GFR ( Amer) 17 L Glucose 127 H Calcium 7.9 L Total Bilirubin 0.2 AST 17 Alkaline Phosphatase 53 Total Protein 5.6 L Albumin 2.6 L 08/15/20 08/15/20 05:30 10:25 WBC RBC Hgb Hct MCV MCH MCHC RDW Plt Count Seg Neutrophils % Sodium 138.0 Potassium 3.6 Chloride 106 Carbon Dioxide 23 Anion Gap 9 BUN 26 H Creatinine 4.01 H 4.19 H Est GFR ( Amer) 15 L 14 L Glucose 74 L Calcium 8.0 L Total Bilirubin 0.2 AST 20 Alkaline Phosphatase 50 Total Protein 5.6 L Albumin 2.6 L 08/12/20 08/12/20 06:40 06:40 Troponin I < 0.012 NT-Pro-B Natriuret Pep 4860 H Impressions: Abdomen X-Ray 08/12/20 00:00 IMPRESSION: 1. No acute findings. Chest X-Ray 08/12/20 11:47 IMPRESSION: NO PNEUMOTHORAX FOLLOWING CENTRAL LINE PLACEMENT. HAZY AIRSPACE DISEASE. Abdomen/Pelvis CT 08/12/20 14:30 IMPRESSION: There are some mildly dilated small bowel loops without appreciable wall thickening to suggest mechanical obstruction. The contrast in the small bowel does not reach the cecum on the 10 minutes delayed scan to further characterize the right lower quadrant. Free fluid noted in both upper quadrants. 5 x 3 x 3 cm rim enhancing fluid in the recto uterine fossa, likely small abscess. The adnexal structures are enlarged bilaterally with a heterogeneous enhancing appearance, this measures approximately 8 cm on the right and 6 cm on the left. There are inflammatory changes adjacent to both adnexa with free fluid noted in both lower quadrants. Pelvis Ultrasound 08/12/20 15:48 IMPRESSION: Free fluid present in both adnexae. Ovaries not visualized. Fibroid uterus. Chest CT 08/14/20 00:00 IMPRESSION: Cardiomegaly with bilateral perihilar atelectasis. No convincing focal areas of pneumonia. Assessment & Plan - Diagnosis (1) Pelvic inflammatory disease Is this a current diagnosis for this admission?: Yes Plan: Continue IV antibiotic (2) Type 2 diabetes mellitus with diabetic polyneuropathy Qualifiers: Diabetes mellitus prison insulin use: with prison use Qualified Code(s): E11.42 - Type 2 diabetes mellitus with diabetic polyneuropathy; Z79.4 - correction (current) use of insulin Is this a current diagnosis for this admission?: Yes (3) Coronary artery disease Qualifiers: Coronary Disease-Associated Artery/Lesion type: [place] artery [place] vs. transplanted heart: [place] heart Associated angina: without angina Qualified Code(s): I25.10 - Atherosclerotic heart disease of [place] coronary artery without angina pectoris Is this a current diagnosis for this admission?: Yes (4) Acute kidney injury Is this a current diagnosis for this admission?: Yes - Time Time Spent with patient: 25-34 minutes Level of Care: MEDICAL Medications reviewed and adjusted accordingly: Yes Anticipated discharge: Home Anticipated DC Timeframe: within 72 hours
[2020-08-15] MEDS: DOXEPIN HCL 25 MG CAPSULE PO SCH (23:15)
[2020-08-16] MEDS: INSULIN GLARGINE,HUM.REC.ANLOG 1,000 UNIT/10 ML VIAL SUBCUT SCH ×3 (00:21→21:59)
[2020-08-16] MEDS: PIPERACILLIN SODIUM/TAZOBACTAM 2.25 GM in NORMAL SALINE 50 ML IV SCH ×4 (02:51→20:42)
[2020-08-16] MEDS: HYDRALAZINE HCL 50 MG TABLET PO SCH ×3 (05:04→21:56)
[2020-08-16] MEDS: HYDROCODONE/ACETAMINOPHEN 10-325 MG TABLET PO PRN (05:05)
[2020-08-16] MEDS: CLONIDINE HCL 0.2 MG TABLET PO SCH ×3 (05:05→21:57)
[2020-08-16] MEDS: PANTOPRAZOLE SODIUM 40 MG TABLET.DR PO SCH (05:05)
[2020-08-16] MEDS: GABAPENTIN 300 MG CAPSULE PO SCH ×3 (05:05→21:57)
[2020-08-16] MEDS: DEXTROSE 50%-WATER 25 GM/50 ML DISP.SYRIN IV PRN (05:23)
[2020-08-16 07:06] LABS: HEMATOCRIT 29.1 % (36.0-47.0); HEMOGLOBIN 9.1 g/dL (12.0-15.5); MEAN CORPUSCULAR HEMOGLOBIN 18.9 pg (27.0-33.4); MEAN CORPUSCULAR HGB CONC 31.2 g/dL (32.0-36.0); MEAN CORPUSCULAR VOLUME 61 fl (80-97); PLATELET COUNT 845 10^3/uL (150-450); RED CELL DISTRIBUTION WIDTH 27.7 % (11.5-14.0); WHITE BLOOD COUNT 15.4 10^3/uL (4.0-10.5)
[2020-08-16 07:27] LABS: ALBUMIN 2.8 g/dL (3.5-5.0); ALKALINE PHOSPHATASE 47 U/L (38-126); ANION GAP 12 (5-19); ASPARTATE AMINO TRANSFERASE 19 U/L (14-36); BILIRUBIN,DIRECT 0.2 mg/dL (0.0-0.4); BILIRUBIN,TOTAL 0.2 mg/dL (0.2-1.3); BLOOD UREA NITROGEN 30 mg/dL (7-20); CALCIUM 8.3 mg/dL (8.4-10.2); CARBON DIOXIDE 20 mmol/L (22-30); CHLORIDE 107 mmol/L (98-107); POTASSIUM 4.3 mmol/L (3.6-5.0); TOTAL PROTEIN 5.9 g/dL (6.3-8.2)
[2020-08-16 07:36] LABS: GLUCOSE 31 mg/dL (75-110)
[2020-08-16 07:54] LABS: ABSOLUTE LYMPHOCYTES# (MANUAL) 1.7 10^3/uL (0.5-4.7); ABSOLUTE MONOCYTES # (MANUAL) 0.9 10^3/uL (0.1-1.4); BASOPHILS % (MANUAL) 0 % (0-2); EOSINOPHILS % (MANUAL) 0 % (0-6); LYMPHOCYTES % (MANUAL) 9 % (13-45); MONOCYTES % (MANUAL) 6 % (3-13); SEGMENTED NEUTROPHILS % (MAN) 83 % (42-78); TOTAL CELLS COUNTED 100
[2020-08-16 07:56] LABS: ANISOCYTOSIS 3+; HYPOCHROMASIA 1+; OVALOCYTES SLIGHT; POIKILOCYTOSIS 1+; POLYCHROMASIA SLIGHT; SCHISTOCYTES SLIGHT; TARGET CELLS 2+; TEAR DROP CELLS 1+
[2020-08-16 07:57] LABS: PLATELET COMMENT INCREASED; PLATELET LARGE PRESENT
[2020-08-16] MEDS: BENZTROPINE MESYLATE 1 MG TABLET PO SCH ×2 (09:29→17:44)
[2020-08-16] MEDS ORDERED: VANCOMYCIN HCL 750 MG in DEXTROSE 5%-WATER 250 ML IV SCH (10:00)
[2020-08-16] MEDS: INSULIN LISPRO 100 UNIT/ML 3 ML VIAL SUBCUT SCH ×4 (10:10→21:57)
[2020-08-16] MEDS: SERTRALINE HCL 50 MG TABLET PO SCH (10:27)
[2020-08-16] MEDS: METFORMIN HCL 500 MG TABLET PO SCH ×2 (10:27→17:44)
[2020-08-16] MEDS: METOPROLOL SUCCINATE 50 MG TAB.SR.24H PO SCH (10:28)
[2020-08-16] MEDS: LOSARTAN POTASSIUM 50 MG TABLET PO SCH (10:28)
[2020-08-16] MEDS: ENOXAPARIN SODIUM INJ 40 MG/0.4 ML DISP.SYRIN SUBCUT SCH (10:30)
[2020-08-16] MEDS: HYDROMORPHONE HCL INJ/PF 2 MG/ML AMPULE IV PRN ×2 (10:35→20:42)
[2020-08-16] MEDS: ALISKIREN HEMIFUMARATE 150 MG TABLET PO SCH (10:42)
--- NOTE | 2020-08-16 10:44 | CDI QUERY ---
CDI Query CDI Review: Dear Provider, Please clarify and document in progress notes and D/C summary: SEPSIS, due to PID SEPSIS ruled out PID only ACUTE SYSTOLIC and / or DIASTOLIC CHF ACUTE ON CHRONIC SYS/CARRION CHF CHRONIC SYS / CARRION CHF CHF ruled out Thanks, Aliya Nolan, CDI [phone] HAPPY THANKSGIVING!
[2020-08-16 11:55] LABS: VANCOMYCIN,TROUGH 39.6 ug/mL (5.0-20.0)
--- NOTE | 2020-08-16 11:58 | PDOC CONSULTATION ---
Consultation Consult Date: 08/16/20 Provider Consulted: NIKIA BRUMFIELD Consult reason:: PACO History of Present Illness Admission Date/PCP: 08/12/20 18:00 DORIE LUGO MD History of Present Illness: YULIANA ALVARADO is a 39 year old -[place] Citizen female with history of coronary artery disease, hypertension, COPD, diabetes mellitus type 2, bipolar disorder, and obesity who was admitted on 08/12/2020 with abdominal pain. She had laparoscopic appendectomy recently on 07/31/2020. She underwent CT scan of the abdomen with IV contrast showing some mildly dilated small bowel loops, free fluid in both upper quadrants, a 5 x 2 x 3 cm enhancing fluid in the rectal uterine fossa and note of adnexal structures which are enlarged bilaterally with heterogeneous enhancing appearance measuring 8 cm on the right and 6 cm on the left with adjacent inflammatory changes. Surgery was also consulted. Patient is currently being treated for PID with IV antibiotics starting with vancomycin and Zosyn since admission. Patient also presented with some cough and initially thought to have pneumonia but the CT scan of the chest did not show any evidence of it. Patient came in with a relatively baseline kidney function for her with a BUN of 13, and creatinine of 0.93. On day 3 her kidney function started to get worse with a BUN of 24 and creatinine of 3.69 and today she had a BUN of 30, cre atinine of 5.02 with EGFR of 12. Review of records showed that her baseline creatinine runs usually around 0.9-1.17. Her urinalysis on admission showed greater than or equal to 500 of protein, WBC of 5, large blood with RBC greater than 182 but patient is on her menstrual cycle. She is making some urine although I am not sure if it is being adequately recorded. Her blood pressure when she came in was elevated as high as 216/117 which subsequently came down a little bit rapidly. Her bicarbonate is a little bit low at 20 with all other electrolytes within acceptable limits so far. Her vancomycin trough level yesterday was 39.9 so vancomycin was held. Her Zosyn dose was also reduced. Antoino huntley denies any known kidney disease but admits she has had kidney stones in the past. She denies any problem with urination prior to admission. When I saw her this morning she is quite sleepy and drowsy although answering questions appropriately. I think she just received some pain medication. She denies any chest pains no shortness of breath. Past Medical History Cardiac Medical History: Reports: CHF-Diastolic, Coronary Artery Disease, Hyperlipidemia, Myocardial Infarction Pulmonary Medical History: Reports: Chronic Obstructive Pulmonary Disease (COPD) Neurological Medical History: Reports: Migraine Denies: Seizures Endocrine Medical History: Reports: Diabetes Mellitus Type 2 - IDDM Renal/ Medical History: Reports: Chronic Kidney Disease Stage III Musculoskeltal Medical History: Reports: Arthritis Psychiatric Medical History: Reports: Bipolar Disorder, Depression Past Surgical History Past Surgical History: Reports: Appendectomy - 07/31/2020, Cardiac Catheterization, Section - x2, Cholecystectomy, Coronary Stent Social History Information Source: Patient, [facility] Records Smoking Status: Current Every Day Smoker Frequency of Alcohol Use: Rare Hx Recreational Drug Use: Yes Drugs: Marijuana Hx Prescription Drug Abuse: No - Advance Directive Resuscitation Status: Full Code Family History Family History: DM - Paternal grandmother Parental Family History Reviewed: Yes Children Family History Reviewed: Yes Sibling(s) Family History Reviewed.: Yes Medication/Allergy Home Medications: Hydralazine HCl [Apresoline 50 mg Tablet] 100 mg PO TID 09/26/13 Clonidine HCl [Catapres] 0.3 mg PO TID 04/25/15 Zolpidem Tartrate 10 mg PO HSP PRN 01/02/16 Alprazolam 0.5 mg PO BIDP PRN 01/25/20 Insulin Glargine,Hum.rec.anlog [Lantus Insulin 100 Unit/1 ml 10 ml] 50 unit SQ BID 01/25/20 Lurasidone HCl [Latuda 40 mg Tablet] 40 mg PO QPM 01/25/20 Aliskiren Hemifumarate [Tekturna 300 mg Tablet] 300 mg PO DAILY 04/13/20 Cyclobenzaprine HCl [Flexeril 10 mg Tablet] 10 mg PO BIDP PRN 04/13/20 Gabapentin [Neurontin] 600 mg PO Q8 04/13/20 Metformin HCl 1,000 mg PO BID 04/13/20 Albuterol Sulfate [Proair HFA Inhalation Aerosol 8.5 gm MDI] 1 puff IH Q4HP PRN 07/31/20 Benztropine Mesylate [Cogentin 1 mg Tablet] 1 mg PO QAM 07/31/20 Benztropine Mesylate [Cogentin 1 mg Tablet] 2 mg PO QPM 07/31/20 Metoprolol Succinate [Toprol Xl] 200 mg PO DAILY 07/31/20 Doxepin HCl [Sinequan 25 Mg Capsule] 25 mg PO QHS 08/13/20 Hydrocodone/Acetaminophen [[place] 10-325 mg Tablet] 1 tab PO Q6HP PRN 08/13/20 Insulin Aspart [Novolog Flexpen] 0 unit SUBCUT .SLD SCALE 08/13/20 Sertraline HCl 200 mg PO DAILY 08/13/20 Allergies/Adverse Reactions: No Known Allergies Allergy (Verified 04/12/20 16:56) Review of Systems All systems: reviewed and no additional remarkable complaints except as stated Review of Systems: Constitutional: ABSENT: chills, fatigue, fever(s), headache(s), weight gain, w eight loss Eyes: ABSENT: visual disturbances Ears: ABSENT: hearing changes Cardiovascular: ABSENT: chest pain, dyspnea on exertion, edema, orthropnea, palpitations Respiratory: ABSENT: dyspnea, hemoptysis; reports dry cough Gastrointestinal: ABSENT: constipation, diarrhea, hematemesis, hematochezia, nausea, vomiting; reports abdominal pain Genitourinary: ABSENT: dysuria, hematuria Musculoskeletal: ABSENT: joint swelling Integumentary: ABSENT: rash, wounds Neurological: ABSENT: abnormal gait, abnormal speech, confusion, dizziness, focal weakness, numbness, syncope Psychiatric: ABSENT: anxiety, depression Endocrine: ABSENT: cold intolerance, heat intolerance, polydipsia, polyuria Hematologic/Lymphatic: ABSENT: easy bleeding, easy bruising, lymphadenopathy Physical Exam Vital Signs: Temp Pulse Resp BP Pulse Ox 98.6 F 71 16 138/67 H 95 08/16/20 07:58 08/16/20 07:58 08/16/20 07:58 08/16/20 07:58 08/16/20 07:58 Intake & Output 08/15/20 08/16/20 08/17/20 06:59 06:59 06:59 Intake Total 2285 5175 Output Total 325 700 Balance 1960 4475 Weight 129.3 kg 138.2 kg Exam: General appearance: No acute distress, somnolent but arousable and appropriate, cooperative, well-developed, obese Head exam: PRESENT: atraumatic, normocephalic Eye exam: PRESENT: Conjunctiva [place], EOMI, PERRLA. ABSENT: conjunctival injection, scleral icterus Mouth exam: PRESENT: moist, neck supple, tongue midline Neck exam: PRESENT: full ROM. ABSENT: carotid bruit, JVD, lymphadenopathy, thyromegaly Respiratory exam: PRESENT: clear to auscultation bilaterally. ABSENT: rales, rhonchi, stridor, wheezes Cardiovascular exam: PRESENT: RRR, +S1, +S2. ABSENT: systolic murmur Pulses: PRESENT: normal radial pulses, normal dorsalis pedis pulses GI/Abdominal exam: PRESENT: normal bowel sounds, soft. Mild right lower quadrant tenderness ABSENT: guarding, mass Rectal exam: Deferred Extremities exam: PRESENT: full ROM. ABSENT: calf tenderness, pedal edema Musculoskeletal: PRESENT: full ROM. ABSENT: deformity Neurological exam: PRESENT: alert, Awake, Oriented to person, Oriented to place, Oriented to time, reflexes normal, CN II-XII grossly intact. ABSENT: motor sensory deficit Psychiatric exam: PRESENT: appropriate affect, normal mood. ABSENT: homicidal ideation, suicidal ideation Skin exam: PRESENT: intact, dry, warm. ABSENT: rash Results Laboratory Results: 08/16/20 05:20 08/16/20 05:20 08/16/20 08/16/20 05:20 05:20 WBC 15.4 H RBC 4.80 Hgb 9.1 L Hct 29.1 L MCV 61 L MCH 18.9 L MCHC 31.2 L RDW 27.7 H Plt Count 845 H Seg Neutrophils % Not Reportable Sodium 138.7 Potassium 4.3 Chloride 107 Carbon Dioxide 20 L Anion Gap 12 BUN 30 H Creatinine 5.02 H Est GFR ( Amer) 12 L Glucose 31 L* Calcium 8.3 L Total Bilirubin 0.2 AST 19 Alkaline Phosphatase 47 Total Protein 5.9 L Albumin 2.8 L 08/12/20 08/12/20 06:40 06:40 Troponin I < 0.012 NT-Pro-B Natriuret Pep 4860 H Impressions: Abdomen X-Ray 08/12/20 00:00 IMPRESSION: 1. No acute findings. Chest X-Ray 08/12/20 11:47 IMPRESSION: NO PNEUMOTHORAX FOLLOWING CENTRAL LINE PLACEMENT. HAZY AIRSPACE DISEASE. Abdomen/Pelvis CT 08/12/20 14:30 IMPRESSION: There are some mildly dilated small bowel loops without appreciable wall thickening to suggest mechanical obstruction. The contrast in the small bowel does not reach the cecum on the 10 minutes delayed scan to further characterize the right lower quadrant. Free fluid noted in both upper quadrants. 5 x 3 x 3 cm rim enhancing fluid in the recto uterine fossa, likely small absce ss. The adnexal structures are enlarged bilaterally with a heterogeneous enhancing appearance, this measures approximately 8 cm on the right and 6 cm on the left. There are inflammatory changes adjacent to both adnexa with free fluid noted in both lower quadrants. Pelvis Ultrasound 08/12/20 15:48 IMPRESSION: Free fluid present in both adnexae. Ovaries not visualized. Fibroid uterus. Chest CT 08/14/20 00:00 IMPRESSION: Cardiomegaly with bilateral perihilar atelectasis. No convincing focal areas of pneumonia. Assessment & Plan - Diagnosis (1) Acute kidney injury Is this a current diagnosis for this admission?: Yes Plan: Currently nonoliguric. Initial urinalysis showed some proteinuria but also contaminated with some blood due to menstrual cycle. Acute worsening of the patient's kidney function most likely secondary to acute contrast nephropathy leading to ATN. Other significant contributory factors include vancomycin toxicity, hemodynamic factors due to acute changes in blood pressure, and concomitant potential nephrotoxic medications including Zosyn, Metformin, losartan and aliskiren. Patient might also have an underlying baseline chronic kidney disease with baseline creatinine around 0.9-1.17. Possible causes of underlying chronic kidney disease include diabetes mellitus and hypertension. I would repeat the patient's urinalysis, urine sodium, urine creatinine and check urine microalbumin to creatinine ratio. Check kidney ultrasound. In view of hypoglycemic episodes with PACO I would recommend holding Metformin. Consider holding losartan and aliskiren as well. Agree with holding vancomycin and adjusting dose of Zosyn. At this point the patient does not need any renal replacement therapy. However if the patient's kidney function continued to get worse with complication then this will be a consideration. I discussed with the patient regarding hemodialysis procedure, benefits and risk including infection, bleeding, hemodynamic compromise including cardiac arrest. Patient agreed and consented to do it if it becomes necessary. Continue to monitor kidney function, electrolytes and intake and output. Avoid further nephrotoxic medications. (2) Metabolic acidosis Is this a current diagnosis for this admission?: Yes Plan: Non-anion gap and mild due to PACO. (3) Pelvic inflammatory disease Is this a current diagnosis for this admission?: Yes Plan: Has been on vancomycin from 08/12 until 08/15 currently on hold. Currently still on IV Zosyn from 08/12. (4) Hypertension Is this a current diagnosis for this admission?: Yes Plan: Currently controlled. 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 Recommend to discontinue Metformin in view of PACO. (6) Anemia Is this a current diagnosis for this admission?: Yes (7) Morbid obesity Is this a current diagnosis for this admission?: Yes - Notes Notes: Thank you very much for this consultation. We will follow with you.
[2020-08-16] MEDS: NORMAL SALINE 1000 ML 1,000 ML IV PRN ×2 (14:59→20:42)
[2020-08-16] MEDS: LURASIDONE HCL 40 MG TABLET PO SCH (17:44)
--- NOTE | 2020-08-16 18:22 | PDOC PROGRESS REPORT ---
Subjective Date:: 08/16/20 Subjective:: She sustained acute kidney injury most likely etiology is multifactorial includi ng contrast, hemodynamics, she was seen by nephrology, the serum creatinine is worsening, it was 5 today it was 4 yesterday Reason For Visit: ABDOMINAL PAIN,SEPSIS,PNEUMONIA,ACUTE ON CHRONIC Physical Exam Vital Signs: Temp Pulse Resp BP Pulse Ox 97.8 F 75 18 117/59 L 100 08/16/20 16:00 08/16/20 16:00 08/16/20 16:00 08/16/20 16:00 08/16/20 16:00 Intake & Output 08/15/20 08/16/20 08/17/20 06:59 06:59 06:59 Intake Total 2285 5175 1100 Output Total 325 700 Balance 1960 4475 1100 Weight 129.3 kg 138.2 kg General appearance: PRESENT: no acute distress Eye exam: PRESENT: PERRLA Respiratory exam: PRESENT: clear to auscultation herminia Cardiovascular exam: PRESENT: +S1, +S2 GI/Abdominal exam: PRESENT: soft Neurological exam: PRESENT: alert Results Laboratory Results: 08/16/20 05:20 08/16/20 05:20 08/16/20 08/16/20 05:20 05:20 WBC 15.4 H RBC 4.80 Hgb 9.1 L Hct 29.1 L MCV 61 L MCH 18.9 L MCHC 31.2 L RDW 27.7 H Plt Count 845 H Seg Neutrophils % Not Reportable Sodium 138.7 Potassium 4.3 Chloride 107 Carbon Dioxide 20 L Anion Gap 12 BUN 30 H Creatinine 5.02 H Est GFR ( Amer) 12 L Glucose 31 L* Calcium 8.3 L Total Bilirubin 0.2 AST 19 Alkaline Phosphatase 47 Total Protein 5.9 L Albumin 2.8 L 08/12/20 08/12/20 06:40 06:40 Troponin I < 0.012 NT-Pro-B Natriuret Pep 4860 H Impressions: Abdomen X-Ray 08/12/20 00:00 IMPRESSION: 1. No acute findings. Chest X-Ray 08/12/20 11:47 IMPRESSION: NO PNEUMOTHORAX FOLLOWING CENTRAL LINE PLACEMENT. HAZY AIRSPACE DISEASE. Abdomen/Pelvis CT 08/12/20 14:30 IMPRESSION: There are some mildly dilated small bowel loops without appreciable wall thickening to suggest mechanical obstruction. The contrast in the small bowel does not reach the cecum on the 10 minutes delayed scan to further characterize the right lower quadrant. Free fluid noted in both upper quadrants. 5 x 3 x 3 cm rim enhancing fluid in the recto uterine fossa, likely small abscess. The adnexal structures are enlarged bilaterally with a heterogeneous enhancing appearance, this measures approximately 8 cm on the right and 6 cm on the left. There are inflammatory changes adjacent to both adnexa with free fluid noted in both lower quadrants. Pelvis Ultrasound 08/12/20 15:48 IMPRESSION: Free fluid present in both adnexae. Ovaries not visualized. Fibroid uterus. Chest CT 08/14/20 00:00 IMPRESSION: Cardiomegaly with bilateral perihilar atelectasis. No convincing focal areas of pneumonia. 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 transplanted heart: [place] heart Associated angina: without angina Qualified Code(s): I25.10 - Atherosclerotic heart disease of [place] coronary artery without angina pectoris Is this a current diagnosis for this admission?: Yes Plan: Stable (4) Acute kidney injury Is this a current diagnosis for this admission?: Yes Plan: She has acute kidney injury, the serum creatinine was 0.9 on admission she has underlining diabetes nephropathy with proteinuria. She is presently not indicated for dialysis, consult nephrology - Time Time Spent with patient: 35 or more minutes Level of Care: IMCU Anticipated discharge: Home Anticipated DC Timeframe: within 72 hours
[2020-08-16 18:43] LABS: URINE CREATININE 219.7 mg/dL (16-327)
[2020-08-16] MEDS: DOXEPIN HCL 25 MG CAPSULE PO SCH (21:56)
[2020-08-17] MEDS: PIPERACILLIN SODIUM/TAZOBACTAM 2.25 GM in NORMAL SALINE 50 ML IV SCH ×4 (04:04→21:20)
[2020-08-17] MEDS: CLONIDINE HCL 0.2 MG TABLET PO SCH ×3 (06:19→21:21)
[2020-08-17] MEDS: NORMAL SALINE 1000 ML 1,000 ML IV PRN (06:19)
[2020-08-17] MEDS: HYDRALAZINE HCL 50 MG TABLET PO SCH ×3 (06:20→21:21)
[2020-08-17] MEDS: PANTOPRAZOLE SODIUM 40 MG TABLET.DR PO SCH (06:20)
[2020-08-17] MEDS: GABAPENTIN 300 MG CAPSULE PO SCH ×3 (06:20→21:21)
[2020-08-17] MEDS: ONDANSETRON HCL INJ/PF 4 MG/2 ML SDV IV PRN (06:26)
[2020-08-17] MEDS: HYDROMORPHONE HCL INJ/PF 2 MG/ML AMPULE IV PRN ×3 (06:26→23:41)
[2020-08-17 06:32] LABS: HEMATOCRIT 30.3 % (36.0-47.0); HEMOGLOBIN 9.3 g/dL (12.0-15.5); MEAN CORPUSCULAR HEMOGLOBIN 18.7 pg (27.0-33.4); MEAN CORPUSCULAR HGB CONC 30.9 g/dL (32.0-36.0); MEAN CORPUSCULAR VOLUME 61 fl (80-97); PLATELET COUNT 822 10^3/uL (150-450); RED BLOOD COUNT 4.99 10^6/uL (3.72-5.28); WHITE BLOOD COUNT 12.2 10^3/uL (4.0-10.5)
[2020-08-17 06:55] LABS: ABSOLUTE LYMPHOCYTES# (MANUAL) 1.5 10^3/uL (0.5-4.7); ABSOLUTE MONOCYTES # (MANUAL) 1.3 10^3/uL (0.1-1.4); BASOPHILS % (MANUAL) 0 % (0-2); EOSINOPHILS % (MANUAL) 0 % (0-6); LYMPHOCYTES % (MANUAL) 12 % (13-45); MONOCYTES % (MANUAL) 11 % (3-13); SEGMENTED NEUTROPHILS % (MAN) 77 % (42-78); TOTAL CELLS COUNTED 100
[2020-08-17 06:57] LABS: PHOSPHORUS 6.8 mg/dL (2.5-4.5); TARGET CELLS 1+; TEAR DROP CELLS SLIGHT
[2020-08-17 06:58] LABS: ANISOCYTOSIS 4+; HYPOCHROMASIA 2+; PLATELET COMMENT INCREASED; POIKILOCYTOSIS 1+; POLYCHROMASIA 2+
[2020-08-17] MEDS: DEXTROSE 50%-WATER 25 GM/50 ML DISP.SYRIN IV PRN ×2 (07:05→21:23)
[2020-08-17] MEDS: INSULIN LISPRO 100 UNIT/ML 3 ML VIAL SUBCUT SCH ×4 (07:54→21:15)
[2020-08-17] MEDS: BENZTROPINE MESYLATE 1 MG TABLET PO SCH ×2 (08:03→17:38)
--- NOTE | 2020-08-17 09:12 | RADIOLOGY REPORT (SQ) ---
EXAM DESCRIPTION: U/S RETROPERITON (RENAL/AORTA) IMAGES COMPLETED DATE/TIME: 08/17/2020 8:41 am REASON FOR STUDY: PACO COMPARISON: CT abdomen pelvis 08/12/2020 TECHNIQUE: Dynamic and static grayscale images acquired of the kidneys and bladder and recorded on P ACS. Additional selected color Doppler and spectral images recorded. LIMITATIONS: Large body habitus, bowel gas FINDINGS: Very limited study to bowel gas and body habitus The right kidney is 13 cm in length with diffuse mild increased cortical echogenicity cortical thicke manjula, worrisome for acute kidney injury. No hydronephrosis. No cysts masses or stones. The left kidney is very difficult to visualize. No gross hydronephrosis. 10 cm in length. Left low er pole calcifications seen on CT 08/12/2020 not identified. Bladder decompressed, not visualized IMPRESSION: No gross hydronephrosis TECHNICAL DOCUMENTATION: JOB ID: [id number] 2010 [employer]- All Rights Reserved Reading location - IP/workstation name: [id number]
[2020-08-17 09:58] LABS: ALBUMIN 2.6 g/dL (3.5-5.0); ALKALINE PHOSPHATASE 43 U/L (38-126); ANION GAP 8 (5-19); ASPARTATE AMINO TRANSFERASE 16 U/L (14-36); BLOOD UREA NITROGEN 33 mg/dL (7-20); CALCIUM 8.6 mg/dL (8.4-10.2); CARBON DIOXIDE 19 mmol/L (22-30); CHLORIDE 110 mmol/L (98-107); POTASSIUM 4.2 mmol/L (3.6-5.0); TOTAL PROTEIN 5.7 g/dL (6.3-8.2)
[2020-08-17 10:04] LABS: BILIRUBIN,TOTAL < 0.1 mg/dL (0.2-1.3)
[2020-08-17 10:17] LABS: GLUCOSE 39 mg/dL (75-110)
[2020-08-17] MEDS: ENOXAPARIN SODIUM INJ 40 MG/0.4 ML DISP.SYRIN SUBCUT SCH (10:22)
[2020-08-17] MEDS: METFORMIN HCL 500 MG TABLET PO SCH (10:22)
[2020-08-17] MEDS: INSULIN GLARGINE,HUM.REC.ANLOG 1,000 UNIT/10 ML VIAL SUBCUT SCH ×2 (10:23→21:16)
[2020-08-17] MEDS: LOSARTAN POTASSIUM 50 MG TABLET PO SCH (10:24)
[2020-08-17] MEDS: ALISKIREN HEMIFUMARATE 150 MG TABLET PO SCH (10:24)
[2020-08-17] MEDS: SERTRALINE HCL 50 MG TABLET PO SCH (10:27)
[2020-08-17] MEDS: METOPROLOL SUCCINATE 50 MG TAB.SR.24H PO SCH (10:27)
[2020-08-17] MEDS ORDERED: MAGNESIUM SULFATE/D5W 1 GM/100 ML RTUPB IV ONE (10:50)
[2020-08-17] MEDS ORDERED: NORMAL SALINE 1000 ML 1,000 ML IV PRN (10:51)
[2020-08-17] MEDS ORDERED: HEPARIN SOD (PORCINE) 1,000 UNIT/ML 10 ML VIAL IV PRN (10:51)
[2020-08-17] MEDS ORDERED: LIDOCAINE 1% INJ-PF (10 MG/ML) 30 ML SDV ONE (13:03)
[2020-08-17] MEDS ORDERED: LIDOCAINE 1% INJ-PF (10 MG/ML) 30 ML SDV INJ ONE (13:45)
--- NOTE | 2020-08-17 13:53 | PDOC CONSULTATION ---
Consultation Consult Date: 08/17/20 Provider Consulted: RONNIE HESTER Consult reason:: Need for temporary hemodialysis catheter History of Present Illness Admission Date/PCP: 08/12/20 18:00 DORIE LUGO MD History of Present Illness: YULIANA ALVARADO is a 39 year old female, morbidly obese, admitted for back pain found to have severe acute renal failure in need of placement of a temporary hemodialysis catheter for emergent dialysis. Past Medical History Cardiac Medical History: Reports: Congestive Heart Failure, Coronary Artery Disease, Myocardial Infarction, Hyperlipidema, Hypertension Pulmonary Medical History: Reports: Chronic Obstructive Pulmonary Disease (COPD) Denies: Tuberculosis Neurological Medical History: Reports: Migraine Denies: Seizures Endocrine Medical History: Reports: Diabetes Mellitus Type 1, Diabetes Mellitus Type 2 - IDDM Musculoskeltal Medical History: Reports: Arthritis Psychiatric Medical History: Reports: Bipolar Disorder, Depression Past Surgical History Past Surgical History: Reports: Appendectomy - 07/31/2020, Cardiac Catheterization, Section - x2, Cholecystectomy, Coronary Stent Denies: Pacemaker Social History Smoking Status: Current Every Day Smoker Frequency of Alcohol Use: Rare Hx Recreational Drug Use: Yes Drugs: Marijuana Hx Prescription Drug Abuse: No - Advance Directive Resuscitation Status: Full Code Family History Family History: Reviewed & Not Pertinent Parental Family History Reviewed: No Children Family History Reviewed: No Sibling(s) Family History Reviewed.: No Medication/Allergy Home Medications: Hydralazine HCl [Apresoline 50 mg Tablet] 100 mg PO TID 09/26/13 Clonidine HCl [Catapres] 0.3 mg PO TID 04/25/15 Zolpidem Tartrate 10 mg PO HSP PRN 01/02/16 Alprazolam 0.5 mg PO BIDP PRN 01/25/20 Insulin Glargine,Hum.rec.anlog [Lantus Insulin 100 Unit/1 ml 10 ml] 50 unit SQ BID 01/25/20 Lurasidone HCl [Latuda 40 mg Tablet] 40 mg PO QPM 01/25/20 Aliskiren Hemifumarate [Tekturna 300 mg Tablet] 300 mg PO DAILY 04/13/20 Cyclobenzaprine HCl [Flexeril 10 mg Tablet] 10 mg PO BIDP PRN 04/13/20 Gabapentin [Neurontin] 600 mg PO Q8 04/13/20 Metformin HCl 1,000 mg PO BID 04/13/20 Albuterol Sulfate [Proair HFA Inhalation Aerosol 8.5 gm MDI] 1 puff IH Q4HP PRN 07/31/20 Benztropine Mesylate [Cogentin 1 mg Tablet] 1 mg PO QAM 07/31/20 Benztropine Mesylate [Cogentin 1 mg Tablet] 2 mg PO QPM 07/31/20 Metoprolol Succinate [Toprol Xl] 200 mg PO DAILY 07/31/20 Doxepin HCl [[place]qu[place] 25 Mg Capsule] 25 mg PO QHS 08/13/20 Hydrocodone/Acetaminophen [[place] 10-325 mg Tablet] 1 tab PO Q6HP PRN 08/13/20 Insulin Aspart [Novolog Flexpen] 0 unit SUBCUT .SLD SCALE 08/13/20 Sertraline HCl 200 mg PO DAILY 08/13/20 Allergies/Adverse Reactions: No Known Allergies Allergy (Verified 04/12/20 16:56) Physical Exam Vital Signs: Temp Pulse Resp BP Pulse Ox 97.4 F 78 18 116/58 L 97 08/17/20 11:17 08/17/20 11:17 08/17/20 11:17 08/17/20 11:17 08/17/20 11:17 Intake & Output 08/16/20 08/17/20 08/18/20 06:59 06:59 06:59 Intake Total 5175 3216 948 Output Total 700 250 Balance 4475 2966 948 Weight 138.2 kg 142.3 kg General appearance: PRESENT: cooperative, mild distress, obese Head exam: PRESENT: atraumatic Eye exam: PRESENT: EOMI Mouth exam: PRESENT: dry mucosa, neck supple Teeth exam: PRESENT: poor dentation Neck exam: PRESENT: full ROM Respiratory exam: PRESENT: clear to auscultation herminia Cardiovascular exam: PRESENT: RRR GI/Abdominal exam: PRESENT: normal bowel sounds, soft, other - Large for o besity, not distended, not tender, right groin femoral artery easily palpable Rectal exam: PRESENT: deferred Musculoskeletal exam: PRESENT: full ROM Neurological exam: PRESENT: alert, awake, oriented to person, oriented to time, CN II-XII grossly intact, normal gait Psychiatric exam: PRESENT: appropriate affect Results Laboratory Results: 08/17/20 06:11 08/17/20 06:11 1108/17/20 08/17/20 06:11 06:11 06:11 WBC 12.2 H RBC 4.99 Hgb 9.3 L Hct 30.3 L MCV 61 L MCH 18.7 L MCHC 30.9 L RDW 28.0 H Plt Count 822 H Seg Neutrophils % Not Reportable Sodium 137.3 Potassium 4.2 Chloride 110 H Carbon Dioxide 19 L Anion Gap 8 BUN 33 H Creatinine 6.01 H Est GFR ( Amer) 9 L Glucose 39 L* Calcium 8.6 Phosphorus 6.8 H Magnesium 1.3 L Total Bilirubin < 0.1 L AST 16 Alkaline Phosphatase 43 Total Protein 5.7 L Albumin 2.6 L 08/12/20 12:00 Blood Blood Culture - Final NO GROWTH IN 5 DAYS 08/12/20 10:25 Blood Blood Culture - Final NO GROWTH IN 5 DAYS 08/12/20 08/12/20 06:40 06:40 Troponin I < 0.012 NT-Pro-B Natriuret Pep 4860 H Impressions: Abdomen X-Ray 08/12/20 00:00 IMPRESSION: 1. No acute findings. Chest X-Ray 08/12/20 11:47 IMPRESSION: NO PNEUMOTHORAX FOLLOWING CENTRAL LINE PLACEMENT. HAZY AIRSPACE DISEASE. Abdomen/Pelvis CT 08/12/20 14:30 IMPRESSION: There are some mildly dilated small bowel loops without appreciable wall thickening to suggest mechanical obstruction. The contrast in the small bowel does not reach the cecum on the 10 minutes delayed scan to further characterize the right lower quadrant. Free fluid noted in both upper quadrants. 5 x 3 x 3 cm rim enhancing fluid in the recto uterine fossa, likely small abscess. The adnexal structures are enlarged bilaterally with a heterogeneous enhancing appearance, this measures approximately 8 cm on the right and 6 cm on the left. There are inflammatory changes adjacent to both adnexa with free fluid noted in both lower quadrants. Pelvis Ultrasound 08/12/20 15:48 IMPRESSION: Free fluid present in both adnexae. Ovaries not visualized. Fibroid uterus. Chest CT 08/14/20 00:00 IMPRESSION: Cardiomegaly with bilateral perihilar atelectasis. No convincing focal areas of pneumonia. Renal Ultrasound 08/17/20 00:00 IMPRESSION: No gross hydronephrosis Assessment & Plan - Diagnosis (1) Need for acute hemodialysis Is this a current diagnosis for this admission?: Yes (2) Need for intravenous access Is this a current diagnosis for this admission?: Yes (3) Acute kidney injury Is this a current diagnosis for this admission?: Yes - Plan Summary Plan Summary: Assessment: 39-year-old female Afro-Faroese admitted for back pain found to have acute kidney injury Patient in need of urgent hemodialysis catheter Plan: Placement of temporary right femoral vein hemodialysis catheter today Procedure, risks, benefits, complications, explained to the patient, she understands all the above if she decides to proceed
--- NOTE | 2020-08-17 14:02 | Operative Report ---
Operative Report DATE OF SURGERY: 08/17/20 PREOPERATIVE DIAGNOSIS: PACO. Need HD. Need temporary HD catheter POSTOPERATIVE DIAGNOSIS: same OPERATION: placement right common femoral vein HD trilumen catheter ANESTHESIA: Local - 10 mL Lidocaine 1% w/o epinephrine TISSUE REMOVED OR ALTERED: n/a COMPLICATIONS: none ESTIMATED BLOOD LOSS: minimal < 10mL INTRAOPERATIVE FINDINGS: n/a PROCEDURE: The procedure was done at bedside: The patient was placed in a supine position, the patient neck and chest were prepped and draped in the usual fashion. The right groin was infiltrated with lidocaine, a 16-gauge needle was then used to cannulate the right femoral vein without difficulty with good blood return; a guidewire was inserted through the needle into the central vein without difficulty the needle was removed. The insertion point of the guidewire was enlarged with a #11 blade and a tissue dilator which was then removed. A triple-lumen HD catheter was inserted without difficulty over the guidewire into the central vein without difficulty up to 30 cm, the guidewire was removed. Each port was aspirated and flushed with normal saline without difficulty. The catheter was secured to the skin with 3-0 nylon sutures and sterile dressing applied. The patient tolerated the procedure well.
--- NOTE | 2020-08-17 15:08 | PDOC PROGRESS REPORT ---
Subjective Date:: 08/17/20 Subjective:: This morning the patient is lying down comfortably in bed but continues to be a little drowsy. She has received Dilaudid at 5:00 in the morning. She is however communicative and answering questions. She is oliguric with urine output only recorded as 250 mL for the past 24 hours. Her cumulative intake and output is +14 L since admission. She denies any chest pains no shortness of breath. She still has right lower quadrant abdominal pain. Her kidney function is worse with creatinine of 6.01 today. She is also getting acidotic with bicarbonate of 19. She continues to have hypoglycemic episodes and currently still on Metformin and Lantus insulin. Due to progressive worsening of the patient's kidney function and oliguria with developing metabolic acidosis I recommended acute renal replacement therapy with hemodialysis. I reviewed with patient again the procedure, benefits and risks to include infection, bleeding, hemodynamic instability including cardiac arrest. She consented and agreed to proceed. I discussed with Dr. Villagomez who agreed with the plan. I also called Dr. Rocha for placement of the dialysis catheter. 2:[address] Rocha has successfully place inguinal trialysis catheter, the patient is initiated on hemodialysis. I am seeing her currently during dialysis treatment. She is tolerating the procedure well. The only complaint she has is a starting right lower quadrant pain asking for pain medication. She is otherwise hemodynamically stable now on dialysis. Reason For Visit: ABDOMINAL PAIN,SEPSIS,PNEUMONIA,ACUTE ON CHRONIC Physical Exam Vital Signs: Temp Pulse Resp BP Pulse Ox 97.8 F 81 18 137/68 H 100 08/17/20 00:18 08/17/20 02:00 08/17/20 00:18 08/17/20 00:18 08/17/20 00:18 Intake & Output 08/16/20 08/17/20 08/18/20 06:59 06:59 06:59 Intake Total 5175 3216 50 Output Total 700 250 Balance 4475 2966 50 Weight 138.2 kg 142.3 kg Vitals during dialysis: Blood pressure 125/69, heart rate of 68, blood flow rate of 250 mL/min and dialysate flow rate of 600 mL/min. Exam: General appearance: PRESENT: no acute distress, somnolent, cooperative, well-developed, well-nourished, obese Head exam: PRESENT: atraumatic, normocephalic Eye exam: PRESENT: conjunctiva mildly pale, PERRLA. ABSENT: scleral icterus Neck exam: ABSENT: JVD Respiratory exam: PRESENT: Diminished breath sounds. ABSENT: crackles, rales, rhonchi, unlabored, wheezes Cardiovascular exam: PRESENT: Regular rate rhythm -+S1, +S2. ABSENT: diastolic murmur, systolic murmur GI/Abdominal exam: PRESENT: normal bowel sounds, soft. ABSENT: guarding, mass, tenderness Extremities exam: Trace bilateral lower extremity pitting edema Neurological exam: PRESENT: alert, awake, oriented to person, place and time. Skin exam: PRESENT: dry, warm, Results Laboratory Results: 08/17/20 06:11 08/17/20 06:11 08/17/20 08/17/20 08/17/20 06:11 06:11 06:11 WBC 12.2 H RBC 4.99 Hgb 9.3 L Hct 30.3 L MCV 61 L MCH 18.7 L MCHC 30.9 L RDW 28.0 H Plt Count 822 H Seg Neutrophils % Not Reportable Sodium 137.3 Potassium 4.2 Chloride 110 H Carbon Dioxide 19 L Anion Gap 8 BUN 33 H Creatinine 6.01 H Est GFR ( Amer) 9 L Glucose 39 L* Calcium 8.6 Phosphorus 6.8 H Magnesium 1.3 L Total Bilirubin < 0.1 L AST 16 Alkaline Phosphatase 43 Total Protein 5.7 L Albumin 2.6 L 08/12/20 08/12/20 06:40 06:40 Troponin I < 0.012 NT-Pro-B Natriuret Pep 4860 H Impressions: Abdomen X-Ray 08/12/20 00:00 IMPRESSION: 1. No acute findings. Chest X-Ray 08/12/20 11:47 IMPRESSION: NO PNEUMOTHORAX FOLLOWING CENTRAL LINE PLACEMENT. HAZY AIRSPACE DISEASE. Abdomen/Pelvis CT 08/12/20 14:30 IMPRESSION: There are some mildly dilated small bowel loops without appreciable wall thickening to suggest mechanical obstruction. The contrast in the small bowel does not reach the cecum on the 10 minutes delayed scan to further characterize the right lower quadrant. Free fluid noted in both upper quadrants. 5 x 3 x 3 cm rim enhancing fluid in the recto uterine fossa, likely small abscess. The adnexal structures are enlarged bilaterally with a heterogeneous enhancing appearance, this measures approximately 8 cm on the right and 6 cm on the left. There are inflammatory changes adjacent to both adnexa with free fluid noted in both lower quadrants. Pelvis Ultrasound 08/12/20 15:48 IMPRESSION: Free fluid present in both adnexae. Ovaries not visualized. Fibroid uterus. Chest CT 08/14/20 00:00 IMPRESSION: Cardiomegaly with bilateral perihilar atelectasis. No convincing focal areas of pneumonia. Renal Ultrasound 08/17/20 00:00 IMPRESSION: No gross hydronephrosis Assessment & Plan - Diagnosis (1) Acute kidney injury Is this a current diagnosis for this admission?: Yes Plan: She is now oliguric. Initial urinalysis showed some proteinuria but also contaminated with some blood due to menstrual cycle. Acute worsening of the patient's kidney function most likely secondary to acute contrast nephropathy leading to ATN. Other significant contributory factors include vancomycin toxicity, hemodynamic factors due to acute changes in blood pressure, and concomitant potential nephrotoxic medications including Zosyn, Metformin, losartan and aliskiren. Patient might also have an underlying baseline chronic kidney disease with baseline creatinine around 0.9-1.17. Possible causes of underlying chronic kidney disease include diabetes mellitus and hypertension. Her kidney ultrasound showed a right kidney at 13 cm and left kidney at 10 cm without any hydronephrosis. There is a note of increased echogenicity in the right kidney. Her urine sodium is 17 with urine creatinine of 220. As stated above I recommended hemodialysis treatment today. Discontinue IV fluids. We will do dialysis today for 2.5 hours, using the patient's trialysis catheter, with 3 potassium bath, blood flow rate of 250 mL per minute, dialysate flow rate of 600 mL per minute, ultrafiltration 1 to 1.5 L as tolerated, no heparin and patient will be monitored throughout dialysis treatment today. We will reevaluate on Thursday for further need for dialysis. Continue to monitor kidney function, electrolytes and intake and output. Avoid further nephrotoxic medications. (2) Metabolic acidosis Is this a current diagnosis for this admission?: Yes Plan: Non-anion gap and mild due to PACO. Dialysis today. (3) Pelvic inflammatory disease Is this a current diagnosis for this admission?: Yes Plan: Has been on vancomycin from 08/12 until 08/15 currently on hold. Currently still on IV Zosyn from 08/12. (4) Hypertension Is this a current diagnosis for this admission?: Yes Plan: I will hold her losartan and aliskiren in view of PACO. Continue clonidine and hydralazine. If blood pressure starts to go up, consider adding calcium channel darcy. 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 I will discontinue Metformin in view of PACO. Might also need to adjust the dose of Lantus due to hypoglycemic episodes. (6) Anemia Is this a current diagnosis for this admission?: Yes (7) Hyperphosphatemia Is this a current diagnosis for this admission?: Yes Plan: Due to PACO (8) Hypomagnesemia Is this a current diagnosis for this admission?: Yes Plan: Given 1 g of magnesium sulfate IV x1 dose. Recheck levels. (9) Morbid obesity Is this a current diagnosis for this admission?: Yes - Time Time with patient: Greater than 35 minutes
[2020-08-17] MEDS: LURASIDONE HCL 40 MG TABLET PO SCH (17:38)
--- NOTE | 2020-08-17 18:32 | PDOC PROGRESS REPORT ---
Subjective Date:: 08/17/20 Subjective:: She sustained acute kidney injury most likely etiology is multifactorial includi ng contrast, hemodynamics, she was seen by nephrology, the serum creatinine is worsening, it was 5 today it was 4 yesterday 08/17/2020 Patient developed ATN with acute kidney failure, she had hemodialysis today, she also experienced episode of hypoglycemia Reason For Visit: ABDOMINAL PAIN,SEPSIS,PNEUMONIA,ACUTE ON CHRONIC Physical Exam Vital Signs: Temp Pulse Resp BP Pulse Ox 97.4 F 68 18 116/58 L 97 08/17/20 11:17 08/17/20 14:00 08/17/20 11:17 08/17/20 11:17 08/17/20 11:17 Intake & Output 08/16/20 08/17/20 08/18/20 06:59 06:59 06:59 Intake Total 5175 3216 998 Output Total 700 250 200 Balance 4475 2966 798 Weight 138.2 kg 142.3 kg General appearance: PRESENT: no acute distress Eye exam: PRESENT: PERRLA Respiratory exam: PRESENT: clear to auscultation herminia Cardiovascular exam: PRESENT: +S1, +S2 Neurological exam: PRESENT: alert, CN II-XII grossly intact Results Laboratory Results: 08/17/20 06:11 08/17/20 06:11 08/17/20 08/17/20 08/17/20 06:11 06:11 06:11 WBC 12.2 H RBC 4.99 Hgb 9.3 L Hct 30.3 L MCV 61 L MCH 18.7 L MCHC 30.9 L RDW 28.0 H Plt Count 822 H Seg Neutrophils % Not Reportable Sodium 137.3 Potassium 4.2 Chloride 110 H Carbon Dioxide 19 L Anion Gap 8 BUN 33 H Creatinine 6.01 H Est GFR ( Amer) 9 L Glucose 39 L* Calcium 8.6 Phosphorus 6.8 H Magnesium 1.3 L Total Bilirubin < 0.1 L AST 16 Alkaline Phosphatase 43 Total Protein 5.7 L Albumin 2.6 L 08/12/20 12:00 Blood Blood Culture - Final NO GROWTH IN 5 DAYS 08/12/20 10:25 Blood Blood Culture - Final NO GROWTH IN 5 DAYS 08/12/20 08/12/20 06:40 06:40 Troponin I < 0.012 NT-Pro-B Natriuret Pep 4860 H Impressions: Abdomen X-Ray 08/12/20 00:00 IMPRESSION: 1. No acute findings. Chest X-Ray 08/12/20 11:47 IMPRESSION: NO PNEUMOTHORAX FOLLOWING CENTRAL LINE PLACEMENT. HAZY AIRSPACE DISEASE. Abdomen/Pelvis CT 08/12/20 14:30 IMPRESSION: There are some mildly dilated small bowel loops without appreciable wall thickening to suggest mechanical obstruction. The contrast in the small bowel does not reach the cecum on the 10 minutes delayed scan to further characterize the right lower quadrant. Free fluid noted in both upper quadrants. 5 x 3 x 3 cm rim enhancing fluid in the recto uterine fossa, likely small abscess. The adnexal structures are enlarged bilaterally with a heterogeneous enhancing appearance, this measures approximately 8 cm on the right and 6 cm on the left. There are inflammatory changes adjacent to both adnexa with free fluid noted in both lower quadrants. Pelvis Ultrasound 08/12/20 15:48 IMPRESSION: Free fluid present in both adnexae. Ovaries not visualized. Fibroid uterus. Chest CT 08/14/20 00:00 IMPRESSION: Cardiomegaly with bilateral perihilar atelectasis. No convincing focal areas of pneumonia. Renal Ultrasound 08/17/20 00:00 IMPRESSION: No gross hydronephrosis Assessment & Plan - Diagnosis (1) Pelvic inflammatory disease Is this a current diagnosis for this admission?: Yes Plan: Continue IV antibiotic (2) Type 2 diabetes mellitus with diabetic polyneuropathy Qualifiers: Diabetes mellitus assisted insulin use: with terminal clerk use Qualified Code(s): E11.42 - Type 2 diabetes mellitus with diabetic polyneuropathy; Z79.4 - nursing home (current) use of insulin Is this a current diagnosis for this admission?: Yes (3) Coronary artery disease Qualifiers: Coronary Disease-Associated Artery/Lesion type: circle artery [place] vs. transplanted heart: circle heart Associated angina: without angina Qualified Code(s): I25.10 - Atherosclerotic heart disease of circle coronary artery without angina pectoris Is this a current diagnosis for this admission?: Yes Plan: Stable (4) Acute kidney injury Is this a current diagnosis for this admission?: Yes Plan: She developed acute kidney injury, receiving hemodialysis today - Time Time Spent with patient: 25-34 minutes Level of Care: MEDICAL Medications reviewed and adjusted accordingly: Yes Anticipated discharge: Home Anticipated DC Timeframe: within 72 hours
[2020-08-17] MEDS: DOXEPIN HCL 25 MG CAPSULE PO SCH (21:21)
[2020-08-18 00:21] LABS: AMORPHOUS SEDIMENT,URINE 1+ /HPF; APPEARANCE,URINE CLOUDY; BILIRUBIN,URINE NEGATIVE (NEGATIVE); COLOR,URINE YELLOW; GLUCOSE, URINE NEGATIVE (NEGATIVE); KETONES,URINE NEGATIVE (NEGATIVE); PROTEIN,URINE 100 mg/dL (NEGATIVE); URINE SPECIFIC GRAVITY 1.021; UROBILINOGEN,URINE NEGATIVE mg/dL (<2.0)
[2020-08-18] MEDS: PIPERACILLIN SODIUM/TAZOBACTAM 2.25 GM in NORMAL SALINE 50 ML IV SCH ×4 (03:03→21:15)
[2020-08-18] MEDS: HYDRALAZINE HCL 50 MG TABLET PO SCH ×3 (05:14→21:17)
[2020-08-18] MEDS: GABAPENTIN 300 MG CAPSULE PO SCH ×3 (05:14→21:15)
[2020-08-18] MEDS: CLONIDINE HCL 0.2 MG TABLET PO SCH ×3 (05:14→21:17)
[2020-08-18] MEDS: PANTOPRAZOLE SODIUM 40 MG TABLET.DR PO SCH (05:14)
[2020-08-18 06:00] LABS: HEMATOCRIT 26.5 % (36.0-47.0); HEMOGLOBIN 8.4 g/dL (12.0-15.5); MEAN CORPUSCULAR HEMOGLOBIN 19.2 pg (27.0-33.4); MEAN CORPUSCULAR HGB CONC 31.9 g/dL (32.0-36.0); PLATELET COUNT 626 10^3/uL (150-450); RED CELL DISTRIBUTION WIDTH 28.2 % (11.5-14.0); WHITE BLOOD COUNT 8.5 10^3/uL (4.0-10.5)
[2020-08-18 06:01] LABS: PHOSPHORUS 6.2 mg/dL (2.5-4.5)
[2020-08-18 06:30] LABS: MEAN CORPUSCULAR VOLUME 60 fl (80-97)
[2020-08-18 06:35] LABS: ABSOLUTE LYMPHOCYTES# (MANUAL) 1.1 10^3/uL (0.5-4.7); ABSOLUTE MONOCYTES # (MANUAL) 0.6 10^3/uL (0.1-1.4); BASOPHILS % (MANUAL) 0 % (0-2); EOSINOPHILS % (MANUAL) 2 % (0-6); LYMPHOCYTES % (MANUAL) 13 % (13-45); MONOCYTES % (MANUAL) 7 % (3-13); SEGMENTED NEUTROPHILS % (MAN) 78 % (42-78); TOTAL CELLS COUNTED 100
[2020-08-18] MEDS: HYDROMORPHONE HCL INJ/PF 2 MG/ML AMPULE IV PRN ×3 (06:36→21:34)
[2020-08-18 06:40] LABS: ANISOCYTOSIS 4+; BURR CELLS SLIGHT; OVALOCYTES 2+; POIKILOCYTOSIS 4+; SCHISTOCYTES 1+; TOXIC GRANULATION SLIGHT
[2020-08-18 06:41] LABS: PLATELET COMMENT ADEQUATE; TARGET CELLS 2+; TEAR DROP CELLS 2+
[2020-08-18 06:44] LABS: ALBUMIN 2.5 g/dL (3.5-5.0); ALKALINE PHOSPHATASE 38 U/L (38-126); ANION GAP 9 (5-19); ASPARTATE AMINO TRANSFERASE 18 U/L (14-36); BILIRUBIN,DIRECT 0.1 mg/dL (0.0-0.4); BILIRUBIN,TOTAL 0.2 mg/dL (0.2-1.3); BLOOD UREA NITROGEN 28 mg/dL (7-20); CALCIUM 8.4 mg/dL (8.4-10.2); CARBON DIOXIDE 21 mmol/L (22-30); CHLORIDE 105 mmol/L (98-107); POTASSIUM 4.1 mmol/L (3.6-5.0); TOTAL PROTEIN 5.4 g/dL (6.3-8.2)
[2020-08-18 06:47] LABS: GLUCOSE 61 mg/dL (75-110)
[2020-08-18 07:37] LABS: HEPATITS B SURFACE ANTIGEN Negative (Negative)
[2020-08-18 07:37] LABS: CREATININE URINE 204.2 mg/dL (Not Estab.); MICROALBUMIN URINE 341.6 ug/mL (Not Estab.)
[2020-08-18] MEDS: BENZTROPINE MESYLATE 1 MG TABLET PO SCH ×2 (07:41→17:27)
[2020-08-18] MEDS: INSULIN LISPRO 100 UNIT/ML 3 ML VIAL SUBCUT SCH ×4 (08:44→21:17)
[2020-08-18] MEDS: HEPARIN SOD (PORCINE) 5,000 UNIT/ML 1 ML VIAL SUBCUT SCH ×2 (08:44→15:15)
[2020-08-18] MEDS: METOPROLOL SUCCINATE 50 MG TAB.SR.24H PO SCH (09:08)
[2020-08-18] MEDS: SERTRALINE HCL 50 MG TABLET PO SCH (09:08)
[2020-08-18] MEDS ORDERED: ENOXAPARIN SODIUM INJ 30 MG/0.3 ML DISP.SYRIN SUBCUT SCH (10:00)
[2020-08-18 11:27] LABS: VANCOMYCIN,TROUGH 28.8 ug/mL (5.0-20.0)
[2020-08-18] MEDS: LURASIDONE HCL 40 MG TABLET PO SCH (17:27)
--- NOTE | 2020-08-18 20:18 | PDOC PROGRESS REPORT ---
Subjective Date:: 08/18/20 Subjective:: She sustained acute kidney injury most likely etiology is multifactorial includi ng contrast, hemodynamics, she was seen by nephrology, the serum creatinine is worsening, it was 5 today it was 4 yesterday 08/17/2020 Patient developed ATN with acute kidney failure, she had hemodialysis today, she also experienced episode of hypoglycemia 08/18/2020 She has oliguric acute kidney injury presently requiring hemodialysis. The white blood cell is decreasing suggesting response to antibiotic, she complain of vague symptoms of wanting to urinate though she has urinary catheter in place.She has hypoglycemia all antidiabetic agent discontinued Reason For Visit: ABDOMINAL PAIN,SEPSIS,PNEUMONIA,ACUTE ON CHRONIC Physical Exam Vital Signs: Temp Pulse Resp BP Pulse Ox 97.9 F 82 21 H 149/77 H 93 08/18/20 15:31 08/18/20 15:31 08/18/20 15:31 08/18/20 15:31 08/18/20 15:31 Intake & Output 08/17/20 08/18/20 08/19/20 06:59 06:59 06:59 Intake Total 3216 1460 580 Output Total 250 1500 400 Balance 2966 -40 180 Weight 142.3 kg 143.2 kg General appearance: PRESENT: no acute distress Eye exam: PRESENT: PERRLA Respiratory exam: PRESENT: clear to auscultation herminia Cardiovascular exam: PRESENT: +S1, +S2 GI/Abdominal exam: PRESENT: soft Neurological exam: PRESENT: alert Results Laboratory Results: 08/18/20 05:00 08/18/20 05:00 08/17/20 08/18/20 08/18/20 23:45 05:00 05:00 WBC 8.5 RBC 4.40 Hgb 8.4 L Hct 26.5 L MCV 60 L MCH 19.2 L MCHC 31.9 L RDW 28.2 H Plt Count 626 H Seg Neutrophils % Not Reportable Sodium Potassium Chloride Carbon Dioxide Anion Gap BUN Creatinine Est GFR ( Amer) Glucose Calcium Phosphorus 6.2 H Magnesium 1.7 Total Bilirubin AST Alkaline Phosphatase Total Protein Albumin Urine Color YELLOW Urine Appearance CLOUDY Urine pH 5.0 Ur Specific [place] 1.021 Urine Protein 100 H Urine Glucose (UA) NEGATIVE Urine Ketones NEGATIVE Urine Blood NEGATIVE Urine RBC (Auto) 11 08/18/20 05:00 WBC RBC Hgb Hct MCV MCH MCHC RDW Plt Count Seg Neutrophils % Sodium 135.4 L Potassium 4.1 Chloride 105 Carbon Dioxide 21 L Anion Gap 9 BUN 28 H Creatinine 5.40 H Est GFR ( Amer) 11 L Glucose 61 L Calcium 8.4 Phosphorus Magnesium Total Bilirubin 0.2 AST 18 Alkaline Phosphatase 38 Total Protein 5.4 L Albumin 2.5 L Urine Color Urine Appearance Urine pH Ur Specific [place] Urine Protein Urine Glucose (UA) Urine Ketones Urine Blood Urine RBC (Auto) 08/12/20 08/12/20 06:40 06:40 Troponin I < 0.012 NT-Pro-B Natriuret Pep 4860 H Impressions: Abdomen X-Ray 08/12/20 00:00 IMPRESSION: 1. No acute findings. Chest X-Ray 08/12/20 11:47 IMPRESSION: NO PNEUMOTHORAX FOLLOWING CENTRAL LINE PLACEMENT. HAZY AIRSPACE DISEASE. Abdomen/Pelvis CT 08/12/20 14:30 IMPRESSION: There are some mildly dilated small bowel loops without appreciable wall thickening to suggest mechanical obstruction. The contrast in the small b owel does not reach the cecum on the 10 minutes delayed scan to further characterize the right lower quadrant. Free fluid noted in both upper quadrants. 5 x 3 x 3 cm rim enhancing fluid in the recto uterine fossa, likely small abscess. The adnexal structures are enlarged bilaterally with a heterogeneous enhancing appearance, this measures approximately 8 cm on the right and 6 cm on the left. There are inflammatory changes adjacent to both adnexa with free fluid noted in both lower quadrants. Pelvis Ultrasound 08/12/20 15:48 IMPRESSION: Free fluid present in both adnexae. Ovaries not visualized. Fibroid uterus. Chest CT 08/14/20 00:00 IMPRESSION: Cardiomegaly with bilateral perihilar atelectasis. No convincing focal areas of pneumonia. Renal Ultrasound 08/17/20 00:00 IMPRESSION: No gross hydronephrosis Assessment & Plan - Diagnosis (1) Pelvic inflammatory disease Is this a current diagnosis for this admission?: Yes Plan: Continue IV antibiotic (2) Type 2 diabetes mellitus with diabetic polyneuropathy Qualifiers: Diabetes mellitus master dyer insulin use: with master dyer use Qualified Code(s): E11.42 - Type 2 diabetes mellitus with diabetic polyneuropathy; Z79.4 - licensed weigher (current) use of insulin Is this a current diagnosis for this admission?: Yes (3) Coronary artery disease Qualifiers: Coronary Disease-Associated Artery/Lesion type: [place] artery [place] vs. transplanted heart: [place] heart Associated angina: without angina Qualified Code(s): I25.10 - Atherosclerotic heart disease of [place] coronary artery without angina pectoris Is this a current diagnosis for this admission?: Yes Plan: Stable (4) Acute kidney injury Is this a current diagnosis for this admission?: Yes Plan: She developed acute kidney injury, on hemodialysis (5) Hypoglycemia Is this a current diagnosis for this admission?: Yes - Time Time Spent with patient: 35 or more minutes Level of Care: IMCU Medications reviewed and adjusted accordingly: Yes Anticipated discharge: Home Anticipated DC Timeframe: Other
[2020-08-18] MEDS: DOXEPIN HCL 25 MG CAPSULE PO SCH (21:16)
[2020-08-19] MEDS: PIPERACILLIN SODIUM/TAZOBACTAM 2.25 GM in NORMAL SALINE 50 ML IV SCH ×2 (02:22→10:00)
[2020-08-19] MEDS: HEPARIN SOD (PORCINE) 5,000 UNIT/ML 1 ML VIAL SUBCUT SCH ×4 (02:23→23:38)
[2020-08-19] MEDS: HYDROMORPHONE HCL INJ/PF 2 MG/ML AMPULE IV PRN ×4 (04:57→23:37)
[2020-08-19] MEDS: CLONIDINE HCL 0.2 MG TABLET PO SCH ×3 (05:04→21:46)
[2020-08-19] MEDS: HYDRALAZINE HCL 50 MG TABLET PO SCH ×3 (05:05→21:46)
[2020-08-19] MEDS: GABAPENTIN 300 MG CAPSULE PO SCH ×3 (05:05→21:46)
[2020-08-19] MEDS: PANTOPRAZOLE SODIUM 40 MG TABLET.DR PO SCH (05:05)
[2020-08-19 06:06] LABS: HEMATOCRIT 24.9 % (36.0-47.0); MEAN CORPUSCULAR HEMOGLOBIN 19.3 pg (27.0-33.4); MEAN CORPUSCULAR HGB CONC 32.1 g/dL (32.0-36.0); MEAN CORPUSCULAR VOLUME 60 fl (80-97); PLATELET COUNT 529 10^3/uL (150-450); RED BLOOD COUNT 4.14 10^6/uL (3.72-5.28); RED CELL DISTRIBUTION WIDTH 28.1 % (11.5-14.0); WHITE BLOOD COUNT 7.8 10^3/uL (4.0-10.5)
[2020-08-19 06:33] LABS: ALBUMIN 2.7 g/dL (3.5-5.0); ALKALINE PHOSPHATASE 43 U/L (38-126); ANION GAP 11 (5-19); ASPARTATE AMINO TRANSFERASE 15 U/L (14-36); BILIRUBIN,DIRECT 0.2 mg/dL (0.0-0.4); BILIRUBIN,TOTAL 0.3 mg/dL (0.2-1.3); BLOOD UREA NITROGEN 30 mg/dL (7-20); CALCIUM 8.6 mg/dL (8.4-10.2); CARBON DIOXIDE 21 mmol/L (22-30); CHLORIDE 106 mmol/L (98-107); GLUCOSE 93 mg/dL (75-110); PHOSPHORUS 6.5 mg/dL (2.5-4.5); POTASSIUM 4.4 mmol/L (3.6-5.0); TOTAL PROTEIN 5.5 g/dL (6.3-8.2)
[2020-08-19 07:28] LABS: ABSOLUTE LYMPHOCYTES# (MANUAL) 1.5 10^3/uL (0.5-4.7); ABSOLUTE MONOCYTES # (MANUAL) 0.7 10^3/uL (0.1-1.4); BASOPHILS % (MANUAL) 0 % (0-2); EOSINOPHILS % (MANUAL) 1 % (0-6); LYMPHOCYTES % (MANUAL) 19 % (13-45); MONOCYTES % (MANUAL) 9 % (3-13); SEGMENTED NEUTROPHILS % (MAN) 71 % (42-78); TOTAL CELLS COUNTED 100
[2020-08-19 07:31] LABS: TOXIC GRANULATION SLIGHT
[2020-08-19 07:32] LABS: ANISOCYTOSIS 4+; HYPOCHROMASIA 1+; OVALOCYTES 1+; PLATELET COMMENT INCREASED; POIKILOCYTOSIS 1+; TARGET CELLS 1+; TEAR DROP CELLS 1+
[2020-08-19 08:36] LABS: HEPATITIS C QUANTITATION HCV Not Detected IU/mL (.)
[2020-08-19] MEDS: HYDROCODONE/ACETAMINOPHEN 10-325 MG TABLET PO PRN ×2 (08:56→14:07)
[2020-08-19] MEDS: BENZTROPINE MESYLATE 1 MG TABLET PO SCH ×2 (08:57→17:29)
[2020-08-19] MEDS: INSULIN LISPRO 100 UNIT/ML 3 ML VIAL SUBCUT SCH ×4 (08:57→22:03)
[2020-08-19] MEDS: SERTRALINE HCL 50 MG TABLET PO SCH (09:13)
[2020-08-19] MEDS: METOPROLOL SUCCINATE 50 MG TAB.SR.24H PO SCH (09:13)
[2020-08-19 11:48] LABS: HEPATITIS B CORE AB TOT Negative (Negative)
[2020-08-19] MEDS: LURASIDONE HCL 40 MG TABLET PO SCH (17:35)
--- NOTE | 2020-08-19 19:21 | PDOC PROGRESS REPORT ---
Subjective Date:: 08/19/20 Subjective:: She sustained acute kidney injury most likely etiology is multifactorial includi ng contrast, hemodynamics, she was seen by nephrology, the serum creatinine is worsening, it was 5 today it was 4 yesterday 08/17/2020 Patient developed ATN with acute kidney failure, she had hemodialysis today, she also experienced episode of hypoglycemia 08/18/2020 She has oliguric acute kidney injury presently requiring hemodialysis. The white blood cell is decreasing suggesting response to antibiotic, she complain of vague symptoms of wanting to urinate though she has urinary catheter in place.She has hypoglycemia all antidiabetic agent discontinued 08/19/2020 The kidney function seem to be improving, she is making more urine today, she was hemodialyzed on Thursday acutely Reason For Visit: ABDOMINAL PAIN,SEPSIS,PNEUMONIA,ACUTE ON CHRONIC Physical Exam Vital Signs: Temp Pulse Resp BP Pulse Ox 97.8 F 77 18 171/102 H 100 08/19/20 11:14 08/19/20 14:00 08/19/20 11:14 08/19/20 11:14 08/19/20 11:14 Intake & Output 08/18/20 08/19/20 08/20/20 06:59 06:59 06:59 Intake Total 1460 680 530 Output Total 1500 1200 475 Balance -40 -520 55 Weight 143.2 kg 143.3 kg General appearance: PRESENT: no acute distress Eye exam: PRESENT: PERRLA Respiratory exam: PRESENT: clear to auscultation herminia Cardiovascular exam: PRESENT: +S1, +S2 GI/Abdominal exam: PRESENT: soft Neurological exam: PRESENT: alert Results Laboratory Results: 08/19/20 04:53 08/19/20 04:53 08/19/20 08/19/20 04:53 04:53 WBC 7.8 RBC 4.14 Hgb 8.0 L Hct 24.9 L MCV 60 L MCH 19.3 L MCHC 32.1 RDW 28.1 H Plt Count 529 H Seg Neutrophils % Not Reportable Sodium 137.5 Potassium 4.4 Chloride 106 Carbon Dioxide 21 L Anion Gap 11 BUN 30 H Creatinine 5.04 H Est GFR ( Amer) 12 L Glucose 93 Calcium 8.6 Phosphorus 6.5 H Magnesium 1.6 Total Bilirubin 0.3 AST 15 Alkaline Phosphatase 43 Total Protein 5.5 L Albumin 2.7 L 08/12/20 08/12/20 06:40 06:40 Troponin I < 0.012 NT-Pro-B Natriuret Pep 4860 H Impressions: Abdomen X-Ray 08/12/20 00:00 IMPRESSION: 1. No acute findings. Chest X-Ray 08/12/20 11:47 IMPRESSION: NO PNEUMOTHORAX FOLLOWING CENTRAL LINE PLACEMENT. HAZY AIRSPACE DISEASE. Abdomen/Pelvis CT 08/12/20 14:30 IMPRESSION: There are some mildly dilated small bowel loops without appreciable wall thickening to suggest mechanical obstruction. The contrast in the small bowel does not reach the cecum on the 10 minutes delayed scan to further jas cterize the right lower quadrant. Free fluid noted in both upper quadrants. 5 x 3 x 3 cm rim enhancing fluid in the recto uterine fossa, likely small abscess. The adnexal structures are enlarged bilaterally with a heterogeneous enhancing appearance, this measures approximately 8 cm on the right and 6 cm on the left. There are inflammatory changes adjacent to both adnexa with free fluid noted in both lower quadrants. Pelvis Ultrasound 08/12/20 15:48 IMPRESSION: Free fluid present in both adnexae. Ovaries not visualized. Fibroid uterus. Chest CT 08/14/20 00:00 IMPRESSION: Cardiomegaly with bilateral perihilar atelectasis. No convincing focal areas of pneumonia. 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 transplanted heart: [place] heart Associated angina: without angina Qualified Code(s): I25.10 - Atherosclerotic heart disease of [place] coronary artery without angina pectoris Is this a current diagnosis for this admission?: Yes Plan: Stable (4) Acute kidney injury Is this a current diagnosis for this admission?: Yes Plan: She is making urine kidney function improving (5) Hypoglycemia Is this a current diagnosis for this admission?: Yes - Time Time Spent with patient: 25-34 minutes Level of Care: MEDICAL Medications reviewed and adjusted accordingly: Yes Anticipated discharge: Home Anticipated DC Timeframe: within 72 hours
[2020-08-19] MEDS: DOXEPIN HCL 25 MG CAPSULE PO SCH (21:46)
[2020-08-20] MEDS: HYDROCODONE/ACETAMINOPHEN 10-325 MG TABLET PO PRN (02:55)
[2020-08-20] MEDS: GABAPENTIN 300 MG CAPSULE PO SCH ×3 (05:20→21:57)
[2020-08-20] MEDS: PANTOPRAZOLE SODIUM 40 MG TABLET.DR PO SCH (05:20)
[2020-08-20] MEDS: HYDROMORPHONE HCL INJ/PF 2 MG/ML AMPULE IV PRN ×3 (05:26→20:03)
[2020-08-20 06:15] LABS: HEMATOCRIT 23.5 % (36.0-47.0); MEAN CORPUSCULAR HEMOGLOBIN 19.3 pg (27.0-33.4); MEAN CORPUSCULAR HGB CONC 32.4 g/dL (32.0-36.0); PLATELET COUNT 492 10^3/uL (150-450); RED BLOOD COUNT 3.93 10^6/uL (3.72-5.28); RED CELL DISTRIBUTION WIDTH 27.4 % (11.5-14.0); WHITE BLOOD COUNT 7.8 10^3/uL (4.0-10.5)
[2020-08-20 06:27] LABS: PHOSPHORUS 6.5 mg/dL (2.5-4.5)
[2020-08-20 07:02] LABS: HEMOGLOBIN 7.6 g/dL (12.0-15.5); MEAN CORPUSCULAR VOLUME 60 fl (80-97)
[2020-08-20 07:12] LABS: ABSOLUTE MONOCYTES # (MANUAL) 0.3 10^3/uL (0.1-1.4); BASOPHILS % (MANUAL) 0 % (0-2); EOSINOPHILS % (MANUAL) 3 % (0-6); LYMPHOCYTES % (MANUAL) 26 % (13-45); MONOCYTES % (MANUAL) 4 % (3-13); SEGMENTED NEUTROPHILS % (MAN) 67 % (42-78); TOTAL CELLS COUNTED 100
[2020-08-20 07:15] LABS: ANISOCYTOSIS 3+; HYPOCHROMASIA 3+; PLATELET COMMENT INCREASED; TARGET CELLS 2+
[2020-08-20 07:26] LABS: ALBUMIN 2.9 g/dL (3.5-5.0); ALKALINE PHOSPHATASE 48 U/L (38-126); ANION GAP 9 (5-19); ASPARTATE AMINO TRANSFERASE 19 U/L (14-36); BILIRUBIN,DIRECT 0.2 mg/dL (0.0-0.4); BILIRUBIN,TOTAL 0.3 mg/dL (0.2-1.3); BLOOD UREA NITROGEN 33 mg/dL (7-20); CALCIUM 8.9 mg/dL (8.4-10.2); CARBON DIOXIDE 21 mmol/L (22-30); CHLORIDE 108 mmol/L (98-107); GLUCOSE 121 mg/dL (75-110); POTASSIUM 4.3 mmol/L (3.6-5.0); TOTAL PROTEIN 5.9 g/dL (6.3-8.2)
[2020-08-20 07:29] LABS: VANCOMYCIN,TROUGH 19.1 ug/mL (5.0-20.0)
[2020-08-20] MEDS: HYDRALAZINE HCL 50 MG TABLET PO SCH ×3 (09:37→21:57)
[2020-08-20] MEDS: CLONIDINE HCL 0.2 MG TABLET PO SCH ×3 (09:37→21:57)
[2020-08-20] MEDS: HEPARIN SOD (PORCINE) 5,000 UNIT/ML 1 ML VIAL SUBCUT SCH ×2 (09:37→16:07)
[2020-08-20] MEDS: BENZTROPINE MESYLATE 1 MG TABLET PO SCH ×2 (09:37→17:52)
[2020-08-20] MEDS: METOPROLOL SUCCINATE 50 MG TAB.SR.24H PO SCH (09:38)
[2020-08-20] MEDS: INSULIN LISPRO 100 UNIT/ML 3 ML VIAL SUBCUT SCH ×4 (09:38→21:57)
[2020-08-20] MEDS: SERTRALINE HCL 50 MG TABLET PO SCH (09:38)
[2020-08-20] MEDS ORDERED: EPOETIN ALFA-EPBX 2,000 UNIT, EPOETIN ALFA-EPBX 3,000 UNIT, EPOETIN ALFA-EPBX 20,000 UN... IV PRN ×4 (15:00)
[2020-08-20] MEDS ORDERED: HEPARIN SOD (PORCINE) 1,000 UNIT/ML 10 ML VIAL IV PRN ×2 (15:00→15:25)
--- NOTE | 2020-08-20 15:08 | PDOC PROGRESS REPORT ---
Subjective Date:: 08/20/20 Reason For Visit: Patient was seen today on dialysis. She is currently undergoing dialysis wi thout any issues. Vital signs are stable. She has got history of diabetes mellitus/hypertension with current admission for PID with acute kidney insult most likely from contrast nephropathy in association with a prerenal element/ATN. Patient continues to make good amounts of urine but renal numbers are still electively high. She still complaining of right lower abdominal pains without any history of fever or chills but overall feels that she is somewhat better than when she came in. She denies any history of chest pain or shortness of breath. Labs and medications were reviewed. Dialysis orders were reviewed with the treating dialysis nurse. Physical Exam Vital Signs: Temp Pulse Resp BP Pulse Ox 98 F 73 17 138/91 H 96 08/20/20 08:00 08/20/20 08:00 08/20/20 08:00 08/20/20 08:00 08/20/20 08:00 Intake & Output 08/19/20 08/20/20 08/21/20 06:59 06:59 06:59 Intake Total 680 995 444 Output Total 1200 1650 Balance -520 -655 444 Weight 143.3 kg 143.3 kg 143.3 kg General appearance: PRESENT: no acute distress Mouth exam: PRESENT: moist, neck supple Neck exam: ABSENT: meningismus, tracheal deviation Respiratory exam: PRESENT: clear to auscultation herminia, decreased breath sounds. ABSENT: crackles Cardiovascular exam: PRESENT: +S1, +S2. ABSENT: rubs GI/Abdominal exam: PRESENT: normal bowel sounds, soft, tenderness - In the right lower iliac fossa. ABSENT: organomegaly, rebound Extremities exam: PRESENT: +2 edema Neurological exam: PRESENT: alert, awake, oriented to person, oriented to place Psychiatric exam: PRESENT: appropriate affect Skin exam: ABSENT: cyanosis, erythema, mottled, rash Results Laboratory Results: 08/20/20 05:25 08/20/20 05:25 08/20/20 08/20/20 08/20/20 05:25 05:25 05:25 WBC 7.8 RBC 3.93 Hgb 7.6 L Hct 23.5 L MCV 60 L MCH 19.3 L MCHC 32.4 RDW 27.4 H Plt Count 492 H Seg Neutrophils % Not Reportable Sodium 137.7 Potassium 4.3 Chloride 108 H Carbon Dioxide 21 L Anion Gap 9 BUN 33 H Creatinine 3.98 H 4.22 H Est GFR ( Amer) 15 L 14 L Glucose 121 H Calcium 8.9 Phosphorus 6.5 H Magnesium 1.6 Total Bilirubin 0.3 AST 19 Alkaline Phosphatase 48 Total Protein 5.9 L Albumin 2.9 L 08/12/20 08/12/20 06:40 06:40 Troponin I < 0.012 NT-Pro-B Natriuret Pep 4860 H Impressions: Abdomen X-Ray 08/12/20 00:00 IMPRESSION: 1. No acute findings. Chest X-Ray 08/12/20 11:47 IMPRESSION: NO PNEUMOTHORAX FOLLOWING CENTRAL LINE PLACEMENT. HAZY AIRSPACE DISEASE. Abdomen/Pelvis CT 08/12/20 14:30 IMPRESSION: There are some mildly dilated small bowel loops without appreciable wall thickening to suggest mechanical obstruction. The contrast in the small bowel does not reach the cecum on the 10 minutes delayed scan to further characterize the right lower quadrant. Free fluid noted in both upper quadrants. 5 x 3 x 3 cm rim enhancing fluid in the recto uterine fossa, likely small abscess. The adnexal structures are enlarged bilaterally with a heterogeneous enhancing appearance, this measures approximately 8 cm on the right and 6 cm on the left. There are inflammatory changes adjacent to both adnexa with free fluid noted in both lower quadrants. Pelvis Ultrasound 08/12/20 15:48 IMPRESSION: Free fluid present in both adnexae. Ovaries not visualized. Fi broid uterus. Chest CT 08/14/20 00:00 IMPRESSION: Cardiomegaly with bilateral perihilar atelectasis. No convincing focal areas of pneumonia. Renal Ultrasound 08/17/20 00:00 IMPRESSION: No gross hydronephrosis Assessment & Plan - Diagnosis (1) Acute kidney injury Is this a current diagnosis for this admission?: Yes Plan: Resulting in fluid overload and early uremia that required initiation of hemodialysis. Fortunately she is showing nonoliguric status with improving urine output but still renal numbers are relatively high and therefore she is undergoing dialysis again today which is being supervised. Plan to remove less than a liter of fluid as tolerated. Dialysis orders were reviewed with treating dialysis nurse. (2) Anemia Is this a current diagnosis for this admission?: Yes Plan: She is status post iron replacement and getting erythropoietin on dialysis. (3) Hypertension Qualifiers: Hypertension type: essential hypertension Qualified Code(s): I10 - Essential (primary) hypertension Is this a current diagnosis for this admission?: Yes Plan: Currently controlled. (4) Pelvic inflammatory disease Is this a current diagnosis for this admission?: Yes Plan: Still having pain in the right lower iliac fossa but they are little bit better than when she came in. Blood cultures are negative. Leukocytosis has improved. Continue to get antibiotics. Being managed by Dr. Villagomez. (5) T2DM (type 2 diabetes mellitus) Qualifiers: Diabetes mellitus terminal press operator insulin use: with jail use Diabetes mellitus complication status: with kidney complications Diabetes mellitus complication detail: with nephropathy Qualified Code(s): E11.21 - Type 2 diabetes mellitus with diabetic nephropathy; Z79.4 - nursing home (current) use of insulin Is this a current diagnosis for this admission?: Yes Plan: As per Dr. Villagomez.
[2020-08-20] MEDS: LURASIDONE HCL 40 MG TABLET PO SCH (17:52)
[2020-08-20] MEDS: DOXEPIN HCL 25 MG CAPSULE PO SCH (21:57)
--- NOTE | 2020-08-20 22:30 | PDOC PROGRESS REPORT ---
Subjective Date:: 08/20/20 Subjective:: She sustained acute kidney injury most likely etiology is multifactorial includi ng contrast, hemodynamics, she was seen by nephrology, the serum creatinine is worsening, it was 5 today it was 4 yesterday 08/17/2020 Patient developed ATN with acute kidney failure, she had hemodialysis today, she also experienced episode of hypoglycemia 08/18/2020 She has oliguric acute kidney injury presently requiring hemodialysis. The white blood cell is decreasing suggesting response to antibiotic, she complain of vague symptoms of wanting to urinate though she has urinary catheter in place.She has hypoglycemia all antidiabetic agent discontinued 08/19/2020 The kidney function seem to be improving, she is making more urine today, she was hemodialyzed acutely 08/20/2020 Patient seen by the bedside she was dialyzed today making urine kidney function improving Reason For Visit: ABDOMINAL PAIN,SEPSIS,PNEUMONIA,ACUTE ON CHRONIC Physical Exam Vital Signs: Temp Pulse Resp BP Pulse Ox 97.9 F 78 16 171/79 H 97 08/20/20 20:10 08/20/20 20:10 08/20/20 20:10 08/20/20 20:10 08/20/20 20:10 Intake & Output 08/19/20 08/20/20 08/21/20 06:59 06:59 06:59 Intake Total 680 995 444 Output Total 1200 1650 100 Balance -520 -655 344 Weight 143.3 kg 143.3 kg 143.3 kg General appearance: PRESENT: no acute distress Eye exam: PRESENT: PERRLA Respiratory exam: PRESENT: clear to auscultation herminia Cardiovascular exam: PRESENT: +S1, +S2 GI/Abdominal exam: PRESENT: soft Neurological exam: PRESENT: alert Results Laboratory Results: 08/20/20 05:25 08/20/20 05:25 08/20/20 08/20/20 08/20/20 05:25 05:25 05:25 WBC 7.8 RBC 3.93 Hgb 7.6 L Hct 23.5 L MCV 60 L MCH 19.3 L MCHC 32.4 RDW 27.4 H Plt Count 492 H Seg Neutrophils % Not Reportable Sodium 137.7 Potassium 4.3 Chloride 108 H Carbon Dioxide 21 L Anion Gap 9 BUN 33 H Creatinine 3.98 H 4.22 H Est GFR ( Amer) 15 L 14 L Glucose 121 H Calcium 8.9 Phosphorus 6.5 H Magnesium 1.6 Total Bilirubin 0.3 AST 19 Alkaline Phosphatase 48 Total Protein 5.9 L Albumin 2.9 L 08/12/20 08/12/20 06:40 06:40 Troponin I < 0.012 NT-Pro-B Natriuret Pep 4860 H Impressions: Abdomen X-Ray 08/12/20 00:00 IMPRESSION: 1. No acute findings. Chest X-Ray 08/12/20 11:47 IMPRESSION: NO PNEUMOTHORAX FOLLOWING CENTRAL LINE PLACEMENT. HAZY AIRSPACE DISEASE. Abdomen/Pelvis CT 08/12/20 14:30 IMPRESSION: There are some mildly dilated small bowel loops without appreciable wall thickening to suggest mechanical obstruction. The contrast in the small bowel does not reach the cecum on the 10 minutes delayed scan to further characterize the right lower quadrant. Free fluid noted in both upper quadrants. 5 x 3 x 3 cm rim enhancing fluid in the recto uterine fossa, likely small abscess. The adnexal structures are enlarged bilaterally with a heterogeneous enhancing appearance, this measures approximately 8 cm on the right and 6 cm on the left. There are inflammatory changes adjacent to both adnexa with free fluid noted in both lower quadrants. Pelvis Ultrasound 08/12/20 15:48 IMPRESSION: Free fluid present in both adnexae. Ovaries not visualized. Fibroid uterus. Chest CT 08/14/20 00:00 IMPRESSION: Cardiomegaly with bilateral perihilar atelectasis. No convincing focal areas of pneumonia. Renal Ultrasound 08/17/20 00:00 IMPRESSION: No gross hydronephrosis Assessment & Plan - Diagnosis (1) Pelvic inflammatory disease Is this a current diagnosis for this admission?: Yes (2) Type 2 diabetes mellitus with diabetic polyneuropathy Qualifiers: Diabetes mellitus terminal computer operator insulin use: with terminal computer operator use Qualified Code(s): E11.42 - Type 2 diabetes mellitus with diabetic polyneuropathy; Z79.4 - superintendent terminal (current) use of insulin Is this a current diagnosis for this admission?: Yes (3) Coronary artery disease Qualifiers: Coronary Disease-Associated Artery/Lesion type: [place] artery [place] vs. transplanted heart: [place] heart Associated angina: without angina Qualified Code(s): I25.10 - Atherosclerotic heart disease of [place] coronary artery withou t angina pectoris Is this a current diagnosis for this admission?: Yes Plan: Stable (4) Acute kidney injury Is this a current diagnosis for this admission?: Yes (5) Hypoglycemia Is this a current diagnosis for this admission?: Yes - Time Time Spent with patient: 25-34 minutes Level of Care: MEDICAL Medications reviewed and adjusted accordingly: Yes Anticipated discharge: Home - Inpatient Certification Based on my medical assessment, after consideration of the patient's comorbidities, presenting symptoms, or acuity I expect that the services needed warrant INPATIENT care.: Yes I certify that my determination is in accordance with my understanding of Medicare's requirements for reasonable and necessary INPATIENT services [42 CFR 412.3e].: Yes
[2020-08-21] MEDS: HEPARIN SOD (PORCINE) 5,000 UNIT/ML 1 ML VIAL SUBCUT SCH ×3 (00:01→17:31)
[2020-08-21] MEDS: HYDROMORPHONE HCL INJ/PF 2 MG/ML AMPULE IV PRN ×4 (02:07→22:27)
[2020-08-21] MEDS: GABAPENTIN 300 MG CAPSULE PO SCH ×3 (05:11→22:24)
[2020-08-21] MEDS: CLONIDINE HCL 0.2 MG TABLET PO SCH ×3 (05:11→22:24)
[2020-08-21] MEDS: PANTOPRAZOLE SODIUM 40 MG TABLET.DR PO SCH (05:11)
[2020-08-21] MEDS: HYDRALAZINE HCL 50 MG TABLET PO SCH ×3 (05:12→22:24)
[2020-08-21 06:23] LABS: HEMATOCRIT 22.2 % (36.0-47.0); MEAN CORPUSCULAR HEMOGLOBIN 19.4 pg (27.0-33.4); MEAN CORPUSCULAR HGB CONC 32.2 g/dL (32.0-36.0); PLATELET COUNT 426 10^3/uL (150-450); RED BLOOD COUNT 3.67 10^6/uL (3.72-5.28); RED CELL DISTRIBUTION WIDTH 29.3 % (11.5-14.0); WHITE BLOOD COUNT 7.6 10^3/uL (4.0-10.5)
[2020-08-21 07:06] LABS: HEMOGLOBIN 7.1 g/dL (12.0-15.5)
[2020-08-21 07:12] LABS: ABSOLUTE LYMPHOCYTES# (MANUAL) 0.5 10^3/uL (0.5-4.7); ABSOLUTE MONOCYTES # (MANUAL) 0.5 10^3/uL (0.1-1.4); BASOPHILS % (MANUAL) 1 % (0-2); EOSINOPHILS % (MANUAL) 1 % (0-6); LYMPHOCYTES % (MANUAL) 6 % (13-45); MONOCYTES % (MANUAL) 6 % (3-13); SEGMENTED NEUTROPHILS % (MAN) 86 % (42-78); TOTAL CELLS COUNTED 100
[2020-08-21 07:14] LABS: ANISOCYTOSIS 3+; HYPOCHROMASIA 3+; PLATELET COMMENT ADEQUATE; POIKILOCYTOSIS 1+; SCHISTOCYTES SLIGHT; TARGET CELLS SLIGHT; TEAR DROP CELLS SLIGHT
[2020-08-21 07:17] LABS: MEAN CORPUSCULAR VOLUME 61 fl (80-97)
[2020-08-21] MEDS: BENZTROPINE MESYLATE 1 MG TABLET PO SCH ×2 (07:42→17:31)
[2020-08-21] MEDS: INSULIN LISPRO 100 UNIT/ML 3 ML VIAL SUBCUT SCH ×4 (07:42→22:25)
[2020-08-21] MEDS: METOPROLOL SUCCINATE 50 MG TAB.SR.24H PO SCH (10:14)
[2020-08-21] MEDS: SERTRALINE HCL 50 MG TABLET PO SCH (10:15)
--- NOTE | 2020-08-21 11:45 | PDOC PROGRESS REPORT ---
Subjective Date:: 08/21/20 Reason For Visit: Patient seen today. She is overall feeling better than when I saw her yesterday with improvement in her right lower quadrant pains. She also has had her breakfast and had it without any problems of nausea vomiting or worsening abdominal pains. No complaints of any fever or chills. She was dialyzed yesterday uneventfully with minimal ultrafiltration. She is continuing to make urine output. She still has persistent edema but she thinks it is improving. Labs and medications were reviewed but unfortunately no labs were done for today. Physical Exam Vital Signs: Temp Pulse Resp BP Pulse Ox 97.8 F 78 18 153/94 H 94 08/21/20 07:33 08/21/20 07:33 08/21/20 07:33 08/21/20 07:33 08/21/20 07:33 Intake & Output 08/20/20 08/21/20 08/22/20 06:59 06:59 06:59 Intake Total 995 844 Output Total 1650 950 Balance -655 -106 Weight 143.3 kg 143.3 kg General appearance: PRESENT: no acute distress Respiratory exam: PRESENT: clear to auscultation herminia, decreased breath sounds. ABSENT: crackles Cardiovascular exam: PRESENT: +S1, +S2. ABSENT: rubs GI/Abdominal exam: PRESENT: normal bowel sounds, soft, tenderness - In the right lower iliac fossa. ABSENT: organomegaly, rebound Extremities exam: PRESENT: +1 edema Neurological exam: PRESENT: alert, awake, oriented to person, oriented to place Psychiatric exam: PRESENT: appropriate affect Results Laboratory Results: 08/21/20 05:07 08/20/20 05:25 08/21/20 05:07 WBC 7.6 RBC 3.67 L Hgb 7.1 L Hct 22.2 L MCV 61 L MCH 19.4 L MCHC 32.2 RDW 29.3 H Plt Count 426 Seg Neutrophils % Not Reportable 08/12/20 08/12/20 06:40 06:40 Troponin I < 0.012 NT-Pro-B Natriuret Pep 4860 H Impressions: Abdomen X-Ray 08/12/20 00:00 IMPRESSION: 1. No acute findings. Chest X-Ray 08/12/20 11:47 IMPRESSION: NO PNEUMOTHORAX FOLLOWING CENTRAL LINE PLACEMENT. HAZY AIRSPACE DISEASE. Abdomen/Pelvis CT 08/12/20 14:30 IMPRESSION: There are some mildly dilated small bowel loops without appreciable wall thickening to suggest mechanical obstruction. The contrast in the small bowel does not reach the cecum on the 10 minutes delayed scan to further charac terize the right lower quadrant. Free fluid noted in both upper quadrants. 5 x 3 x 3 cm rim enhancing fluid in the recto uterine fossa, likely small abscess. The adnexal structures are enlarged bilaterally with a heterogeneous enhancing appearance, this measures approximately 8 cm on the right and 6 cm on the left. There are inflammatory changes adjacent to both adnexa with free fluid noted in both lower quadrants. Pelvis Ultrasound 08/12/20 15:48 IMPRESSION: Free fluid present in both adnexae. Ovaries not visualized. Fibroid uterus. Chest CT 08/14/20 00:00 IMPRESSION: Cardiomegaly with bilateral perihilar atelectasis. No convincing focal areas of pneumonia. Renal Ultrasound 08/17/20 00:00 IMPRESSION: No gross hydronephrosis Assessment & Plan - Diagnosis (1) Acute kidney injury Is this a current diagnosis for this admission?: Yes Plan: Resulting in fluid overload and early uremia that required initiation of hemodialysis. Currently nonoliguric. She was dialyzed yesterday. Monitor renal functions closely and hopefully she may not require dialysis from tomorrow. Orders have been placed for labs. (2) Anemia Is this a current diagnosis for this admission?: Yes Plan: She is getting erythropoietin on dialysis.Initially I was under the impression that she had received IV iron but I cross checked with pharmacy/[facility] and apparently she has not received any IV iron during her current admission. We w ill check iron studies and see if she needs to be replaced. (3) Hypertension Qualifiers: Hypertension type: essential hypertension Qualified Code(s): I10 - Essential (primary) hypertension Is this a current diagnosis for this admission?: Yes Plan: Currently controlled. (4) Pelvic inflammatory disease Is this a current diagnosis for this admission?: Yes Plan: Improving pain in the right lower iliac fossa. Blood cultures are negative. Leukocytosis has improved. Continue to get antibiotics. Being managed by Dr. Villagomez. (5) T2DM (type 2 diabetes mellitus) Qualifiers: Diabetes mellitus mcfp insulin use: with mcfp use Diabetes mellitus complication status: with kidney complications Diabetes mellitus complication detail: with nephropathy Qualified Code(s): E11.21 - Type 2 diabetes mellitus with diabetic nephropathy; Z79.4 - nursing home (current) use of insulin Is this a current diagnosis for this admission?: Yes Plan: As per Dr. Villagomez.
[2020-08-21] MEDS: VALSARTAN 160 MG TABLET PO SCH (13:06)
[2020-08-21] MEDS: LURASIDONE HCL 40 MG TABLET PO SCH (17:31)
--- NOTE | 2020-08-21 19:35 | PDOC PROGRESS REPORT ---
Subjective Date:: 08/21/20 Subjective:: She sustained acute kidney injury most likely etiology is multifactorial includi ng contrast, hemodynamics, she was seen by nephrology, the serum creatinine is worsening, it was 5 today it was 4 yesterday 08/17/2020 Patient developed ATN with acute kidney failure, she had hemodialysis today, she also experienced episode of hypoglycemia 08/18/2020 She has oliguric acute kidney injury presently requiring hemodialysis. The white blood cell is decreasing suggesting response to antibiotic, she complain of vague symptoms of wanting to urinate though she has urinary catheter in place.She has hypoglycemia all antidiabetic agent discontinued 08/19/2020 The kidney function seem to be improving, she is making more urine today, she was hemodialyzed acutely 08/20/2020 Patient seen by the bedside she was dialyzed today making urine kidney function improving 08/21/2020 Patient seen by the bedside she is making urine ,She is scheduled for dialysis tomorrow Reason For Visit: ABDOMINAL PAIN,SEPSIS,PNEUMONIA,ACUTE ON CHRONIC Physical Exam Vital Signs: Temp Pulse Resp BP Pulse Ox 97.3 F 73 18 154/78 H 95 08/21/20 14:31 08/21/20 14:31 08/21/20 14:31 08/21/20 14:31 08/21/20 14:31 Intake & Output 08/20/20 08/21/20 08/22/20 06:59 06:59 06:59 Intake Total 157 581 0857 Output Total 1650 950 Balance -655 -106 1665 Weight 143.3 kg 143.3 kg General appearance: PRESENT: no acute distress Eye exam: PRESENT: PERRLA Respiratory exam: PRESENT: clear to auscultation herminia Cardiovascular exam: PRESENT: +S1, +S2 GI/Abdominal exam: PRESENT: soft Neurological exam: PRESENT: alert Results Laboratory Results: 08/21/20 05:07 08/20/20 05:25 08/21/20 05:07 WBC 7.6 RBC 3.67 L Hgb 7.1 L Hct 22.2 L MCV 61 L MCH 19.4 L MCHC 32.2 RDW 29.3 H Plt Count 426 Seg Neutrophils % Not Reportable 08/12/20 08/12/20 06:40 06:40 Troponin I < 0.012 NT-Pro-B Natriuret Pep 4860 H Impressions: Abdomen X-Ray 08/12/20 00:00 IMPRESSION: 1. No acute findings. Chest X-Ray 08/12/20 11:47 IMPRESSION: NO PNEUMOTHORAX FOLLOWING CENTRAL LINE PLACEMENT. HAZY AIRSPACE DISEASE. Abdomen/Pelvis CT 08/12/20 14:30 IMPRESSION: There are some mildly dilated small bowel loops without appreciable wall thickening to suggest mechanical obstruction. The contrast in the small bowel does not reach the cecum on the 10 minutes delayed scan to further characterize the right lower quadrant. Free fluid noted in both upper kelsi drants. 5 x 3 x 3 cm rim enhancing fluid in the recto uterine fossa, likely small abscess. The adnexal structures are enlarged bilaterally with a heterogeneous enhancing appearance, this measures approximately 8 cm on the right and 6 cm on the left. There are inflammatory changes adjacent to both adnexa with free fluid noted in both lower quadrants. Pelvis Ultrasound 08/12/20 15:48 IMPRESSION: Free fluid present in both adnexae. Ovaries not visualized. Fibroid uterus. Chest CT 08/14/20 00:00 IMPRESSION: Cardiomegaly with bilateral perihilar atelectasis. No convincing focal areas of pneumonia. 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 transplanted heart: [place] heart Associated angina: without angina Qualified Code(s): I25.10 - Atherosclerotic heart disease of [place] coronary artery without angina pectoris Is this a current diagnosis for this admission?: Yes (4) Acute kidney injury Is this a current diagnosis for this admission?: Yes (5) Hypoglycemia Is this a current diagnosis for this admission?: Yes - Time Time Spent with patient: 25-34 minutes Level of Care: MEDICAL Medications reviewed and adjusted accordingly: Yes Anticipated discharge: Home
[2020-08-21] MEDS: DOXEPIN HCL 25 MG CAPSULE PO SCH (22:25)
[2020-08-22] MEDS: HEPARIN SOD (PORCINE) 5,000 UNIT/ML 1 ML VIAL SUBCUT SCH ×3 (00:12→17:59)
[2020-08-22] MEDS: HYDROMORPHONE HCL INJ/PF 2 MG/ML AMPULE IV PRN ×3 (05:13→17:56)
[2020-08-22] MEDS: HYDRALAZINE HCL 50 MG TABLET PO SCH ×3 (05:14→21:51)
[2020-08-22] MEDS: PANTOPRAZOLE SODIUM 40 MG TABLET.DR PO SCH (05:14)
[2020-08-22] MEDS: CLONIDINE HCL 0.2 MG TABLET PO SCH ×3 (05:14→21:50)
[2020-08-22] MEDS: GABAPENTIN 300 MG CAPSULE PO SCH ×3 (05:14→21:51)
[2020-08-22 06:00] LABS: ABSOLUTE RETICS # 0.063 10^6/uL (0.028-0.122); HEMATOCRIT 22.1 % (36.0-47.0); MEAN CORPUSCULAR HEMOGLOBIN 19.6 pg (27.0-33.4); MEAN CORPUSCULAR HGB CONC 32.3 g/dL (32.0-36.0); MEAN CORPUSCULAR VOLUME 61 fl (80-97); PLATELET COUNT 368 10^3/uL (150-450); RED BLOOD COUNT 3.63 10^6/uL (3.72-5.28); RETICULOCYTE COUNT (AUTO) 1.74 % (0.66-2.85); WHITE BLOOD COUNT 8.2 10^3/uL (4.0-10.5)
[2020-08-22 06:10] LABS: ANION GAP 6 (5-19); BLOOD UREA NITROGEN 29 mg/dL (7-20); CALCIUM 9.4 mg/dL (8.4-10.2); CARBON DIOXIDE 27 mmol/L (22-30); CHLORIDE 107 mmol/L (98-107); GLUCOSE 150 mg/dL (75-110); IRON(TIBC) 12.1 ug/dL (37-170); POTASSIUM 4.2 mmol/L (3.6-5.0)
[2020-08-22 06:44] LABS: ABSOLUTE MONOCYTES # (MANUAL) 0.5 10^3/uL (0.1-1.4); BASOPHILS % (MANUAL) 0 % (0-2); EOSINOPHILS % (MANUAL) 3 % (0-6); LYMPHOCYTES % (MANUAL) 12 % (13-45); MONOCYTES % (MANUAL) 6 % (3-13); SEGMENTED NEUTROPHILS % (MAN) 79 % (42-78); TOTAL CELLS COUNTED 100
[2020-08-22 06:46] LABS: TOXIC GRANULATION 1+
[2020-08-22 06:47] LABS: ANISOCYTOSIS 4+; HYPOCHROMASIA 2+; OVALOCYTES SLIGHT; PLATELET COMMENT ADEQUATE; POIKILOCYTOSIS SLIGHT; SCHISTOCYTES SLIGHT; TEAR DROP CELLS SLIGHT
[2020-08-22 06:48] LABS: HEMOGLOBIN 7.1 g/dL (12.0-15.5)
[2020-08-22] MEDS ORDERED: FERRIC CARBOXYMALTOSE INJ 750 MG/15 ML VIAL IV SCH (07:45)
[2020-08-22 08:05] LABS: VANCOMYCIN,TROUGH 8.8 ug/mL (5.0-20.0)
[2020-08-22] MEDS: INSULIN LISPRO 100 UNIT/ML 3 ML VIAL SUBCUT SCH ×4 (08:13→21:51)
[2020-08-22] MEDS: BENZTROPINE MESYLATE 1 MG TABLET PO SCH ×2 (08:14→17:55)
[2020-08-22] MEDS: METOPROLOL SUCCINATE 50 MG TAB.SR.24H PO SCH (11:27)
[2020-08-22] MEDS: SERTRALINE HCL 50 MG TABLET PO SCH (11:28)
[2020-08-22] MEDS: VALSARTAN 160 MG TABLET PO SCH (11:28)
[2020-08-22] MEDS ORDERED: FERRIC CARBOXYMALTOSE 750 MG in NORMAL SALINE 250 ML IV ONE (12:00)
--- NOTE | 2020-08-22 16:31 | PDOC PROGRESS REPORT ---
Subjective Date:: 08/22/20 Reason For Visit: Saw patient this morning. Overall she is feeling a whole lot better. Abdominal pain is resolving nicely. Eating well. No history of fever or chills. Making decent amounts of urine. Labs and medications were reviewed that show creatinine at 3.1 from 4.2 yesterday. Physical Exam Vital Signs: Temp Pulse Resp BP Pulse Ox 97.7 F 76 18 174/101 H 97 08/22/20 10:54 08/22/20 14:00 08/22/20 10:54 08/22/20 10:54 08/22/20 10:54 Intake & Output 08/21/20 08/22/20 08/23/20 06:59 06:59 06:59 Intake Total 844 2175 497 Output Total 950 675 350 Balance -106 1500 147 Weight 143.3 kg 139.7 kg General appearance: PRESENT: no acute distress, disheveled Respiratory exam: PRESENT: clear to auscultation herminia, decreased breath sounds. ABSENT: crackles Cardiovascular exam: PRESENT: +S1, +S2. ABSENT: rubs GI/Abdominal exam: PRESENT: normal bowel sounds, soft, tenderness - In the right lower iliac fossa. ABSENT: organomegaly, rebound Extremities exam: PRESENT: pedal edema Neurological exam: PRESENT: alert, awake, oriented to person, oriented to place Psychiatric exam: PRESENT: appropriate affect Results Laboratory Results: 08/22/20 04:40 08/22/20 04:40 08/22/20 08/22/20 04:40 04:40 WBC 8.2 RBC 3.63 L Hgb 7.1 L Hct 22.1 L MCV 61 L MCH 19.6 L MCHC 32.3 RDW 29.0 H Plt Count 368 Seg Neutrophils % Not Reportable Retic Count (auto) 1.74 Sodium 139.5 Potassium 4.2 Chloride 107 Carbon Dioxide 27 Anion Gap 6 BUN 29 H Creatinine 3.05 H Est GFR ( Amer) 21 L Glucose 150 H Calcium 9.4 Iron 12.1 L TIBC 281 % Saturation 4 Ferritin 20.80 Vitamin B12 > 1000.0 H Folate 5.10 08/12/20 08/12/20 06:40 06:40 Troponin I < 0.012 NT-Pro-B Natriuret Pep 4860 H Impressions: Abdomen X-Ray 08/12/20 00:00 IMPRESSION: 1. No acute findings. Chest X-Ray 08/12/20 11:47 IMPRESSION: NO PNEUMOTHORAX FOLLOWING CENTRAL LINE PLACEMENT. HAZY AIRSPACE DISEASE. Abdomen/Pelvis CT 08/12/20 14:30 IMPRESSION: There are some mildly dilated small bowel loops without appreciable wall thickening to suggest mechanical obstruction. The contrast in the small bowel does not reach the cecum on the 10 minutes delayed scan to further c haracterize the right lower quadrant. Free fluid noted in both upper quadrants. 5 x 3 x 3 cm rim enhancing fluid in the recto uterine fossa, likely small abscess. The adnexal structures are enlarged bilaterally with a heterogeneous enhancing appearance, this measures approximately 8 cm on the right and 6 cm on the left. There are inflammatory changes adjacent to both adnexa with free fluid noted in both lower quadrants. Pelvis Ultrasound 08/12/20 15:48 IMPRESSION: Free fluid present in both adnexae. Ovaries not visualized. Fibroid uterus. Chest CT 08/14/20 00:00 IMPRESSION: Cardiomegaly with bilateral perihilar atelectasis. No convincing focal areas of pneumonia. Renal Ultrasound 08/17/20 00:00 IMPRESSION: No gross hydronephrosis Assessment & Plan - Diagnosis (1) Acute kidney injury Is this a current diagnosis for this admission?: Yes Plan: Multifactorial. ATN from PID/contrast nephropathy/vanc toxicity. resulting in fluid overload and early uremia that required initiation of hemodialysis. Currently nonoliguric. She was last dialyzed this Thursday. Currently she is impr oving her renal output along with improving renal numbers with no acute indications for renal replacements currently. Therefore will hold off on dialysis for today and watch. Discussed with patient who understands. . (2) Anemia Is this a current diagnosis for this admission?: Yes Plan: Iron deficiency indicis. Ordered IV Injectafer. Discussed adverse effect including anaphylaxis and patient willing to proceed. Monitor. (3) Hypertension Qualifiers: Hypertension type: essential hypertension Qualified Code(s): I10 - Essential (primary) hypertension Is this a current diagnosis for this admission?: Yes Plan: Labile. Monitor. (4) Pelvic inflammatory disease Is this a current diagnosis for this admission?: Yes Plan: Improving pain in the right lower iliac fossa. Blood cultures are negative. Leukocytosis has improved. Continue to get antibiotics. Being managed by Dr. Villagomez. 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 Villagomez.
[2020-08-22] MEDS: LURASIDONE HCL 40 MG TABLET PO SCH (18:01)
--- NOTE | 2020-08-22 18:21 | RADIOLOGY REPORT (SQ) ---
EXAM DESCRIPTION: CHEST SINGLE VIEW IMAGES COMPLETED DATE/TIME: 08/22/2020 5:43 pm REASON FOR STUDY: sob COMPARISON: 08/12/2020 EXAM PARAMETERS: NUMBER OF VIEWS: One view. TECHNIQUE: Single frontal radiographic view of the chest acquired. RADIATION DOSE: NA LIMITATIONS: None. FINDINGS: LUNGS AND PLEURA: There continues to be ill-defined opacification in the right hemithorax. There is significant improvement since the appearance to the earlier study. MEDIASTINUM AND HILAR STRUCTURES: No masses. Contour normal. HEART AND VASCULAR STRUCTURES: Heart normal in size. Normal vasculature. BONES: No acute findings. HARDWARE: Right internal jugular catheter remains in place. The tip is in the superior vena cava. OTHER: No other significant finding. IMPRESSION: Cannot exclude very limited pneumonia in the right lung. TECHNICAL DOCUMENTATION: JOB ID: [id number] 2010 [email or web address]- All Rights Reserved Reading location - IP/workstation name: [email or web address]
--- NOTE | 2020-08-22 21:35 | PDOC PROGRESS REPORT ---
Subjective Date:: 08/22/20 Subjective:: Patient seen by the bedside, she did not require dialysis today Reason For Visit: ABDOMINAL PAIN,SEPSIS,PNEUMONIA,ACUTE ON CHRONIC Physical Exam Vital Signs: Temp Pulse Resp BP Pulse Ox 97.7 F 75 19 169/89 H 98 08/22/20 10:54 08/22/20 15:18 08/22/20 15:18 08/22/20 15:18 08/22/20 15:18 Intake & Output 08/21/20 08/22/20 08/23/20 06:59 06:59 06:59 Intake Total 844 2175 497 Output Total 950 675 350 Balance -106 1500 147 Weight 143.3 kg 139.7 kg General appearance: PRESENT: no acute distress Eye exam: PRESENT: PERRLA Respiratory exam: PRESENT: clear to auscultation herminia Cardiovascular exam: PRESENT: +S1, +S2 GI/Abdominal exam: PRESENT: soft Neurological exam: PRESENT: alert, CN II-XII grossly intact Results Laboratory Results: 08/22/20 04:40 08/22/20 04:40 08/22/20 08/22/20 04:40 04:40 WBC 8.2 RBC 3.63 L Hgb 7.1 L Hct 22.1 L MCV 61 L MCH 19.6 L MCHC 32.3 RDW 29.0 H Plt Count 368 Seg Neutrophils % Not Reportable Retic Count (auto) 1.74 Sodium 139.5 Potassium 4.2 Chloride 107 Carbon Dioxide 27 Anion Gap 6 BUN 29 H Creatinine 3.05 H Est GFR ( Amer) 21 L Glucose 150 H Calcium 9.4 Iron 12.1 L TIBC 281 % Saturation 4 Ferritin 20.80 Vitamin B12 > 1000.0 H Folate 5.10 08/12/20 08/12/20 06:40 06:40 Troponin I < 0.012 NT-Pro-B Natriuret Pep 4860 H Impressions: Abdomen X-Ray 08/12/20 00:00 IMPRESSION: 1. No acute findings. Abdomen/Pelvis CT 08/12/20 14:30 IMPRESSION: There are some mildly dilated small bowel loops without appreciable wall thickening to suggest mechanical obstruction. The contrast in the small bowel does not reach the cecum on the 10 minutes delayed scan to further characterize the right lower quadrant. Free fluid noted in both upper quadrants. 5 x 3 x 3 cm rim enhancing fluid in the recto uterine fossa, likely small abscess. The adnexal structures are enlarged bilaterally with a heterogeneous enhancing appearance, this measures approximately 8 cm on the right and 6 cm on the left. There are inflammatory changes adjacent to both adnexa with free fluid noted in both lower quadrants. Pelvis Ultrasound 08/12/20 15:48 IMPRESSION: Free fluid present in both adnexae. Ovaries not visualized. Fibroid uterus. Chest CT 08/14/20 00:00 IMPRESSION: Cardiomegaly with bilateral perihilar atelectasis. No convincing focal areas of pneumonia. Renal Ultrasound 08/17/20 00:00 IMPRESSION: No gross hydronephrosis Chest X-Ray 08/22/20 00:00 IMPRESSION: Cannot exclude very limited pneumonia in the right lung. 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 transplanted heart: [place] heart Associated angina: without angina Qualified Code(s): I25.10 - Atherosclerotic heart disease of [place] coronary artery without angina pectoris Is this a current diagnosis for this admission?: Yes (4) Acute kidney injury Is this a current diagnosis for this admission?: Yes (5) Hypoglycemia Is this a current diagnosis for this admission?: Yes - Time Time Spent with patient: 15-24 minutes Level of Care: MEDICAL Medications reviewed and adjusted accordingly: Yes Anticipated discharge: Home - Inpatient Certification Based on my medical assessment, after consideration of the patient's comorbidities, presenting symptoms, or acuity I expect that the services needed warrant INPATIENT care.: Yes I certify that my determination is in accordance with my understanding of Medicare's requirements for reasonable and necessary INPATIENT services [42 CFR 412.3e].: Yes
[2020-08-22] MEDS: DOXEPIN HCL 25 MG CAPSULE PO SCH (21:50)
[2020-08-23] MEDS: HEPARIN SOD (PORCINE) 5,000 UNIT/ML 1 ML VIAL SUBCUT SCH ×3 (00:55→18:12)
[2020-08-23] MEDS: HYDROMORPHONE HCL INJ/PF 2 MG/ML AMPULE IV PRN ×4 (00:56→20:46)
[2020-08-23] MEDS: CLONIDINE HCL 0.2 MG TABLET PO SCH ×3 (06:07→21:05)
[2020-08-23] MEDS: GABAPENTIN 300 MG CAPSULE PO SCH ×3 (06:08→21:53)
[2020-08-23] MEDS: PANTOPRAZOLE SODIUM 40 MG TABLET.DR PO SCH (06:08)
[2020-08-23] MEDS: HYDRALAZINE HCL 50 MG TABLET PO SCH ×3 (06:10→21:05)
[2020-08-23 07:22] LABS: HEMATOCRIT 22.3 % (36.0-47.0); MEAN CORPUSCULAR HEMOGLOBIN 19.7 pg (27.0-33.4); MEAN CORPUSCULAR VOLUME 62 fl (80-97); PLATELET COUNT 304 10^3/uL (150-450); RED BLOOD COUNT 3.62 10^6/uL (3.72-5.28); RED CELL DISTRIBUTION WIDTH 29.1 % (11.5-14.0)
[2020-08-23 07:36] LABS: ANION GAP 9 (5-19); BLOOD UREA NITROGEN 33 mg/dL (7-20); CALCIUM 9.3 mg/dL (8.4-10.2); CARBON DIOXIDE 26 mmol/L (22-30); CHLORIDE 107 mmol/L (98-107); GLUCOSE 145 mg/dL (75-110); POTASSIUM 4.6 mmol/L (3.6-5.0)
[2020-08-23 07:54] LABS: ABSOLUTE LYMPHOCYTES# (MANUAL) 1.2 10^3/uL (0.5-4.7); BASOPHILS % (MANUAL) 0 % (0-2); EOSINOPHILS % (MANUAL) 2 % (0-6); LYMPHOCYTES % (MANUAL) 12 % (13-45); MONOCYTES % (MANUAL) 11 % (3-13); SEGMENTED NEUTROPHILS % (MAN) 74 % (42-78); TOTAL CELLS COUNTED 100
[2020-08-23 07:55] LABS: ANISOCYTOSIS 4+; PLATELET CLUMPS PRESENT; PLATELET COMMENT ADEQUATE
[2020-08-23 07:56] LABS: HYPOCHROMASIA 3+; POIKILOCYTOSIS 2+; POLYCHROMASIA 2+; TARGET CELLS 2+; TEAR DROP CELLS 2+
[2020-08-23 07:57] LABS: OVALOCYTES 1+
[2020-08-23] MEDS: INSULIN LISPRO 100 UNIT/ML 3 ML VIAL SUBCUT SCH ×4 (07:59→21:53)
[2020-08-23] MEDS: BENZTROPINE MESYLATE 1 MG TABLET PO SCH ×2 (08:00→18:12)
[2020-08-23 08:14] LABS: HEMOGLOBIN 7.1 g/dL (12.0-15.5)
[2020-08-23] MEDS: METOPROLOL SUCCINATE 50 MG TAB.SR.24H PO SCH (10:47)
[2020-08-23] MEDS: VALSARTAN 160 MG TABLET PO SCH (10:47)
[2020-08-23] MEDS: SERTRALINE HCL 50 MG TABLET PO SCH (10:48)
--- NOTE | 2020-08-23 12:15 | PDOC PROGRESS REPORT ---
Subjective Date:: 08/23/20 Reason For Visit: Patient seen today. She is generally feeling better as far as the right abd ominal pain is concerned. However she still feels bloated. Still making decent amounts of urine but she has noticed persistent pedal edema. She denies any history of chest pain or shortness of breath with exertion. Labs and medications were reviewed. Physical Exam Vital Signs: Temp Pulse Resp BP Pulse Ox 98.3 F 70 18 164/93 H 98 08/23/20 07:30 08/23/20 07:30 08/23/20 07:30 08/23/20 07:30 08/23/20 07:30 Intake & Output 08/22/20 08/23/20 08/24/20 06:59 06:59 06:59 Intake Total 2175 1247 Output Total 675 1025 Balance 1500 222 Weight 139.7 kg 147 kg General appearance: PRESENT: no acute distress Respiratory exam: PRESENT: clear to auscultation herminia, decreased breath sounds. ABSENT: crackles Cardiovascular exam: PRESENT: +S1, +S2. ABSENT: rubs GI/Abdominal exam: PRESENT: normal bowel sounds, soft, tenderness - In the right lower iliac fossa. ABSENT: organomegaly, rebound Extremities exam: PRESENT: +1 edema Neurological exam: PRESENT: alert, awake, oriented to person, oriented to place Psychiatric exam: PRESENT: appropriate affect Results Laboratory Results: 08/23/20 06:20 08/23/20 06:20 08/23/20 08/23/20 06:20 06:20 WBC 9.0 RBC 3.62 L Hgb 7.1 L Hct 22.3 L MCV 62 L MCH 19.7 L MCHC 32.0 RDW 29.1 H Plt Count 304 Seg Neutrophils % Not Reportable Sodium 141.8 Potassium 4.6 Chloride 107 Carbon Dioxide 26 Anion Gap 9 BUN 33 H Creatinine 3.31 H Est GFR ( Amer) 19 L Glucose 145 H Calcium 9.3 08/12/20 08/12/20 06:40 06:40 Troponin I < 0.012 NT-Pro-B Natriuret Pep 4860 H Impressions: Abdomen X-Ray 08/12/20 00:00 IMPRESSION: 1. No acute findings. Abdomen/Pelvis CT 08/12/20 14:30 IMPRESSION: There are some mildly dilated small bowel loops without appreciable wall thickening to suggest mechanical obstruction. The contrast in the small bowel does not reach the cecum on the 10 minutes delayed scan to further characterize the right lower quadrant. Free fluid noted in both upper quadrants. 5 x 3 x 3 cm rim enhancing fluid in the recto uterine fossa, likely small abscess. The adnexal structures are enlarged bilaterally with a heterogeneous enhancing appearance, this measures approximately 8 cm on the right and 6 cm on the left. There are inflammatory changes adjacent to both adnexa with free fluid noted in both lower quadrants. Pelvis Ultrasound 08/12/20 15:48 IMPRESSION: Free fluid present in both adnexae. Ovaries not visualized. Fibroid uterus. Chest CT 08/14/20 00:00 IMPRESSION: Cardiomegaly with bilateral perihilar atelectasis. No convincing focal areas of pneumonia. Renal Ultrasound 08/17/20 00:00 IMPRESSION: No gross hydronephrosis Chest X-Ray 08/22/20 00:00 IMPRESSION: Cannot exclude very limited pneumonia in the right lung. Assessment & Plan - Diagnosis (1) Acute kidney injury Is this a current diagnosis for this admission?: Yes Plan: Multifactorial. ATN from PID/contrast nephropathy/vanc toxicity. resulting in fluid overload and early uremia that required initiation of hemodialysis. Currently nonoliguric. She was last dialyzed this Thursday. In spite of making decent amounts of urine she is still having fluid overload with gradually worsening renal numbers. I note that she was not on diuretics which I am going to institute now and see the response. If she is not making any definitive improvement by tomorrow then we will have her to put her back on dialysis on tomorrow. Discussed this with the patient who understands. (2) Anemia Is this a current diagnosis for this admission?: Yes Plan: Iron deficiency indicis. s/p IV Injectafer. Monitor. (3) Hypertension Qualifiers: Hypertension type: essential hypertension Qualified Code(s): I10 - Essential (primary) hypertension Is this a current diagnosis for this admission?: Yes Plan: Labile. Start doxazosin 1 mg nightly. Monitor. (4) Pelvic inflammatory disease Is this a current diagnosis for this admission?: Yes Plan: Improving pain in the right lower iliac fossa. Blood cultures are negative. Leukocytosis has improved. Continue to get antibiotics. Being managed by Dr. Villagomez. (5) T2DM (type 2 diabetes mellitus) Qualifiers: Diabetes mellitus intermediate school teacher insulin use: with intermediate school teacher use Diabetes mellitus complication status: with kidney complications Diabetes mellitus complication detail: with nephropathy Qualified Code(s): E11.21 - Type 2 diabetes mellitus with diabetic nephropathy; Z79.4 - assisted (current) use of insulin Is this a current diagnosis for this admission?: Yes Plan: As per Dr. Villagomez.
[2020-08-23] MEDS: FUROSEMIDE INJ/PF 40 MG/4 ML SDV IV SCH ×2 (14:15→21:05)
[2020-08-23 15:36] LABS: A/G RATIO 0.8 (0.7-1.7); ALBUMIN 2 2.5 g/dL (2.9-4.4); ALPHA-2-GLOBULIN 2 0.8 g/dL (0.4-1.0); GLOBULIN TOTAL 3.2 g/dL (2.2-3.9); MONOCLONAL SPIKE Not Observed g/dL (Not Observ); PROTEIN TOTAL SERUM 5.7 g/dL (6.0-8.5)
[2020-08-23] MEDS: LURASIDONE HCL 40 MG TABLET PO SCH (18:12)
[2020-08-23] MEDS: DOXAZOSIN MESYLATE 1 MG TABLET PO SCH (21:05)
--- NOTE | 2020-08-23 21:49 | PDOC PROGRESS REPORT ---
Subjective Date:: 08/23/20 Subjective:: Patient seen by the bedside, she did not require dialysis today,she complain of feeling bloated ,requesting more frequent dilaudid .she is making adequate urine Reason For Visit: ABDOMINAL PAIN,SEPSIS,PNEUMONIA,ACUTE ON CHRONIC Physical Exam Vital Signs: Temp Pulse Resp BP Pulse Ox 97.9 F 72 20 195/107 H 91 L 08/23/20 20:25 08/23/20 20:25 08/23/20 20:25 08/23/20 20:25 08/23/20 20:25 Intake & Output 08/22/20 08/23/20 08/24/20 06:59 06:59 06:59 Intake Total 2175 1247 1505 Output Total 675 1025 625 Balance 1500 222 880 Weight 139.7 kg 147 kg General appearance: PRESENT: no acute distress Eye exam: PRESENT: PERRLA Respiratory exam: PRESENT: clear to auscultation herminia Cardiovascular exam: PRESENT: +S1, +S2 GI/Abdominal exam: PRESENT: soft Neurological exam: PRESENT: alert Results Laboratory Results: 08/23/20 06:20 08/23/20 06:20 08/23/20 08/23/20 06:20 06:20 WBC 9.0 RBC 3.62 L Hgb 7.1 L Hct 22.3 L MCV 62 L MCH 19.7 L MCHC 32.0 RDW 29.1 H Plt Count 304 Seg Neutrophils % Not Reportable Sodium 141.8 Potassium 4.6 Chloride 107 Carbon Dioxide 26 Anion Gap 9 BUN 33 H Creatinine 3.31 H Est GFR ( Amer) 19 L Glucose 145 H Calcium 9.3 08/12/20 08/12/20 06:40 06:40 Troponin I < 0.012 NT-Pro-B Natriuret Pep 4860 H Impressions: Abdomen X-Ray 08/12/20 00:00 IMPRESSION: 1. No acute findings. Abdomen/Pelvis CT 08/12/20 14:30 IMPRESSION: There are some mildly dilated small bowel loops without appreciable wall thickening to suggest mechanical obstruction. The contrast in the small bowel does not reach the cecum on the 10 minutes delayed scan to further characterize the right lower quadrant. Free fluid noted in both upper quadrants. 5 x 3 x 3 cm rim enhancing fluid in the recto uterine fossa, likely small abscess. The adnexal structures are enlarged bilaterally with a heterogeneous enhancing appearance, this measures approximately 8 cm on the right and 6 cm on the left. There are inflammatory changes adjacent to both adnexa with free fluid noted in both lower quadrants. Pelvis Ultrasound 08/12/20 15:48 IMPRESSION: Free fluid present in both adnexae. Ovaries not visualized. Fibroid uterus. Chest CT 08/14/20 00:00 IMPRESSION: Cardiomegaly with bilateral perihilar atelectasis. No convincing focal areas of pneumonia. Renal Ultrasound 08/17/20 00:00 IMPRESSION: No gross hydronephrosis Chest X-Ray 08/22/20 00:00 IMPRESSION: Cannot exclude very limited pneumonia in the right lung. 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 transplanted heart: [place] heart Associated angina: without angina Qualified Code(s): I25.10 - Atherosclerotic heart disease of [place] coronary artery without angina pectoris Is this a current diagnosis for this admission?: Yes (4) Acute kidney injury Is this a current diagnosis for this admission?: Yes (5) Hypoglycemia Is this a current diagnosis for this admission?: Yes - Time Time Spent with patient: 25-34 minutes Level of Care: MEDICAL Medications reviewed and adjusted accordingly: Yes Anticipated discharge: Home Anticipated DC Timeframe: within 72 hours - Inpatient Certification Based on my medical assessment, after consideration of the patient's comorbidities, presenting symptoms, or acuity I expect that the services needed warrant INPATIENT care.: Yes I certify that my determination is in accordance with my understanding of Medicare's requirements for reasonable and necessary INPATIENT services [42 CFR 412.3e].: Yes
[2020-08-23] MEDS: DOXEPIN HCL 25 MG CAPSULE PO SCH (21:53)
[2020-08-24] MEDS: HEPARIN SOD (PORCINE) 5,000 UNIT/ML 1 ML VIAL SUBCUT SCH ×4 (02:02→23:36)
[2020-08-24] MEDS: HYDROMORPHONE HCL INJ/PF 2 MG/ML AMPULE IV PRN ×4 (02:59→23:36)
[2020-08-24] MEDS: GABAPENTIN 300 MG CAPSULE PO SCH ×3 (06:08→21:06)
[2020-08-24] MEDS: CLONIDINE HCL 0.2 MG TABLET PO SCH ×3 (06:08→21:06)
[2020-08-24] MEDS: HYDRALAZINE HCL 50 MG TABLET PO SCH ×3 (06:08→21:07)
[2020-08-24] MEDS: PANTOPRAZOLE SODIUM 40 MG TABLET.DR PO SCH (06:08)
[2020-08-24 06:57] LABS: MEAN CORPUSCULAR HEMOGLOBIN 19.4 pg (27.0-33.4); MEAN CORPUSCULAR HGB CONC 31.3 g/dL (32.0-36.0); MEAN CORPUSCULAR VOLUME 62 fl (80-97); PLATELET COUNT 244 10^3/uL (150-450); RED BLOOD COUNT 3.56 10^6/uL (3.72-5.28); WHITE BLOOD COUNT 9.1 10^3/uL (4.0-10.5)
[2020-08-24 07:12] LABS: ANION GAP 8 (5-19); BLOOD UREA NITROGEN 39 mg/dL (7-20); CALCIUM 9.2 mg/dL (8.4-10.2); CARBON DIOXIDE 27 mmol/L (22-30); CHLORIDE 104 mmol/L (98-107); GLUCOSE 155 mg/dL (75-110); POTASSIUM 4.5 mmol/L (3.6-5.0)
[2020-08-24 07:17] LABS: ABSOLUTE LYMPHOCYTES# (MANUAL) 1.3 10^3/uL (0.5-4.7); ABSOLUTE MONOCYTES # (MANUAL) 0.7 10^3/uL (0.1-1.4); BASOPHILS % (MANUAL) 0 % (0-2); EOSINOPHILS % (MANUAL) 3 % (0-6); LYMPHOCYTES % (MANUAL) 14 % (13-45); MONOCYTES % (MANUAL) 8 % (3-13); SEGMENTED NEUTROPHILS % (MAN) 75 % (42-78); TOTAL CELLS COUNTED 100
[2020-08-24 07:18] LABS: ANISOCYTOSIS 4+; HYPOCHROMASIA SLIGHT; PLATELET COMMENT ADEQUATE; POIKILOCYTOSIS SLIGHT; POLYCHROMASIA SLIGHT; TARGET CELLS SLIGHT
[2020-08-24 07:22] LABS: HEMOGLOBIN 6.9 g/dL (12.0-15.5)
[2020-08-24] MEDS: INSULIN LISPRO 100 UNIT/ML 3 ML VIAL SUBCUT SCH ×4 (08:29→22:34)
[2020-08-24] MEDS: BENZTROPINE MESYLATE 1 MG TABLET PO SCH ×2 (08:29→17:08)
[2020-08-24] MEDS: FUROSEMIDE INJ/PF 40 MG/4 ML SDV IV SCH ×2 (09:01→21:08)
[2020-08-24] MEDS: METOPROLOL SUCCINATE 50 MG TAB.SR.24H PO SCH (09:02)
[2020-08-24] MEDS: VALSARTAN 160 MG TABLET PO SCH (09:02)
[2020-08-24] MEDS: SERTRALINE HCL 50 MG TABLET PO SCH (09:02)
[2020-08-24 12:31] LABS: APPEARANCE,URINE CLEAR; BILIRUBIN,URINE NEGATIVE (NEGATIVE); COLOR,URINE STRAW; GLUCOSE, URINE NEGATIVE (NEGATIVE); KETONES,URINE NEGATIVE (NEGATIVE); LEUKOCYTE ESTERASE,URINE SMALL (NEGATIVE); NITRITE,URINE NEGATIVE (NEGATIVE); PROTEIN,URINE 30 mg/dL (NEGATIVE); URINE SPECIFIC GRAVITY 1.006; UROBILINOGEN,URINE NEGATIVE mg/dL (<2.0)
[2020-08-24 12:41] LABS: MEAN CORPUSCULAR HEMOGLOBIN 19.7 pg (27.0-33.4); MEAN CORPUSCULAR HGB CONC 31.6 g/dL (32.0-36.0); MEAN CORPUSCULAR VOLUME 62 fl (80-97); PLATELET COUNT 244 10^3/uL (150-450); RED CELL DISTRIBUTION WIDTH 30.1 % (11.5-14.0); WHITE BLOOD COUNT 8.6 10^3/uL (4.0-10.5)
[2020-08-24 12:59] LABS: HEMOGLOBIN 7.3 g/dL (12.0-15.5)
[2020-08-24 13:07] LABS: ABSOLUTE LYMPHOCYTES# (MANUAL) 1.6 10^3/uL (0.5-4.7); ABSOLUTE MONOCYTES # (MANUAL) 0.5 10^3/uL (0.1-1.4); BASOPHILS % (MANUAL) 1 % (0-2); EOSINOPHILS % (MANUAL) 2 % (0-6); LYMPHOCYTES % (MANUAL) 19 % (13-45); MONOCYTES % (MANUAL) 6 % (3-13); PLATELET COMMENT ADEQUATE; SEGMENTED NEUTROPHILS % (MAN) 72 % (42-78); TOTAL CELLS COUNTED 100
[2020-08-24 13:08] LABS: ANISOCYTOSIS 4+; POIKILOCYTOSIS 3+; POLYCHROMASIA 2+; TARGET CELLS 3+
[2020-08-24] MEDS: LURASIDONE HCL 40 MG TABLET PO SCH (17:08)
--- NOTE | 2020-08-24 19:33 | PDOC PROGRESS REPORT ---
Subjective Date:: 08/24/20 Subjective:: The patient states that she is feeling better. However she describes a feeling of urgency and burning sensation when she feels like she is urinating. She continues to have Lindsey catheter. She continues to have right lower quadrant pain. She was started on furosemide IV by Dr. Gomez yesterday and she had passed a good amount of urine output for the last 24 hours amounting to 3825 mL which is much improved from previous. She also received IV Injectafer 2 days ago. Her hemoglobin was significantly low this morning, however the patient informed us that she had an 11-day menstrual cycle and is almost done with it. Reason For Visit: ABDOMINAL PAIN,SEPSIS,PNEUMONIA,ACUTE ON CHRONIC Physical Exam Vital Signs: Temp Pulse Resp BP Pulse Ox 98.1 F 82 20 153/76 H 90 L 08/23/20 23:57 08/24/20 07:00 08/23/20 23:57 08/24/20 03:35 08/24/20 03:35 Intake & Output 08/23/20 08/24/20 08/25/20 06:59 06:59 06:59 Intake Total 1247 1505 Output Total 1025 3825 Balance 222 -2320 Weight 147 kg 142.3 kg Exam: General appearance: PRESENT: no acute distress, cooperative, well-developed, well-nourished Head exam: PRESENT: atraumatic, normocephalic Eye exam: PRESENT: conjunctiva pale, PERRLA. ABSENT: scleral icterus Neck exam: ABSENT: JVD Respiratory exam: PRESENT: Normal breath sounds. ABSENT: crackles, rales, rhonchi, unlabored, wheezes Cardiovascular exam: PRESENT: Regular rate rhythm -+S1, +S2. ABSENT: diastolic murmur, systolic murmur GI/Abdominal exam: PRESENT: normal bowel sounds, soft. Mild right lower q uadrant tenderness ABSENT: guarding, mass Extremities exam: ABSENT: Grade 1 bilateral lower extremity pitting edema Neurological exam: PRESENT: alert, awake, oriented to person, place and time. Skin exam: PRESENT: dry, warm, Cardiovascular exam: PRESENT: +S1, +S2. ABSENT: rubs GI/Abdominal exam: PRESENT: normal bowel sounds, soft, tenderness - In the right lower iliac fossa. ABSENT: organomegaly, rebound Results Laboratory Results: 08/24/20 06:00 08/24/20 06:00 08/22/20 08/24/20 08/24/20 04:40 06:00 06:00 WBC 9.1 RBC 3.56 L Hgb 6.9 L Hct 22.0 L MCV 62 L MCH 19.4 L MCHC 31.3 L RDW 29.0 H Plt Count 244 Seg Neutrophils % Not Reportable Sodium 138.9 Potassium 4.5 Chloride 104 Carbon Dioxide 27 Anion Gap 8 BUN 39 H Creatinine 3.21 H Est GFR ( Amer) 19 L Glucose 155 H Calcium 9.2 Total Protein 5.7 L Albumin 2.5 L 08/12/20 08/12/20 06:40 06:40 Troponin I < 0.012 NT-Pro-B Natriuret Pep 4860 H Impressions: Abdomen X-Ray 08/12/20 00:00 IMPRESSION: 1. No acute findings. Abdomen/Pelvis CT 08/12/20 14:30 IMPRESSION: There are some mildly dilated small bowel loops without appreciable wall thickening to suggest mechanical obstruction. The contrast in the small bowel does not reach the cecum on the 10 minutes delayed scan to further characterize the right lower quadrant. Free fluid noted in both upper quadrants. 5 x 3 x 3 cm rim enhancing fluid in the recto uterine fossa, likely small abscess. The adnexal structures are enlarged bilaterally with a heterogeneous enhancing appearance, this measures approximately 8 cm on the right and 6 cm on the left. There are inflammatory changes adjacent to both adnexa with free fluid noted in both lower quadrants. Pelvis Ultrasound 08/12/20 15:48 IMPRESSION: Free fluid present in both adnexae. Ovaries not visualized. Fibroid uterus. Chest CT 08/14/20 00:00 IMPRESSION: Cardiomegaly with bilateral perihilar atelectasis. No convincing focal areas of pneumonia. Renal Ultrasound 08/17/20 00:00 IMPRESSION: No gross hydronephrosis Chest X-Ray 08/22/20 00:00 IMPRESSION: Cannot exclude very limited pneumonia in the right lung. Assessment & Plan - Diagnosis (1) Acute kidney injury Is this a current diagnosis for this admission?: Yes Plan: Due to multifactorial ATN due to contrast nephropathy, vancomycin toxicity and nephrotoxic medications including losartan, aliskiren, Metformin, and Zosyn initially given. Patient might also have an underlying baseline chronic kidney disease with b aseline creatinine around 0.9-1.17. Possible causes of underlying chronic kidney disease include diabetes mellitus and hypertension. Continue IV Lasix at 40 mg IV every 12 hours. I will hold dialysis for today. We will continue to monitor kidney function and electrolytes. (2) Pelvic inflammatory disease Is this a current diagnosis for this admission?: Yes Plan: Has been on vancomycin from 08/12 until 08/15 currently on hold. Completed a week of IV Zosyn. Now started on ceftriaxone. (3) Hypertension Qualifiers: Hypertension type: essential hypertension Qualified Code(s): I10 - Essential (primary) hypertension Is this a current diagnosis for this admission?: Yes Plan: On clonidine, hydralazine, metoprolol and valsartan currently. Doxazosin just recently added. (4) T2DM (type 2 diabetes mellitus) Qualifiers: Diabetes mellitus skilled nursing insulin use: with skilled nursing use Diabetes mellitus complication status: with kidney complications Diabetes mellitus complication detail: with nephropathy Qualified Code(s): E11.21 - Type 2 diabetes mellitus with diabetic nephropathy; Z79.4 - [facility] (current) use of insulin Is this a current diagnosis for this admission?: Yes Plan: Suboptimally controlled. (5) Anemia Is this a current diagnosis for this admission?: Yes Plan: Severe iron deficiency likely secondary to heavy menstrual cycle which just got done, status post 1 IV Injectafer infusion on 08/22/2020. (6) Metabolic acidosis Is this a current diagnosis for this admission?: Yes Plan: Due to PACO. Resolved. (7) Hyperphosphatemia Is this a current diagnosis for this admission?: Yes Plan: Due to PACO (8) Hypomagnesemia Is this a current diagnosis for this admission?: Yes Plan: Resolved. (9) Morbid obesity Is this a current diagnosis for this admission?: Yes - Time Time with patient: 15-25 minutes
[2020-08-24] MEDS: CEFTRIAXONE 1 GM/D5W RTU 1 GM/50 ML RTUPB IV SCH (20:12)
[2020-08-24] MEDS: DOXAZOSIN MESYLATE 1 MG TABLET PO SCH (21:07)
[2020-08-24] MEDS: DOXEPIN HCL 25 MG CAPSULE PO SCH (21:08)
--- NOTE | 2020-08-24 21:32 | PDOC PROGRESS REPORT ---
Subjective Date:: 08/24/20 Subjective:: She complain of dysuria, she haa anemia she just finished her menstruation abou t 2 days ago, kidney function is improving Reason For Visit: ABDOMINAL PAIN,SEPSIS,PNEUMONIA,ACUTE ON CHRONIC Physical Exam Vital Signs: Temp Pulse Resp BP Pulse Ox 97.9 F 67 18 144/85 H 95 08/24/20 16:20 08/24/20 19:00 08/24/20 16:20 08/24/20 16:20 08/24/20 16:20 Intake & Output 08/23/20 08/24/20 08/25/20 06:59 06:59 06:59 Intake Total 1247 1505 970 Output Total 1025 3825 1800 Balance 222 -2320 -830 Weight 147 kg 142.3 kg General appearance: PRESENT: no acute distress Eye exam: PRESENT: PERRLA Respiratory exam: PRESENT: clear to auscultation herminia Cardiovascular exam: PRESENT: +S1, +S2 GI/Abdominal exam: PRESENT: soft Neurological exam: PRESENT: alert Results Laboratory Results: 08/24/20 11:40 08/24/20 06:00 08/22/20 08/24/20 08/24/20 04:40 06:00 06:00 WBC 9.1 RBC 3.56 L Hgb 6.9 L Hct 22.0 L MCV 62 L MCH 19.4 L MCHC 31.3 L RDW 29.0 H Plt Count 244 Seg Neutrophils % Not Reportable Sodium 138.9 Potassium 4.5 Chloride 104 Carbon Dioxide 27 Anion Gap 8 BUN 39 H Creatinine 3.21 H Est GFR ( Amer) 19 L Glucose 155 H Calcium 9.2 Total Protein 5.7 L Albumin 2.5 L Urine Color Urine Appearance Urine pH Ur Specific [place] Urine Protein Urine Glucose (UA) Urine Ketones Urine Blood Urine Nitrite Ur Leukocyte Esterase Urine WBC (Auto) Urine RBC (Auto) 08/24/20 08/24/20 11:40 12:00 WBC 8.6 RBC 3.70 L Hgb 7.3 L Hct 23.0 L MCV 62 L MCH 19.7 L MCHC 31.6 L RDW 30.1 H Plt Count 244 Seg Neutrophils % Not Reportable Sodium Potassium Chloride Carbon Dioxide Anion Gap BUN Creatinine Est GFR ( Amer) Glucose Calcium Total Protein Albumin Urine Color STRAW Urine Appearance CLEAR Urine pH 5.0 Ur Specific [place] 1.006 Urine Protein 30 H Urine Glucose (UA) NEGATIVE Urine Ketones NEGATIVE Urine Blood NEGATIVE Urine Nitrite NEGATIVE Ur Leukocyte Esterase SMALL H Urine WBC (Auto) 7 Urine RBC (Auto) 7 08/12/20 08/12/20 06:40 06:40 Troponin I < 0.012 NT-Pro-B Natriuret Pep 4860 H Impressions: Abdomen X-Ray 08/12/20 00:00 IMPRESSION: 1. No acute findings. Abdomen/Pelvis CT 08/12/20 14:30 IMPRESSION: There are some mildly dilated small bowel loops without appreciable wall thickening to suggest mechanical obstruction. The contrast in the small bowel does not reach the cecum on the 10 minutes delayed scan to further characterize the right lower quadrant. Free fluid noted in both upper quadrants. 5 x 3 x 3 cm rim enhancing fluid in the recto uterine fossa, likely small abscess. The adnexal structures are enlarged bilaterally with a heterogeneous enhancing appearance, this measures approximately 8 cm on the right and 6 cm on the left. There are inflammatory changes adjacent to both adnexa with free fluid noted in both lower quadrants. Pelvis Ultrasound 08/12/20 15:48 IMPRESSION: Free fluid present in both adnexae. Ovaries not visualized. Fibroid uterus. Chest CT 08/14/20 00:00 IMPRESSION: Cardiomegaly with bilateral perihilar atelectasis. No convincing focal areas of pneumonia. Renal Ultrasound 08/17/20 00:00 IMPRESSION: No gross hydronephrosis Chest X-Ray 08/22/20 00:00 IMPRESSION: Cannot exclude very limited pneumonia in the right lung. 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 vs. transplanted heart: [place] heart Associated angina: without angina Qualified Code(s): I25.10 - Atherosclerotic heart disease of [place] coronary artery without angina pectoris Is this a current diagnosis for this admission?: Yes (4) Acute kidney injury Is this a current diagnosis for this admission?: Yes Plan: improving (5) Hypoglycemia Is this a current diagnosis for this admission?: Yes (6) Anemia due to acute blood loss Is this a current diagnosis for this admission?: Yes Plan: Due to menstrual blood loss - Time Time Spent with patient: 25-34 minutes Level of Care: MEDICAL Medications reviewed and adjusted accordingly: Yes Anticipated discharge: Home, SNF Anticipated DC Timeframe: within 72 hours - Inpatient Certification Based on my medical assessment, after consideration of the patient's comorbidities, presenting symptoms, or acuity I expect that the services needed warrant INPATIENT care.: Yes I certify that my determination is in accordance with my understanding of Medicare's requirements for reasonable and necessary INPATIENT services [42 CFR 412.3e].: Yes
[2020-08-25 05:23] LABS: HEMATOCRIT 22.3 % (36.0-47.0); MEAN CORPUSCULAR HEMOGLOBIN 20.1 pg (27.0-33.4); MEAN CORPUSCULAR HGB CONC 32.4 g/dL (32.0-36.0); PLATELET COUNT 217 10^3/uL (150-450); RED BLOOD COUNT 3.59 10^6/uL (3.72-5.28); RED CELL DISTRIBUTION WIDTH 30.3 % (11.5-14.0)
[2020-08-25] MEDS: GABAPENTIN 300 MG CAPSULE PO SCH ×3 (05:24→21:59)
[2020-08-25] MEDS: CLONIDINE HCL 0.2 MG TABLET PO SCH ×3 (05:24→20:37)
[2020-08-25] MEDS: PANTOPRAZOLE SODIUM 40 MG TABLET.DR PO SCH (05:24)
[2020-08-25] MEDS: HYDRALAZINE HCL 50 MG TABLET PO SCH ×3 (05:24→20:37)
[2020-08-25] MEDS: HYDROMORPHONE HCL INJ/PF 2 MG/ML AMPULE IV PRN ×3 (05:37→18:04)
[2020-08-25 05:42] LABS: ANION GAP 10 (5-19); BLOOD UREA NITROGEN 44 mg/dL (7-20); CALCIUM 9.2 mg/dL (8.4-10.2); CARBON DIOXIDE 28 mmol/L (22-30); CHLORIDE 104 mmol/L (98-107); GLUCOSE 159 mg/dL (75-110); POTASSIUM 4.2 mmol/L (3.6-5.0)
[2020-08-25 06:44] LABS: MEAN CORPUSCULAR VOLUME 62 fl (80-97)
[2020-08-25 06:51] LABS: HEMOGLOBIN 7.2 g/dL (12.0-15.5)
[2020-08-25 06:53] LABS: ABSOLUTE LYMPHOCYTES# (MANUAL) 1.4 10^3/uL (0.5-4.7); ABSOLUTE MONOCYTES # (MANUAL) 0.1 10^3/uL (0.1-1.4); BASOPHILS % (MANUAL) 0 % (0-2); EOSINOPHILS % (MANUAL) 0 % (0-6); LYMPHOCYTES % (MANUAL) 16 % (13-45); MONOCYTES % (MANUAL) 1 % (3-13); NUCLEATED RED BLOOD CELLS 1 /100 WBC (0); SEGMENTED NEUTROPHILS % (MAN) 83 % (42-78); TOTAL CELLS COUNTED 100
[2020-08-25 06:55] LABS: ANISOCYTOSIS 4+; HELMET CELLS SLIGHT; HYPOCHROMASIA 2+; OVALOCYTES 2+; POIKILOCYTOSIS 4+; SCHISTOCYTES 2+; TEAR DROP CELLS 2+; TOXIC GRANULATION SLIGHT
[2020-08-25 06:56] LABS: PLATELET COMMENT ADEQUATE
[2020-08-25] MEDS: HEPARIN SOD (PORCINE) 5,000 UNIT/ML 1 ML VIAL SUBCUT SCH ×2 (08:34→17:56)
[2020-08-25] MEDS: INSULIN LISPRO 100 UNIT/ML 3 ML VIAL SUBCUT SCH ×4 (08:35→21:59)
[2020-08-25] MEDS: BENZTROPINE MESYLATE 1 MG TABLET PO SCH ×2 (08:35→17:52)
--- NOTE | 2020-08-25 10:05 | PDOC PROGRESS REPORT ---
Subjective Date:: 08/25/20 Subjective:: Patient is currently doing fair Patient hemoglobin is 7.2 Patient have a heavy menstrual. To stop with a history of uterine fibroid Patient received iron transfusion yesterday Denied any chest pain no short of breath No abdominal pain Reason For Visit: ABDOMINAL PAIN,SEPSIS,PNEUMONIA,ACUTE ON CHRONIC Physical Exam Vital Signs: Temp Pulse Resp BP Pulse Ox 98.4 F 72 18 140/71 H 91 L 08/25/20 08:27 08/25/20 08:27 08/25/20 08:27 08/25/20 08:27 08/25/20 08:27 Intake & Output 08/24/20 08/25/20 08/26/20 06:59 06:59 06:59 Intake Total 1505 1820 Output Total 3825 4600 Balance -2320 -2780 Weight 142.3 kg 142.5 kg General appearance: PRESENT: no acute distress, well-developed, well-nourished Head exam: PRESENT: atraumatic, normocephalic Eye exam: PRESENT: conjunctiva pink, EOMI, PERRLA. ABSENT: scleral icterus Ear exam: PRESENT: normal external ear exam Mouth exam: PRESENT: moist, tongue midline Neck exam: PRESENT: full ROM. ABSENT: carotid bruit, JVD, lymphadenopathy, thyromegaly Respiratory exam: PRESENT: clear to auscultation herminia Cardiovascular exam: PRESENT: RRR. ABSENT: diastolic murmur, rubs, systolic murmur Vascular exam: PRESENT: normal capillary refill GI/Abdominal exam: PRESENT: normal bowel sounds, soft. ABSENT: distended, guarding, mass, organolmegaly, rebound, tenderness Rectal exam: PRESENT: deferred Neurological exam: PRESENT: alert, awake, oriented to person, oriented to place, oriented to time, oriented to situation, CN II-XII grossly intact. ABSENT: motor sensory deficit Psychiatric exam: PRESENT: appropriate affect, normal mood. ABSENT: homicidal ideation, suicidal ideation Skin exam: PRESENT: dry, intact, warm. ABSENT: cyanosis, rash Results Laboratory Results: 08/25/20 04:45 08/25/20 04:45 08/24/20 08/24/20 08/25/20 11:40 12:00 04:45 WBC 8.6 RBC 3.70 L Hgb 7.3 L Hct 23.0 L MCV 62 L MCH 19.7 L MCHC 31.6 L RDW 30.1 H Plt Count 244 Seg Neutrophils % Not Reportable Sodium 141.6 Potassium 4.2 Chloride 104 Carbon Dioxide 28 Anion Gap 10 BUN 44 H Creatinine 3.01 H Est GFR ( Amer) 21 L Glucose 159 H Calcium 9.2 Urine Color STRAW Urine Appearance CLEAR Urine pH 5.0 Ur Specific [place] 1.006 Urine Protein 30 H Urine Glucose (UA) NEGATIVE Urine Ketones NEGATIVE Urine Blood NEGATIVE Urine Nitrite NEGATIVE Ur Leukocyte Esterase SMALL H Urine WBC (Auto) 7 Urine RBC (Auto) 7 08/25/20 04:45 WBC 9.0 RBC 3.59 L Hgb 7.2 L Hct 22.3 L MCV 62 L MCH 20.1 L MCHC 32.4 RDW 30.3 H Plt Count 217 Seg Neutrophils % Not Reportable Sodium Potassium Chloride Carbon Dioxide Anion Gap BUN Creatinine Est GFR ( Amer) Glucose Calcium Urine Color Urine Appearance Urine pH Ur Specific [place] Urine Protein Urine Glucose (UA) Urine Ketones Urine Blood Urine Nitrite Ur Leukocyte Esterase Urine WBC (Auto) Urine RBC (Auto) 08/12/20 08/12/20 06:40 06:40 Troponin I < 0.012 NT-Pro-B Natriuret Pep 4860 H Impressions: Abdomen X-Ray 08/12/20 00:00 IMPRESSION: 1. No acute findings. Abdomen/Pelvis CT 08/12/20 14:30 IMPRESSION: There are some mildly dilated small bowel loops without appreciable wall thickening to suggest mechanical obstruction. The contrast in the small bowel does not reach the cecum on the 10 minutes delayed scan to further characterize the right lower quadrant. Free fluid noted in both upper quadrants. 5 x 3 x 3 cm rim enhancing fluid in the recto uterine fossa, likely small abscess. The adnexal structures are enlarged bilaterally with a heterogeneous enhancing appearance, this measures approximately 8 cm on the right and 6 cm on the left. There are inflammatory changes adjacent to both adnexa with free fluid noted in both lower quadrants. Pelvis Ultrasound 08/12/20 15:48 IMPRESSION: Free fluid present in both adnexae. Ovaries not visualized. Fibroid uterus. Chest CT 08/14/20 00:00 IMPRESSION: Cardiomegaly with bilateral perihilar atelectasis. No convincing focal areas of pneumonia. Renal Ultrasound 08/17/20 00:00 IMPRESSION: No gross hydronephrosis Chest X-Ray 08/22/20 00:00 IMPRESSION: Cannot exclude very limited pneumonia in the right lung. Assessment & Plan - Diagnosis (1) Acute kidney injury Is this a current diagnosis for this admission?: Yes (2) Anemia due to acute blood loss Is this a current diagnosis for this admission?: Yes (3) Hypertension Qualifiers: Hypertension type: essential hypertension Qualified Code(s): I10 - Essential (primary) hypertension Is this a current diagnosis for this admission?: Yes (4) Pelvic inflammatory disease Is this a current diagnosis for this admission?: Yes (5) Type 2 diabetes mellitus with diabetic polyneuropathy Qualifiers: Diabetes mellitus long term acute care registered nurse insulin use: with prison use Qualified Code(s): E11.42 - Type 2 diabetes mellitus with diabetic polyneuropathy; Z79.4 - care home (current) use of insulin Is this a current diagnosis for this admission?: Yes (6) Essential hypertension Is this a current diagnosis for this admission?: Yes (7) Fibroid uterus Qualifiers: Uterine leiomyoma location: intramural, submucous, and subserous Qualified Code(s): D25.1 - Intramural leiomyoma of uterus; D25.0 - Submucous leiomyoma of uterus; D25.2 - Subserosal leiomyoma of uterus Is this a current diagnosis for this admission?: Yes - Time Time Spent with patient: 15-24 minutes Level of Care: TELE Medications reviewed and adjusted accordingly: Yes Anticipated discharge: Other Anticipated DC Timeframe: Other - Plan Summary Plan Summary: Patient currently have a heavy menstrual period with uterine fibroid and most likely possible blood loss from the we will give her 1 unit of the blood slowly with give Lasix after the blood Discussed with the nephrology about that is okay with that given the blood We will consult the PHOTOGRAPHIC EQUIPMENT MECHANIC for further evaluations with ongoing problems
[2020-08-25] MEDS: VALSARTAN 160 MG TABLET PO SCH (10:24)
[2020-08-25] MEDS: SERTRALINE HCL 50 MG TABLET PO SCH (10:25)
[2020-08-25] MEDS: METOPROLOL SUCCINATE 50 MG TAB.SR.24H PO SCH (10:26)
[2020-08-25] MEDS: FUROSEMIDE INJ/PF 40 MG/4 ML SDV IV SCH ×2 (10:26→21:59)
[2020-08-25] MEDS: LURASIDONE HCL 40 MG TABLET PO SCH (17:52)
[2020-08-25] MEDS: CEFTRIAXONE 1 GM/D5W RTU 1 GM/50 ML RTUPB IV SCH (17:53)
[2020-08-25] MEDS: DOXAZOSIN MESYLATE 1 MG TABLET PO SCH (20:36)
[2020-08-25] MEDS ORDERED: CLONIDINE HCL 0.2 MG TABLET PO ONE (20:45)
[2020-08-25] MEDS: DOXEPIN HCL 25 MG CAPSULE PO SCH (22:00)
[2020-08-26] MEDS: HYDROMORPHONE HCL INJ/PF 2 MG/ML AMPULE IV PRN ×4 (00:20→19:41)
[2020-08-26] MEDS: HEPARIN SOD (PORCINE) 5,000 UNIT/ML 1 ML VIAL SUBCUT SCH ×3 (00:20→17:24)
[2020-08-26] MEDS: HYDRALAZINE HCL 50 MG TABLET PO SCH ×3 (05:32→22:08)
[2020-08-26] MEDS: GABAPENTIN 300 MG CAPSULE PO SCH ×3 (05:32→22:08)
[2020-08-26] MEDS: CLONIDINE HCL 0.2 MG TABLET PO SCH ×3 (05:33→22:08)
[2020-08-26] MEDS: PANTOPRAZOLE SODIUM 40 MG TABLET.DR PO SCH (05:33)
[2020-08-26 06:15] LABS: HEMATOCRIT 21.8 % (36.0-47.0); MEAN CORPUSCULAR HEMOGLOBIN 20.4 pg (27.0-33.4); MEAN CORPUSCULAR HGB CONC 32.6 g/dL (32.0-36.0); MEAN CORPUSCULAR VOLUME 63 fl (80-97); PLATELET COUNT 181 10^3/uL (150-450); RED BLOOD COUNT 3.48 10^6/uL (3.72-5.28); RED CELL DISTRIBUTION WIDTH 30.3 % (11.5-14.0); WHITE BLOOD COUNT 7.7 10^3/uL (4.0-10.5)
[2020-08-26 06:19] LABS: HEMOGLOBIN 7.1 g/dL (12.0-15.5)
[2020-08-26 06:39] LABS: ANION GAP 8 (5-19); BLOOD UREA NITROGEN 48 mg/dL (7-20); CARBON DIOXIDE 29 mmol/L (22-30); CHLORIDE 103 mmol/L (98-107); GLUCOSE 155 mg/dL (75-110); POTASSIUM 3.9 mmol/L (3.6-5.0)
[2020-08-26 06:40] LABS: ABSOLUTE LYMPHOCYTES# (MANUAL) 1.6 10^3/uL (0.5-4.7); ABSOLUTE MONOCYTES # (MANUAL) 0.5 10^3/uL (0.1-1.4); BASOPHILS % (MANUAL) 0 % (0-2); EOSINOPHILS % (MANUAL) 1 % (0-6); LYMPHOCYTES % (MANUAL) 21 % (13-45); MONOCYTES % (MANUAL) 7 % (3-13); SEGMENTED NEUTROPHILS % (MAN) 71 % (42-78); TOTAL CELLS COUNTED 100
[2020-08-26 06:41] LABS: ANISOCYTOSIS 4+; HYPOCHROMASIA 3+; OVALOCYTES 1+; PLATELET COMMENT ADEQUATE; POIKILOCYTOSIS 2+; POLYCHROMASIA 1+; TARGET CELLS 1+
[2020-08-26] MEDS: BENZTROPINE MESYLATE 1 MG TABLET PO SCH ×2 (07:46→17:26)
[2020-08-26] MEDS: INSULIN LISPRO 100 UNIT/ML 3 ML VIAL SUBCUT SCH ×4 (07:46→22:07)
--- NOTE | 2020-08-26 09:43 | PDOC PROGRESS REPORT ---
Subjective Date:: 08/26/20 Subjective:: Patient is currently doing well Patient hemoglobin is still low unable to receive the blood yesterday Patient is a very noncompliance about diet according to the patient and nursing staff were eating the [place] food yesterday and patient's blood pressure is always running high even the patient is multiple blood pressure medications due to the noncompliance with the diet Discussed with the patient about the low sodium diet today Reason For Visit: ABDOMINAL PAIN,SEPSIS,PNEUMONIA,ACUTE ON CHRONIC Physical Exam Vital Signs: Temp Pulse Resp BP Pulse Ox 97.6 F 79 16 155/97 H 90 L 08/26/20 07:08 08/26/20 07:08 08/26/20 07:08 08/26/20 07:08 08/26/20 07:08 Intake & Output 08/25/20 08/26/20 08/27/20 06:59 06:59 06:59 Intake Total 1870 2230 Output Total 4600 5720 Balance -2730 -3490 Weight 142.5 kg 138.8 kg General appearance: PRESENT: no acute distress Eye exam: PRESENT: PERRLA Mouth exam: PRESENT: neck supple Respiratory exam: PRESENT: clear to auscultation herminia Cardiovascular exam: PRESENT: +S1, +S2 GI/Abdominal exam: PRESENT: normal bowel sounds, soft Neurological exam: PRESENT: alert, awake, oriented to person, oriented to place, oriented to time, oriented to situation Results Laboratory Results: 08/26/20 05:30 08/26/20 05:30 08/26/20 08/26/20 05:30 05:30 WBC 7.7 RBC 3.48 L Hgb 7.1 L Hct 21.8 L MCV 63 L MCH 20.4 L MCHC 32.6 RDW 30.3 H Plt Count 181 Seg Neutrophils % Not Reportable Sodium 140.3 Potassium 3.9 Chloride 103 Carbon Dioxide 29 Anion Gap 8 BUN 48 H Creatinine 2.76 H Est GFR ( Amer) 23 L Glucose 155 H Calcium 9.0 08/12/20 08/12/20 06:40 06:40 Troponin I < 0.012 NT-Pro-B Natriuret Pep 4860 H Impressions: Abdomen X-Ray 08/12/20 00:00 IMPRESSION: 1. No acute findings. Abdomen/Pelvis CT 08/12/20 14:30 IMPRESSION: There are some mildly dilated small bowel loops without appreciable wall thickening to suggest mechanical obstruction. The contrast in the small bowel does not reach the cecum on the 10 minutes delayed scan to further characterize the right lower quadrant. Free fluid noted in both upper quadrants. 5 x 3 x 3 cm rim enhancing fluid in the recto uterine fossa, likely small abscess. The adnexal structures are enlarged bilaterally with a heterogeneous enhancing appearance, this measures approximately 8 cm on the right and 6 cm on the left. There are inflammatory changes adjacent to both adnexa with free fluid noted in both lower quadrants. Pelvis Ultrasound 08/12/20 15:48 IMPRESSION: Free fluid present in both adnexae. Ovaries not visualized. Fibroid uterus. Chest CT 08/14/20 00:00 IMPRESSION: Cardiomegaly with bilateral perihilar atelectasis. No convincing focal areas of pneumonia. Renal Ultrasound 08/17/20 00:00 IMPRESSION: No gross hydronephrosis Chest X-Ray 08/22/20 00:00 IMPRESSION: Cannot exclude very limited pneumonia in the right lung. Assessment & Plan - Diagnosis (1) Acute kidney injury Is this a current diagnosis for this admission?: Yes (2) Anemia due to acute blood loss Is this a current diagnosis for this admission?: Yes (3) Hypertension Qualifiers: Hypertension type: essential hypertension Qualified Code(s): I10 - [place] l (primary) hypertension Is this a current diagnosis for this admission?: Yes (4) Pelvic inflammatory disease Is this a current diagnosis for this admission?: Yes (5) Type 2 diabetes mellitus with diabetic polyneuropathy Qualifiers: Diabetes mellitus [facility] insulin use: with air bag stripper use Qualified Code(s): E11.42 - Type 2 diabetes mellitus with diabetic polyneuropathy; Z79.4 - care home (current) use of insulin Is this a current diagnosis for this admission?: Yes (6) Essential hypertension Is this a current diagnosis for this admission?: Yes (7) Fibroid uterus Qualifiers: Uterine leiomyoma location: intramural, submucous, and subserous Qualified Code(s): D25.1 - Intramural leiomyoma of uterus; D25.0 - Submucous leiomyoma of uterus; D25.2 - Subserosal leiomyoma of uterus Is this a current diagnosis for this admission?: Yes - Time Time Spent with patient: 15-24 minutes Level of Care: TELE Medications reviewed and adjusted accordingly: Yes Anticipated discharge: Home Anticipated DC Timeframe: Other - Plan Summary Plan Summary: We will give her 1 unit of blood with ongoing blood loss Discussed about the diet control Follow with the nephrology Will wait for the [employer] evaluations
[2020-08-26] MEDS: FUROSEMIDE INJ/PF 40 MG/4 ML SDV IV SCH ×2 (10:11→22:07)
[2020-08-26] MEDS: METOPROLOL SUCCINATE 50 MG TAB.SR.24H PO SCH (10:13)
[2020-08-26] MEDS ORDERED: FUROSEMIDE INJ/PF 20 MG/2 ML SDV IV PRN (10:14)
[2020-08-26] MEDS: SERTRALINE HCL 50 MG TABLET PO SCH (10:14)
[2020-08-26] MEDS: VALSARTAN 160 MG TABLET PO SCH (10:14)
--- NOTE | 2020-08-26 15:24 | PDOC CONSULTATION ---
Consultation Consult Date: 08/26/20 Provider Consulted: SHERMAN OWEN Consult reason:: anemia due to symptomatic fibroids History of Present Illness Admission Date/PCP: 08/12/20 18:00 DORIE LUGO MD History of Present Illness: YULIANA ALVARADO is a 39 year old female who is admitted for multiple medical issues including longstanding hypertension, history of myocardial infarction, uncontrolled diabetes and now with acute kidney injury. 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 she indicates a history of heavy menses that started "after I had my heart attack" which she could not remember what year this occurred. S he states two menses a month with need to change pads every 4-5 hours on the first couple of days then 1-2 pads a day x 7 or 10 days. She is currently receiving unit of blood for her menorragia to anemia. She is scheduled for dialysis again tomorrow. Past Medical History LMP: 07/15/20 Gynecological Infection: No Obstetrical History: none - 2 full term deliveries, 1 SAB Cardiac Medical History: Reports: Congestive Heart Failure, Coronary Artery Disease, Myocardial Infarction, Hyperlipidema, Hypertension Pulmonary Medical History: Reports: Chronic Obstructive Pulmonary Disease (COPD) Denies: Tuberculosis Neurological Medical History: Reports: Migraine Denies: Seizures Endocrine Medical History: Reports: Diabetes Mellitus Type 1, Diabetes Mellitus Type 2 - IDDM Musculoskeltal Medical History: Reports: Arthritis Psychiatric Medical History: Reports: Bipolar Disorder, Depression Social History Information Source: Patient Lives with: Family Smoking Status: Current Every Day Smoker Electronic Cigarette use?: Yes - vape Frequency of Alcohol Use: Rare Hx Recreational Drug Use: Yes Drugs: Marijuana Hx Prescription Drug Abuse: No - Advance Directive Resuscitation Status: Full Code Family History Family History: Reviewed & Not Pertinent Parental Family History Reviewed: Yes Children Family History Reviewed: Yes Sibling(s) Family History Reviewed.: No Medication/Allergy Home Medications: Hydralazine HCl [Apresoline 50 mg Tablet] 100 mg PO TID 09/26/13 Clonidine HCl [Catapres] 0.3 mg PO TID 04/25/15 Zolpidem Tartrate 10 mg PO HSP PRN 01/02/16 Alprazolam 0.5 mg PO BIDP PRN 01/25/20 Insulin Glargine,Hum.rec.anlog [Lantus Insulin 100 Unit/1 ml 10 ml] 50 unit SQ BID 01/25/20 Lurasidone HCl [Latuda 40 mg Tablet] 40 mg PO QPM 01/25/20 Aliskiren Hemifumarate [Tekturna 300 mg Tablet] 300 mg PO DAILY 04/13/20 Cyclobenzaprine HCl [Flexeril 10 mg Tablet] 10 mg PO BIDP PRN 04/13/20 Gabapentin [Neurontin] 600 mg PO Q8 04/13/20 Metformin HCl 1,000 mg PO BID 04/13/20 Albuterol Sulfate [Proair HFA Inhalation Aerosol 8.5 gm MDI] 1 puff IH Q4HP PRN 07/31/20 Benztropine Mesylate [Cogentin 1 mg Tablet] 1 mg PO QAM 07/31/20 Benztropine Mesylate [Cogentin 1 mg Tablet] 2 mg PO QPM 07/31/20 Metoprolol Succinate [Toprol Xl] 200 mg PO DAILY 07/31/20 Doxepin HCl [Sinequan 25 Mg Capsule] 25 mg PO QHS 08/13/20 Hydrocodone/Acetaminophen [Tow 10-325 mg Tablet] 1 tab PO Q6HP PRN 08/13/20 Insulin Aspart [Novolog Flexpen] 0 unit SUBCUT .SLD SCALE 08/13/20 Sertraline HCl 200 mg PO DAILY 08/13/20 Allergies/Adverse Reactions: No Known Allergies Allergy (Verified 04/12/20 16:56) Physical Exam - Physical Exam Vital Signs: Temp Pulse Resp BP Pulse Ox 97.8 F 73 20 152/87 H 91 L 08/26/20 14:15 08/26/20 14:15 08/26/20 14:15 08/26/20 14:15 08/26/20 14:15 Intake & Output 08/25/20 08/26/20 08/27/20 06:59 06:59 06:59 Intake Total 1870 2230 560 Output Total 2352 7598 1000 Balance -2294 -8502 -592 Weight 142.5 kg 138.8 kg General appearance: PRESENT: no acute distress, cooperative, morbidly obese, obese Result Laboratory Results: 08/26/20 05:30 08/26/20 05:30 08/26/20 08/26/20 08/26/20 05:30 05:30 09:45 WBC 7.7 RBC 3.48 L Hgb 7.1 L Hct 21.8 L MCV 63 L MCH 20.4 L MCHC 32.6 RDW 30.3 H Plt Count 181 Seg Neutrophils % Not Reportable Sodium 140.3 Potassium 3.9 Chloride 103 Carbon Dioxide 29 Anion Gap 8 BUN 48 H Creatinine 2.76 H Est GFR ( Amer) 23 L Glucose 155 H Calcium 9.0 Blood Type AB POSITIVE Antibody Screen NEGATIVE 08/24/20 12:00 Lindsey Catheter Urine Culture - Final NO GROWTH 2 DAYS 08/12/20 08/12/20 06:40 06:40 Troponin I < 0.012 NT-Pro-B Natriuret Pep 4860 H Impressions: Abdomen X-Ray 08/12/20 00:00 IMPRESSION: 1. No acute findings. Abdomen/Pelvis CT 08/12/20 14:30 IMPRESSION: There are some mildly dilated small bowel loops without appreciable wall thickening to suggest mechanical obstruction. The contrast in the small bowel does not reach the cecum on the 10 minutes delayed scan to further characterize the right lower quadrant. Free fluid noted in both upper quadrants. 5 x 3 x 3 cm rim enhancing fluid in the recto uterine fossa, likely small abscess. The adnexal structures are enlarged bilaterally with a heterogeneous enhancing appearance, this measures approximately 8 cm on the right and 6 cm on the left. There are inflammatory changes adjacent to both adnexa with free fluid noted in both lower quadrants. Pelvis Ultrasound 08/12/20 15:48 IMPRESSION: Free fluid present in both adnexae. Ovaries not visualized. Fibroid uterus. Chest CT 08/14/20 00:00 IMPRESSION: Cardiomegaly with bilateral perihilar atelectasis. No convincing focal areas of pneumonia. Renal Ultrasound 08/17/20 00:00 IMPRESSION: No gross hydronephrosis Chest X-Ray 08/22/20 00:00 IMPRESSION: Cannot exclude very limited pneumonia in the right lung. Status: Image reviewed by me Assessment & Plan - Diagnosis (1) Abdominal pain Qualifiers: Abdominal location: right lower quadrant Qualified Code(s): R10.31 - Right lower quadrant pain Is this a current diagnosis for this admission?: Yes (2) Abuse of smoked substance Is this a current diagnosis for this admission?: Yes (3) Acute kidney injury Is this a current diagnosis for this admission?: Yes (4) Acute on chronic congestive heart failure Qualifiers: Heart failure type: unspecified Qualified Code(s): I50.9 - Heart failure, unspecified Is this a current diagnosis for this admission?: Yes (5) Anemia Qualifiers: Iron deficiency anemia type: chronic blood loss Is this a current diagnosis for this admission?: Yes Plan: continue with blood transfusion. I discussed with Dr. Dougherty at length regarding possible treatment options. This patient is not well enough to undergo surgical interventions although a hysterectomy would serve her well to definitely manage her symptomatic fibroids. Could possibly entertain IR intervention with uterine embolization and would defer to IR as to whether the patient is a candidate given her multiple co-morbidieties. She is not a candidate for combined estrogen and progesterone treatment due to her comorbidities and the risk of stroke. I would recommend trying transanemic acid 1300 mg TID x 5 days with menses however, would like Dr. Puga to advise regarding the patient's kidney functions at this time. (6) Anemia due to acute blood loss Is this a current diagnosis for this admission?: Yes (7) Bipolar disorder Is this a current diagnosis for this admission?: Yes (8) Congestive heart failure Is this a current diagnosis for this admission?: Yes (9) Need for acute hemodialysis Is this a current diagnosis for this admission?: Yes (10) Pelvic abscess Is this a current diagnosis for this admission?: Yes Plan: have reviewed the images from radiology and the pelvic sonogram is not optimal as is transabdominal. Would recommend a transvaginal sono to assess for pelvic abscess. She has had Rocephin since admission, and although complete PID treatment would include Doxycycline and Flagyl, given her kidney function and her relative decrease in pain symptoms would recommend repeat sono transvaginally to assess for need for antibiotics and again would like Dr. Puga's input regarding safety. 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 Is this a current diagnosis for this admission?: Yes (12) Anasarca Is this a current diagnosis for this admission?: Yes (13) Bilateral pneumonia Qualifiers: Pneumonia type: due to unspecified organism Lung location: unspecified part of lung Qualified Code(s): J18.9 - Pneumonia, unspecified organism Is this a current diagnosis for this admission?: Yes (14) Fibroid uterus Qualifiers: Uterine leiomyoma location: intramural, submucous, and subserous Qualified Code(s): D25.1 - Intramural leiomyoma of uterus; D25.0 - Submucous leiomyoma of uterus; D25.2 - Subserosal leiomyoma of uterus Is this a current diagnosis for this admission?: Yes Plan: not a good surgical candidate and needs medical conditions optimized to consider surgery or IR intervention. This should be done in a tertiary facility if she is able to optimize her health enough for procedures. (15) History of myocardial infarction Is this a current diagnosis for this admission?: Yes (16) Hypertensive urgency Is this a current diagnosis for this admission?: Yes - Time Time Spent: 50 to 70 Minutes Critical Time spent with patient: 15-24 minutes Medications reviewed and adjusted accordingly: No Anticipated Discharge Disposition: Home, Self Care Anticipated Discharge Timeframe: within 72 hours - Plan Summary Plan Summary: again defer to primary team for input regarding use of transanemic acid and adding Doxycycline/Flagyl due to kidney function. Will order pelvic sono transvaginally as well as GC/CZ cultures since these were not performed on admission from what I can find. Spoke with Dr. Dougherty extensively regarding patient managment. Did recommend an endometrial sampling but this can be done on an outpatient basis when she is well enough to discharge from the hospital.
[2020-08-26] MEDS: LURASIDONE HCL 40 MG TABLET PO SCH (17:26)
[2020-08-26 18:02] LABS: CHLAM PCR NOT DETECTED (NOT DETECT)
[2020-08-26] MEDS: CEFTRIAXONE 1 GM/D5W RTU 1 GM/50 ML RTUPB IV SCH (19:39)
[2020-08-26 20:48] LABS: HEMATOCRIT 25.5 % (36.0-47.0); HEMOGLOBIN 8.2 g/dL (12.0-15.5); MEAN CORPUSCULAR HEMOGLOBIN 20.6 pg (27.0-33.4); PLATELET COUNT 173 10^3/uL (150-450); RED BLOOD COUNT 3.97 10^6/uL (3.72-5.28); RED CELL DISTRIBUTION WIDTH 32.5 % (11.5-14.0); WHITE BLOOD COUNT 9.7 10^3/uL (4.0-10.5)
[2020-08-26 21:37] LABS: ABSOLUTE LYMPHOCYTES# (MANUAL) 2.1 10^3/uL (0.5-4.7); ABSOLUTE MONOCYTES # (MANUAL) 0.7 10^3/uL (0.1-1.4); ANISOCYTOSIS 4+; EOSINOPHILS % (MANUAL) 4 % (0-6); HYPOCHROMASIA 2+; LYMPHOCYTES % (MANUAL) 22 % (13-45); MONOCYTES % (MANUAL) 7 % (3-13); SEGMENTED NEUTROPHILS % (MAN) 67 % (42-78); TOTAL CELLS COUNTED 100
[2020-08-26 21:38] LABS: OVALOCYTES SLIGHT; PLATELET COMMENT ADEQUATE
[2020-08-26 21:40] LABS: POIKILOCYTOSIS 2+; TARGET CELLS 2+
[2020-08-26 21:42] LABS: MEAN CORPUSCULAR VOLUME 64 fl (80-97); TEAR DROP CELLS SLIGHT
[2020-08-26] MEDS: DOXEPIN HCL 25 MG CAPSULE PO SCH (22:08)
[2020-08-26] MEDS: DOXAZOSIN MESYLATE 1 MG TABLET PO SCH (22:08)
[2020-08-27] MEDS: HYDROMORPHONE HCL INJ/PF 2 MG/ML AMPULE IV PRN ×4 (01:35→21:25)
[2020-08-27] MEDS: HEPARIN SOD (PORCINE) 5,000 UNIT/ML 1 ML VIAL SUBCUT SCH ×4 (01:35→23:11)
[2020-08-27] MEDS: GABAPENTIN 300 MG CAPSULE PO SCH ×3 (05:14→21:23)
[2020-08-27] MEDS: CLONIDINE HCL 0.2 MG TABLET PO SCH ×3 (05:14→21:24)
[2020-08-27] MEDS: HYDRALAZINE HCL 50 MG TABLET PO SCH ×3 (05:14→21:23)
[2020-08-27] MEDS: PANTOPRAZOLE SODIUM 40 MG TABLET.DR PO SCH (05:14)
[2020-08-27 05:45] LABS: HEMATOCRIT 24.2 % (36.0-47.0); MEAN CORPUSCULAR HEMOGLOBIN 21.4 pg (27.0-33.4); MEAN CORPUSCULAR HGB CONC 33.2 g/dL (32.0-36.0); MEAN CORPUSCULAR VOLUME 65 fl (80-97); PLATELET COUNT 160 10^3/uL (150-450); RED BLOOD COUNT 3.75 10^6/uL (3.72-5.28); RED CELL DISTRIBUTION WIDTH 31.3 % (11.5-14.0); WHITE BLOOD COUNT 8.7 10^3/uL (4.0-10.5)
[2020-08-27 06:00] LABS: ANION GAP 9 (5-19); BLOOD UREA NITROGEN 47 mg/dL (7-20); CALCIUM 9.3 mg/dL (8.4-10.2); CARBON DIOXIDE 32 mmol/L (22-30); CHLORIDE 101 mmol/L (98-107); GLUCOSE 165 mg/dL (75-110); POTASSIUM 3.7 mmol/L (3.6-5.0)
[2020-08-27 06:48] LABS: ABSOLUTE LYMPHOCYTES# (MANUAL) 1.3 10^3/uL (0.5-4.7); ABSOLUTE MONOCYTES # (MANUAL) 0.4 10^3/uL (0.1-1.4); BASOPHILS % (MANUAL) 0 % (0-2); EOSINOPHILS % (MANUAL) 1 % (0-6); LYMPHOCYTES % (MANUAL) 15 % (13-45); MONOCYTES % (MANUAL) 5 % (3-13); SEGMENTED NEUTROPHILS % (MAN) 79 % (42-78); TOTAL CELLS COUNTED 100
[2020-08-27 06:49] LABS: ANISOCYTOSIS 2+; HYPOCHROMASIA 1+; POIKILOCYTOSIS 1+; SCHISTOCYTES SLIGHT
[2020-08-27 06:50] LABS: PLATELET COMMENT DECREASED; TARGET CELLS 1+
[2020-08-27] MEDS: INSULIN LISPRO 100 UNIT/ML 3 ML VIAL SUBCUT SCH ×4 (08:45→21:24)
[2020-08-27] MEDS: BENZTROPINE MESYLATE 1 MG TABLET PO SCH ×2 (08:45→17:28)
[2020-08-27] MEDS: SERTRALINE HCL 50 MG TABLET PO SCH (09:00)
[2020-08-27] MEDS: FUROSEMIDE INJ/PF 40 MG/4 ML SDV IV SCH ×2 (09:00→21:25)
[2020-08-27] MEDS: VALSARTAN 160 MG TABLET PO SCH (09:01)
[2020-08-27] MEDS: METOPROLOL SUCCINATE 50 MG TAB.SR.24H PO SCH (09:02)
[2020-08-27] MEDS: NIFEDIPINE 30 MG TAB.ER.24 PO SCH (13:29)
--- NOTE | 2020-08-27 14:24 | RADIOLOGY REPORT (SQ) ---
EXAM DESCRIPTION: U/S NON-OB PELVIS TV W/O DOP IMAGES COMPLETED DATE/TIME: 08/27/2020 1:54 pm REASON FOR STUDY: reassess possible PID. Need transvaginal approach COMPARISON: CT of the abdomen and pelvis with contrast from 08/12/2020. TECHNIQUE: Dynamic and static grayscale images acquired of the pelvis via transabdominal and transva ginal approach and recorded on PACS. Additional selected color Doppler and spectral images recorded. LIMITATIONS: Evaluation is by the patient's body habitus and pain. FINDINGS: UTERUS: Enlarged fibroid uterus. The normal uterine architecture is distorted limiting ev aluation of the endometrium and cervix ENDOMETRIAL STRIPE: See above CERVIX: See above RIGHT OVARY AND DOPPLER: There is a small amount of free fluid in the adnexum. The ovary was not vis ualized. LEFT OVARY AND DOPPLER: There is a small amount of free fluid in the adnexum. The ovary was not visu alized. FREE FLUID: See above. OTHER: No other findings. IMPRESSION: 1. Enlarged fibroid uterus. The normal uterine architecture is distorted limiting evalu ation of the endometrium and cervix. 2. Free fluid in the adnexa. The ovaries were not visualized. TECHNICAL DOCUMENTATION: JOB ID: [id number] 2010 [employer]- All Rights Reserved Rev-02/05 Reading location - IP/workstation name: [email or web address]
[2020-08-27] MEDS: CEFTRIAXONE 1 GM/D5W RTU 1 GM/50 ML RTUPB IV SCH (17:29)
--- NOTE | 2020-08-27 17:29 | PDOC PROGRESS REPORT ---
Subjective Date:: 08/27/20 Subjective:: Patient is comfortably sitting in the chair this morning when I entered the room . Her urine output has significantly improved for the last 3 days with a volume of 4 to 5 L daily. Her kidney function continues to improve. She was transfused 1 unit of packed RBC last Thursday due to anemia. Her menstrual cycle is finally finished. Nocturnist Physician, Dr. Morillo has seen her and ordered a transvaginal ultrasound but could not be done because she has a Lindsey catheter. Her blood pressure is still goes up and has been suboptimal. Reason For Visit: ABDOMINAL PAIN,SEPSIS,PNEUMONIA,ACUTE ON CHRONIC Physical Exam Vital Signs: Temp Pulse Resp BP Pulse Ox 97.9 F 70 22 H 179/93 H 94 08/27/20 08:00 08/27/20 08:00 08/27/20 08:00 08/27/20 08:00 08/27/20 08:00 Intake & Output 08/26/20 08/27/20 08/28/20 06:59 06:59 06:59 Intake Total 2230 2110 Output Total 5720 4600 Balance -3490 -2490 Weight 138.8 kg 138.9 kg Exam: General appearance: PRESENT: no acute distress, cooperative, well-developed, well-nourished Head exam: PRESENT: atraumatic, normocephalic Eye exam: PRESENT: conjunctiva pale, PERRLA. ABSENT: scleral icterus Neck exam: ABSENT: JVD Respiratory exam: PRESENT: Normal breath sounds. ABSENT: crackles, rales, rhonchi, unlabored, wheezes Cardiovascular exam: PRESENT: Regular rate rhythm -+S1, +S2. ABSENT: diastolic murmur, systolic murmur GI/Abdominal exam: PRESENT: normal bowel sounds, soft. In the right lower quadrant tenderness and around the periumbilical area ABSENT: guarding, mass Extremities exam: Grade 1 bilateral lower extremity pitting edema Neurological exam: PRESENT: alert, awake, oriented to person, place and time. Skin exam: PRESENT: dry, warm, Cardiovascular exam: PRESENT: +S1, +S2. ABSENT: rubs GI/Abdominal exam: PRESENT: normal bowel sounds, soft, tenderness - In the right lower iliac fossa. ABSENT: organomegaly, rebound Results Laboratory Results: 08/27/20 05:18 08/27/20 05:18 08/26/20 08/26/20 08/27/20 09:45 20:07 05:18 WBC 9.7 8.7 RBC 3.97 3.75 Hgb 8.2 L 8.0 L Hct 25.5 L 24.2 L MCV 64 L 65 L MCH 20.6 L 21.4 L MCHC 32.0 33.2 RDW 32.5 H 31.3 H Plt Count 173 160 Seg Neutrophils % Not Reportable Not Reportable Sodium Potassium Chloride Carbon Dioxide Anion Gap BUN Creatinine Est GFR ( Amer) Glucose Calcium Blood Type AB POSITIVE Antibody Screen NEGATIVE 08/27/20 05:18 WBC RBC Hgb Hct MCV MCH MCHC RDW Plt Count Seg Neutrophils % Sodium 142.1 Potassium 3.7 Chloride 101 Carbon Dioxide 32 H Anion Gap 9 BUN 47 H Creatinine 2.44 H Est GFR ( Amer) 27 L Glucose 165 H Calcium 9.3 Blood Type Antibody Screen 08/24/20 12:00 Lindsey Catheter Urine Culture - Final NO GROWTH 2 DAYS 08/12/20 08/12/20 06:40 06:40 Troponin I < 0.012 NT-Pro-B Natriuret Pep 4860 H Impressions: Abdomen X-Ray 08/12/20 00:00 IMPRESSION: 1. No acute findings. Abdomen/Pelvis CT 08/12/20 14:30 IMPRESSION: There are some mildly dilated small bowel loops without appreciable wall thickening to suggest mechanical obstruction. The contrast in the small bowel does not reach the cecum on the 10 minutes delayed scan to further characterize the right lower quadrant. Free fluid noted in both upper quadrants. 5 x 3 x 3 cm rim enhancing fluid in the recto uterine fossa, likely small abscess. The adnexal structures are enlarged bilaterally with a heterogeneous enhancing appearance, this measures approximately 8 cm on the right and 6 cm on the left. There are inflammatory changes adjacent to both adnexa with free fluid noted in both lower quadrants. Pelvis Ultrasound 08/12/20 15:48 IMPRESSION: Free fluid present in both adnexae. Ovaries not visualized. Fibroid uterus. Chest CT 08/14/20 00:00 IMPRESSION: Cardiomegaly with bilateral perihilar atelectasis. No convincing focal areas of pneumonia. Renal Ultrasound 08/17/20 00:00 IMPRESSION: No gross hydronephrosis Chest X-Ray 08/22/20 00:00 IMPRESSION: Cannot exclude very limited pneumonia in the right lung. Assessment & Plan - Diagnosis (1) Acute kidney injury Is this a current diagnosis for this admission?: Yes Plan: Due to multifactorial ATN due to contrast nephropathy, vancomycin toxicity and nephrotoxic medications including losartan, aliskiren, Metformin, and Zosyn initially given. Patient might also have an underlying baseline chronic kidney disease with baseline creatinine around 0.9-1.17. Possible causes of underlying chronic kidney disease include diabetes mellitus and hypertension. Currently on diuretic phase of ATN. I will decrease her Lasix to 20 mg IV every 12 hours so as not to dehydrate her. We will discontinue Lindsey catheter but wi ll try to continue to monitor intake and output. Discussed this with her nurse today. If her Kidney function continues to improve she will not need any further dialysis treatment. Continue to monitor kidney function and electrolytes. (2) Pelvic inflammatory disease Is this a current diagnosis for this admission?: Yes Plan: Has been on vancomycin from 08/12 until 08/15 currently on hold. Completed a week of IV Zosyn. Now started on ceftriaxone. Seen by Dr. Morillo, mold yard supervisor and recommends to add either Flagyl or doxycycline with the ceftriaxone. Defer to Dr. Villagomez. Transvaginal ultrasound also ordered. (3) Hypertension Qualifiers: Hypertension type: essential hypertension Qualified Code(s): I10 - Essential (primary) hypertension Is this a current diagnosis for this admission?: Yes Plan: On clonidine, hydralazine, metoprolol and valsartan currently. Doxazosin added last week. Still uncontrolled. I will start nifedipine 30 mg p.o. daily starting today. 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 (5) Anemia Qualifiers: Iron deficiency anemia type: chronic blood loss Is this a current diagnosis for this admission?: Yes Plan: Severe iron deficiency likely secondary to heavy menstrual cycle which just got done, status post 1 IV Injectafer infusion on 08/22/2020. Status post 1 unit of blood transfusion on 08/25/2020. (6) Metabolic acidosis Is this a current diagnosis for this admission?: Yes Plan: Due to PACO. Resolved. (7) Hyperphosphatemia Is this a current diagnosis for this admission?: Yes Plan: Due to PACO (8) Hypomagnesemia Is this a current diagnosis for this admission?: Yes Plan: Resolved. (9) Morbid obesity Is this a current diagnosis for this admission?: Yes - Time Time with patient: 15-25 minutes
[2020-08-27] MEDS: LURASIDONE HCL 40 MG TABLET PO SCH (17:30)
--- NOTE | 2020-08-27 20:31 | PDOC PROGRESS REPORT ---
Subjective Date:: 08/27/20 Subjective:: Patient was seen by the bedside she was transfused with red blood cells over the weekend, she was seen by gynecology, she had transvaginal ultrasound history of fibroid. Reason For Visit: ABDOMINAL PAIN,SEPSIS,PNEUMONIA,ACUTE ON CHRONIC Physical Exam Vital Signs: Temp Pulse Resp BP Pulse Ox 97.9 F 67 18 146/77 H 95 08/27/20 19:37 08/27/20 19:37 08/27/20 19:37 08/27/20 19:37 08/27/20 19:37 Intake & Output 08/26/20 08/27/20 08/28/20 06:59 06:59 06:59 Intake Total 2230 2110 1160 Output Total 5707 4600 4663 Balance -0610 -8839 -6263 Weight 138.8 kg 138.9 kg 138.9 kg General appearance: PRESENT: no acute distress Eye exam: PRESENT: PERRLA Respiratory exam: PRESENT: clear to auscultation herminia Cardiovascular exam: PRESENT: +S1, +S2 Results Laboratory Results: 08/27/20 05:18 08/27/20 05:18 08/26/20 08/27/20 08/27/20 20:07 05:18 05:18 WBC 9.7 8.7 RBC 3.97 3.75 Hgb 8.2 L 8.0 L Hct 25.5 L 24.2 L MCV 64 L 65 L MCH 20.6 L 21.4 L MCHC 32.0 33.2 RDW 32.5 H 31.3 H Plt Count 173 160 Seg Neutrophils % Not Reportable Not Reportable Sodium 142.1 Potassium 3.7 Chloride 101 Carbon Dioxide 32 H Anion Gap 9 BUN 47 H Creatinine 2.44 H Est GFR ( Amer) 27 L Glucose 165 H Calcium 9.3 08/12/20 08/12/20 06:40 06:40 Troponin I < 0.012 NT-Pro-B Natriuret Pep 4860 H Impressions: Abdomen X-Ray 08/12/20 00:00 IMPRESSION: 1. No acute findings. Abdomen/Pelvis CT 08/12/20 14:30 IMPRESSION: There are some mildly dilated small bowel loops without appreciable wall thickening to suggest mechanical obstruction. The contrast in the small bowel does not reach the cecum on the 10 minutes delayed scan to further characterize the right lower quadrant. Free fluid noted in both upper quadrants. 5 x 3 x 3 cm rim enhancing fluid in the recto uterine fossa, likely small abscess. The adnexal structures are enlarged bilaterally with a heterogeneous enhancing appearance, this measures approximately 8 cm on the right and 6 cm on the left. There are inflammatory changes adjacent to both adnexa with free fluid noted in both lower quadrants. Pelvis Ultrasound 08/12/20 15:48 IMPRESSION: Free fluid present in both adnexae. Ovaries not visualized. Fibroid uterus. Chest CT 08/14/20 00:00 IMPRESSION: Cardiomegaly with bilateral perihilar atelectasis. No convincing focal areas of pneumonia. Renal Ultrasound 08/17/20 00:00 IMPRESSION: No gross hydronephrosis Chest X-Ray 08/22/20 00:00 IMPRESSION: Cannot exclude very limited pneumonia in the right lung. Transvaginal US 08/27/20 00:00 IMPRESSION: 1. Enlarged fibroid uterus. The normal uterine architecture is distorted limiting evaluation of the endometrium and cervix. 2. Free fluid in the adnexa. The ovaries were not visualized. Assessment & Plan - Diagnosis (1) Pelvic inflammatory disease Is this a current diagnosis for this admission?: Yes (2) Type 2 diabetes mellitus with diabetic polyneuropathy Qualifiers: Diabetes mellitus intermission coordinator insulin use: with fci use Qualified Code(s): E11.42 - Type 2 diabetes mellitus with diabetic polyneuropathy; Z79.4 - halfway (current) use of insulin Is this a current diagnosis for this admission?: Yes (3) Coronary artery disease Qualifiers: Coronary Disease-Associated Artery/Lesion type: elem artery [place] vs. transplanted heart: elem heart Associated angina: without angina Qualified Code(s): I25.10 - Atherosclerotic heart disease of elem coronary artery without angina pectoris Is this a current diagnosis for this admission?: Yes (4) Acute kidney injury Is this a current diagnosis for this admission?: Yes Plan: Improving presently in diuretic phase of ATN (5) Hypoglycemia Is this a current diagnosis for this admission?: Yes (6) Anemia due to acute blood loss Is this a current diagnosis for this admission?: Yes Plan: She has anemia due to acute blood loss from her menstrual loss - Time Time Spent with patient: Less than 15 minutes Level of Care: MEDICAL Medications reviewed and adjusted accordingly: Yes Anticipated discharge: Home Anticipated DC Timeframe: within 72 hours
[2020-08-27] MEDS: DOXAZOSIN MESYLATE 1 MG TABLET PO SCH (21:24)
[2020-08-27] MEDS: DOXEPIN HCL 25 MG CAPSULE PO SCH (21:25)
[2020-08-28] MEDS: HYDROMORPHONE HCL INJ/PF 2 MG/ML AMPULE IV PRN ×3 (04:42→17:42)
[2020-08-28] MEDS: CLONIDINE HCL 0.2 MG TABLET PO SCH ×3 (05:12→23:04)
[2020-08-28] MEDS: PANTOPRAZOLE SODIUM 40 MG TABLET.DR PO SCH (05:12)
[2020-08-28] MEDS: GABAPENTIN 300 MG CAPSULE PO SCH ×3 (05:12→23:04)
[2020-08-28] MEDS: HYDRALAZINE HCL 50 MG TABLET PO SCH ×3 (05:13→23:04)
[2020-08-28 05:21] LABS: HEMATOCRIT 26.7 % (36.0-47.0); HEMOGLOBIN 8.6 g/dL (12.0-15.5); MEAN CORPUSCULAR HGB CONC 32.1 g/dL (32.0-36.0); MEAN CORPUSCULAR VOLUME 65 fl (80-97); PLATELET COUNT 150 10^3/uL (150-450); RED BLOOD COUNT 4.08 10^6/uL (3.72-5.28); RED CELL DISTRIBUTION WIDTH 32.8 % (11.5-14.0); WHITE BLOOD COUNT 8.3 10^3/uL (4.0-10.5)
[2020-08-28 05:29] LABS: ANION GAP 8 (5-19); BLOOD UREA NITROGEN 43 mg/dL (7-20); CALCIUM 9.6 mg/dL (8.4-10.2); CARBON DIOXIDE 37 mmol/L (22-30); CHLORIDE 97 mmol/L (98-107); GLUCOSE 172 mg/dL (75-110); POTASSIUM 3.8 mmol/L (3.6-5.0)
[2020-08-28 06:14] LABS: ABSOLUTE LYMPHOCYTES# (MANUAL) 0.8 10^3/uL (0.5-4.7); ABSOLUTE MONOCYTES # (MANUAL) 0.3 10^3/uL (0.1-1.4); BASOPHILS % (MANUAL) 0 % (0-2); EOSINOPHILS % (MANUAL) 1 % (0-6); LYMPHOCYTES % (MANUAL) 10 % (13-45); MONOCYTES % (MANUAL) 4 % (3-13); SEGMENTED NEUTROPHILS % (MAN) 85 % (42-78); TOTAL CELLS COUNTED 100
[2020-08-28 06:20] LABS: TOXIC GRANULATION SLIGHT
[2020-08-28 06:21] LABS: ANISOCYTOSIS 4+; OVALOCYTES 1+; PLATELET COMMENT ADEQUATE; POIKILOCYTOSIS 4+; SCHISTOCYTES 1+; TARGET CELLS 3+; TEAR DROP CELLS SLIGHT
[2020-08-28] MEDS: NIFEDIPINE 30 MG TAB.ER.24 PO SCH (09:47)
[2020-08-28] MEDS: METOPROLOL SUCCINATE 50 MG TAB.SR.24H PO SCH (09:47)
[2020-08-28] MEDS: HEPARIN SOD (PORCINE) 5,000 UNIT/ML 1 ML VIAL SUBCUT SCH ×3 (09:48→23:06)
[2020-08-28] MEDS: BENZTROPINE MESYLATE 1 MG TABLET PO SCH ×2 (09:48→17:42)
[2020-08-28] MEDS: INSULIN LISPRO 100 UNIT/ML 3 ML VIAL SUBCUT SCH ×4 (09:48→23:05)
[2020-08-28] MEDS: FUROSEMIDE INJ/PF 40 MG/4 ML SDV IV SCH ×2 (09:48→23:06)
[2020-08-28] MEDS: SERTRALINE HCL 50 MG TABLET PO SCH (09:48)
[2020-08-28] MEDS: VALSARTAN 160 MG TABLET PO SCH (09:48)
--- NOTE | 2020-08-28 10:34 | PDOC PROGRESS REPORT ---
Subjective Date:: 08/28/20 Subjective:: Patient states that she feels better. She still having pain due on the right lo wer quadrant area. She underwent transvaginal ultrasound yesterday. She denies any shortness of breath. She is still making a lot of urine, 7335 mL urine output for the last 24 hours. Reason For Visit: ABDOMINAL PAIN,SEPSIS,PNEUMONIA,ACUTE ON CHRONIC Physical Exam Vital Signs: Temp Pulse Resp BP Pulse Ox 97.8 F 66 16 145/86 H 99 08/28/20 07:12 08/28/20 07:12 08/28/20 07:12 08/28/20 07:12 08/28/20 07:12 Intake & Output 08/27/20 08/28/20 08/29/20 06:59 06:59 06:59 Intake Total 2110 1680 Output Total 4600 7362 Balance -6550 -1755 Weight 138.9 kg 138.9 kg Exam: General appearance: PRESENT: no acute distress, cooperative, well-developed, well-nourished Head exam: PRESENT: atraumatic, normocephalic Eye exam: PRESENT: conjunctiva pale, PERRLA. ABSENT: scleral icterus Neck exam: ABSENT: JVD Respiratory exam: PRESENT: Diminished breath sounds. ABSENT: crackles, rales, rhonchi, unlabored, wheezes Cardiovascular exam: PRESENT: Regular rate rhythm -+S1, +S2. ABSENT: diastolic murmur, systolic murmur GI/Abdominal exam: PRESENT: normal bowel sounds, soft. Right lower quadrant tenderness unchanged ABSENT: guarding, mass Extremities exam: Grade 1 bilateral lower extremity pitting edema Neurological exam: PRESENT: alert, awake, oriented to person, place and time. Skin exam: PRESENT: dry, warm, Cardiovascular exam: PRESENT: +S1, +S2. ABSENT: rubs GI/Abdominal exam: PRESENT: normal bowel sounds, soft, tenderness - In the right lower iliac fossa. ABSENT: organomegaly, rebound Results Laboratory Results: 08/28/20 04:45 08/28/20 04:45 08/28/20 08/28/20 04:45 04:45 WBC 8.3 RBC 4.08 Hgb 8.6 L Hct 26.7 L MCV 65 L MCH 21.0 L MCHC 32.1 RDW 32.8 H Plt Count 150 Seg Neutrophils % Not Reportable Sodium 141.9 Potassium 3.8 Chloride 97 L Carbon Dioxide 37 H Anion Gap 8 BUN 43 H Creatinine 2.27 H Est GFR ( Amer) 29 L Glucose 172 H Calcium 9.6 08/12/20 08/12/20 06:40 06:40 Troponin I < 0.012 NT-Pro-B Natriuret Pep 4860 H Impressions: Abdomen X-Ray 08/12/20 00:00 IMPRESSION: 1. No acute findings. Abdomen/Pelvis CT 08/12/20 14:30 IMPRESSION: There are some mildly dilated small bowel loops without appreciable wall thickening to suggest mechanical obstruction. The contrast in the small bowel does not reach the cecum on the 10 minutes delayed scan to further characterize the right lower quadrant. Free fluid noted in both upper kelsi drants. 5 x 3 x 3 cm rim enhancing fluid in the recto uterine fossa, likely small abscess. The adnexal structures are enlarged bilaterally with a heterogeneous enhancing appearance, this measures approximately 8 cm on the right and 6 cm on the left. There are inflammatory changes adjacent to both adnexa with free fluid noted in both lower quadrants. Pelvis Ultrasound 08/12/20 15:48 IMPRESSION: Free fluid present in both adnexae. Ovaries not visualized. Fibroid uterus. Chest CT 08/14/20 00:00 IMPRESSION: Cardiomegaly with bilateral perihilar atelectasis. No convincing focal areas of pneumonia. Renal Ultrasound 08/17/20 00:00 IMPRESSION: No gross hydronephrosis Chest X-Ray 08/22/20 00:00 IMPRESSION: Cannot exclude very limited pneumonia in the right lung. Transvaginal US 08/27/20 00:00 IMPRESSION: 1. Enlarged fibroid uterus. The normal uterine architecture is distorted limiting evaluation of the endometrium and cervix. 2. Free fluid in the adnexa. The ovaries were not visualized. Assessment & Plan - Diagnosis (1) Acute kidney injury Is this a current diagnosis for this admission?: Yes Plan: Due to multifactorial ATN due to contrast nephropathy, vancomycin toxicity and nephrotoxic medications including losartan, aliskiren, Metformin, and Zosyn initially given. Patient might also have an underlying baseline chronic kidney disease with baseline creatinine around 0.9-1.17. Possible causes of underlying chronic kidney disease include diabetes mellitus and hypertension. Currently on diuretic phase of ATN. Continue same dose of furosemide 20 mg IV every 12 hours for today. Will probably decrease starting tomorrow. No need for any renal replacement therapy anymore. Continue to monitor kidney function and electrolytes. (2) Pelvic inflammatory disease Is this a current diagnosis for this admission?: Yes Plan: Has been on vancomycin from 08/12 until 08/15 currently on hold. Completed a week of IV Zosyn. Now started on ceftriaxone. Seen by Dr. Morillo, public safety director and recommends to add either Flagyl or doxycycline with the ceftriaxone. Defer to Dr. Villagomez. Transvaginal ultrasound yesterday, 08/27/2020 showed enlarged fibroid uterus. (3) Hypertension Qualifiers: Hypertension type: essential hypertension Qualified Code(s): I10 - Essential (primary) hypertension Is this a current diagnosis for this admission?: Yes Plan: On clonidine, hydralazine, metoprolol and valsartan currently. Doxazosin added last week. Slightly better this morning. I started nifedipine 30 mg p.o. daily yesterday. (4) T2DM (type 2 diabetes mellitus) Qualifiers: Diabetes mellitus intermodal dispatcher insulin use: with intermodal dispatcher use Diabetes mellitus complication status: with kidney complications Diabetes mellitus complication detail: with nephropathy Qualified Code(s): E11.21 - Type 2 diabetes mellitus with diabetic nephropathy; Z79.4 - halfway (current) use of insulin Is this a current diagnosis for this admission?: Yes Plan: Suboptimally controlled. (5) Anemia Qualifiers: Iron deficiency anemia type: chronic blood loss Is this a current diagnosis for this admission?: Yes Plan: Severe iron deficiency likely secondary to heavy menstrual cycle which just got done, status post 1 IV Injectafer infusion on 08/22/2020. Status post 1 unit of blood transfusion on 08/25/2020. Hemoglobin improved to 8.6 today. (6) Metabolic acidosis Is this a current diagnosis for this admission?: Yes Plan: Due to PACO. Resolved. (7) Hyperphosphatemia Is this a current diagnosis for this admission?: Yes Plan: Due to PACO (8) Hypomagnesemia Is this a current diagnosis for this admission?: Yes Plan: Resolved. (9) Morbid obesity Is this a current diagnosis for this admission?: Yes - Time Time with patient: 15-25 minutes
[2020-08-28] MEDS ORDERED: BISACODYL 5 MG TABEC PO ONE (17:30)
[2020-08-28] MEDS: LURASIDONE HCL 40 MG TABLET PO SCH (17:42)
[2020-08-28] MEDS: CEFTRIAXONE 1 GM/D5W RTU 1 GM/50 ML RTUPB IV SCH (17:43)
--- NOTE | 2020-08-28 18:42 | PDOC PROGRESS REPORT ---
Subjective Date:: 08/28/20 Subjective:: Patient seen by the bedside, she is making large volume of urine, the serum crea tinine continues to improve Reason For Visit: ABDOMINAL PAIN,SEPSIS,PNEUMONIA,ACUTE ON CHRONIC Physical Exam Vital Signs: Temp Pulse Resp BP Pulse Ox 97.9 F 67 17 159/98 H 93 08/28/20 16:14 08/28/20 16:14 08/28/20 16:14 08/28/20 16:14 08/28/20 16:14 Intake & Output 08/27/20 08/28/20 08/29/20 06:59 06:59 06:59 Intake Total 2110 1680 118 Output Total 4606 9529 Balance -6120 -1681 118 Weight 138.9 kg 138.9 kg General appearance: PRESENT: no acute distress Eye exam: PRESENT: PERRLA Respiratory exam: PRESENT: clear to auscultation hemrinia Cardiovascular exam: PRESENT: +S1, +S2 GI/Abdominal exam: PRESENT: soft Results Laboratory Results: 08/28/20 04:45 08/28/20 04:45 08/28/20 08/28/20 04:45 04:45 WBC 8.3 RBC 4.08 Hgb 8.6 L Hct 26.7 L MCV 65 L MCH 21.0 L MCHC 32.1 RDW 32.8 H Plt Count 150 Seg Neutrophils % Not Reportable Sodium 141.9 Potassium 3.8 Chloride 97 L Carbon Dioxide 37 H Anion Gap 8 BUN 43 H Creatinine 2.27 H Est GFR ( Amer) 29 L Glucose 172 H Calcium 9.6 08/12/20 08/12/20 06:40 06:40 Troponin I < 0.012 NT-Pro-B Natriuret Pep 4860 H Impressions: Abdomen X-Ray 08/12/20 00:00 IMPRESSION: 1. No acute findings. Abdomen/Pelvis CT 08/12/20 14:30 IMPRESSION: There are some mildly dilated small bowel loops without appreciable wall thickening to suggest mechanical obstruction. The contrast in the small bowel does not reach the cecum on the 10 minutes delayed scan to further characterize the right lower quadrant. Free fluid noted in both upper quadrants. 5 x 3 x 3 cm rim enhancing fluid in the recto uterine fossa, likely small abscess. The adnexal structures are enlarged bilaterally with a heterogeneous enhancing appearance, this measures approximately 8 cm on the right and 6 cm on the left. There are inflammatory changes adjacent to both adnexa with free fluid noted in both lower quadrants. Pelvis Ultrasound 08/12/20 15:48 IMPRESSION: Free fluid present in both adnexae. Ovaries not visualized. Fibroid uterus. Chest CT 08/14/20 00:00 IMPRESSION: Cardiomegaly with bilateral perihilar atelectasis. No convincing focal areas of pneumonia. Renal Ultrasound 08/17/20 00:00 IMPRESSION: No gross hydronephrosis Chest X-Ray 08/22/20 00:00 IMPRESSION: Cannot exclude very limited pneumonia in the right lung. Transvaginal US 08/27/20 00:00 IMPRESSION: 1. Enlarged fibroid uterus. The normal uterine architecture is distorted limiting evaluation of the endometrium and cervix. 2. Free fluid in the adnexa. The ovaries were not visualized. 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 transplanted heart: [place] heart Associated angina: without angina Qualified Code(s): I25.10 - Atherosclerotic heart disease of [place] coronary artery without angina pectoris Is this a current diagnosis for this admission?: Yes (4) Acute kidney injury Is this a current diagnosis for this admission?: Yes Plan: Improving, although fully back to baseline in a few more days (5) Hypoglycemia Is this a current diagnosis for this admission?: Yes (6) Anemia due to acute blood loss Is this a current diagnosis for this admission?: Yes - Time Time Spent with patient: 25-34 minutes Level of Care: MEDICAL Medications reviewed and adjusted accordingly: Yes Anticipated discharge: Home Anticipated DC Timeframe: within 72 hours
[2020-08-28] MEDS: DOXEPIN HCL 25 MG CAPSULE PO SCH (23:04)
[2020-08-28] MEDS: DOXAZOSIN MESYLATE 1 MG TABLET PO SCH (23:04)
[2020-08-29] MEDS: HYDROMORPHONE HCL INJ/PF 2 MG/ML AMPULE IV PRN ×4 (00:18→22:15)
[2020-08-29] MEDS: CLONIDINE HCL 0.2 MG TABLET PO SCH ×3 (05:31→22:13)
[2020-08-29] MEDS: PANTOPRAZOLE SODIUM 40 MG TABLET.DR PO SCH (05:32)
[2020-08-29] MEDS: GABAPENTIN 300 MG CAPSULE PO SCH ×3 (05:32→22:14)
[2020-08-29] MEDS: HYDRALAZINE HCL 50 MG TABLET PO SCH ×3 (05:32→22:12)
[2020-08-29 07:21] LABS: ABSOLUTE BASOPHILS # (AUTO) 0.1 10^3/uL (0.0-0.2); ABSOLUTE EOSINOPHILS # (AUTO) 0.2 10^3/uL (0.0-0.6); ABSOLUTE MONOCYTES (AUTO) 0.5 10^3/uL (0.1-1.4); ABSOLUTE NEUT (AUTO) 4.6 10^3/uL (1.7-8.2); BASOPHILS % (AUTO) 0.8 % (0-2); EOSINOPHILS % (AUTO) 3.2 % (0-6); HEMATOCRIT 25.8 % (36.0-47.0); HEMOGLOBIN 8.3 g/dL (12.0-15.5); LYMPHOCYTES % (AUTO) 27.2 % (13-45); MEAN CORPUSCULAR HEMOGLOBIN 21.2 pg (27.0-33.4); MEAN CORPUSCULAR HGB CONC 32.1 g/dL (32.0-36.0); MEAN CORPUSCULAR VOLUME 66 fl (80-97); MONOCYTES % (AUTO) 7.2 % (3-13); PLATELET COUNT 150 10^3/uL (150-450); RED CELL DISTRIBUTION WIDTH 33.1 % (11.5-14.0); SEGMENTED NEUTROPHILS % (AUTO) 61.6 % (42-78); TOTAL CELLS COUNTED % (AUTO) 100 %; WHITE BLOOD COUNT 7.5 10^3/uL (4.0-10.5)
[2020-08-29 08:21] LABS: ANISOCYTOSIS 4+; HYPOCHROMASIA 1+; POIKILOCYTOSIS 1+
[2020-08-29 08:22] LABS: OVALOCYTES SLIGHT; STOMATOCYTES SLIGHT
[2020-08-29 08:23] LABS: PLATELET COMMENT ADEQUATE; TARGET CELLS SLIGHT
[2020-08-29] MEDS: INSULIN LISPRO 100 UNIT/ML 3 ML VIAL SUBCUT SCH ×4 (08:23→22:14)
[2020-08-29] MEDS: BENZTROPINE MESYLATE 1 MG TABLET PO SCH ×2 (08:23→17:16)
[2020-08-29] MEDS: HEPARIN SOD (PORCINE) 5,000 UNIT/ML 1 ML VIAL SUBCUT SCH ×2 (08:23→17:16)
[2020-08-29] MEDS: NIFEDIPINE 30 MG TAB.ER.24 PO SCH ×3 (11:14→22:14)
[2020-08-29] MEDS: SERTRALINE HCL 50 MG TABLET PO SCH (11:14)
[2020-08-29] MEDS: VALSARTAN 160 MG TABLET PO SCH (11:15)
[2020-08-29] MEDS: FUROSEMIDE INJ/PF 40 MG/4 ML SDV IV SCH (11:15)
[2020-08-29] MEDS: METOPROLOL SUCCINATE 50 MG TAB.SR.24H PO SCH (11:15)
[2020-08-29] MEDS ORDERED: FERRIC CARBOXYMALTOSE 750 MG in NORMAL SALINE 100 ML IV ONE (13:00)
[2020-08-29 13:59] LABS: ALBUMIN 3.5 g/dL (3.5-5.0); ALKALINE PHOSPHATASE 51 U/L (38-126); ANION GAP 7 (5-19); ASPARTATE AMINO TRANSFERASE 17 U/L (14-36); BILIRUBIN,DIRECT 0.3 mg/dL (0.0-0.4); BILIRUBIN,TOTAL 0.4 mg/dL (0.2-1.3); BLOOD UREA NITROGEN 38 mg/dL (7-20); CALCIUM 8.9 mg/dL (8.4-10.2); CARBON DIOXIDE 38 mmol/L (22-30); CHLORIDE 96 mmol/L (98-107); GLUCOSE 161 mg/dL (75-110); POTASSIUM 3.7 mmol/L (3.6-5.0); TOTAL PROTEIN 6.7 g/dL (6.3-8.2)
--- NOTE | 2020-08-29 16:04 | PDOC PROGRESS REPORT ---
Subjective Date:: 08/29/20 Subjective:: Patient seen by the bedside making progress slowly Reason For Visit: ABDOMINAL PAIN,SEPSIS,PNEUMONIA,ACUTE ON CHRONIC Physical Exam Vital Signs: Temp Pulse Resp BP Pulse Ox 97.6 F 77 18 161/83 H 95 08/29/20 11:26 08/29/20 14:00 08/29/20 11:26 08/29/20 11:26 08/29/20 11:26 Intake & Output 08/28/20 08/29/20 08/30/20 06:59 06:59 06:59 Intake Total 1680 2222 450 Output Total 7373 3660 800 Balance -5655 -2478 -350 Weight 138.9 kg 138.9 kg General appearance: PRESENT: no acute distress Eye exam: PRESENT: PERRLA Respiratory exam: PRESENT: clear to auscultation herminia Cardiovascular exam: PRESENT: +S1, +S2 GI/Abdominal exam: PRESENT: soft Results Laboratory Results: 08/29/20 05:38 08/29/20 13:00 08/29/20 08/29/20 08/29/20 05:38 05:38 13:00 WBC 7.5 RBC 3.90 Hgb 8.3 L Hct 25.8 L MCV 66 L MCH 21.2 L MCHC 32.1 RDW 33.1 H Plt Count 150 Seg Neutrophils % 61.6 Sodium Cancelled Potassium Cancelled Chloride Cancelled Carbon Dioxide Cancelled Anion Gap Cancelled BUN Cancelled Creatinine Cancelled Est GFR ( Amer) Cancelled Est GFR (Non-Af Amer) Cancelled Glucose Cancelled Calcium Cancelled Phosphorus 4.4 Total Bilirubin AST Alkaline Phosphatase Total Protein Albumin 08/29/20 13:00 WBC RBC Hgb Hct MCV MCH MCHC RDW Plt Count Seg Neutrophils % Sodium 141.3 Potassium 3.7 Chloride 96 L Carbon Dioxide 38 H Anion Gap 7 BUN 38 H Creatinine 2.22 H Est GFR ( Amer) 30 L Est GFR (Non-Af Amer) Glucose 161 H Calcium 8.9 Phosphorus Total Bilirubin 0.4 AST 17 Alkaline Phosphatase 51 Total Protein 6.7 Albumin 3.5 08/12/20 08/12/20 06:40 06:40 Troponin I < 0.012 NT-Pro-B Natriuret Pep 4860 H Impressions: Abdomen X-Ray 08/12/20 00:00 IMPRESSION: 1. No acute findings. Abdomen/Pelvis CT 08/12/20 14:30 IMPRESSION: There are some mildly dilated small bowel loops without appreciable wall thickening to suggest mechanical obstruction. The contrast in the small bowel does not reach the cecum on the 10 minutes delayed scan to further characterize the right lower quadrant. Free fluid noted in both upper quadrants. 5 x 3 x 3 cm rim enhancing fluid in the recto uterine fossa, likely small abscess. The adnexal structures are enlarged bilaterally with a heterogeneous enhancing appearance, this measures approximately 8 cm on the right and 6 cm on the left. There are inflammatory changes adjacent to both adnexa with free fluid noted in both lower quadrants. Pelvis Ultrasound 08/12/20 15:48 IMPRESSION: Free fluid present in both adnexae. Ovaries not visualized. Fibroid uterus. Chest CT 08/14/20 00:00 IMPRESSION: Cardiomegaly with bilateral perihilar atelectasis. No convincing focal areas of pneumonia. Renal Ultrasound 08/17/20 00:00 IMPRESSION: No gross hydronephrosis Chest X-Ray 08/22/20 00:00 IMPRESSION: Cannot exclude very limited pneumonia in the right lung. Transvaginal US 08/27/20 00:00 IMPRESSION: 1. Enlarged fibroid uterus. The normal uterine architecture is dis torted limiting evaluation of the endometrium and cervix. 2. Free fluid in the adnexa. The ovaries were not visualized. Assessment & Plan - Diagnosis (1) Pelvic inflammatory disease Is this a current diagnosis for this admission?: Yes (2) Type 2 diabetes mellitus with diabetic polyneuropathy Qualifiers: Diabetes mellitus shelter insulin use: with shelter use Qualified Code(s): E11.42 - Type 2 diabetes mellitus with diabetic polyneuropathy; Z79.4 - prison (current) use of insulin Is this a current diagnosis for this admission?: Yes (3) Coronary artery disease Qualifiers: Coronary Disease-Associated Artery/Lesion type: [place] artery [place] vs. transplanted heart: [place] heart Associated angina: without angina Qualified Code(s): I25.10 - Atherosclerotic heart disease of [place] coronary artery without angina pectoris Is this a current diagnosis for this admission?: Yes (4) Acute kidney injury Is this a current diagnosis for this admission?: Yes (5) Hypoglycemia Is this a current diagnosis for this admission?: Yes (6) Anemia due to acute blood loss Is this a current diagnosis for this admission?: Yes - Time Time Spent with patient: 25-34 minutes Level of Care: MEDICAL Medications reviewed and adjusted accordingly: Yes Anticipated discharge: Home - Inpatient Certification Based on my medical assessment, after consideration of the patient's comorbidities, presenting symptoms, or acuity I expect that the services needed warrant INPATIENT care.: Yes I certify that my determination is in accordance with my understanding of Medicare's requirements for reasonable and necessary INPATIENT services [42 CFR 412.3e].: Yes
[2020-08-29] MEDS: CEFTRIAXONE 1 GM/D5W RTU 1 GM/50 ML RTUPB IV SCH (17:17)
[2020-08-29] MEDS: LURASIDONE HCL 40 MG TABLET PO SCH (17:31)
--- NOTE | 2020-08-29 17:42 | PDOC PROGRESS REPORT ---
Subjective Date:: 08/29/20 Subjective:: Patient states that she is doing better. The right lower quadrant pain is subsiding but still there. She is still making a good amount of urine with 4700 mL of urine output for the last 24 hours and -2478 fluid balance. She has no other complaints. Her blood pressures a little bit better but still spiking high at times. Yesterday her blood pressure ranges 140-170/80 to 90s but last night it spiked to 193/111. Reason For Visit: ABDOMINAL PAIN,SEPSIS,PNEUMONIA,ACUTE ON CHRONIC Physical Exam Vital Signs: Temp Pulse Resp BP Pulse Ox 97.6 F 56 L 18 156/82 H 96 08/29/20 09:00 08/29/20 07:48 08/29/20 07:48 08/29/20 07:48 08/29/20 07:48 Intake & Output 08/28/20 08/29/20 08/30/20 06:59 06:59 06:59 Intake Total 1680 2222 Output Total 7335 4700 Balance -5655 -2478 Weight 138.9 kg 138.9 kg Exam: General appearance: PRESENT: no acute distress, cooperative, well-developed, well-nourished Head exam: PRESENT: atraumatic, normocephalic Eye exam: PRESENT: conjunctiva pale, PERRLA. ABSENT: scleral icterus Neck exam: ABSENT: JVD Respiratory exam: PRESENT: Normal breath sounds. ABSENT: crackles, rales, rhonchi, unlabored, wheezes Cardiovascular exam: PRESENT: Regular rate rhythm -+S1, +S2. ABSENT: diastolic murmur, systolic murmur GI/Abdominal exam: PRESENT: normal bowel sounds, soft. ABSENT: guarding, mass, tenderness Extremities exam: Slightly improved grade 1 bilateral lower extremity pitting edema Neurological exam: PRESENT: alert, awake, oriented to person, place and time. Skin exam: PRESENT: dry, warm, Cardiovascular exam: PRESENT: +S1, +S2. ABSENT: rubs GI/Abdominal exam: PRESENT: normal bowel sounds, soft, tenderness - In the right lower iliac fossa. ABSENT: organomegaly, rebound Results Laboratory Results: 08/29/20 05:38 08/28/20 04:45 08/29/20 05:38 WBC 7.5 RBC 3.90 Hgb 8.3 L Hct 25.8 L MCV 66 L MCH 21.2 L MCHC 32.1 RDW 33.1 H Plt Count 150 Seg Neutrophils % 61.6 08/12/20 08/12/20 06:40 06:40 Troponin I < 0.012 NT-Pro-B Natriuret Pep 4860 H Impressions: Abdomen X-Ray 08/12/20 00:00 IMPRESSION: 1. No acute findings. Abdomen/Pelvis CT 08/12/20 14:30 IMPRESSION: There are some mildly dilated small bowel loops without appreciable wall thickening to suggest mechanical obstruction. The contrast in the small bowel does not reach the cecum on the 10 minutes delayed scan to further characterize the right lower quadrant. Free fluid noted in both upper quadrants. 5 x 3 x 3 cm rim enhancing fluid in the recto uterine fossa, likely small abscess. The adnexal structures are enlarged bilaterally with a heterogeneous enhancing appearance, this measures approximately 8 cm on the right and 6 cm on the left. There are inflammatory changes adjacent to both adnexa with free fluid noted in both lower quadrants. Pelvis Ultrasound 08/12/20 15:48 IMPRESSION: Free fluid present in both adnexae. Ovaries not visualized. Fi broid uterus. Chest CT 08/14/20 00:00 IMPRESSION: Cardiomegaly with bilateral perihilar atelectasis. No convincing focal areas of pneumonia. Renal Ultrasound 08/17/20 00:00 IMPRESSION: No gross hydronephrosis Chest X-Ray 08/22/20 00:00 IMPRESSION: Cannot exclude very limited pneumonia in the right lung. Transvaginal US 08/27/20 00:00 IMPRESSION: 1. Enlarged fibroid uterus. The normal uterine architecture is distorted limiting evaluation of the endometrium and cervix. 2. Free fluid in the adnexa. The ovaries were not visualized. Assessment & Plan - Diagnosis (1) Acute kidney injury Is this a current diagnosis for this admission?: Yes Plan: Due to multifactorial ATN due to contrast nephropathy, vancomycin toxicity and nephrotoxic medications including losartan, aliskiren, Metformin, and Zosyn initially given. Patient might also have an underlying baseline chronic kidney disease with baseline creatinine around 0.9-1.17. Possible causes of underlying chronic kidney disease include diabetes mellitus and hypertension. Currently on diuretic phase of ATN. Due to developing metabolic alkalosis, I will change her furosemide to oral 20 mg twice daily. Continue to monitor kidney function and electrolytes. Since patient will no longer need renal replacement therapy, may discontinue her right femoral dialysis catheter. I expect the patient's kidney function to continue to improve. I will sign off at this time. Discussed with Dr. Villagomez. Please call for any questions or if we can be of further help. (2) Pelvic inflammatory disease Is this a current diagnosis for this admission?: Yes Plan: Has been on vancomycin from 08/12 until 08/15 currently on hold. Completed a week of IV Zosyn. Now started on ceftriaxone. Seen by Dr. Morillo, butt presser and recommends to add either Flagyl or doxycycline with the ceftriaxone. Defer to Dr. Villagomez. Transvaginal ultrasound yesterday, 08/27/2020 showed enlarged fibroid uterus. (3) Hypertension Qualifiers: Hypertension type: essential hypertension Qualified Code(s): I10 - Essential (primary) hypertension Is this a current diagnosis for this admission?: Yes Plan: On clonidine, hydralazine, metoprolol and valsartan currently. Doxazosin added last week. Still suboptimal. Change nifedipine to 30 mg every 12 hours. May increase the dose further if necessary. 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 (5) Anemia Qualifiers: Iron deficiency anemia type: chronic blood loss Is this a current diagnosis for this admission?: Yes Plan: Severe iron deficiency likely secondary to heavy menstrual cycle which just got done, status post 1 IV Injectafer infusion on 08/22/2020. Status post 1 unit of blood transfusion on 08/25/2020. Hemoglobin improved to 8.3 today. I will give her another dose of IV Injectafer today. (6) Metabolic acidosis Is this a current diagnosis for this admission?: Yes Plan: Due to PACO. Resolved. (7) Hyperphosphatemia Is this a current diagnosis for this admission?: Yes Plan: Due to PACO. Resolved. (8) Hypomagnesemia Is this a current diagnosis for this admission?: Yes Plan: Resolved. (9) Morbid obesity Is this a current diagnosis for this admission?: Yes - Time Time with patient: 15-25 minutes
[2020-08-29] MEDS: FUROSEMIDE 20 MG TABLET PO SCH (17:50)
[2020-08-29] MEDS: DOXEPIN HCL 25 MG CAPSULE PO SCH (22:20)
[2020-08-29] MEDS: DOXAZOSIN MESYLATE 1 MG TABLET PO SCH (22:23)
[2020-08-30] MEDS: HEPARIN SOD (PORCINE) 5,000 UNIT/ML 1 ML VIAL SUBCUT SCH ×4 (00:07→23:18)
[2020-08-30] MEDS: HYDRALAZINE HCL 50 MG TABLET PO SCH ×3 (05:16→22:17)
[2020-08-30] MEDS: CLONIDINE HCL 0.2 MG TABLET PO SCH ×3 (05:19→22:18)
[2020-08-30] MEDS: PANTOPRAZOLE SODIUM 40 MG TABLET.DR PO SCH (05:19)
[2020-08-30] MEDS: HYDROMORPHONE HCL INJ/PF 2 MG/ML AMPULE IV PRN ×4 (05:20→22:20)
[2020-08-30] MEDS: GABAPENTIN 300 MG CAPSULE PO SCH ×3 (05:20→22:17)
[2020-08-30 07:09] LABS: ABSOLUTE BASOPHILS # (AUTO) 0.1 10^3/uL (0.0-0.2); ABSOLUTE EOSINOPHILS # (AUTO) 0.2 10^3/uL (0.0-0.6); ABSOLUTE LYMPHOCYTES (AUTO) 1.8 10^3/uL (0.5-4.7); ABSOLUTE MONOCYTES (AUTO) 0.6 10^3/uL (0.1-1.4); ABSOLUTE NEUT (AUTO) 4.7 10^3/uL (1.7-8.2); BASOPHILS % (AUTO) 0.9 % (0-2); EOSINOPHILS % (AUTO) 2.6 % (0-6); HEMATOCRIT 28.5 % (36.0-47.0); HEMOGLOBIN 9.2 g/dL (12.0-15.5); LYMPHOCYTES % (AUTO) 24.2 % (13-45); MEAN CORPUSCULAR HEMOGLOBIN 21.2 pg (27.0-33.4); MEAN CORPUSCULAR HGB CONC 32.4 g/dL (32.0-36.0); MEAN CORPUSCULAR VOLUME 66 fl (80-97); PLATELET COUNT 150 10^3/uL (150-450); RED BLOOD COUNT 4.36 10^6/uL (3.72-5.28); RED CELL DISTRIBUTION WIDTH 34.1 % (11.5-14.0); SEGMENTED NEUTROPHILS % (AUTO) 64.3 % (42-78); TOTAL CELLS COUNTED % (AUTO) 100 %; WHITE BLOOD COUNT 7.3 10^3/uL (4.0-10.5)
[2020-08-30 07:53] LABS: ANISOCYTOSIS 4+; HYPOCHROMASIA 1+; POIKILOCYTOSIS 1+
[2020-08-30 07:54] LABS: OVALOCYTES SLIGHT; POLYCHROMASIA 1+; STOMATOCYTES SLIGHT; TARGET CELLS SLIGHT
[2020-08-30 07:55] LABS: PLATELET COMMENT ADEQUATE
[2020-08-30] MEDS: INSULIN LISPRO 100 UNIT/ML 3 ML VIAL SUBCUT SCH ×4 (08:01→22:19)
[2020-08-30] MEDS: BENZTROPINE MESYLATE 1 MG TABLET PO SCH ×2 (08:01→17:00)
[2020-08-30] MEDS: NIFEDIPINE 30 MG TAB.ER.24 PO SCH ×2 (10:54→22:18)
[2020-08-30] MEDS: SERTRALINE HCL 50 MG TABLET PO SCH (10:54)
[2020-08-30] MEDS: VALSARTAN 160 MG TABLET PO SCH (10:55)
[2020-08-30] MEDS: FUROSEMIDE 20 MG TABLET PO SCH (10:55)
[2020-08-30] MEDS: METOPROLOL SUCCINATE 50 MG TAB.SR.24H PO SCH (10:55)
[2020-08-30 15:14] LABS: ALBUMIN 3.8 g/dL (3.5-5.0); ALKALINE PHOSPHATASE 51 U/L (38-126); ANION GAP 7 (5-19); ASPARTATE AMINO TRANSFERASE 23 U/L (14-36); BILIRUBIN,DIRECT 0.2 mg/dL (0.0-0.4); BILIRUBIN,TOTAL 0.4 mg/dL (0.2-1.3); BLOOD UREA NITROGEN 32 mg/dL (7-20); CALCIUM 9.2 mg/dL (8.4-10.2); CHLORIDE 95 mmol/L (98-107); GLUCOSE 152 mg/dL (75-110); POTASSIUM 3.4 mmol/L (3.6-5.0); TOTAL PROTEIN 7.3 g/dL (6.3-8.2)
[2020-08-30 15:27] LABS: CARBON DIOXIDE 40 mmol/L (22-30)
[2020-08-30] MEDS ORDERED: NORMAL SALINE 1000 ML 1,000 ML IV PRN (15:42)
[2020-08-30] MEDS: CEFTRIAXONE 1 GM/D5W RTU 1 GM/50 ML RTUPB IV SCH (17:00)
[2020-08-30] MEDS: LURASIDONE HCL 40 MG TABLET PO SCH (17:15)
--- NOTE | 2020-08-30 19:48 | PDOC PROGRESS REPORT ---
Subjective Date:: 08/30/20 Subjective:: Patient is seen by the bedside, she is over diuresed, She will be treated with IV fluid to rehydrate Reason For Visit: ABDOMINAL PAIN,SEPSIS,PNEUMONIA,ACUTE ON CHRONIC Physical Exam Vital Signs: Temp Pulse Resp BP Pulse Ox 98.2 F 66 18 174/99 H 93 08/30/20 16:26 08/30/20 16:26 08/30/20 16:26 08/30/20 16:26 08/30/20 16:26 Intake & Output 08/29/20 08/30/20 08/31/20 06:59 06:59 06:59 Intake Total 2222 1734 725 Output Total 4151 0650 Balance -8433 -9992 725 Weight 138.9 kg 138.9 kg General appearance: PRESENT: no acute distress Eye exam: PRESENT: PERRLA Respiratory exam: PRESENT: clear to auscultation herminia Cardiovascular exam: PRESENT: +S1, +S2 GI/Abdominal exam: PRESENT: soft Neurological exam: PRESENT: alert Results Laboratory Results: 08/30/20 05:50 08/30/20 14:40 08/30/20 08/30/20 05:50 14:40 WBC 7.3 RBC 4.36 Hgb 9.2 L Hct 28.5 L MCV 66 L MCH 21.2 L MCHC 32.4 RDW 34.1 H Plt Count 150 Seg Neutrophils % 64.3 Sodium 141.7 Potassium 3.4 L Chloride 95 L Carbon Dioxide 40 H* Anion Gap 7 BUN 32 H Creatinine 2.12 H Est GFR ( Amer) 31 L Glucose 152 H Calcium 9.2 Total Bilirubin 0.4 AST 23 Alkaline Phosphatase 51 Total Protein 7.3 Albumin 3.8 08/12/20 08/12/20 06:40 06:40 Troponin I < 0.012 NT-Pro-B Natriuret Pep 4860 H Impressions: Abdomen X-Ray 08/12/20 00:00 IMPRESSION: 1. No acute findings. Abdomen/Pelvis CT 08/12/20 14:30 IMPRESSION: There are some mildly dilated small bowel loops without appreciable wall thickening to suggest mechanical obstruction. The contrast in the small bowel does not reach the cecum on the 10 minutes delayed scan to further characterize the right lower quadrant. Free fluid noted in both upper quadrants. 5 x 3 x 3 cm rim enhancing fluid in the recto uterine fossa, likely small abscess. The adnexal structures are enlarged bilaterally with a heterogeneous enhancing appearance, this measures approximately 8 cm on the right and 6 cm on the left. There are inflammatory changes adjacent to both adnexa with free fluid noted in both lower quadrants. Pelvis Ultrasound 08/12/20 15:48 IMPRESSION: Free fluid present in both adnexae. Ovaries not visualized. Fibroid uterus. Chest CT 08/14/20 00:00 IMPRESSION: Cardiomegaly with bilateral perihilar atelectasis. No convincing focal areas of pneumonia. Renal Ultrasound 08/17/20 00:00 IMPRESSION: No gross hydronephrosis Chest X-Ray 08/22/20 00:00 IMPRESSION: Cannot exclude very limited pneumonia in the right lung. Transvaginal US 08/27/20 00:00 IMPRESSION: 1. Enlarged fibroid uterus. The normal uterine architecture is distorted limiting evaluation of the endometrium and cervix. 2. Free fluid in the adnexa. The ovaries were not visualized. Assessment & Plan - Diagnosis (1) Pelvic inflammatory disease Is this a current diagnosis for this admission?: Yes (2) Type 2 diabetes mellitus with diabetic polyneuropathy Qualifiers: Diabetes mellitus moth exterminator insulin use: with moth exterminator use Qualified Code(s): E11.42 - Type 2 diabetes mellitus with diabetic polyneuropathy; Z79.4 - exterminator (current) use of insulin Is this a current diagnosis for this admission?: Yes (3) Coronary artery disease Qualifiers: Coronary Disease-Associated Artery/Lesion type: [place] artery [place] vs. transplanted heart: [place] heart Associated angina: without angina Qualified Code(s): I25.10 - Atherosclerotic heart disease of [place] coronary artery without angina pectoris Is this a current diagnosis for this admission?: Yes (4) Acute kidney injury Is this a current diagnosis for this admission?: Yes (5) Hypoglycemia Is this a current diagnosis for this admission?: Yes (6) Anemia due to acute blood loss Is this a current diagnosis for this admission?: Yes - Time Time Spent with patient: 25-34 minutes Level of Care: MEDICAL Medications reviewed and adjusted accordingly: Yes Anticipated discharge: Home Anticipated DC Timeframe: within 72 hours
[2020-08-30] MEDS: DOXEPIN HCL 25 MG CAPSULE PO SCH (22:19)
[2020-08-30] MEDS: DOXAZOSIN MESYLATE 1 MG TABLET PO SCH (23:00)
[2020-08-31] MEDS: GABAPENTIN 300 MG CAPSULE PO SCH ×2 (05:09→14:47)
[2020-08-31] MEDS: PANTOPRAZOLE SODIUM 40 MG TABLET.DR PO SCH (05:10)
[2020-08-31] MEDS: HYDRALAZINE HCL 50 MG TABLET PO SCH ×2 (05:10→14:47)
[2020-08-31] MEDS: CLONIDINE HCL 0.2 MG TABLET PO SCH ×2 (05:10→14:47)
[2020-08-31] MEDS: HYDROMORPHONE HCL INJ/PF 2 MG/ML AMPULE IV PRN ×3 (05:10→14:46)
[2020-08-31 06:38] LABS: ABSOLUTE EOSINOPHILS # (AUTO) 0.3 10^3/uL (0.0-0.6); ABSOLUTE LYMPHOCYTES (AUTO) 1.5 10^3/uL (0.5-4.7); ABSOLUTE MONOCYTES (AUTO) 0.6 10^3/uL (0.1-1.4); ABSOLUTE NEUT (AUTO) 4.4 10^3/uL (1.7-8.2); BASOPHILS % (AUTO) 0.6 % (0-2); HEMATOCRIT 27.5 % (36.0-47.0); HEMOGLOBIN 8.7 g/dL (12.0-15.5); LYMPHOCYTES % (AUTO) 22.1 % (13-45); MEAN CORPUSCULAR HEMOGLOBIN 21.5 pg (27.0-33.4); MEAN CORPUSCULAR HGB CONC 31.8 g/dL (32.0-36.0); MEAN CORPUSCULAR VOLUME 68 fl (80-97); MONOCYTES % (AUTO) 8.6 % (3-13); PLATELET COUNT 117 10^3/uL (150-450); RED BLOOD COUNT 4.06 10^6/uL (3.72-5.28); RED CELL DISTRIBUTION WIDTH 33.8 % (11.5-14.0); SEGMENTED NEUTROPHILS % (AUTO) 64.7 % (42-78); TOTAL CELLS COUNTED % (AUTO) 100 %; WHITE BLOOD COUNT 6.8 10^3/uL (4.0-10.5)
[2020-08-31 07:02] LABS: ANISOCYTOSIS 4+; POIKILOCYTOSIS SLIGHT; POLYCHROMASIA SLIGHT; TARGET CELLS SLIGHT
[2020-08-31 07:03] LABS: PLATELET COMMENT DECREASED
[2020-08-31] MEDS: HEPARIN SOD (PORCINE) 5,000 UNIT/ML 1 ML VIAL SUBCUT SCH ×2 (07:31→17:02)
[2020-08-31] MEDS: BENZTROPINE MESYLATE 1 MG TABLET PO SCH ×2 (08:15→17:20)
[2020-08-31] MEDS: INSULIN LISPRO 100 UNIT/ML 3 ML VIAL SUBCUT SCH ×3 (08:15→17:20)
[2020-08-31 09:20] LABS: ALBUMIN 3.6 g/dL (3.5-5.0); ALKALINE PHOSPHATASE 54 U/L (38-126); ANION GAP 9 (5-19); ASPARTATE AMINO TRANSFERASE 24 U/L (14-36); BILIRUBIN,DIRECT 0.1 mg/dL (0.0-0.4); BILIRUBIN,TOTAL 0.4 mg/dL (0.2-1.3); BLOOD UREA NITROGEN 28 mg/dL (7-20); CALCIUM 8.6 mg/dL (8.4-10.2); CARBON DIOXIDE 33 mmol/L (22-30); CHLORIDE 97 mmol/L (98-107); GLUCOSE 205 mg/dL (75-110); POTASSIUM 3.4 mmol/L (3.6-5.0); TOTAL PROTEIN 6.4 g/dL (6.3-8.2)
[2020-08-31] MEDS: SERTRALINE HCL 50 MG TABLET PO SCH (10:26)
[2020-08-31] MEDS: METOPROLOL SUCCINATE 50 MG TAB.SR.24H PO SCH (10:26)
[2020-08-31] MEDS: VALSARTAN 160 MG TABLET PO SCH (10:26)
[2020-08-31] MEDS: NIFEDIPINE 30 MG TAB.ER.24 PO SCH (10:27)
[2020-08-31] MEDS: LURASIDONE HCL 40 MG TABLET PO SCH (17:20)
[2020-08-31 18:24] VITALS: BP 173/94
--- NOTE | 2020-08-31 20:04 | PDOC DISCHARGE SUMMARY ---
Impression - Admit/DC Date/PCP Admission Date/Primary Care Provider: 08/12/20 18:00 DORIE LUGO MD Discharge Date: 08/31/20 - Discharge Diagnosis (1) Pelvic inflammatory disease Is this a current diagnosis for this admission?: Yes (2) Type 2 diabetes mellitus with diabetic polyneuropathy Is this a current diagnosis for this admission?: Yes (3) Coronary artery disease Is this a current diagnosis for this admission?: Yes (4) Acute kidney injury Is this a current diagnosis for this admission?: Yes (5) Hypoglycemia Is this a current diagnosis for this admission?: Yes (6) Anemia due to acute blood loss Is this a current diagnosis for this admission?: Yes - Additional Information Resuscitation Status: Full Code Discharge Diet: Diabetic Discharge Activity: Activity As Tolerated, Balance Activity w/Rest Referrals: DORIE LUGO MD [Primary Care Provider] - Follow up as needed Prescriptions: Hydrocodone/Acetaminophen [[place] 10-325 Tablet] 1 each PO Q6H #20 tablet Nifedipine [Procardia XL 30 mg Tablet] 30 mg PO Q12 #60 tab.er.24 Home Medications: Hydralazine HCl [Apresoline 50 mg Tablet] 100 mg PO TID 09/26/13 Clonidine HCl [Catapres] 0.3 mg PO TID 04/25/15 Alprazolam 0.5 mg PO BIDP PRN 01/25/20 Insulin Glargine,Hum.rec.anlog [Lantus Insulin 100 Unit/1 ml 10 ml] 50 unit SQ BID 01/25/20 Lurasidone HCl [Latuda 40 mg Tablet] 40 mg PO QPM 01/25/20 Aliskiren Hemifumarate [[place] 300 mg Tablet] 300 mg PO DAILY 04/13/20 Gabapentin [Neurontin] 600 mg PO Q8 04/13/20 Metformin HCl 1,000 mg PO BID 04/13/20 Albuterol Sulfate [Proair HFA Inhalation Aerosol 8.5 gm MDI] 1 puff IH Q4HP PRN 07/31/20 Benztropine Mesylate [Cogentin 1 mg Tablet] 1 mg PO QAM 07/31/20 Benztropine Mesylate [Cogentin 1 mg Tablet] 2 mg PO QPM 07/31/20 Metoprolol Succinate [Toprol Xl] 200 mg PO DAILY 07/31/20 Doxepin HCl [[place] 25 Mg Capsule] 25 mg PO QHS 08/13/20 Insulin Aspart [Novolog Flexpen] 0 unit SUBCUT .SLD SCALE 08/13/20 Sertraline HCl 200 mg PO DAILY 08/13/20 Clonidine HCl [Catapres 0.2 mg Tablet] 0.3 mg PO Q8 tablet 08/31/20 Hydrocodone/Acetaminophen [[place] 10-325 Tablet] 1 each PO Q6H #20 tablet 08/31/20 Metoprolol Succinate [Toprol Xl 50 mg Tab.sr] 100 mg PO DAILY tab.sr.24h 08/31/20 Nifedipine [Procardia XL 30 mg Tablet] 30 mg PO Q12 #60 tab.er.24 08/31/20 History of Present Illiness History of Present Illness: YULIANA ALVARADO is a 39 year old female Physical Exam Vital Signs: Temp Pulse Resp BP Pulse Ox 98.6 F 64 16 173/94 H 93 08/31/20 18:23 08/31/20 18:23 08/31/20 18:23 08/31/20 18:23 08/31/20 18:23 Intake & Output 08/30/20 08/31/20 09/01/20 06:59 06:59 06:59 Intake Total 1734 1505 2071 Output Total 6800 900 1700 Balance -5066 605 371 Weight 138.9 kg 126.7 kg Results Laboratory Results: WBC 6.8 10^3/uL (4.0-10.5) 08/31/20 05:20 RBC 4.06 10^6/uL (3.72-5.28) 08/31/20 05:20 Hgb 8.7 g/dL (12.0-15.5) L 08/31/20 05:20 Hct 27.5 % (36.0-47.0) L 08/31/20 05:20 MCV 68 fl (80-97) L 08/31/20 05:20 MCH 21.5 pg (27.0-33.4) L 08/31/20 05:20 MCHC 31.8 g/dL (32.0-36.0) L 08/31/20 05:20 RDW 33.8 % (11.5-14.0) H 08/31/20 05:20 Plt Count 117 10^3/uL (150-450) L 08/31/20 05:20 Lymph % (Auto) 22.1 % (13-45) 08/31/20 05:20 [place] % (Auto) 8.6 % (3-13) 08/31/20 05:20 Eos % (Auto) 4.0 % (0-6) 08/31/20 05:20 Baso % (Auto) 0.6 % (0-2) 08/31/20 05:20 Reticulocyte # 0.063 10^6/uL (0.028-0.122) 08/22/20 04:40 Absolute Neuts (auto) 4.4 10^3/uL (1.7-8.2) 08/31/20 05:20 Absolute Lymphs (auto) 1.5 10^3/uL (0.5-4.7) 08/31/20 05:20 Absolute Monos (auto) 0.6 10^3/uL (0.1-1.4) 08/31/20 05:20 Absolute Eos (auto) 0.3 10^3/uL (0.0-0.6) 08/31/20 05:20 Absolute Basos (auto) 0.0 10^3/uL (0.0-0.2) 08/31/20 05:20 Total Counted 100 08/28/20 04:45 Seg Neutrophils % 64.7 % (42-78) 08/31/20 05:20 Seg Neuts % (Manual) 85 % (42-78) H 08/28/20 04:45 Lymphocytes % (Manual) 10 % (13-45) L 08/28/20 04:45 Atypical Lymphs % 1 % (0) 08/23/20 06:20 Monocytes % (Manual) 4 % (3-13) 08/28/20 04:45 Eosinophils % (Manual) 1 % (0-6) 08/28/20 04:45 Basophils % (Manual) 0 % (0-2) 08/28/20 04:45 Abs Neuts (Manual) 7.1 10^3/uL (1.7-8.2) 08/28/20 04:45 Abs Lymphs (Manual) 0.8 10^3/uL (0.5-4.7) 08/28/20 04:45 Abs Monocytes (Manual) 0.3 10^3/uL (0.1-1.4) 08/28/20 04:45 Absolute Eos (Manual) 0.1 10^3/uL (0.0-0.6) 08/28/20 04:45 Abs Basophils (Manual) 0.0 10^3/uL (0.0-0.2) 08/28/20 04:45 Nucleated RBCs 1 /100 WBC (0) 08/25/20 04:45 Toxic Granulation SLIGHT 08/28/20 04:45 Toxic Vacuolation PRESENT 08/14/20 22:40 Platelet Estimate Cancelled 08/12/20 06:40 Clumped Platelets PRESENT 08/23/20 06:20 Large Platelets PRESENT 08/16/20 05:20 Platelet Comment DECREASED 08/31/20 05:20 Polychromasia SLIGHT 08/31/20 05:20 Hypochromasia 1+ 08/30/20 05:50 Poikilocytosis SLIGHT 08/31/20 05:20 Anisocytosis 4+ 08/31/20 05:20 Microcytosis SLIGHT 08/31/20 05:20 Target Cells SLIGHT 08/31/20 05:20 Tear Drop Cells SLIGHT 08/28/20 04:45 Ovalocytes SLIGHT 08/30/20 05:50 Stomatocytes SLIGHT 08/30/20 05:50 Helmet Cells SLIGHT 08/25/20 04:45 [place] Cells SLIGHT 08/18/20 05:00 Schistocytes 1+ 08/28/20 04:45 Retic Count (auto) 1.74 % (0.66-2.85) 08/22/20 04:40 Sodium 138.6 mmol/L (137-145) 08/31/20 08:30 Potassium 3.4 mmol/L (3.6-5.0) L 08/31/20 08:30 Chloride 97 mmol/L (98-107) L 08/31/20 08:30 Carbon Dioxide 33 mmol/L (22-30) H 08/31/20 08:30 Anion Gap 9 (5-19) 08/31/20 08:30 BUN 28 mg/dL (7-20) H 08/31/20 08:30 Creatinine 1.76 mg/dL (0.52-1.25) H 08/31/20 08:30 Est GFR ( Amer) 39 (>60) L 08/31/20 08:30 Est GFR (Non-Af Amer) Cancelled 08/29/20 05:38 Est GFR (MDRD) Non-Af 32 (>60) L 08/31/20 08:30 Glucose 205 mg/dL (75-110) H 08/31/20 08:30 POC Glucose 137 mg/dL (70-110) H 08/31/20 11:18 Lactic Acid 1.0 mmol/L (0.7-2.1) 08/12/20 12:20 Calcium 8.6 mg/dL (8.4-10.2) 08/31/20 08:30 Phosphorus 4.4 mg/dL (2.5-4.5) 08/29/20 13:00 Magnesium 1.6 mg/dL (1.6-2.3) 08/20/20 05:25 Iron 12.1 ug/dL (37-170) L 08/22/20 04:40 TIBC 281 ug/dL (250-450) 08/22/20 04:40 % Saturation 4 % 08/22/20 04:40 Ferritin 20.80 ng/mL (6.2-137.0) 08/22/20 04:40 Total Bilirubin 0.4 mg/dL (0.2-1.3) 08/31/20 08:30 Direct Bilirubin 0.1 mg/dL (0.0-0.4) 08/31/20 08:30 Neonat Total Bilirubin Not Reportable 08/31/20 08:30 Neonat Direct Bilirubin Not Reportable 08/31/20 08:30 Neonat Indirect Bili Not Reportable 08/31/20 08:30 AST 24 U/L (14-36) 08/31/20 08:30 ALT 12 U/L (<35) 08/31/20 08:30 Alkaline Phosphatase 54 U/L (38-126) 08/31/20 08:30 Troponin I < 0.012 ng/mL 08/12/20 06:40 NT-Pro-B Natriuret Pep 4860 pg/mL (<125) H 08/12/20 06:40 Total Protein 6.4 g/dL (6.3-8.2) 08/31/20 08:30 Albumin 3.6 g/dL (3.5-5.0) 08/31/20 08:30 Globulin 3.2 g/dL (2.2-3.9) 08/22/20 04:40 Albumin/Globulin Ratio 0.8 (0.7-1.7) 08/22/20 04:40 Fdxmg-0-Knenecpzl 0.4 g/dL (0.0-0.4) 08/22/20 04:40 Beta Globulins 1.0 g/dL (0.7-1.3) 08/22/20 04:40 Gamma Globulins 1.0 g/dL (0.4-1.8) 08/22/20 04:40 M-Feng Not Observed g/dL (Not Observ) 08/22/20 04:40 PEP Note Comment (.) 08/22/20 04:40 PEP Interpretation Comment (.) 08/22/20 04:40 Lipase 109.3 U/L (23-300) 08/12/20 06:40 EGFR Cancelled 08/29/20 05:38 Vitamin B12 > 1000.0 pg/mL (239-931) H 08/22/20 04:40 Folate 5.10 ng/mL (>2.76) 08/22/20 04:40 Urine Color STRAW 08/24/20 12:00 Urine Appearance CLEAR 08/24/20 12:00 Urine pH 5.0 (5.0-9.0) 08/24/20 12:00 Ur Specific [place] 1.006 08/24/20 12:00 Urine Protein 30 mg/dL (NEGATIVE) H 08/24/20 12:00 Urine Glucose (UA) NEGATIVE mg/dL (NEGATIVE) 08/24/20 12:00 Urine Ketones NEGATIVE mg/dL (NEGATIVE) 08/24/20 12:00 Urine Blood NEGATIVE (NEGATIVE) 08/24/20 12:00 Urine Nitrite NEGATIVE (NEGATIVE) 08/24/20 12:00 Urine Nitrite (Reflex) NEGATIVE (NEGATIVE) 08/17/20 23:45 Urine Bilirubin NEGATIVE (NEGATIVE) 08/24/20 12:00 Urine Urobilinogen NEGATIVE mg/dL (<2.0) 08/24/20 12:00 Ur Leukocyte Esterase SMALL (NEGATIVE) H 08/24/20 12:00 Leukocyte Esterase Rfl SMALL (NEGATIVE) H 08/17/20 23:45 Urine WBC (Auto) 7 /HPF 08/24/20 12:00 Urine RBC (Auto) 7 /HPF 08/24/20 12:00 Urine Bacteria (Auto) TRACE /HPF 08/24/20 12:00 Urine WBC (Reflex) 13 /HPF 08/17/20 23:45 Squamous Epi Cells Auto <1 /HPF 08/24/20 12:00 Amorphous Sediment Auto 1+ /HPF 08/17/20 23:45 Urine Mucus (Auto) RARE /LPF 08/24/20 12:00 Urine Creatinine 204.2 mg/dL (Not Estab.) 08/16/20 17:50 Urine Creatinine 219.7 mg/dL (16-327) 08/16/20 17:50 Urine Microalbumin 341.6 ug/mL (Not Estab.) 08/16/20 17:50 Microalb/Creat Ratio 167 mg/g creat (0-29) H 08/16/20 17:50 Urine Sodium 17 mmol/L (30-90) L 08/16/20 17:50 Urine Ascorbic Acid NEGATIVE (NEGATIVE) 08/24/20 12:00 Urine HCG, Qual NEGATIVE (NEGATIVE) 08/12/20 05:23 Time Trough Drawn 0700 08/22/20 07:00 Vancomycin Trough 8.8 ug/mL (5.0-20.0) 08/22/20 07:00 Jpmuc-9-Ccfsflabd MINDY 0.8 g/dL (0.4-1.0) 08/22/20 04:40 Chlamydia DNA (PCR) NOT DETECTED (NOT DETECT) 08/26/20 15:56 Hep Bs Antigen Negative (Negative) 08/17/20 06:11 Hep Bs Antibody, Quant <3.1 mIU/mL (Immunity>9) L 08/17/20 06:11 Hep B Core Total Ab Negative (Negative) 08/17/20 06:11 HCV Quantitation HCV Not Detected IU/mL (.) 08/17/20 06:11 HCV RNA PCR Test Info Comment (.) 08/17/20 06:11 N.gonorrhoeae DNA (PCR) NOT DETECTED (NOT DETECT) 08/26/20 15:56 Slides for Path Review Cancelled 08/12/20 06:40 Blood Type AB POSITIVE 08/26/20 09:45 Antibody Screen NEGATIVE 08/26/20 09:45 Crossmatch See Detail 08/26/20 09:45 08/12/20 08/12/20 06:40 06:40 Troponin I < 0.012 NT-Pro-B Natriuret Pep 4860 H Impressions: Abdomen X-Ray 08/12/20 00:00 IMPRESSION: 1. No acute findings. Chest X-Ray 08/12/20 11:47 IMPRESSION: NO PNEUMOTHORAX FOLLOWING CENTRAL LINE PLACEMENT. HAZY AIRSPACE DISEASE. Abdomen/Pelvis CT 08/12/20 14:30 IMPRESSION: There are some mildly dilated small bowel loops without appreciable wall thickening to suggest mechanical obstruction. The contrast in the small bowel does not reach the cecum on the 10 minutes delayed scan to further characterize the right lower quadrant. Free fluid noted in both upper quadrants. 5 x 3 x 3 cm rim enhancing fluid in the recto uterine fossa, likely small abscess. The adnexal structures are enlarged bilaterally with a heterogeneous enhancing appearance, this measures approximately 8 cm on the right and 6 cm on the left. There are inflammatory changes adjacent to both adnexa with free fluid noted in both lower quadrants. Pelvis Ultrasound 08/12/20 15:48 IMPRESSION: Free fluid present in both adnexae. Ovaries not visualized. Fibroid uterus. Chest CT 08/14/20 00:00 IMPRESSION: Cardiomegaly with bilateral perihilar atelectasis. No convincing focal areas of pneumonia. Renal Ultrasound 08/17/20 00:00 IMPRESSION: No gross hydronephrosis Chest X-Ray 08/22/20 00:00 IMPRESSION: Cannot exclude very limited pneumonia in the right lung. Transvaginal US 08/27/20 00:00 IMPRESSION: 1. Enlarged fibroid uterus. The normal uterine architecture is distorted limiting evaluation of the endometrium and cervix. 2. Free fluid in the adnexa. The ovaries were not visualized.
--- NOTE | 2020-09-01 16:07 | PDOC DISCHARGE SUMMARY ---
Impression - Admit/DC Date/PCP Admission Date/Primary Care Provider: 08/12/20 18:00 DORIE LUGO MD Discharge Date: 08/31/20 - Discharge Diagnosis (1) Pelvic inflammatory disease Is this a current diagnosis for this admission?: Yes (2) Type 2 diabetes mellitus with diabetic polyneuropathy Is this a current diagnosis for this admission?: Yes (3) Coronary artery disease Is this a current diagnosis for this admission?: Yes (4) Acute kidney injury Is this a current diagnosis for this admission?: Yes (5) Hypoglycemia Is this a current diagnosis for this admission?: Yes (6) Anemia due to acute blood loss Is this a current diagnosis for this admission?: Yes (7) Acute tubular necrosis Is this a current diagnosis for this admission?: Yes (8) Leiomyoma Is this a current diagnosis for this admission?: Yes - Additional Information Resuscitation Status: Full Code Discharge Diet: Diabetic Discharge Activity: Activity As Tolerated, Balance Activity w/Rest Referrals: DORIE LUGO MD [Primary Care Provider] - Follow up as needed Prescriptions: Hydrocodone/Acetaminophen [[place] 10-325 Tablet] 1 each PO Q6H #20 tablet Nifedipine [Procardia XL 30 mg Tablet] 30 mg PO Q12 #60 tab.er.24 Home Medications: Hydralazine HCl [Apresoline 50 mg Tablet] 100 mg PO TID 09/26/13 Clonidine HCl [Catapres] 0.3 mg PO TID 04/25/15 Alprazolam 0.5 mg PO BIDP PRN 01/25/20 Insulin Glargine,Hum.rec.anlog [Lantus Insulin 100 Unit/1 ml 10 ml] 50 unit SQ BID 01/25/20 Lurasidone HCl [Latuda 40 mg Tablet] 40 mg PO QPM 01/25/20 Aliskiren Hemifumarate [T[place]turna 300 mg Tablet] 300 mg PO DAILY 04/13/20 Gabapentin [Neurontin] 600 mg PO Q8 04/13/20 Metformin HCl 1,000 mg PO BID 04/13/20 Albuterol Sulfate [Proair HFA Inhalation Aerosol 8.5 gm MDI] 1 puff IH Q4HP PRN 07/31/20 Benztropine Mesylate [Cogentin 1 mg Tablet] 1 mg PO QAM 07/31/20 Benztropine Mesylate [Cogentin 1 mg Tablet] 2 mg PO QPM 07/31/20 Metoprolol Succinate [Toprol Xl] 200 mg PO DAILY 07/31/20 Doxepin HCl [[place] 25 Mg Capsule] 25 mg PO QHS 08/13/20 Insulin Aspart [Novolog Flexpen] 0 unit SUBCUT .SLD SCALE 08/13/20 Sertraline HCl 200 mg PO DAILY 08/13/20 Clonidine HCl [Catapres 0.2 mg Tablet] 0.3 mg PO Q8 tablet 08/31/20 Hydrocodone/Acetaminophen [[place] 10-325 Tablet] 1 each PO Q6H #20 tablet 08/31/20 Metoprolol Succinate [Toprol Xl 50 mg Tab.sr] 100 mg PO DAILY tab.sr.24h 08/31/20 Nifedipine [Procardia XL 30 mg Tablet] 30 mg PO Q12 #60 tab.er.24 08/31/20 History of Present Illiness History of Present Illness: YULIANA ALVARADO is a 39 year old female who presented to the ED with worsening abdominal pain. Patient reported onset of abdominal pain over last 3 days but worsen overnight necessitating her coming to the ED. She has laparoscopic appendectomy about 12 days ago. She reported constipation since her discharged home. She denied any nausea or vomiting.She described pain as intermittent colic and severe in intensity upon development. She denied chest pain but reported coughing with difficulty with expectoration due to associated abdominal pain. She localized pain to right mid and lower abdominal region. She continue to smoke about 5 cigarette daily. She denied any flank pain, hematuria, or dysuria. Her initial evaluation in the ED was significant for leukocytosis with left shift, CT abdomen and pelvis suggestive of recto uterine fossa fluid collection with bilateral enlarge adnexa structures with inflammatory changes. Her chest X ray revealed bilateral lower lobe hazy airspace disease process. She was advised hospitalization for further evaluation and management. her morbidities are listed below. Hospital Course Hospital Course: Patient was admitted for management of abdominal pain, secondary to pelvic inflammatory disease, she was treated with IV antibiotic. Hospital course was complicated with acute kidney injury, she was seen by nephrology, she sustained acute tubular necrosis requiring temporary hemodialysis. She has underlining comorbidity including diabetes mellitus, type II, ischemic heart disease status post coronary artery stenting, neuropathy, poorly controlled blood pressure, sedentary lifestyle tobacco abuse.She was treated with IV antibiotic including vancomycin cefepime, the acute tubular necrosis is multifactorial in etiology. She also received blood transfusion due to acute blood loss from uterine bleed she has a large fibroid, she was seen by recreational therapy technician in consultation, ultimately hysterectomy recommended.She had episode of hypoglycemia partly due to poor intake Physical Exam Vital Signs: Temp Pulse Resp BP Pulse Ox 98.6 F 64 16 173/94 H 93 08/31/20 18:23 08/31/20 18:23 08/31/20 18:23 08/31/20 18:23 08/31/20 18:23 Intake & Output 08/31/20 09/01/20 09/02/20 06:59 06:59 06:59 Intake Total 1505 2071 Output Total 900 1700 Balance 605 371 Weight 126.7 kg General appearance: PRESENT: no acute distress Eye exam: PRESENT: PERRLA Respiratory exam: PRESENT: clear to auscultation herminia Cardiovascular exam: PRESENT: +S1, +S2 GI/Abdominal exam: PRESENT: soft Neurological exam: PRESENT: alert, CN II-XII grossly intact Results Laboratory Results: WBC 6.8 10^3/uL (4.0-10.5) 08/31/20 05:20 RBC 4.06 10^6/uL (3.72-5.28) 08/31/20 05:20 Hgb 8.7 g/dL (12.0-15.5) L 08/31/20 05:20 Hct 27.5 % (36.0-47.0) L 08/31/20 05:20 MCV 68 fl (80-97) L 08/31/20 05:20 MCH 21.5 pg (27.0-33.4) L 08/31/20 05:20 MCHC 31.8 g/dL (32.0-36.0) L 08/31/20 05:20 RDW 33.8 % (11.5-14.0) H 08/31/20 05:20 Plt Count 117 10^3/uL (150-450) L 08/31/20 05:20 Lymph % (Auto) 22.1 % (13-45) 08/31/20 05:20 [place] % (Auto) 8.6 % (3-13) 08/31/20 05:20 Eos % (Auto) 4.0 % (0-6) 08/31/20 05:20 Baso % (Auto) 0.6 % (0-2) 08/31/20 05:20 Reticulocyte # 0.063 10^6/uL (0.028-0.122) 08/22/20 04:40 Absolute Neuts (auto) 4.4 10^3/uL (1.7-8.2) 08/31/20 05:20 Absolute Lymphs (auto) 1.5 10^3/uL (0.5-4.7) 08/31/20 05:20 Absolute Monos (auto) 0.6 10^3/uL (0.1-1.4) 08/31/20 05:20 Absolute Eos (auto) 0.3 10^3/uL (0.0-0.6) 08/31/20 05:20 Absolute Basos (auto) 0.0 10^3/uL (0.0-0.2) 08/31/20 05:20 Total Counted 100 08/28/20 04:45 Seg Neutrophils % 64.7 % (42-78) 08/31/20 05:20 Seg Neuts % (Manual) 85 % (42-78) H 08/28/20 04:45 Lymphocytes % (Manual) 10 % (13-45) L 08/28/20 04:45 Atypical Lymphs % 1 % (0) 08/23/20 06:20 Monocytes % (Manual) 4 % (3-13) 08/28/20 04:45 Eosinophils % (Manual) 1 % (0-6) 08/28/20 04:45 Basophils % (Manual) 0 % (0-2) 08/28/20 04:45 Abs Neuts (Manual) 7.1 10^3/uL (1.7-8.2) 08/28/20 04:45 Abs Lymphs (Manual) 0.8 10^3/uL (0.5-4.7) 08/28/20 04:45 Abs Monocytes (Manual) 0.3 10^3/uL (0.1-1.4) 08/28/20 04:45 Absolute Eos (Manual) 0.1 10^3/uL (0.0-0.6) 08/28/20 04:45 Abs Basophils (Manual) 0.0 10^3/uL (0.0-0.2) 08/28/20 04:45 Nucleated RBCs 1 /100 WBC (0) 08/25/20 04:45 Toxic Granulation SLIGHT 08/28/20 04:45 Toxic Vacuolation PRESENT 08/14/20 22:40 Platelet Estimate Cancelled 08/12/20 06:40 Clumped Platelets PRESENT 08/23/20 06:20 Large Platelets PRESENT 08/16/20 05:20 Platelet Comment DECREASED 08/31/20 05:20 Polychromasia SLIGHT 08/31/20 05:20 Hypochromasia 1+ 08/30/20 05:50 Poikilocytosis SLIGHT 08/31/20 05:20 Anisocytosis 4+ 08/31/20 05:20 Microcytosis SLIGHT 08/31/20 05:20 Target Cells SLIGHT 08/31/20 05:20 Tear Drop Cells SLIGHT 08/28/20 04:45 Ovalocytes SLIGHT 08/30/20 05:50 Stomatocytes SLIGHT 08/30/20 05:50 Helmet Cells SLIGHT 08/25/20 04:45 [place] Cells SLIGHT 08/18/20 05:00 Schistocytes 1+ 08/28/20 04:45 Retic Count (auto) 1.74 % (0.66-2.85) 08/22/20 04:40 Sodium 138.6 mmol/L (137-145) 08/31/20 08:30 Potassium 3.4 mmol/L (3.6-5.0) L 08/31/20 08:30 Chloride 97 mmol/L (98-107) L 08/31/20 08:30 Carbon Dioxide 33 mmol/L (22-30) H 08/31/20 08:30 Anion Gap 9 (5-19) 08/31/20 08:30 BUN 28 mg/dL (7-20) H 08/31/20 08:30 Creatinine 1.76 mg/dL (0.52-1.25) H 08/31/20 08:30 Est GFR ( Amer) 39 (>60) L 08/31/20 08:30 Est GFR (Non-Af Amer) Cancelled 08/29/20 05:38 Est GFR (MDRD) Non-Af 32 (>60) L 08/31/20 08:30 Glucose 205 mg/dL (75-110) H 08/31/20 08:30 POC Glucose 137 mg/dL (70-110) H 08/31/20 11:18 Lactic Acid 1.0 mmol/L (0.7-2.1) 08/12/20 12:20 Calcium 8.6 mg/dL (8.4-10.2) 08/31/20 08:30 Phosphorus 4.4 mg/dL (2.5-4.5) 08/29/20 13:00 Magnesium 1.6 mg/dL (1.6-2.3) 08/20/20 05:25 Iron 12.1 ug/dL (37-170) L 08/22/20 04:40 TIBC 281 ug/dL (250-450) 08/22/20 04:40 % Saturation 4 % 08/22/20 04:40 Ferritin 20.80 ng/mL (6.2-137.0) 08/22/20 04:40 Total Bilirubin 0.4 mg/dL (0.2-1.3) 08/31/20 08:30 Direct Bilirubin 0.1 mg/dL (0.0-0.4) 08/31/20 08:30 Neonat Total Bilirubin Not Reportable 08/31/20 08:30 Neonat Direct Bilirubin Not Reportable 08/31/20 08:30 Neonat Indirect Bili Not Reportable 08/31/20 08:30 AST 24 U/L (14-36) 08/31/20 08:30 ALT 12 U/L (<35) 08/31/20 08:30 Alkaline Phosphatase 54 U/L (38-126) 08/31/20 08:30 Troponin I < 0.012 ng/mL 08/12/20 06:40 NT-Pro-B Natriuret Pep 4860 pg/mL (<125) H 08/12/20 06:40 Total Protein 6.4 g/dL (6.3-8.2) 08/31/20 08:30 Albumin 3.6 g/dL (3.5-5.0) 08/31/20 08:30 Globulin 3.2 g/dL (2.2-3.9) 08/22/20 04:40 Albumin/Globulin Ratio 0.8 (0.7-1.7) 08/22/20 04:40 Gwhin-8-Yvtbufezh 0.4 g/dL (0.0-0.4) 08/22/20 04:40 Beta Globulins 1.0 g/dL (0.7-1.3) 08/22/20 04:40 Gamma Globulins 1.0 g/dL (0.4-1.8) 08/22/20 04:40 M-Feng Not Observed g/dL (Not Observ) 08/22/20 04:40 PEP Note Comment (.) 08/22/20 04:40 PEP Interpretation Comment (.) 08/22/20 04:40 Lipase 109.3 U/L (23-300) 08/12/20 06:40 EGFR Cancelled 08/29/20 05:38 Vitamin B12 > 1000.0 pg/mL (239-931) H 08/22/20 04:40 Folate 5.10 ng/mL (>2.76) 08/22/20 04:40 Urine Color STRAW 08/24/20 12:00 Urine Appearance CLEAR 08/24/20 12:00 Urine pH 5.0 (5.0-9.0) 08/24/20 12:00 Ur Specific [place] 1.006 08/24/20 12:00 Urine Protein 30 mg/dL (NEGATIVE) H 08/24/20 12:00 Urine Glucose (UA) NEGATIVE mg/dL (NEGATIVE) 08/24/20 12:00 Urine Ketones NEGATIVE mg/dL (NEGATIVE) 08/24/20 12:00 Urine Blood NEGATIVE (NEGATIVE) 08/24/20 12:00 Urine Nitrite NEGATIVE (NEGATIVE) 08/24/20 12:00 Urine Nitrite (Reflex) NEGATIVE (NEGATIVE) 08/17/20 23:45 Urine Bilirubin NEGATIVE (NEGATIVE) 08/24/20 12:00 Urine Urobilinogen NEGATIVE mg/dL (<2.0) 08/24/20 12:00 Ur Leukocyte Esterase SMALL (NEGATIVE) H 08/24/20 12:00 Leukocyte Esterase Rfl SMALL (NEGATIVE) H 08/17/20 23:45 Urine WBC (Auto) 7 /HPF 08/24/20 12:00 Urine RBC (Auto) 7 /HPF 08/24/20 12:00 Urine Bacteria (Auto) TRACE /HPF 08/24/20 12:00 Urine WBC (Reflex) 13 /HPF 08/17/20 23:45 Squamous Epi Cells Auto <1 /HPF 08/24/20 12:00 Amorphous Sediment Auto 1+ /HPF 08/17/20 23:45 Urine Mucus (Auto) RARE /LPF 08/24/20 12:00 Urine Creatinine 204.2 mg/dL (Not Estab.) 08/16/20 17:50 Urine Creatinine 219.7 mg/dL (16-327) 08/16/20 17:50 Urine Microalbumin 341.6 ug/mL (Not Estab.) 08/16/20 17:50 Microalb/Creat Ratio 167 mg/g creat (0-29) H 08/16/20 17:50 Urine Sodium 17 mmol/L (30-90) L 08/16/20 17:50 Urine Ascorbic Acid NEGATIVE (NEGATIVE) 08/24/20 12:00 Urine HCG, Qual NEGATIVE (NEGATIVE) 08/12/20 05:23 Time Trough Drawn 0700 08/22/20 07:00 Vancomycin Trough 8.8 ug/mL (5.0-20.0) 08/22/20 07:00 Jvowp-5-Lbsfrcote MINDY 0.8 g/dL (0.4-1.0) 08/22/20 04:40 Chlamydia DNA (PCR) NOT DETECTED (NOT DETECT) 08/26/20 15:56 Hep Bs Antigen Negative (Negative) 08/17/20 06:11 Hep Bs Antibody, Quant <3.1 mIU/mL (Immunity>9) L 08/17/20 06:11 Hep B Core Total Ab Negative (Negative) 08/17/20 06:11 HCV Quantitation HCV Not Detected IU/mL (.) 08/17/20 06:11 HCV RNA PCR Test Info Comment (.) 08/17/20 06:11 N.gonorrhoeae DNA (PCR) NOT DETECTED (NOT DETECT) 08/26/20 15:56 Slides for Path Review Cancelled 08/12/20 06:40 Blood Type AB POSITIVE 08/26/20 09:45 Antibody Screen NEGATIVE 08/26/20 09:45 Crossmatch See Detail 08/26/20 09:45 08/12/20 08/12/20 06:40 06:40 Troponin I < 0.012 NT-Pro-B Natriuret Pep 4860 H Impressions: Abdomen X-Ray 08/12/20 00:00 IMPRESSION: 1. No acute findings. Chest X-Ray 08/12/20 11:47 IMPRESSION: NO PNEUMOTHORAX FOLLOWING CENTRAL LINE PLACEMENT. HAZY AIRSPACE DISEASE. Abdomen/Pelvis CT 08/12/20 14:30 IMPRESSION: There are some mildly dilated small bowel loops without appreciable wall thickening to suggest mechanical obstruction. The contrast in the small bowel does not reach the cecum on the 10 minutes delayed scan to further characterize the right lower quadrant. Free fluid noted in both upper quadrants. 5 x 3 x 3 cm rim enhancing fluid in the recto uterine fossa, likely small abscess. The adnexal structures are enlarged bilaterally with a heterogeneous enhancing appearance, this measures approximately 8 cm on the right and 6 cm on the left. There are inflammatory changes adjacent to both adnexa with free fluid noted in both lower quadrants. Pelvis Ultrasound 08/12/20 15:48 IMPRESSION: Free fluid present in both adnexae. Ovaries not visualized. Fibroid uterus. Chest CT 08/14/20 00:00 IMPRESSION: Cardiomegaly with bilateral perihilar atelectasis. No convincing focal areas of pneumonia. Renal Ultrasound 08/17/20 00:00 IMPRESSION: No gross hydronephrosis Chest X-Ray 08/22/20 00:00 IMPRESSION: Cannot exclude very limited pneumonia in the right lung. Transvaginal US 08/27/20 00:00 IMPRESSION: 1. Enlarged fibroid uterus. The normal uterine architecture is distorted limiting evaluation of the endometrium and cervix. 2. Free fluid in the adnexa. The ovaries were not visualized. Stroke Is this a Stroke Patient?: No Acute Heart Failure Is this a Heart Failure Patient?: No
== END 2020-08-31 19:50 | disposition home or self-care (01) | DRG 871 ==
LOC: ER 02:12 → EH 18:00 → 4N 18:53
PROVIDERS: ADMIT Internal Medicine; ATTEND Internal Medicine
PROC: 05HP33Z Insertion of Infusion Device into Right External Jugular Vein, Percutaneous Approach (ICD-10-PCS; 2020-08-12)
PROC: 30233N1 Transfusion of Nonautologous Red Blood Cells into Peripheral Vein, Percutaneous Approach (ICD-10-PCS; 2020-08-13)
PROC: 30233N1 Transfusion of Nonautologous Red Blood Cells into Peripheral Vein, Percutaneous Approach (ICD-10-PCS; 2020-08-14)
PROC: 06HM33Z Insertion of Infusion Device into Right Femoral Vein, Percutaneous Approach (ICD-10-PCS; principal; 2020-08-17)
PROC: 5A1D70Z Performance of Urinary Filtration, Intermittent, Less than 6 Hours Per Day (ICD-10-PCS; 2020-08-17)
PROC: 5A1D70Z Performance of Urinary Filtration, Intermittent, Less than 6 Hours Per Day (ICD-10-PCS; 2020-08-20)
PROC: 30233N1 Transfusion of Nonautologous Red Blood Cells into Peripheral Vein, Percutaneous Approach (ICD-10-PCS; 2020-08-26)
DX: A41.9 Sepsis, unspecified organism (principal); N17.0 Acute kidney failure with tubular necrosis; I50.33 Acute on chronic diastolic (congestive) heart failure; D62 Acute posthemorrhagic anemia; E87.2 Acidosis; I13.0 Hypertensive heart and chronic kidney disease with heart failure and stage 1 through stage 4 chronic kidney disease, or unspecified chronic kidney disease; Z68.42 Body mass index [BMI] 45.0-49.9, adult; N17.9 Acute kidney failure, unspecified; N73.9 Female pelvic inflammatory disease, unspecified; R65.20 Severe sepsis without septic shock; I25.10 Atherosclerotic heart disease of native coronary artery without angina pectoris; I25.2 Old myocardial infarction; F17.210 Nicotine dependence, cigarettes, uncomplicated; E78.00 Pure hypercholesterolemia, unspecified; J44.9 Chronic obstructive pulmonary disease, unspecified; F41.9 Anxiety disorder, unspecified; F31.9 Bipolar disorder, unspecified; K59.00 Constipation, unspecified; E11.42 Type 2 diabetes mellitus with diabetic polyneuropathy; R60.1 Generalized edema; D25.0 Submucous leiomyoma of uterus; D25.2 Subserosal leiomyoma of uterus; E83.42 Hypomagnesemia; I16.0 Hypertensive urgency; E11.649 Type 2 diabetes mellitus with hypoglycemia without coma; E66.01 Morbid (severe) obesity due to excess calories; N18.30 Chronic kidney disease, stage 3 unspecified; E11.22 Type 2 diabetes mellitus with diabetic chronic kidney disease; E83.39 Other disorders of phosphorus metabolism; Z98.890 Other specified postprocedural states; Z95.5 Presence of coronary angioplasty implant and graft; Z79.4 Long term (current) use of insulin; Z79.899 Other long term (current) drug therapy; Z79.891 Long term (current) use of opiate analgesic; Z87.442 Personal history of urinary calculi
CPT/HCPCS: 36415; 36430; 71045; 71250; 74019; 74177; 76770; 76830; 76857; 80048; 80053; 80202; 81001; 81025; 82043; 82565; 82570; 82607; 82728; 82746; 82962; 83540; 83550; 83605; 83690; 83735; 83880; 84100; 84165; 84300; 84484; 85025; 85045; 86317; 86704; 86850; 86900; 86901; 86920; 87040; 87070; 87086; 87340; 87491; 87522; 87591; 93005; 93010; 93976; 94667; 96365; 96368; 96372; 96375; 96376; 99285; J0456; J0692; J0696; J1170; J1439; J1644; J1650; J1815; J1940; J2405; J2543; J3370; J3475; J3490; J7030; J7050; J7060; P9016; Q5105

== ENCOUNTER 2020-10-04 14:16 | Emergency (ER) | payer MEDICARE, MEDICAID ==
[2020-10-04 14:40] VITALS: BP 163/108
--- NOTE | 2020-10-04 20:27 | ER Document Report ---
ED Medical Screen (RME) - General Chief Complaint: Skin Problem Stated Complaint: POSSIBLE ABSCESS Time Seen by Provider: 10/04/20 14:57 Primary Care Provider: DORIE LUGO MD [Primary Care Provider] - Follow up as needed Mode of Arrival: Ambulatory Information source: Patient Notes: 39-year-old female patient presented to the emergency department with concern for possible abscess to her right thigh. Patient reports she went and saw her primary care provider who started her on antibiotics. She states she has taken approximately 7 days worth of antibiotics without relief. She reports the area is growing larger. Large area of fluctuance without induration, erythema or swelling. Mildly tender with palpation. I have greeted and performed a rapid initial assessment of this patient. A comprehensive ED assessment and evaluation of the patient, analysis of test results and completion of the medical decision making process will be conducted by additional ED providers. I have specifically instructed the patient or family members with the patient to immediately return to any nursing staff should anything change in the patient's condition or with their chief complaint. TRAVEL OUTSIDE OF THE [place] IN LAST 30 DAYS: No - Related Data Allergies/Adverse Reactions: No Known Allergies Allergy (Verified 04/12/20 16:56) Past Medical History - Past Medical History Cardiac Medical History: Reports: Hx Congestive Heart Failure, Hx Coronary Artery Disease, Hx Heart Attack, Hx Hypercholesterolemia, Hx Hypertension Pulmonary Medical History: Reports: Hx COPD Denies: Hx Tuberculosis Neurological Medical History: Reports: Hx Migraine. Denies: Hx Seizures Endocrine Medical History: Reports: Hx Diabetes Mellitus Type 1, Hx Diabetes Mellitus Type 2 - IDDM Renal/ Medical History: Reports: Hx Kidney Stones. Denies: Hx Peritoneal Dialysis Musculoskeltal Medical History: Reports Hx Arthritis Psychiatric Medical History: Reports: Hx Anxiety, Hx Bipolar Disorder, Hx Depression Past Surgical History: Reports: Hx Appendectomy - 07/31/2020, Hx Cardiac Catheterization, Hx Cardiac Surgery - stent placement, Hx Section - x2, Hx Cholecystectomy, Hx Coronary Stent, Hx Oral Surgery. Denies: Hx Pacemaker - Immunizations Immunizations up to date: Yes Hx Diphtheria, Pertussis, Tetanus Vaccination: Yes Physical Exam - Vital signs Vitals: Temp Pulse Resp BP Pulse Ox 98.1 F 97 16 163/108 H 98 10/04/20 14:38 10/04/20 14:38 10/04/20 14:38 10/04/20 14:38 10/04/20 14:38 Course - Vital Signs Vital signs: Temp Pulse Resp BP Pulse Ox 98.1 F 97 16 163/108 H 98 10/04/20 14:38 10/04/20 14:38 10/04/20 14:38 10/04/20 14:38 10/04/20 14:38 Doctor's Discharge - Discharge Referrals: DORIE LUGO MD [Primary Care Provider] - Follow up as needed
== END 2020-10-04 18:52 | disposition left against medical advice (07) ==
LOC: ER 14:16
DX: Z04.89 Encounter for examination and observation for other specified reasons (principal); I25.10 Atherosclerotic heart disease of native coronary artery without angina pectoris; I10 Essential (primary) hypertension; I25.2 Old myocardial infarction; J44.9 Chronic obstructive pulmonary disease, unspecified; E11.9 Type 2 diabetes mellitus without complications; Z53.20 Procedure and treatment not carried out because of patient's decision for unspecified reasons
CPT/HCPCS: 99281

== ENCOUNTER 2020-10-11 19:40 | Emergency (ER) | payer MEDICARE, MEDICAID ==
--- NOTE | 2020-10-11 20:14 | ER Document Report ---
ED Medical Screen (RME) - General Chief Complaint: Leg Pain Stated Complaint: RIGHT LEG PAIN Primary Care Provider: DORIE LUGO MD [Primary Care Provider] - Follow up as needed TRAVEL OUTSIDE OF THE [place] IN LAST 30 DAYS: No - HPI Notes: 10/11/20 20:12 Rapid Medical Exam HPI: 9-year-old female presents to the ER complaining of chest pains as well as right lateral leg swelling. Leg began swelling 3 weeks ago to the lateral thigh. Patient says she was diagnosed with panniculitis. Placed on antibiotics for a week without relief. Says this leg continues to swell and cause severe pain. Of note patient arrived with blood pressures around 225/130. She has substernal chest pain. She was recently hospitalized for pneumonia and kidney failure and did temporary dialysis. She is now off the dialysis, she says she did have dialysis access to the right groin temporarily. No other complaints at this time Physical Exam: GENERAL: Well-appearing, well-nourished and in no acute distress. HEAD: Atraumatic, normocephalic. ENT: Moist mucous membranes. RESP: Respirations even and unlabored CV- Regular rate. NEURO: No focal neurological deficits. Moves all extremities spontaneously and on command. My involvement in this patients care was limited to a rapid initial assessment. A comprehensive ED assessment and evaluation of the patient, analysis of test results, treatment, and completion of the medical decision making process will be performed by other ER providers. - Related Data Allergies/Adverse Reactions: No Known Allergies Allergy (Verified 10/11/20 19:59) Home Medications: MULTIPLE HTN MEDS Past Medical History - Social History Frequency of alcohol use: None Drug Abuse: None - Past Medical History Cardiac Medical History: Reports: Hx Congestive Heart Failure, Hx Coronary Artery Disease, Hx Heart Attack, Hx Hypercholesterolemia, Hx Hypertension Pulmonary Medical History: Reports: Hx COPD Denies: Hx Tuberculosis Neurological Medical History: Reports: Hx Migraine. Denies: Hx Seizures Endocrine Medical History: Reports: Hx Diabetes Mellitus Type 1, Hx Diabetes Mellitus Type 2 - IDDM Renal/ Medical History: Reports: Hx Kidney Stones. Denies: Hx Peritoneal Dialysis Musculoskeltal Medical History: Reports Hx Arthritis Psychiatric Medical History: Reports: Hx Anxiety, Hx Bipolar Disorder, Hx Depression Past Surgical History: Reports: Hx Appendectomy - 07/31/2020, Hx Cardiac Catheterization, Hx Cardiac Surgery - stent placement, Hx Section - x2, Hx Cholecystectomy, Hx Coronary Stent, Hx Oral Surgery. Denies: Hx Pacemaker - Immunizations Immunizations up to date: Yes Hx Diphtheria, Pertussis, Tetanus Vaccination: Yes Physical Exam - Vital signs Vitals: Temp Pulse Resp BP Pulse Ox 99.1 F 89 20 250/158 H 98 10/11/20 19:47 10/11/20 19:47 10/11/20 19:47 10/11/20 19:47 10/11/20 19:47 Course - Vital Signs Vital signs: Temp Pulse Resp BP Pulse Ox 99.1 F 89 20 190/135 H 98 10/11/20 19:47 10/11/20 19:47 10/11/20 19:47 10/11/20 19:54 10/11/20 19:47 Doctor's Discharge - Discharge Referrals: DORIE LUGO MD [Primary Care Provider] - Follow up as needed
--- NOTE | 2020-10-11 21:07 | RADIOLOGY REPORT (SQ) ---
EXAM DESCRIPTION: XR CHEST 1 VIEW COMPLETED DATE/TME: 10/11/2020 20:29 CLINICAL HISTORY: 39 years, Female, chest pain COMPARISON: August 22, 2020 NUMBER OF VIEWS: 1 TECHNIQUE: Single frontal view of the chest was obtained at 8:37 PM LIMITATIONS: None. FINDINGS: Right central line has been removed. Heart size is normal. Lungs appear clear. There is no evidence of pleural effusion or pneumothorax. No definite acute bony abnormality is seen. IMPRESSION: Interval central line removal. No acute abnormality is seen. copyright 2010 [employer]- All Rights Reserved
--- NOTE | 2020-10-11 21:09 | RADIOLOGY REPORT (SQ) ---
EXAM DESCRIPTION: US EXTREMITY MUSCULOSKELETAL LIMITED COMPLETED DATE/TME: 10/11/2020 20:52 CLINICAL HISTORY: 39 years, Female, right lateral thigh swelling/pain COMPARISON: None. TECHNIQUE: Sonographic evaluation of the area pain, lateral right thigh was performed. LIMITATIONS: None. FINDINGS: No solid or cystic in abnormality is seen. IMPRESSION: No sonographic abnormality. copyright 2010 [employer]- All Rights Reserved
--- NOTE | 2020-10-11 22:18 | ER Document Report ---
ED Extremity Problem, Lower - General Chief Complaint: Leg Pain Stated Complaint: RIGHT LEG PAIN Time Seen by Provider: 10/11/20 21:10 Primary Care Provider: DORIE LUGO MD [Primary Care Provider] - Follow up tomorrow Mode of Arrival: Medic Information source: Patient Notes: 39-year-old female presented to ED for complaint of chest pain as well as right lateral leg pain. She states the pains in her leg is been for about 3 weeks mainly to the thigh. She was diagnosed withPanniculitis and placed on antibiotics with no relief. She states leg continues to swell and cause severe pain. Patient does have a history of elevated blood pressure. Patient is also very morbidly obese. Patient states she was recently hospitalized for pneumonia renal failure and did have temporary dialysis. She states she is no longer needs dialysis and her dialysis access to the right groin was temporary. Constitutional: Negative for fever. HENT: Negative for sore throat. Eyes: Negative for visual changes. Cardiovascular: Patient denies any chest pain when I examined her. Respiratory: Negative for shortness of breath. Gastrointestinal: Negative for abdominal pain, vomiting or diarrhea. Genitourinary: Negative for dysuria. Musculoskeletal: Pain to the lateral rear of the right thigh radiating down the leg Skin: Negative for rash. Neurological: Negative for headaches, weakness or numbness. 10 point ROS negative except as marked above and in HPI. VITAL SIGNS: Within normal limits. GENERAL: No acute distress, non-toxic appearance. HEAD: Normal with no signs of head trauma. EYES: PERRLA, EOMI, conjunctiva normal, no discharge. EARS: Hearing grossly intact. NOSE: Normal. THROAT: Oropharynx is normal. NECK: Normal range of motion, no tenderness, supple, no lymphadenopathy, No adenopathy, no JVD. CHEST: Clear breath sounds bilaterally. No wheezes, rales, or rhonchi. CARDIAC: Regular rate and rhythm. S1 and S2, without murmurs, gallops, or rubs. VASCULAR: No Edema. Peripheral pulses normal and equal in all extremities. ABDOMEN: Normal and soft with no tenderness, no masses or pulsatile masses. GASTROINTESTINAL: Bowel sounds normal GENITOURINARY: Normal, No tenderness LYMPATHTIC: No lymphadenopathy noted. MUSCULOSKELETAL: Good range of motion of all major joints. Extremities without clubbing, cyanosis or edema. NEUROLOGICAL: Alert and oriented x 3. No focal sensory or strength deficits. Speech normal. Follows commands appropriately. PSYCHIATRIC: Normal Affect, judgement and mood. SKIN: Normal appearance with no rashes or lesions. TRAVEL OUTSIDE OF THE [place] IN LAST 30 DAYS: No - HPI Patient complains to provider of: Pain, Swelling Location: Thigh - Right Occurred: Other - 3 weeks Quality of pain: Burning Severity: Severe Pain Level: 5 Recent injury: No Associated symptoms: Painful ambulation Exacerbated by: Hanging down, Movement, Walking Relieved by: Nothing - Related Data Allergies/Adverse Reactions: No Known Allergies Allergy (Verified 10/11/20 19:59) Home Medications: MULTIPLE HTN MEDS Past Medical History - General Information source: Patient - Social History Smoking Status: Current Every Day Smoker Cigarette use (# per day): Yes Frequency of alcohol use: None Drug Abuse: None Family History: Reviewed & Not Pertinent Patient has suicidal ideation: No Patient has homicidal ideation: No - Past Medical History Cardiac Medical History: Reports: Hx Congestive Heart Failure, Hx Coronary Artery Disease, Hx Heart Attack, Hx Hypercholesterolemia, Hx Hypertension Pulmonary Medical History: Reports: Hx COPD Neurological Medical History: Reports: Hx Migraine Endocrine Medical History: Reports: Hx Diabetes Mellitus Type 2 - IDDM Renal/ Medical History: Reports: Hx Kidney Stones, Other - Patient had acute kidney failure during her last hospitalization GI Medical History: Reports: None Musculoskeletal Medical History: Reports Hx Arthritis Skin Medical History: Reports None Psychiatric Medical History: Reports: Hx Anxiety, Hx Bipolar Disorder, Hx Depression Traumatic Medical History: Reports: None Past Surgical History: Reports: Hx Appendectomy - 07/31/2020, Hx Cardiac Catheterization, Hx Cardiac Surgery - stent placement, Hx Section - x2, Hx Cholecystectomy, Hx Coronary Stent, Hx Oral Surgery - Immunizations Immunizations up to date: Yes Hx Diphtheria, Pertussis, Tetanus Vaccination: Yes Hx Pneumococcal Vaccination: 09/21/10 Physical Exam - Vital signs Vitals: Temp Pulse Resp BP Pulse Ox 99.1 F 89 20 250/158 H 98 10/11/20 19:47 10/11/20 19:47 10/11/20 19:47 10/11/20 19:47 10/11/20 19:47 Course - Re-evaluation Re-evalutation: 10/12/20 06:08 Discussed ultrasounds, x-rays, and labs with patient will be reported ultra sounds labs given to patient. Also did a CT of the thigh and no cause for the pain was found. Patient was discharged home to follow-up with primary care with a written report of all test. - Vital Signs Vital signs: Temp Pulse Resp BP Pulse Ox 98.0 F 89 19 188/127 H 97 10/12/20 00:24 10/11/20 19:47 10/11/20 23:02 10/12/20 00:24 10/12/20 00:24 - Laboratory Results Result Diagrams: 10/11/20 22:25 10/11/20 22:25 Laboratory Results Interpreted: 10/11/20 10/11/20 22:25 22:25 RBC 5.59 H MCV 73 L MCH 25.4 L RDW 23.3 H Sodium 135.8 L Est GFR (MDRD) Non-Af 58 L Glucose 112 H Critical Laboratory Results Reviewed: No Critical Results - Radiology Results Critical Radiology Results Reviewed: No Critical Results Discharge - Discharge Clinical Impression: Right thigh pain Condition: Stable Disposition: HOME, SELF-CARE Additional Instructions: You were seen today for right thigh pain. We have done a venous Doppler which was negative a ultrasound of the area which was negative and a CT scan of the area which was negative for any acute changes. You do have several nonspecific enlarged lymph nodes in the groin area. Lymphadenopathy You have enlargement of lymph glands, called lymphadenopathy. Lymph glands filter tissue fluids. They help to fight infection. Most of the time, enlarged lymph glands are not serious. Lymph glands may react to a viral or bacterial infection by becoming swollen and painful. When the infection goes away, the glands shrink. Sometimes a lymph gland will remain enlarged for a long time after an infection. Occasionally, a lymph gland may be overwhelmed by infection and form an abscess. If an enlarged lymph gland has signs that are suspicious for tumor, the doctor will recommend a biopsy. A suspicious gland usually is NOT painful, grows very slowly, and is rock-hard to touch. See the doctor or return if there is increasing swelling and redness, high fever, difficulty breathing, or any other change for the worse. Acetaminophen Acetaminophen may be taken for pain relief or fever control. It's much safer than aspirin, offering a wider range of "safe" dosages. It is safe during . Some brand names are Tylenol, Panadol, Datril, Anacin 3, Tempra, and Liquiprin. Acetaminophen can be repeated every four hours. The following are maximum recommended dosages: WEIGHT Dose Drops Elixir Chewable(80mg) (LBS.) drprs=droppers tsp=teaspoon 6 40 mg .4 ml (1/2) 6-11 80 mg .8 ml (full) 1/2 tsp 1 tab 12-16 120 mg 1 1/2 drprs 3/4 tsp 1 1/2 tabs 17-23 160 mg 2 drprs 1 tsp 2 tabs 24-30 240 mg 3 drprs 1 1/2 tsp 3 tabs 30-35 320 mg 2 tsp 4 tabs 36-41 360 mg 2 1/4 tsp 4 1/2 tabs 42-47 400 mg 2 1/2 tsp 5 tabs 48-53 480 mg 3 tsp 6 tabs 54-59 520 mg 3 1/4 tsp 6 1/2 tabs 60-64 560 mg 3 1/2 tsp 7 tabs 65-70 600 mg 3 3/4 tsp 7 1/2 tabs 71-76 640 mg 4 tsp 8 tabs 77-82 720 mg 4 1/2 tsp 9 tabs 83-88 800 mg 5 tsp 10 tabs >89 pounds or adults 650 mg to 900 mg Acetaminophen can be repeated every four hours. Maximum daily dose not to exceed 4000 mg. These maximum recommended dosages are slightly higher than the dosages written on the product container, but these dosages are very safe and well below the toxic dosage for acetaminophen. Oral Narcotic Medication You have been given [place] dispense pack for pain control. This medication is a narcotic. It's best taken with food, as nausea can result if taken on an empty stomach. Don't operate machinery or drive within six hours of taking this medication. Do not combine this medicine with alcohol, or with any medication which can cause sedation (such as cold tablets or sleeping pills) unless you get permission from the physician. Narcotics tend to cause constipation. If possible, drink plenty of fluids and eat a diet high in fiber and fruits. Warm Packs After approximately two days, apply gentle heat (such as a heating pad or hot water bottle) for about 20 to 30 minutes about every two hours -- at least four times daily. Warmth and elevation will help you make a more rapid recovery, and will ease the pain considerably. Do not use HOT heat, and never apply heat for longer than 30 minutes. The continuous heat can invisibly damage skin and muscles -- even when no burn is seen on the surface. Damaged muscles can make you MORE sore. FOLLOW-UP CARE: If you have been referred to a physician for follow-up care, call the physicians office for an appointment as you were instructed or within the next two days. If you experience worsening or a significant change in your symptoms, notify the physician immediately or return to the Emergency Department at any time for re-evaluation. Forms: Elevated Blood Pressure Referrals: DORIE LUGO MD [Primary Care Provider] - Follow up tomorrow
--- NOTE | 2020-10-11 22:30 | RADIOLOGY REPORT (SQ) ---
Procedure: Right Lower Extremity Venous Duplex Doppler Examination History: right leg pain and swelling. Evaluate for DVT. Disabled Technique: Real-time pinto scale, Doppler spectral analysis and Doppler color flow evaluation was performed using a dedicated transducer. Graded compression with augmentation were performed. Findings: The right lower extremity veins were sampled including the common femoral, femoral, proximal deep femoral, greater saphenous and popliteal veins. No echogenic filling defects are seen to suggest deep venous thrombosis. There is normal response to compression and augmentation. There are normal venous waveforms. Impression: No sonographic evidence of DVT in the imaged vessels. copyright 2010 [facility]- All Rights Reserved
[2020-10-11 23:00] LABS: ABSOLUTE BASOPHILS # (AUTO) 0.1 10^3/uL (0.0-0.2); ABSOLUTE EOSINOPHILS # (AUTO) 0.1 10^3/uL (0.0-0.6); ABSOLUTE LYMPHOCYTES (AUTO) 2.3 10^3/uL (0.5-4.7); ABSOLUTE MONOCYTES (AUTO) 0.4 10^3/uL (0.1-1.4); ABSOLUTE NEUT (AUTO) 3.9 10^3/uL (1.7-8.2); BASOPHILS % (AUTO) 1.4 % (0-2); HEMATOCRIT 40.8 % (36.0-47.0); HEMOGLOBIN 14.2 g/dL (12.0-15.5); LYMPHOCYTES % (AUTO) 33.7 % (13-45); MEAN CORPUSCULAR HEMOGLOBIN 25.4 pg (27.0-33.4); MEAN CORPUSCULAR HGB CONC 34.9 g/dL (32.0-36.0); MEAN CORPUSCULAR VOLUME 73 fl (80-97); MONOCYTES % (AUTO) 6.2 % (3-13); PLATELET COUNT 171 10^3/uL (150-450); RED BLOOD COUNT 5.59 10^6/uL (3.72-5.28); RED CELL DISTRIBUTION WIDTH 23.3 % (11.5-14.0); SEGMENTED NEUTROPHILS % (AUTO) 56.7 % (42-78); TOTAL CELLS COUNTED % (AUTO) 100 %; WHITE BLOOD COUNT 6.9 10^3/uL (4.0-10.5)
[2020-10-11 23:07] LABS: ALBUMIN 3.9 g/dL (3.5-5.0); ALKALINE PHOSPHATASE 59 U/L (38-126); ANION GAP 5 (5-19); ASPARTATE AMINO TRANSFERASE 24 U/L (14-36); BILIRUBIN,DIRECT 0.3 mg/dL (0.0-0.4); BILIRUBIN,TOTAL 0.5 mg/dL (0.2-1.3); BLOOD UREA NITROGEN 20 mg/dL (7-20); CALCIUM 9.6 mg/dL (8.4-10.2); CARBON DIOXIDE 29 mmol/L (22-30); CHLORIDE 102 mmol/L (98-107); GLUCOSE 112 mg/dL (75-110); POTASSIUM 4.1 mmol/L (3.6-5.0); TOTAL PROTEIN 7.2 g/dL (6.3-8.2)
[2020-10-11 23:17] LABS: ANISOCYTOSIS 3+; PLATELET COMMENT ADEQUATE; POIKILOCYTOSIS SLIGHT; TARGET CELLS SLIGHT
--- NOTE | 2020-10-12 00:10 | RADIOLOGY REPORT (SQ) ---
EXAM DESCRIPTION: CT LOWER EXTREMITY WITH IV CONTRAST COMPLETED DATE/TME: 10/11/2020 23:44 CLINICAL HISTORY: 39 years, Female, right thigh pain. CREAT 1.05 COMPARISON: None. TECHNIQUE: 1180 Images stored on PACS. All CT scanners at this facility use dose modulation, iterative reconstruction, and/or weight based dosing when appropriate to reduce radiation dose to as low as reasonably achievable (ALARA). [facility]: Dose Right [facility]: CareDose [facility]: Dose Right [facility]: Teradose 4D [facility]: [employer] LIMITATIONS: None. FINDINGS: Negative for fracture or dislocation. The myofascial planes of the right thigh are preserved. No abnormal gas/fluid collections. Joint spaces are grossly preserved. There are several nonspecific nonenlarged right inguinal chain lymph nodes. Limited evaluation of intrapelvic structures is unremarkable. No discrete enhancing abnormality. IMPRESSION: A few nonspecific nonenlarged right inguinal chain lymph nodes. Remainder is unremarkable TECHNICAL DOCUMENTATION: Quality ID # [id number]: Final reports with documentation of one or more dose reduction techniques (e.g., Automated exposure control, adjustment of the mA and/or kV according to patient size, use of iterative reconstruction technique) copyright 2010 [employer]- All Rights Reserved
[2020-10-12] MEDS ORDERED: HYDROCODONE/ACETAMINOPHEN 5-325 MG (6 TAB/ER DISP) PO PRN (00:13)
[2020-10-12] MEDS ORDERED: ACETAMINOPHEN 325 MG TABLET PO ONE (00:22)
[2020-10-12 00:42] VITALS: BP 188/127
--- NOTE | 2020-10-12 07:23 | EKG REPORT ---
SEVERITY:- ABNORMAL ECG - SINUS RHYTHM LEFT AXIS DEVIATION = LEFT ANT. FASCICULAR BLOCK LEFT VENTRICULAR HYPERTROPHY BORDERLINE PROLONGED QT INTERVAL : Confirmed by: Min Michel MD 12-Oct-2020 07:22:36
== END 2020-10-12 00:42 | disposition home or self-care (01) ==
LOC: ER 19:40
DX: M79.604 Pain in right leg (principal); R07.9 Chest pain, unspecified; F17.210 Nicotine dependence, cigarettes, uncomplicated; I50.9 Heart failure, unspecified; I25.10 Atherosclerotic heart disease of native coronary artery without angina pectoris; I25.2 Old myocardial infarction; E78.00 Pure hypercholesterolemia, unspecified; I11.0 Hypertensive heart disease with heart failure; E11.9 Type 2 diabetes mellitus without complications; Z79.4 Long term (current) use of insulin; Z87.442 Personal history of urinary calculi
CPT/HCPCS: 93005; 99285; 36415; 85025; 80053; 84484; 93971; 71045; 76882; 73701; 93010; A9270 ×2